=== PATIENT | female | born 1950 | race Caucasian/White ===

== ENCOUNTER → 2017-03-31 | Outpatient (CLI) | payer MEDICARE ==
[~2017-03-31] MED LIST: CALC1TAB97 PO; CARB1TAB19 PO; DXCC100CRX; FNST5T; GABA-486 PO; HCT25T; HYDR-3729 PO; IBUP-1773 PO; MIRAPEX; MU-V1TAB28 PO; NF-ROP5T PO; OSTEO BIFLEX; PRAM1.5T3 PO; REQUIP; VLS80C
--- NOTE | 2017-03-31 12:08 | Diagnostic Imaging Report ---
INDICATION: Leg swelling. EXAMINATION: Venous Doppler of the lower extremities. TECHNIQUE: Duplex ultrasound of the venous systems of the lower extremities was done with grayscale, spectral waveform, and color Doppler flow analysis. FINDINGS: The veins are compressible and have normal spontaneous and augmented flow. IMPRESSION: Negative venous Doppler of the lower extremities. Dictated by: Dictated on workstation # [id number]
== END ==
LOC: RAD 10:52
PROVIDERS: ATTEND Family Medicine
DX: M79.89 Other specified soft tissue disorders (principal)
CPT/HCPCS: 93970

== ENCOUNTER → 2017-04-13 | Outpatient (CLI) | payer MEDICARE | LOC: CARD 12:25 | PROVIDERS: ATTEND Family Medicine | DX: R06.02 Shortness of breath (principal) | CPT/HCPCS: 93306 ==

== ENCOUNTER 2017-04-22 15:12 | Emergency (ER) | payer MEDICARE ==
[~2017-04-22] VITALS: Ht 167.6 cm; Wt 110.7 kg
--- OUTSIDE RECORDS SUMMARY | 2017-04-22 15:17 | XMS REPORT | Clinical Summary ---
Author Author [facility] Organization [facility] Address Unknown Phone Unavailable Care Team Providers Care Service Assistant Name Role Phone Latosha Arroyo MD Unavailable Driss Dominguez MD Unavailable Source Comments Some departments are not documenting in the electronic medical record. If you do not see the information that you expected, contact Release of Information in the Health Information Management department at [phone] for further assistance in locating additional records.[facility] Allergies Active Allergy Reactions Severity Noted Date Comments Sulfa (Sulfonamide RASH 12/01/2011 Antibiotics) Current Medications Prescription Sig. Disp. Refills Start End Date Status Date rOPINIRole (REQUIP) 5 mg Take 5 mg by mouth at Active tablet bedtime daily. CARBIDOPA/LEVODOPA Take 100 mg by mouth. Active (SINEMET PO) pramipexole (MIRAPEX) 1.5 Take by mouth at bedtime Active mg tablet daily. CALCIUM CARBONATE/VITAMIN Take by mouth. Active D3 (CALTRATE 600 + D PO) MV,CA,MIN/FA/HERBAL Take by mouth. Active NO.157 (ESTROVEN MAXIMUM STRENGTH PO) Active Problems Problem Noted Date Renal cyst 01/08/2012 Overview: 0.9x1.4cm low density left renal cyst on CT from 05/07/11. MRI with more suggestive of fat-containing lesion. Lower back pain 01/08/2012 Overview: Low back pain x10 months (L>R) Hematuria 01/08/2012 Overview: Intermittent gross hematuria x10 months. Underwent cystoscopy with bilateral retrograde pyelograms on 06/10/[address] Abdullahi without evidence of abnormalities per report. CT with left renal cyst (non-enhancing) and internal calcification on follow-up ultrasound. Social History Tobacco Use Types Packs/Day Years Used Date Current Every Day Smoker Cigarettes 0.5 30 Smokeless Tobacco: Never Used Alcohol Use Drinks/Week oz/Week Comments No Sex Assigned at Date Recorded Not on file Last Filed Vital Signs Vital Sign Reading Time Taken Blood Pressure 166/87 01/08/2012 1:01 PM CDT Pulse 87 01/08/2012 1:01 PM CDT Temperature - - Respiratory Rate 20 01/08/2012 1:01 PM CDT Oxygen Saturation - - Inhaled Oxygen - - Concentration Weight 91.4 kg (201 lb 9.6 oz) 01/08/2012 1:01 PM CDT Height 167.6 cm (5' 6") 01/08/2012 1:01 PM CDT Body Mass Index 32.54 01/08/2012 1:01 PM CDT Plan of Treatment Health Maintenance Due Date Last Done Comments HEPATITIS C SCREENING 1950 PHYSICAL (COMPREHENSIVE) 1957 EXAM PERTUSSIS VACCINE 1961 TETANUS VACCINE 06/11/1967 BREAST CANCER SCREENING 1990 COLORECTAL CANCER 2000 SCREENING SHINGLES VACCINE 2010 OSTEOPOROSIS SCREENING 06/11/2015 PREVNAR/PNEUMOVAX (#1) 06/11/2015 INFLUENZA VACCINE 10/21/2016 Results Not on filefrom Last 3 Months
--- OUTSIDE RECORDS SUMMARY | 2017-04-22 15:17 | XMS REPORT | Continuity of Care Document ---
Author Author [facility] Organization [facility] Address Unknown Phone Unavailable Allergies Active Description Code Type Severity Reaction Onset Reported/Identified Relationship to Patient Clinical Status Yes Sulfa (Sulfonamide Antibiotics) [id number] Drug Allergy Unknown N/A 2007 Medications There is no data. Problems Date Dx Coded Attending Type Code Diagnosis Diagnosed By 08/01/2015 Ot 592.0 CALCULUS OF KIDNEY 08/01/2015 Ot 599.0 URIN TRACT INFECTION NOS 08/01/2015 Ot 599.0 URIN TRACT INFECTION NOS 08/01/2015 Ot 599.70 HEMATURIA, UNSPECIFIED 08/01/2015 Ot 599.70 HEMATURIA, UNSPECIFIED 08/01/2015 Ot 592.0 CALCULUS OF KIDNEY 08/01/2015 Ot 574.20 CHOLELITHIASIS NOS 08/01/2015 Ot 593.9 RENAL URETERAL DIS NOS 08/01/2015 Ot 599.70 HEMATURIA, UNSPECIFIED 08/01/2015 KENNEDI GORDON DO Ot N39.3 STRESS INCONTINENCE (FEMALE) (MALE) 08/01/2015 HEIDI LOVE KENNEDI C Ot N81.6 RECTOCELE 08/01/2015 GABRIEL GORDON DOA Joelle Ot Z01.812 ENCOUNTER FOR PREPROCEDURAL LABORATORY E 08/01/2015 KENNEDI GORDON DO Ot Z11.2 ENCOUNTER FOR SCREENING FOR OTHER BACTER 08/08/2015 GABRIEL GORDON DOA C Ot L81.4 OTHER MELANIN HYPERPIGMENTATION 08/08/2015 GORDON DO KENNEDI C Ot 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 Results There is no data. Encounters ACCT No. Visit Date/Time Discharge Status Pt. Type Provider Facility Loc./Unit Complaint [id number] 04/13/2017 12:25:00 04/13/2017 23:59:59 CLS Outpatient DOMINIC OCAMPO MD [facility] CARD R06.02 SHORTNESS OF BREATH [id number] 03/31/2017 10:52:00 03/31/2017 23:59:59 CLS Outpatient DOMINIC OCAMPO MD [facility] RAD M79.89 SWELLING OF LOWER EXTREMITY [id number] 12/15/2016 15:23:00 12/15/2016 23:59:59 CLS Preadmit DOMINIC RONDON MD [facility] RAD SCREENING [id number] 08/07/2015 09:45:00 08/08/2015 12:25:00 DIS Outpatient KENNEDI GORDON DO [facility] SDC RECTOCELE [id number] 08/01/2015 11:44:00 08/01/2015 12:28:00 DIS Outpatient KENNEDI GORDON DO [facility] PREOP RECTOCELE [id number] 05/20/2011 10:42:00 Document Registration [id number] 05/07/2011 13:02:00 Document Registration [id number] 05/05/2011 13:50:00 Document Registration [id number] 04/07/2011 06:40:00 Document Registration [id number] 04/03/2011 09:02:00 Document Registration
[2017-04-22] MEDS ORDERED: NITROGLYCERIN 2% OINT 1 GM UNIT DOSE PACKET TOP STA (16:39)
[2017-04-22] MEDS ORDERED: FURO20TA4 (16:50)
[2017-04-22 16:51] VITALS: BP 189/83
[2017-04-22 17:02] LABS: BASOPHILS # (AUTO) 0.1 10^3/uL (0.0-0.1); BASOPHILS % (AUTO) 1 % (0-10); EOSINOPHILS # (AUTO) 0.1 10^3/uL (0.0-0.3); EOSINOPHILS % (AUTO) 1 % (0-10); HEMATOCRIT 42 % (35-52); HEMOGLOBIN 13.8 G/DL (11.5-16.0); LYMPHOCYTES # (AUTO) 2.6 X 10^3 (1.0-4.0); LYMPHOCYTES % (AUTO) 25 % (12-44); MEAN CORPUSCULAR HEMOGLOBIN 30 PG (25-34); MEAN CORPUSCULAR HGB CONC 33 G/DL (32-36); MEAN CORPUSCULAR VOLUME 92 FL (80-99); MEAN PLATELET VOLUME 9.7 FL (7.4-10.4); MONOCYTES # (AUTO) 0.8 X 10^3 (0.0-1.0); MONOCYTES % (AUTO) 8 % (0-12); NEUTROPHILS # (AUTO) 6.8 X 10^3 (1.8-7.8); NEUTROPHILS % (AUTO) 66 % (42-75); PLATELET COUNT 227 10^3/uL (130-400); RED BLOOD COUNT 4.55 10^6/uL (4.35-5.85); RED CELL DISTRIBUTION WIDTH 13.8 % (10.0-14.5); WHITE BLOOD COUNT 10.3 10^3/uL (4.3-11.0)
--- NOTE | 2017-04-22 17:03 | ED Cardiac General ---
History of Present Illness General Chief Complaint: Cardiac/General Problems Stated Complaint: ELEVATED BP Nursing Triage Note: Pt here from [facility] for BP 196/96 at clinic. Pt was seen at clinic today for bilat extremity swelling that continues to get worse. Pt reports she has been having worsening SOA w/ activity over last couple months and increased swelling in legs. Pt had echo approx 1 week ago and reports results from echo were "normal". Source: patient Exam Limitations: no limitations History of Present Illness Date Seen by Provider: Apr 22, 2017 Time Seen by Provider: 16:31 Initial Comments Here with report of increasing shortness of air over the last week but over the last month has been noted. Had an echocardiogram last week that was reportedly normal. Does have dependent edema and states that is worse. Seen by her primary care doctor for this but has worsened since. Denies chest pain but does have dyspnea on exertion. Denies breathing problems at rest. Quit smoking 4 weeks ago. Timing/Duration: 1 week, getting worse, intermittent Severity: moderate Location: central Activities at Onset: none Prior CP/Workup: echocardiography NTG SL DASHBOARD DEVELOPER: No ASA po DASHBOARD DEVELOPER: No Associated Systoms: No Chest Pain, No Diaphoresis, No Fever/Chills, No Nausea/ Vomiting, Shortness of Air, No Weakness Allergies and Home Medications Allergies Coded Allergies: Sulfa (Sulfonamides) (Verified Allergy, Unknown, 04/19/07) Home Medications Calcium Citrate/Vitamin D3 1 Each Tablet, 1 EACH PO DAILY PRN, (Reported) Carbidopa/Levodopa 1 Each Tablet, 1 EACH PO BID, (Reported) Furosemide 20 Mg Tablet, (Reported) Gabapentin 100 Mg Capsule, 200 MG PO TID, (Reported) TAKE 2 (100MG) TABS Hydrocodone/Acetaminophen 1 Each Tablet, 1 EACH PO Q6H, #10 Prescribed by: KENNEDI GORDON on 08/07/151745 Ibuprofen 600 Mg Tablet, 600 MG PO Q6H, #60 Prescribed by: KENNEDI GORDON on 08/07/151745 Multivit-Min/FA/Lycopene/Lut 1 Each Tablet, 1 EACH PO DAILY, (Reported) Pramipexole Di-HCl 1.5 Mg Tablet, 1.5 MG PO HS, (Reported) Ropinirole HCl 5 Mg Tab, 5 MG PO HS, (Reported) Review of Systems Constitutional: see HPI, No chills, No fever EENTM: No Symptoms Reported Respiratory: See HPI, Denies Cough, SOA With Exertion Cardiovascular: Denies Chest Pain, Edema, Irregular Heart Rate, Denies Lightheadedness Gastrointestinal: Denies Abdominal Pain, Denies Diarrhea, Denies Nausea, Denies Vomiting Genitourinary: No Symptoms Reported Musculoskeletal: no symptoms reported All Other Systems Reviewed Negative Unless Noted: Yes Past [id number]-Azxckb-Ipttvw Hx Patient Social History Alcohol Use: Denies Use Recreational Drug Use: No Smoking Status: Former Smoker Recent Foreign Travel: No Contact w/Someone Who Travel: No Recent Infectious Disease Expo: No Recent Hopitalizations: Yes Surgeries History of Surgeries: Yes (cysto, bladder sling) Respiratory History of Respiratory Disorde: No Cardiovascular History of Cardiac Disorders: No Neurological History of Neurological Disord: No Reproductive System Hx Reproductive Disorders: No Genitourinary Genitourinary Disorders: Kidney Stones Gastrointestinal History of Gastrointestinal Di: No Musculoskeletal History of Musculoskeletal Dis: Yes (RESTLESS LEG SYNDROME) Endocrine History of Endocrine Disorders: No Cancer History of Cancer: No Psychosocial History of Psychiatric Problem: No Integumentary History of Skin or Integumenta: No Skin/Integumentary Disorders: Eczema Blood Transfusions History of Blood Disorders: No Reviewed Nursing Assessment Reviewed/Agree w Nursing PMH: Yes Family Medical History Family Medial History: AIDS G8 BROTHER Arthritis G8 BROTHER Cardiovascular disease G8 BROTHER Diabetes mellitus 19 MOTHER FH: non-Hodgkin's lymphoma G8 BROTHER Prostate cancer 19 FATHER Respiratory disorder G8 BROTHER Physical Exam Vital Signs Vital Sign - Last 12Hours 04/22/17 16:24 Temp 97.8 Pulse 77 Resp 18 B/P (MAP) 221/116 (151) Pulse Ox 94 O2 Delivery Room Air Capillary Refill : Less Than 3 Seconds General Appearance: No Apparent Distress, WD/WN HEENT: PERRL/EOMI, Pharynx Normal Neck: Non Tender, Supple Respiratory: Lungs Clear, Normal Breath Sounds Cardiovascular: Regular Rate, Rhythm, No Murmur Gastrointestinal: Non Tender, Soft Extremity: Normal Range of Motion, Non Tender, Pedal Edema (2+ edema to the level of the knees bilaterally) Neurologic/Psychiatric: Alert, Oriented x3 Skin: Normal Color, Warm/Dry Progress/Results/Core Measures Results/Orders Lab Results Laboratory Tests Test 04/22/17 16:47 Range/Units White Blood Count 10.3 4.3-11.0 10^3/uL Red Blood Count 4.55 4.35-5.85 10^6/uL Hemoglobin 13.8 11.5-16.0 G/DL Hematocrit 42 35-52 % Mean Corpuscular Volume 92 80-99 FL Mean Corpuscular Hemoglobin 30 25-34 PG Mean Corpuscular Hemoglobin Concent 33 32-36 G/DL Red Cell Distribution Width 13.8 10.0-14.5 % Platelet Count 227 130-400 10^3/uL Mean Platelet Volume 9.7 7.4-10.4 FL Neutrophils (%) (Auto) 66 42-75 % Lymphocytes (%) (Auto) 25 12-44 % Monocytes (%) (Auto) 8 0-12 % Eosinophils (%) (Auto) 1 0-10 % Basophils (%) (Auto) 1 0-10 % Neutrophils # (Auto) 6.8 1.8-7.8 X 10^3 Lymphocytes # (Auto) 2.6 1.0-4.0 X 10^3 Monocytes # (Auto) 0.8 0.0-1.0 X 10^3 Eosinophils # (Auto) 0.1 0.0-0.3 10^3/uL Basophils # (Auto) 0.1 0.0-0.1 10^3/uL Prothrombin Time 12.5 12.2-14.7 SEC INR Comment 0.9 0.8-1.4 Activated Partial Thromboplast Time 26 24-35 SEC D-Dimer 0.31 0.00-0.49 UG/ML Sodium Level 141 135-145 MMOL/L Potassium Level 3.9 3.6-5.0 MMOL/L Chloride Level 103 98-107 MMOL/L Carbon Dioxide Level 27 21-32 MMOL/L Anion Gap 11 5-14 MMOL/L Blood Urea Nitrogen 20 H 7-18 MG/DL Creatinine 0.87 0.60-1.30 MG/DL Estimat Glomerular Filtration Rate > 60 BUN/Creatinine Ratio 23 Glucose Level 105 70-105 MG/DL Calcium Level 8.9 8.5-10.1 MG/DL Magnesium Level 2.2 1.8-2.4 MG/DL Total Bilirubin 0.3 0.1-1.0 MG/DL Aspartate Amino Transf (AST/SGOT) 17 5-34 U/L Alanine Aminotransferase (ALT/SGPT) 22 0-55 U/L Alkaline Phosphatase 87 40-136 U/L Myoglobin 34.7 10.0-92.0 NG/ML Troponin I < 0.30 <0.30 NG/ML B-Type Natriuretic Peptide 48.4 <100.0 PG/ML Total Protein 7.7 6.4-8.2 GM/DL Albumin 3.9 3.2-4.5 GM/DL My Orders Orders - YOLI PETERSEN MD Cbc With Automated Diff (04/22/17 16:39) Magnesium (04/22/17 16:39) Chest 1 View, Ap/Pa Only (04/22/17 16:39) Ekg Tracing (04/22/17 16:39) Cardiac Profile 1 (04/22/17 16:39) Comprehensive Metabolic Panel (04/22/17 16:39) Myoglobin Serum (04/22/17 16:39) Protime With Inr (04/22/17 16:39) Partial Thromboplastin Time (04/22/17 16:39) O2 (04/22/17 16:39) Monitor-Rhythm Ecg Trace Only (04/22/17 16:39) Lipid Panel (04/23/17 06:00) Saline Lock/Iv-Start (04/22/17 16:39) BNP (04/22/17 16:39) Nitroglycerin Ointment (Nitrobid Ointme (04/22/17 16:39) Albuterol/Ipra Inhalation Soln (Duoneb I (04/22/17 17:30) Svn Sm Volume Nebulizer Rt-Rfs (04/22/17 17:28) Prednisone Tablet (Deltasone Tablet) (04/22/17 17:30) Metoprolol Succinate (Xl) Tab (Toprol Xl (04/22/17 17:45) Fibrin Degradation Products (04/22/17 17:37) Rx-Albuterol Inhaler (Rx-Proair) (04/22/17 19:00) Medications Given in ED Current Medications Medications Dose Ordered Sig/Clifton Route Start Time Stop Time Status Last Admin Dose Admin Albuterol/ Ipratropium 3 ml ONCE ONCE INH 04/22/17 17:30 04/22/17 17:31 DC 04/22/17 17:54 3 ML Prednisone 40 mg ONCE ONCE PO 04/22/17 17:30 04/22/17 17:31 DC 04/22/17 17:43 40 MG Vital Signs/I&O Vital Sign - Last 12Hours 04/22/17 04/22/17 04/22/17 16:24 16:51 17:54 Temp 97.8 Pulse 77 80 Resp 18 18 B/P (MAP) 221/116 (151) 189/83 (118) Pulse Ox 94 98 O2 Delivery Room Air Room Air Room Air Blood Pressure Mean: 118 Progress Note : Progress Note Seen and evaluated. IV, labs, EKG and chest x-ray ordered. Nitroglycerin 1 inch paste to the anterior chest wall ordered. Monitor patient. 1734: Labs, chest x-ray and EKG are all actually and good normal range. I did note the patient had an episode of paroxysmal atrial fibrillation and the rate of 130s to 150s that return to sinus on the monitor. This happened a few times but we are unable to get this on EKG. I did discuss the case with Dr. Woods. We will initiate Toprol-XL 50 mg by mouth now for the blood pressure and for the paroxysmal heart rhythm and tachycardia and we will check d-dimer to evaluate for blood clots. Monitor patient. 1900: Heart rate in the 70s and sustained with blood pressure 166/89. D-dimer is negative. Dr Woods will see the patient in follow-up as outpatient and is requesting patient call the morning for appointment within the next 3 days and the patient is very happy with that. Overall no indications for admission and stable for discharge. Discharged home with return precautions. Patient verbalize understanding instructions and agreement with plan. ECG Initial ECG Impression Date: Apr 22, 2017 Initial ECG Impression Time: 16:58 Initial ECG Rate: 84 Initial ECG Rhythm: Normal Sinus Initial ECG Comparisson: No Previous ECG Available Comment Sinus rhythm with PVC noted. Normal axis. No evidence of ST elevation NE. No previous available for comparison. Interpreted by me. Diagnostic Imaging Diagonstic Imaging: Xray Plain Films/CT/US/NM/MRI: chest Comments NAME: [facility] REC#: [id number] PT STATUS: REG ER : 1950 PHYSICIAN: YOLI PETERSEN MD ADMIT DATE: 04/22/17/ER Signed Date of Exam: 04/22/17 CHEST 1 VIEW, AP/PA ONLY INDICATION: Chest pain. EXAMINATION: Portable chest at 4:54 p.m. FINDINGS: Heart size and pulmonary vascularity are normal. Lungs are clear. There are no effusions or pneumothoraces. IMPRESSION: Negative chest. Dictated by: Dictated on workstation # [id number] Dict: 04/22/17 1700 Trans: 04/22/171710 Interpreted by: YOLI DURHAM MD Electronically signed by: YOLI DURHAM MD 04/22/171710 Reviewed: Reviewed by Me Departure Impression Impression: Primary Impression: Supraventricular tachycardia, paroxysmal Additional Impressions: Pedal edema Dyspnea Qualified Codes: R06.09 - Other forms of dyspnea Disposition: HOME, SELF-CARE Condition: Improved Departure-Patient Inst. Decision time for Depature: 19:09 Referrals: DOMINIC OCAMPO MD (PCP/Family) Primary Care Physician Galdino WOODS MD Patient Instructions: Acute Bronchitis, Adult (DC), Dependent Edema (DC), Paroxysmal Supraventricular Tachycardia (DC) Add. Discharge Instructions: All discharge instructions reviewed with patient and/or family. Voiced understanding. Take medications as directed. Follow-up with your DrAmauri in a few days for recheck. Call Dr. Woods's office in the morning for appointment. Let them know that he is requesting that you're seen in the next 3 days so that they will itching an appointment in that timeframe. Use inhaler 2 puffs every 4 hours as needed for shortness of breath. Return for worse pain, fever, vomiting , weakness, breathing problems or other concerns as needed. Copy Copies To 1: DOMINIC OCAMPO MD Copies To 2: Galdino WOODS MD, TIMOTHY D MD Apr 22, 2017 17:03
[2017-04-22 17:11] LABS: INR 0.9 (0.8-1.4); PROTHROMBIN TIME PATIENT 12.5 SEC (12.2-14.7)
[2017-04-22 17:15] LABS: ALANINE AMINOTRANSFERASE 22 U/L (0-55); ALBUMIN 3.9 GM/DL (3.2-4.5); ALKALINE PHOSPHATASE 87 U/L (40-136); BILIRUBIN,TOTAL 0.3 MG/DL (0.1-1.0); BUN/CREATININE RATIO 23; CALCIUM 8.9 MG/DL (8.5-10.1); CARBON DIOXIDE 27 MMOL/L (21-32); CHLORIDE 103 MMOL/L (98-107); CREATININE SERUM 0.87 MG/DL (0.60-1.30); GFR ESTIMATED > 60; GLUCOSE 105 MG/DL (70-105); MAGNESIUM 2.2 MG/DL (1.8-2.4); POTASSIUM 3.9 MMOL/L (3.6-5.0); SODIUM 141 MMOL/L (135-145); TOTAL PROTEIN 7.7 GM/DL (6.4-8.2)
[2017-04-22 17:21] LABS: MYOGLOBIN SERUM 34.7 NG/ML (10.0-92.0)
[2017-04-22] MEDS ORDERED: predniSONE 20 MG TAB PO ONE (17:30)
[2017-04-22] MEDS ORDERED: RT-ALBUTEROL/IPRATROPIUM 3 ML (DUONEB) VIAL INH ONE (17:30)
[2017-04-22] MEDS: meTOproloL SUCCINATE 50 MG (TOPROL XL) TAB PO SCH ×2 (17:43→19:20)
[2017-04-22] MEDS ORDERED: RX-ALBUTEROL INHALER (PROAIR) 8 GM IH PRN (19:00)
[2017-04-22] MEDS ORDERED: PRD20T PO (19:17)
[2017-04-22] MEDS ORDERED: METO50TA15 PO (19:17)
[2017-04-22 19:26] VITALS: BP 166/89
== END 2017-04-22 19:24 | disposition home or self-care (01) ==
LOC: EDUNIT# 15:12 → ER 15:13
DX: I47.1 Supraventricular tachycardia (principal); R60.0 Localized edema; G25.81 Restless legs syndrome; Z87.442 Personal history of urinary calculi; Z87.891 Personal history of nicotine dependence; Z88.2 Allergy status to sulfonamides
CPT/HCPCS: 36415; 71045; 80053; 83735; 83874; 83880; 84484; 85025; 85379; 85610; 85730; 93005; 93041; 94640

== ENCOUNTER → 2017-05-08 | Outpatient (CLI) | payer MEDICARE ==
[~2017-05-08] MED LIST changes: +FURO20TA4; +METO50TA15 PO; +PRD20T PO; +RT-ALBUTEROL SULF 2.5 MG/3 ML PRE-MIX VIAL INH ONE
== END ==
LOC: RT 09:28
PROVIDERS: ATTEND Internal Medicine Interventional Cardiology
DX: I10 Essential (primary) hypertension (principal); E66.9 Obesity, unspecified; R06.02 Shortness of breath; I51.9 Heart disease, unspecified; Z72.0 Tobacco use
CPT/HCPCS: 94060; 94726; 94729

== ENCOUNTER → 2017-06-25 | Outpatient (CLI) | payer MEDICARE ==
[~2017-06-25] VITALS: Ht 167.6 cm; Wt 110.2 kg
[~2017-06-25] MED LIST changes: +CATHETER FLUSH 10 ML SYR IV PRN; +REGADENOSON 0.4 MG/5 ML SYR (LEXISCAN) IV ONE; -RT-ALBUTEROL SULF 2.5 MG/3 ML PRE-MIX VIAL INH ONE
[2017-06-25 08:59] VITALS: BP 165/73
[2017-06-25 09:21] VITALS: BP 195/102
[2017-06-25 11:22] VITALS: BP 165/73
--- NOTE | 2017-06-25 11:22 | Cardiology Stress Test Report ---
Stress Test Report Type of NM Stress Test: Test Type: LEXISCAN 0.4MG/5ML Date of Procedure/Referring: Date of Procedure: Jun 25, 2017 PCP Galdino Woods MD Admitting Physician Susan Moscoso MD Indications: Shortness of breath Baseline Heart Rate: 67 Baseline Blood Pressure: Blood Pressure Systolic: 165 Blood Pressure Diastolic: 73 Baseline EKG: Baseline EKG: sinus rhythm Summary: The patient was brought to the stress lab of informed consent was taken. Lexiscan stress test was performed according to the protocol. 0.4 mg of IV Lexiscan was given. Low-grade exercise was performed. Baseline EKG showed sinus rhythm at 67 bpm and blood pressure 165/73 mmHg. Maximum heart rate 90 bpm and blood pressure 195/102 mmHg. Patient did not complain of any chest pain , EKG changes or arrhythmias during the stress test. 10.94 mCi of Myoview was given for rest imaging and 30.8 mCi of Myoview were given for stress imaging. Transient ischemic dilatation score 1.1. Ejection fraction 70 percent with no wall motion abnormalities. Normal perfusion during stress and rest. Conclusion: Nuclear stress test was negative for ischemia. Normal LV function with no wall motion abnormalities. Uncontrolled blood pressure. Normal myocardial perfusion imaging during stress and rest. Galdino WOODS MD Jun 25, 2017 11:22 am
== END ==
LOC: CARD 07:52
PROVIDERS: ATTEND Internal Medicine Interventional Cardiology
DX: I11.0 Hypertensive heart disease with heart failure (principal); R06.02 Shortness of breath; E66.9 Obesity, unspecified; I51.9 Heart disease, unspecified; Z72.0 Tobacco use
CPT/HCPCS: 78452; 93017

== ENCOUNTER → 2018-11-09 | Outpatient (CLI) | payer MEDICARE ==
[~2018-11-09] MED LIST changes: -CATHETER FLUSH 10 ML SYR IV PRN; -REGADENOSON 0.4 MG/5 ML SYR (LEXISCAN) IV ONE
--- NOTE | 2018-11-09 19:03 | Diagnostic Imaging Report ---
INDICATION: 53 pack year smoker. Cessation 1-1/2 years ago. This is a low-dose baseline CT screening. TECHNIQUE: Protocol low dose CT screening chest performed noncontrasted with multiplanar reconstructions. FINDINGS: No dominant or suspicious lung mass. No chest effusion or pneumothorax. No acute infiltrate. Some benign calcified jesusita granulomatous residua with no suspicious lymph nodes. The aorta is nonaneurysmal. The upper abdomen, where visualized, is nonacute. IMPRESSION: Lung Rads category 1. No suspicious finding. There is some heterogeneous air trapping most pronounced in the apices, likely mild or subtle CT changes of COPD. Low dose CT screening followup in one years time recommended Dictated by: Dictated on workstation # [id number]
== END ==
LOC: RAD 11:32
PROVIDERS: ATTEND Internal Medicine Critical Care Medicine
DX: J44.9 Chronic obstructive pulmonary disease, unspecified (principal); Z87.891 Personal history of nicotine dependence

== ENCOUNTER 2018-11-24 12:38 | Outpatient (RCR) | payer MEDICARE ==
[2018-12-20] MEDS ORDERED: IPRA3AMP31 NEB (07:36)
[2018-12-20] MEDS ORDERED: ASPI-983 PO (07:36)
[2018-12-20] MEDS ORDERED: IBUP-2055 PO (07:44)
[2018-12-20] MEDS ORDERED: DIPH25CA79 PO (07:44)
[2018-12-20] MEDS ORDERED: BISA-65 PO (07:45)
[2018-12-20] MEDS ORDERED: LOPE-145 PO (07:45)
[2018-12-20] MEDS ORDERED: NYST15PO4 TD (08:22)
[2018-12-20] MEDS ORDERED: FLUC100T6 PO (08:22)
[2018-12-29] MEDS ORDERED: LORA2ORA PO (10:25)
[2018-12-29] MEDS ORDERED: MORP20SO PO (10:25)
== END 2018-12-30 | disposition home or self-care (01) ==
LOC: PULM 12:38
PROVIDERS: ATTEND Internal Medicine Critical Care Medicine
DX: J44.9 Chronic obstructive pulmonary disease, unspecified (principal)
CPT/HCPCS: 99211

== ENCOUNTER 2018-12-17 16:30 | Inpatient (IN) | payer MEDICARE ==
[~2018-12-17] VITALS: Ht 163 cm; Wt 129.0 kg
[2018-12-17] VITALS (8 sets, daily range): BP systolic 82–121; BP diastolic 43–77
[2018-12-17] MEDS ORDERED: DILTIAZEM 25 MG/5 ML INJ (CARDIZEM) VIAL ONE (16:41)
[2018-12-17] MEDS ORDERED: DILTIAZEM 25 MG/5 ML INJ (CARDIZEM) VIAL IVP ONE ×2 (16:45→17:45)
[2018-12-17] MEDS: NS IV 1000 ML 1,000 ML IV SCH ×2 (16:47→22:43)
--- NOTE | 2018-12-17 16:48 | ED Cardiac General ---
History of Present Illness General Stated Complaint: PASSING OUT, TROUBLE WALKING Source: patient, family Exam Limitations: no limitations (MAGAN QUIROZ MD) History of Present Illness Date Seen by Provider: Dec 17, 2018 Time Seen by Provider: 16:44 Initial Comments This 68-year-old white female presents with a history of recurrent falls due to generalized weakness. Patient has a history of COPD and peripheral edema. Patient has been poorly compliant on her medications and medical modalities including CPAP. Patient's family deny a previous myocardial infarction. There is been no associated productive cough or chest pain. Today the patient slid to the floor and was unable to get off the floor for the next 4 hours. There was no significant injury and the patient's event. (MAGAN QUIROZ MD) Allergies and Home Medications Allergies Coded Allergies: Sulfa (Sulfonamide Antibiotics) (Verified Allergy, Unknown, 04/19/07) Home Medications Calcium Citrate/Vitamin D3 1 Each Tablet, 1 EACH PO DAILY PRN, (Reported) Carbidopa/Levodopa 1 Each Tablet, 1 EACH PO BID, (Reported) Gabapentin 100 Mg Capsule, 200 MG PO TID, (Reported) TAKE 2 (100MG) TABS Hydrocodone/Acetaminophen 1 Each Tablet, 1 EACH PO Q6H Prescribed by: KENNEDI GORDON on 08/07/151745 Ibuprofen 600 Mg Tablet, 600 MG PO Q6H Prescribed by: KENNEDI GORDON on 08/07/151745 Metoprolol Tartrate 50 Mg Tablet, 50 MG PO BID Prescribed by: YOLI PETERSEN on 04/22/171916 Multivit-Min/FA/Lycopene/Lut 1 Each Tablet, 1 EACH PO DAILY, (Reported) Pramipexole Di-HCl 1.5 Mg Tablet, 1.5 MG PO HS, (Reported) Prednisone 20 Mg Tab, 40 MG PO DAILY Prescribed by: YOLI PETERSEN on 04/22/171916 Ropinirole HCl 5 Mg Tab, 5 MG PO HS, (Reported) Patient Home Medication List Home Medication List Reviewed: Yes (MAGAN QUIROZ MD) Review of Systems Review of Systems Constitutional: No chills, No fever; weakness EENTM: No Blurred Vision Respiratory: Denies Cough; Shortness of Air Cardiovascular: Denies Chest Pain, Denies Syncope Gastrointestinal: Denies Abdominal Pain, Denies Diarrhea, Denies Nausea, Denies Vomiting Genitourinary: Denies Burning, Denies Frequency Musculoskeletal: No back pain Skin: No rash Psychiatric/Neurological: No Symptoms Reported Endocrine: No Symptoms Reported Hematologic/Lymphatic: No Symptoms Reported (MAGAN QUIROZ MD) Past Andnkzw-Dfuwbt-Iilxrq Hx Past Med/Social Hx: Reviewed Nursing Past Med/Soc Hx (MAGAN QUIROZ MD) Patient Social History Recent Foreign Travel: No Contact w/Someone Who Travel: No Recent Hopitalizations: Yes (MAGAN QUIROZ MD) Past Medical History Surgeries: Yes (cysto, bladder sling) Respiratory: No Cardiac: No Neurological: No Reproductive Disorders: No Kidney Stones Gastrointestinal: No Musculoskeletal: Yes (RESTLESS LEG SYNDROME) Endocrine: No Cancer: No Psychosocial: No Integumentary: No Eczema Blood Disorders: No (MAGAN QUIROZ MD) Family Medical History AIDS G8 BROTHER Arthritis G8 BROTHER Cardiovascular disease G8 BROTHER Diabetes mellitus 19 MOTHER FH: non-Hodgkin's lymphoma G8 BROTHER Prostate cancer 19 FATHER Respiratory disorder G8 BROTHER Physical Exam Vital Signs Vital Signs - First Documented 12/17/18 16:30 Temp 37.8 Pulse 175 Resp 18 B/P (MAP) 101/78 (86) Pulse Ox 88 O2 Delivery Nasal Cannula O2 Flow Rate 2.00 (HUSSEIN CORTEZ APRN) Vital Signs Capillary Refill : (MAGAN QUIROZ MD) Height, Weight, BMI Height: 5'6.00" Weight: 243lbs. 0.0oz. 110.020837nw; 39.2 BMI Method:Stated General Appearance: No Apparent Distress, Obese HEENT: Normal ENT Inspection Neck: Normal Inspection Respiratory: Decreased Breath Sounds Cardiovascular: Tachycardia Gastrointestinal: Normal Bowel Sounds, Non Tender, Soft Extremity: Normal Capillary Refill, Normal Inspection, Normal Range of Motion Neurologic/Psychiatric: Alert, Oriented x3, No Motor/Sensory Deficits Skin: Normal Color, Warm/Dry (MAGAN QUIROZ MD) Focused Exam Lactate Level 12/17/18 16:55: Lactic Acid Level 2.77*H 12/17/18 18:45: Lactic Acid Level 1.75 (HUSSEIN CORTEZ APRN) Lactic Acid Level Laboratory Tests Test 12/17/18 16:55 12/17/18 18:45 Lactic Acid Level 2.77 MMOL/L (0.50-2.00) *H 1.75 MMOL/L (0.50-2.00) (HUSSENI CORTEZ APRN) Procedures/Interventions Lumen: triple Position: internal jugular (R) Anesthesia: Lidocaine Volume Anesthetic (ccs): 5 Complications: none Post Position: sutured, good blood return, position confirmed w/ CXR (HUSSEIN CORTEZ APRN) Progress/Results/Core Measures Results/Orders Lab Results Laboratory Tests Test 12/17/18 16:40 12/17/18 16:55 12/17/18 18:00 12/17/18 18:45 Range/Units White Blood Count 14.1 H 4.3-11.0 10^3/uL Red Blood Count 5.00 4.35-5.85 10^6/uL Hemoglobin 15.0 11.5-16.0 G/DL Hematocrit 47 35-52 % Mean Corpuscular Volume 93 80-99 FL Mean Corpuscular Hemoglobin 30 25-34 PG Mean Corpuscular Hemoglobin Concent 32 32-36 G/DL Red Cell Distribution Width 17.0 H 10.0-14.5 % Platelet Count 335 130-400 10^3/uL Mean Platelet Volume 9.4 7.4-10.4 FL Neutrophils (%) (Auto) 77 H 42-75 % Lymphocytes (%) (Auto) 13 12-44 % Monocytes (%) (Auto) 10 0-12 % Eosinophils (%) (Auto) 0 0-10 % Basophils (%) (Auto) 0 0-10 % Neutrophils # (Auto) 10.8 H 1.8-7.8 X 10^3 Lymphocytes # (Auto) 1.8 1.0-4.0 X 10^3 Monocytes # (Auto) 1.4 H 0.0-1.0 X 10^3 Eosinophils # (Auto) 0.0 0.0-0.3 10^3/uL Basophils # (Auto) 0.0 0.0-0.1 10^3/uL Neutrophils % (Manual) 76 % Lymphocytes % (Manual) 14 % Monocytes % (Manual) 8 % Eosinophils % (Manual) 1 % Band Neutrophils 1 % Clumped Platelets OCCASIONAL Polychromasia SLIGHT Anisocytosis SLIGHT Sodium Level 143 135-145 MMOL/L Potassium Level 3.3 L 3.6-5.0 MMOL/L Chloride Level 103 98-107 MMOL/L Carbon Dioxide Level 26 21-32 MMOL/L Anion Gap 14 5-14 MMOL/L Blood Urea Nitrogen 18 7-18 MG/DL Creatinine 1.03 0.60-1.30 MG/DL Estimat Glomerular Filtration Rate 53 BUN/Creatinine Ratio 17 Glucose Level 192 H 70-105 MG/DL Calcium Level 8.6 8.5-10.1 MG/DL Corrected Calcium 8.9 8.5-10.1 MG/DL Magnesium Level 2.0 1.6-2.4 MG/DL Total Bilirubin 1.2 H 0.1-1.0 MG/DL Aspartate Amino Transf (AST/SGOT) 40 H 5-34 U/L Alanine Aminotransferase (ALT/SGPT) 72 H 0-55 U/L Alkaline Phosphatase 89 40-136 U/L Total Creatine Kinase 220 H 29-168 U/L Myoglobin 295.8 H 10.0-92.0 NG/ML Troponin I < 0.028 <0.028 NG/ML B-Type Natriuretic Peptide 529.3 H <100.0 PG/ML Total Protein 6.4 6.4-8.2 GM/DL Albumin 3.6 3.2-4.5 GM/DL Prothrombin Time 15.0 H 12.2-14.7 SEC INR Comment 1.1 0.8-1.4 Activated Partial Thromboplast Time 26 24-35 SEC D-Dimer 1.52 H 0.00-0.49 UG/ML Lactic Acid Level 2.77 *H 1.75 0.50-2.00 MMOL/L Urine Color YELLOW Urine Clarity CLEAR Urine pH 7 5-9 Urine Specific [place] 1.005 L 1.016-1.022 Urine Protein 1+ H NEGATIVE Urine Glucose (UA) NEGATIVE NEGATIVE Urine Ketones NEGATIVE NEGATIVE Urine Nitrite NEGATIVE NEGATIVE Urine Bilirubin NEGATIVE NEGATIVE Urine Urobilinogen NORMAL NORMAL MG/DL Urine Leukocyte Esterase 3+ H NEGATIVE Urine RBC (Auto) 5+ H NEGATIVE Urine RBC 2-5 H /HPF Urine WBC 25-50 H /HPF Urine Squamous Epithelial Cells 5-10 /HPF Urine Crystals NONE /LPF Urine Bacteria FEW H /HPF Urine Casts NONE /LPF Urine Mucus NEGATIVE /LPF Urine Culture Indicated YES (HUSSEIN CORTEZ APRN) My Orders Orders - HUSSEIN CORTEZ APRN Creatine Kinase (12/17/18 18:49) Chest 1 View, Ap/Pa Only (12/17/18 19:41) (HUSSEIN CORTEZ APRN) Medications Given in ED Current Medications Medications Dose Ordered Sig/[place] Route Start Time Stop Time Status Last Admin Dose Admin Atropine Sulfate 0.4 mg STK-MED ONCE .ROUTE 12/17/18 19:21 12/17/18 19:22 DC 12/17/18 19:23 0.4 MG Ceftriaxone Sodium 2000 mg/ Sterile Water 20 ml @ 240 mls/hr ONCE ONCE IV 12/17/18 17:00 12/17/18 17:04 DC 12/17/18 18:05 240 MLS/HR Diltiazem HCl 10 mg ONCE ONCE IVP 12/17/18 16:45 12/17/18 16:46 DC 12/17/18 16:45 10 MG Diltiazem HCl 10 mg ONCE ONCE IVP 12/17/18 17:45 12/17/18 17:46 DC 12/17/18 17:44 10 MG Metoprolol Tartrate 5 mg ONCE ONCE IV 12/17/18 18:45 12/17/18 18:46 DC 12/17/18 18:43 5 MG (HUSSEIN CORTEZ APRN) Vital Signs/I&O 12/17/18 12/17/18 12/17/18 16:30 16:30 17:00 Temp 37.8 Pulse 175 152 Resp 18 18 B/P (MAP) 101/78 (86) 125/104 Pulse Ox 88 88 O2 Delivery Nasal Cannula Room Air O2 Flow Rate 2.00 2.00 (HUSSEIN CORTEZ APRN) Progress Progress Note : Time: 17:29 Progress Note Patient's initial evaluation demonstrated a leukocytosis but no evidence of a cute infiltrate on chest x-ray. Patient received 2 g Rocephin IV. Patient's d-dimer was elevated. A CT PE study was ordered. Patient's A. fib with RVR was treated with Cardizem bolus and drip. Patient was given a 10 mg bolus and a 10 mg per hour drip. The patient's rate began to moderate while in the emergency department but the patient required an additional 10 mg bolus to significantly improve her rate. Because of the unknown length time patient had A. fib he was given 100 mg of Lovenox subcutaneous. (MAGAN QUIROZ MD) Initial ECG Impression Date: Dec 17, 2018 Initial ECG Impression Time: 16:39 Initial ECG Rate: 162 Initial ECG Rhythm: A Fib/Flutter Initial ECG Intervals: QT (434) Initial ECG Impression: Atrial Fibrillation w/RVR Initial ECG Comparisson: Changed Comment Atrial fibrillation with rapid ventricular response. Apparently normal A. fib. No ST elevation or depression. EKG : EKG Time: 20:42 Rate: 64 Rhythm: Normal Sinus Intervals: QT (446) ECG Comparisson: Changed ECG Impression: Normal, Nonspecific Changes Comment Normal sinus rhythm without ST elevation or depression. (GATO VILLAGOMEZ) Diagnostic Imaging Diagonstic Imaging: CT Plain Films/CT/US/NM/MRI: chest Comments NAME: [facility] REC#: [id number] PT STATUS: REG ER : 1950 PHYSICIAN: MAGAN QUIROZ MD ADMIT DATE: 12/17/18/ER Signed Date of Exam:12/17/18 CT CHEST W PROCEDURE: CT chest w. TECHNIQUE: Multiple contiguous axial images were obtained through the chest with the use of intravenous contrast. All CT scans use one or more of the following dose optimizing techniques: automated exposure control, MA and/or KvP adjustment based on a patient size and exam type, or iterative reconstruction. INDICATION: Atrial fibrillation, altered mental status. COMPARISON: CT chest of 11/09/2018. FINDINGS: Lungs and airway: No endoluminal nodule within the trachea. Severe centrilobular emphysema is unchanged. A small amount of dependent atelectasis is present. No pulmonary fibrosis or features of interstitial pulmonary edema. Stable calcified left upper lobe pulmonary granuloma. Pleura: Trace right pleural effusion. No left pleural effusion. No pneumothorax. Heart and mediastinum: Thyroid is normal. No supravesicular or axillary lymphadenopathy. Unchanged enlarged lower right paratracheal lymph node measuring 1.8 cm. No new or enlarging mediastinal lymph nodes. No hilar lymphadenopathy. Heart is enlarged without pericardial effusion. Normal caliber thoracic aorta without dissection. Upper abdomen: No acute abnormality in the upper abdomen. Musculoskeletal: No concerning focal osseous lesions. IMPRESSION: 1. Trace right pleural effusion. No imaging features of pulmonary edema. 2. Cardiomegaly. 3. Minimal dependent atelectasis. Dictated by: Dictated on workstation # [id number] Dict: 12/17/182026 Trans: 12/17/182051 [facility] [id number] Interpreted by: BILLY PERRY MD Electronically signed by: BILLY PERRY MD 12/17/182051 Reviewed: Reviewed by Me [facility] Imaging: Xray Comments NAME: [facility] REC#: [id number] PT STATUS: REG ER : 1950 PHYSICIAN: MAGAN QUIROZ MD ADMIT DATE: 12/17/18/ER Signed Date of Exam:12/17/18 CT CHEST W PROCEDURE: CT chest w. TECHNIQUE: Multiple contiguous axial images were obtained through the chest with the use of intravenous contrast. All CT scans use one or more of the following dose optimizing techniques: automated exposure control, MA and/or KvP adjustment based on a patient size and exam type, or iterative reconstruction. INDICATION: Atrial fibrillation, altered mental status. COMPARISON: CT chest of 11/09/2018. FINDINGS: Lungs and airway: No endoluminal nodule within the trachea. Severe centrilobular emphysema is unchanged. A small amount of dependent atelectasis is present. No pulmonary fibrosis or features of interstitial pulmonary edema. Stable calcified left upper lobe pulmonary granuloma. Pleura: Trace right pleural effusion. No left pleural effusion. No pneumothorax. Heart and mediastinum: Thyroid is normal. No supravesicular or axillary lymphadenopathy. Unchanged enlarged lower right paratracheal lymph node measuring 1.8 cm. No new or enlarging mediastinal lymph nodes. No hilar lymphadenopathy. Heart is enlarged without pericardial effusion. Normal caliber thoracic aorta without dissection. Upper abdomen: No acute abnormality in the upper abdomen. Musculoskeletal: No concerning focal osseous lesions. IMPRESSION: 1. Trace right pleural effusion. No imaging features of pulmonary edema. 2. Cardiomegaly. 3. Minimal dependent atelectasis. Dictated by: Dictated on workstation # [id number] Dict: 12/17/182026 Trans: 12/17/182051 [facility] [id number] Interpreted by: BILLY PERRY MD Electronically signed by: BILLY PERRY MD 12/17/182051 Reviewed: Reviewed by Me Diagonstic Imaging: Xray Plain Films/CT/US/NM/MRI: chest Comments NAME: [facility] REC#: [id number] PT STATUS: REG ER : 1950 PHYSICIAN: HUSSEIN CORTEZ APRN ADMIT DATE: 12/17/18/ER Signed Date of Exam:12/17/18 CHEST 1 VIEW, AP/PA ONLY EXAMINATION: Chest 1 view, AP/PA only. INDICATION: Central line placement. COMPARISON: 12/17/2018 at 5 p.m. FINDINGS: Right IJ central venous catheter has tip terminating in the mid SVC. No pneumothorax or pleural effusion. Stable borderline cardiomegaly. No airspace consolidations. IMPRESSION: Well-positioned right IJ central venous catheter. No pneumothorax. Dictated by: Dictated on workstation # [id number] Dict: 12/17/181999 Trans: 12/17/182051 [facility] [id number] Interpreted by: BILLY PERRY MD Electronically signed by: BILLY PERRY MD 12/17/182051 Reviewed: Reviewed by Me (GATO VILLAGOMEZ) Critical Care Note Critical Care Start Time: 18:55 Stop Time: 20:15 Total Time (minutes) 80 mins Progress Assumed care of the patient shortly after shift change from Dr. Quiroz. He did recognize she was in atrial fibrillation with rapid ventricular response and given her 20 mg of Cardizem plus had the drip maxed out at 20. We called for metoprolol 5 mg which failed to bring her heart rate down below 140, atrial fib. Her blood pressure was standing right in the 100 to 115 systolic range. Her blood pressure then began to tank down to 90/60 so we ordered 150 g of fentanyl, 5 of Versed and the pacer paddles were already attached to her. Used Ambu bag mask and 100% oxygen to hyper oxygenated her as well as an oropharyngeal airway and delivered a synchronized shock at 120 J which momentarily slowed her heart rate but did not recapture her in sinus rhythm. We then turned up to 200 J delivered a second shock which put her into a sinus rhythm for about 5 or 10 seconds. She received most of her second liter of IV fluids at this point so we had her in Trendelenburg and her oxygen sats got as low as the upper 80s. They were staying at 100% with Ambu bag mask. We delivered a third shock at 200 J and this brought the patient and/or sinus rhythm and the 45-50 range. The patient was already given Lovenox weight-based. We have made phone consultation with Dr. Woods and he agreed with our plan and progression. After the patient was better stabilized central line was placed and then she was allowed to go to the CT scanner with her blood pressure was about 110 systolic and she did well and there. She has a modest elevation of her BMP so we'll hold off giving any more fluids at the moment. We had put her on BiPAP for a short while she was recovering off of fentanyl but now she is back on 2 L by nasal cannula talking and asking questions appropriately. Her family has been updated multiple times throughout this ordeal and they are now at her bedside. (GATO VILLAGOMEZ) Departure Communication (Admissions) Time/Spoke to Admitting Phy: 20:53 Discussed the case with Dr. Hicks she agrees with Lovenox, amiodarone, ICU admission. Time/Spoke to Consulting Phy: 18:[address] Woods, cardiology and he agrees with the plan and if she decompensates cardioversion is indicated. Lovenox. (GATO VILLAGOMEZ) Impression Primary Impression: Atrial fibrillation with rapid ventricular response Additional Impressions: UTI (urinary tract infection) Qualified Codes: N30.00 - Acute cystitis without hematuria Syncope Qualified Codes: R55 - Syncope and collapse Septic shock Cardiogenic shock Atrial fibrillation status post cardioversion Disposition: ADMITTED INPATIENT Condition: Critical Admissions Decision to Admit Reason: Admit from ER (General) Decision to Admit/Date: Dec 17, 2018 Time/Decision to Admit Time: 20:00 (GATO VILLAGOMEZ) Departure-Patient Inst. Referrals: DOMINIC OCAMPO MD (PCP/Family) Primary Care Physician MAGAN QUIROZ MD Dec 17, 2018 16:48 HUSSEIN CORTEZ APRN Dec 17, 2018 19:43 GATO VILLAGOMEZ Dec 17, 2018 20:44
[2018-12-17 16:49] LABS: BASOPHILS % (AUTO) 0 % (0-10); EOSINOPHILS % (AUTO) 0 % (0-10); HEMATOCRIT 47 % (35-52); LYMPHOCYTES # (AUTO) 1.8 X 10^3 (1.0-4.0); LYMPHOCYTES % (AUTO) 13 % (12-44); MEAN CORPUSCULAR HEMOGLOBIN 30 PG (25-34); MEAN CORPUSCULAR HGB CONC 32 G/DL (32-36); MEAN CORPUSCULAR VOLUME 93 FL (80-99); MEAN PLATELET VOLUME 9.4 FL (7.4-10.4); MONOCYTES # (AUTO) 1.4 X 10^3 (0.0-1.0); MONOCYTES % (AUTO) 10 % (0-12); NEUTROPHILS # (AUTO) 10.8 X 10^3 (1.8-7.8); NEUTROPHILS % (AUTO) 77 % (42-75); PLATELET COUNT 335 10^3/uL (130-400); WHITE BLOOD COUNT 14.1 10^3/uL (4.3-11.0)
[2018-12-17] MEDS ORDERED: cefTRIAXone FOR IV USE 2,000 MG in WATER (STERILE) FOR INJECTION 20 ML IV ONE (17:00)
[2018-12-17] MEDS: DILTIAZEM IV FOR DRIP 125 MG in NS (IVPB) 100 ML IV SCH (17:00)
[2018-12-17 17:07] LABS: ALANINE AMINOTRANSFERASE 72 U/L (0-55); ALBUMIN 3.6 GM/DL (3.2-4.5); ALKALINE PHOSPHATASE 89 U/L (40-136); BILIRUBIN,TOTAL 1.2 MG/DL (0.1-1.0); BUN/CREATININE RATIO 17; CALCIUM 8.6 MG/DL (8.5-10.1); CARBON DIOXIDE 26 MMOL/L (21-32); CHLORIDE 103 MMOL/L (98-107); CREATININE SERUM 1.03 MG/DL (0.60-1.30); GFR ESTIMATED 53; GLUCOSE 192 MG/DL (70-105); POTASSIUM 3.3 MMOL/L (3.6-5.0); SODIUM 143 MMOL/L (135-145); TOTAL PROTEIN 6.4 GM/DL (6.4-8.2)
[2018-12-17 17:19] LABS: INR 1.1 (0.8-1.4)
[2018-12-17 17:24] LABS: BAND NEUTROPHILS 1 %; EOSINOPHILS % (MANUAL) 1 %; LYMPHOCYTES % (MANUAL) 14 %; MONOCYTES % (MANUAL) 8 %; NEUTROPHILS % (MANUAL) 76 %; PLATELET CLUMPS OCCASIONAL
[2018-12-17 17:25] LABS: ANISOCYTOSIS SLIGHT; POLYCHROMASIA SLIGHT
--- NOTE | 2018-12-17 17:45 | Diagnostic Imaging Report ---
CHEST 1 VIEW, AP/PA ONLY Indication: Loss of consciousness, dyspnea Comparison: 04/22/2017 Findings: No focal airspace disease in the visualized lungs. Stable calcified pulmonary nodule left midlung zone. Please note that the posterior lower lobes are poorly evaluated by portable radiography. No pleural effusion or pneumothorax. Normal cardiomediastinal silhouette. Impression: 1. No acute cardiopulmonary process by portable radiography. Dictated by: Dictated on workstation # [id number]
[2018-12-17] MEDS ORDERED: ENOXAPARIN 100 MG/1 ML (LOVENOX) SYR SC ONE (18:00)
[2018-12-17] MEDS ORDERED: DILTIAZEM IV FOR DRIP 125 MG in NS (IVPB) 100 ML IV SCH (18:00)
--- NOTE | 2018-12-17 18:00 | NUR ---
PT UP TO BSC TO VOID AND HAVE BM
[2018-12-17 18:04] LABS: BILIRUBIN,URINE NEGATIVE (NEGATIVE); CLARITY,URINE CLEAR; COLOR,URINE YELLOW; GLUCOSE, URINE (UA) NEGATIVE (NEGATIVE); KETONES,URINE NEGATIVE (NEGATIVE); LEUKOCYTE ESTERASE ,URINE 3+ (NEGATIVE); NITRITE,URINE NEGATIVE (NEGATIVE); PH,URINE 7 (5-9); PROTEIN,URINE 1+ (NEGATIVE); UROBILINOGEN,URINE NORMAL (NORMAL)
[2018-12-17 18:20] LABS: BACTERIA,URINE FEW /HPF; WBC,URINE 25-50 /HPF
--- NOTE | 2018-12-17 18:35 | NUR ---
PT HAS VERY REDDEND AREA UNDER PANIS INTO GENTIAL AREA PT CO OF PAIN IN AREA, AREA CLEANSED AND DRIED WELL
[2018-12-17] MEDS ORDERED: meTOprolol 5 MG/5 ML (LOPRESSOR) VIAL ONE (18:39)
[2018-12-17] MEDS ORDERED: meTOprolol 5 MG/5 ML (LOPRESSOR) VIAL IV ONE (18:45)
[2018-12-17] MEDS ORDERED: NS IV 1000 ML 1,000 ML IV SCH (18:45)
[2018-12-17] MEDS ORDERED: MIDAZOLAM 5 MG/5 ML (VERSED) VIAL ONE (18:55)
[2018-12-17] MEDS ORDERED: fentaNYL INJECTION 100 MCG/2 ML AMP ONE (18:55)
--- NOTE | 2018-12-17 18:58 | NUR ---
DR VILLAGOMEZ IN ROOM TO CARDIOVERT PT, 150MCG FENTANYL GIVEN IVP, VERSED 5MG IVP. 1901 RT BAGGING PT, PT SHOCKED AT 120J HR 116 B/P 85/51. NO RESPONSE 1902 PT SHOCKED AT 200J HR 165 B/P 106/88. NO RESPONSE 1904 B/P 94/64 1905 PT SHOCKED AT 200J HR 140. CONVERTED TO SINUS [place] RATE 43. 1915 HAL CARRASCO DC'D. 1915 REPORT TO DOMINIC RN
--- NOTE | 2018-12-17 19:20 | NUR ---
CONSENT FOR CENTAL LINE SIGNED BY
--- NOTE | 2018-12-17 19:20 | NUR ---
BIPAP PLACED PER RT WITH SETTINGS 12/5, R 16, 80% FIO2. 02 SATS 100%.
[2018-12-17] MEDS ORDERED: ATROPINE INJ 0.4 MG/ML SDV ONE (19:21)
--- NOTE | 2018-12-17 20:12 | Diagnostic Imaging Report ---
EXAMINATION: Chest 1 view, AP/PA only. INDICATION: Central line placement. COMPARISON: 12/17/2018 at 5 p.m. FINDINGS: Right IJ central venous catheter has tip terminating in the mid SVC. No pneumothorax or pleural effusion. Stable borderline cardiomegaly. No airspace consolidations. IMPRESSION: Well-positioned right IJ central venous catheter. No pneumothorax. Dictated by: Dictated on workstation # [id number]
--- NOTE | 2018-12-17 20:15 | NUR ---
1922- ATROPINE 0.4MG IV FOR HR 51. BP 78/55, 100% O2 SAT ON BIPAP. FIO2 DECREASED TO 30% BY OPAL RT. 1923- HR 56 BP 93/58. 1928- Kash CORTEZ APRN PLACING CENTRAL LINE-SEE INSERTION INTERVENTIONS. 1942- BIPAP REMOVED AND OXYMASK PLACED TO PT AT 6L. SAT 95-97% ON 6L OXYMASK. 1946- PT GAGGING AND STATING, "I'M GAGGING". OPA REMOVED AT THIS TIME. 1956- OXYGMASK REMOVED AND 2L PLACED VIA NC. 1958- TO CT WITH MONITORS, ACCOMPANIED BY THIS CAN STRIPER/RN. 2010- HR 60, 97% SAT ON 2L VIA NC. 2014- BACK FROM CT. ALL BEDSIDE MONTIORS IN PLACE. PT AWAKE, ANSWERING QUESTIONS APPROPRIATELY. CRITICAL CARE TIME ENDED.
--- NOTE | 2018-12-17 20:17 | NUR ---
DR. VILLAGOMEZ VERIFIED PLACEMENT OF CENTRAL LINE AND OKAY FOR USE.
[2018-12-17] MEDS: CATHETER FLUSH 10 ML SYR IV PRN (20:23)
[2018-12-17] MEDS ORDERED: HOLD METFORMIN - RECEIVED CONTRAST 20 ML VIAL IV SCH (20:30)
[2018-12-17] MEDS ORDERED: IOHEXOL 350 MG/ML 100 ML (OMNIPAQUE 350) VIAL IV ONE (20:30)
[2018-12-17] MEDS ORDERED: NS 100 ML (IVPB) BAG IV ONE (20:30)
--- NOTE | 2018-12-17 20:37 | Diagnostic Imaging Report ---
PROCEDURE: CT chest w. TECHNIQUE: Multiple contiguous axial images were obtained through the chest with the use of intravenous contrast. All CT scans use one or more of the following dose optimizing techniques: automated exposure control, MA and/or KvP adjustment based on a patient size and exam type, or iterative reconstruction. INDICATION: Atrial fibrillation, altered mental status. COMPARISON: CT chest of 11/09/2018. FINDINGS: Lungs and airway: No endoluminal nodule within the trachea. Severe centrilobular emphysema is unchanged. A small amount of dependent atelectasis is present. No pulmonary fibrosis or features of interstitial pulmonary edema. Stable calcified left upper lobe pulmonary granuloma. Pleura: Trace right pleural effusion. No left pleural effusion. No pneumothorax. Heart and mediastinum: Thyroid is normal. No supravesicular or axillary lymphadenopathy. Unchanged enlarged lower right paratracheal lymph node measuring 1.8 cm. No new or enlarging mediastinal lymph nodes. No hilar lymphadenopathy. Heart is enlarged without pericardial effusion. Normal caliber thoracic aorta without dissection. Upper abdomen: No acute abnormality in the upper abdomen. Musculoskeletal: No concerning focal osseous lesions. IMPRESSION: 1. Trace right pleural effusion. No imaging features of pulmonary edema. 2. Cardiomegaly. 3. Minimal dependent atelectasis. Dictated by: Dictated on workstation # [id number]
[2018-12-17] MEDS ORDERED: ACETAMINOPHEN 500 MG TAB (TYLENOL) PO PRN (22:15)
[2018-12-17] MEDS ORDERED: ONDANSETRON 4 MG/2 ML (SDV) Z0FRAN IV PRN (22:15)
[2018-12-17] MEDS ORDERED: AMIODARONE 150 MG/D5W 100 ML BOLUS IV ONE ×2 (22:15)
[2018-12-17] MEDS: AMIODARONE 450 MG/250 ML D5W EXCEL IV SCH ×2 (22:42)
[2018-12-17] MEDS: 1/2 NS W/KCL 20 MEQ/L 1,000 ML IV SCH (22:43)
[2018-12-18] VITALS (25 sets, daily range): BP systolic 62–150; BP diastolic 45–123
[2018-12-18 03:08] LABS: BASOPHILS % (AUTO) 0 % (0-10); EOSINOPHILS # (AUTO) 0.1 10^3/uL (0.0-0.3); EOSINOPHILS % (AUTO) 1 % (0-10); HEMATOCRIT 39 % (35-52); HEMOGLOBIN 12.3 G/DL (11.5-16.0); LYMPHOCYTES # (AUTO) 1.8 X 10^3 (1.0-4.0); LYMPHOCYTES % (AUTO) 16 % (12-44); MEAN CORPUSCULAR HEMOGLOBIN 30 PG (25-34); MEAN CORPUSCULAR HGB CONC 31 G/DL (32-36); MEAN CORPUSCULAR VOLUME 95 FL (80-99); MEAN PLATELET VOLUME 9.2 FL (7.4-10.4); MONOCYTES # (AUTO) 1.2 X 10^3 (0.0-1.0); MONOCYTES % (AUTO) 11 % (0-12); NEUTROPHILS # (AUTO) 7.9 X 10^3 (1.8-7.8); NEUTROPHILS % (AUTO) 72 % (42-75); PLATELET COUNT 260 10^3/uL (130-400); RED CELL DISTRIBUTION WIDTH 16.8 % (10.0-14.5); WHITE BLOOD COUNT 10.9 10^3/uL (4.3-11.0)
[2018-12-18] MEDS: rOPINIRole 5 MG TAB (REQUIP) PO SCH ×2 (03:25→21:07)
[2018-12-18 03:30] LABS: ALANINE AMINOTRANSFERASE 29 U/L (0-55); ALBUMIN 2.8 GM/DL (3.2-4.5); ALKALINE PHOSPHATASE 79 U/L (40-136); BILIRUBIN,TOTAL 0.8 MG/DL (0.1-1.0); BUN/CREATININE RATIO 16; CALCIUM 7.5 MG/DL (8.5-10.1); CARBON DIOXIDE 26 MMOL/L (21-32); CHLORIDE 107 MMOL/L (98-107); CHOLESTEROL 75 MG/DL (< 200); GFR ESTIMATED > 60; GLUCOSE 178 MG/DL (70-105); HDL CHOLESTEROL 21 MG/DL (40-60); PHOSPHORUS 2.8 MG/DL (2.3-4.7); POTASSIUM 2.9 MMOL/L (3.6-5.0); SODIUM 140 MMOL/L (135-145); TOTAL PROTEIN 5.1 GM/DL (6.4-8.2); TRIGLYCERIDES 93 MG/DL (<150); VLDL CHOLESTEROL 19 MG/DL (5-40)
[2018-12-18] MEDS: POTASSIUM CL 10MEQ/50ML IVPB 50 ML IV SCH ×6 (04:27→09:37)
[2018-12-18] MEDS ORDERED: POTASSIUM CL 10MEQ/50ML IVPB 50 ML IV ONE (04:30)
--- NOTE | 2018-12-18 05:50 | Pulmonary Consultation ---
History of Present Illness History of Present Illness Date of Consultation 12/18/18 05:45 Date of Admission Allergies and Home Medications Allergies Coded Allergies: Sulfa (Sulfonamide Antibiotics) (Verified Allergy, Unknown, 04/19/07) Home Medications Calcium Citrate/Vitamin D3 1 Each Tablet, 1 EACH PO DAILY PRN, (Reported) Carbidopa/Levodopa 1 Each Tablet, 1 EACH PO BID, (Reported) Gabapentin 100 Mg Capsule, 200 MG PO TID, (Reported) TAKE 2 (100MG) TABS Hydrocodone/Acetaminophen 1 Each Tablet, 1 EACH PO Q6H Prescribed by: KENNEDI GORDON on 08/07/151745 Ibuprofen 600 Mg Tablet, 600 MG PO Q6H Prescribed by: KENNEDI GORDON on 08/07/151745 Metoprolol Tartrate 50 Mg Tablet, 50 MG PO BID Prescribed by: YOLI PETERSEN on 04/22/171916 Multivit-Min/FA/Lycopene/Lut 1 Each Tablet, 1 EACH PO DAILY, (Reported) Pramipexole Di-HCl 1.5 Mg Tablet, 1.5 MG PO HS, (Reported) Prednisone 20 Mg Tab, 40 MG PO DAILY Prescribed by: YOLI PETERSEN on 04/22/171916 Ropinirole HCl 5 Mg Tab, 5 MG PO HS, (Reported) Past Jdkmwmn-Bbigcw-Zflvpe Hx Past Med/Social Hx: Reviewed Nursing Past Med/Soc Hx Patient Social History Alcohol Use: Denies Use Recreational Drug Use: No Smoking Status: Former Smoker Type Used: Cigarettes Recent Foreign Travel: No Contact w/Someone Who Travel: No Recent Infectious Disease Expo: No Recent Hopitalizations: No Physical Abuse: No Sexual Abuse: No Past Medical History Surgeries: Yes (cysto, bladder sling) Respiratory: Yes Asthma, Emphysema Cardiac: Yes Hypertension Neurological: No Reproductive Disorders: No Kidney Stones Gastrointestinal: No Musculoskeletal: Yes (RESTLESS LEG SYNDROME) Endocrine: No Cancer: No Psychosocial: No Integumentary: No Eczema Blood Disorders: No Family Medical History AIDS G8 BROTHER Arthritis G8 BROTHER Cardiovascular disease G8 BROTHER Diabetes mellitus 19 MOTHER FH: non-Hodgkin's lymphoma G8 BROTHER Prostate cancer 19 FATHER Respiratory disorder G8 BROTHER Sepsis Event Evaluation Height, Weight, BMI Height: 5'6.00" Weight: 243lbs. 0.0oz. 110.274638ub; 99.32 BMI Method:Stated Exam Exam Vital Signs Date Time Temp Pulse Resp B/P (MAP) Pulse Ox O2 Delivery O2 Flow Rate FiO2 12/18/18 05:00 58 17 108/56 (73) 94 Nasal Cannula 2.00 12/18/18 04:00 54 25 97/45 (62) 92 Nasal Cannula 2.00 12/18/18 04:00 36.2 12/18/18 04:00 94 Nasal Cannula 1.50 12/18/18 03:00 64 17 101/58 (72) 96 Nasal Cannula 2.00 12/18/18 02:00 63 21 98/64 (75) 98 Nasal Cannula 2.00 12/18/18 01:00 66 12/18/18 01:00 66 19 115/89 (98) 93 Nasal Cannula 2.00 12/18/18 00:00 36.5 12/18/18 00:00 93 Nasal Cannula 1.50 12/18/18 00:00 60 18 101/45 (63) 93 Nasal Cannula 2.00 12/17/18 23:30 65 15 107/56 (73) 95 Nasal Cannula 2.00 12/17/18 23:00 65 18 117/50 (72) 97 Nasal Cannula 2.00 12/17/18 22:45 66 25 121/50 (73) 94 Nasal Cannula 2.00 12/17/18 22:30 64 25 84/77 (79) 96 Nasal Cannula 2.00 12/17/18 22:15 64 23 106/71 (83) 97 Nasal Cannula 2.00 12/17/18 22:00 64 13 92/70 (77) 98 Nasal Cannula 2.00 12/17/18 21:57 63 12/17/18 21:50 96 Nasal Cannula 1.50 12/17/18 21:45 36.3 64 16 92/70 (77) Nasal Cannula 2.00 12/17/18 21:30 37.8 92 18 96/85 (111) 98 Nasal Cannula 2.00 12/17/18 19:20 48 100 80.00 12/17/18 18:57 43 12/17/18 17:00 152 18 125/104 2.00 12/17/18 16:30 37.8 175 18 101/78 (86) 88 Room Air 12/17/18 16:30 88 Nasal Cannula 2.00 I & O 12/18/18 07:00 Intake Total 2263 ml Output Total 575 ml Balance 1688 ml Height & Weight Height: 5'6.00" Weight: 243lbs. 0.0oz. 110.452940we; 99.32 BMI Method:Stated General Appearance: No Apparent Distress, Obese HEENT: Normal ENT Inspection Neck: Normal Inspection Respiratory: Decreased Breath Sounds Cardiovascular: Tachycardia Capillary Refill: Less Than 3 Seconds Extremity: Normal Capillary Refill, Normal Inspection, Normal Range of Motion Neurologic/Psychiatric: Alert, Oriented x3, No Motor/Sensory Deficits Skin: Normal Color, Warm/Dry Results Lab Laboratory Tests 12/17/18 16:40 12/18/18 02:53 Assessment/Plan Assessment/Plan Atrial fibrillation with RVR status post cardioversion -Currently on Amio -Lovenox therapeutic dosing -Cardiology following Septic shock secondary to UTI -Sheth cultures pending -Rocephin -Sepsis protocol S/P Syncope Hypotension -Monitor -IVF -Will start solucortJENNIFER Mckeon DO Dec 18, 2018 05:50
[2018-12-18] MEDS ORDERED: POTASSIUM CL 10MEQ/50ML IVPB 50 ML IV SCH (06:00)
[2018-12-18] MEDS ORDERED: KCL 20 MEQ TAB (K-DUR) PO SCH (06:00)
[2018-12-18] MEDS ORDERED: MAGNESIUM 1 GM/100 ML IVPB 100 ML IV SCH (06:00)
[2018-12-18] MEDS: 1/2 NS W/KCL 20 MEQ/L 1,000 ML IV SCH ×3 (07:15→18:09)
[2018-12-18] MEDS: HYDROCORTISONE 100 MG/2 ML (Solu-CORTEF) VIAL IV SCH ×3 (07:24→21:07)
--- NOTE | 2018-12-18 07:58 | Diagnostic Imaging Report ---
Clinical indication: Patient with A. fib with rapid ventricular response, UTI, sepsis and cardiogenic shock. Exam: Portable chest x-ray upright view. Comparisons: Portable chest x-ray dated 12/17/2018. Findings: There is interval development of mild airspace opacities in the right perihilar region and mild opacities in left lung base which may represent atelectasis versus infiltrate. There is no pleural effusion or pneumothorax. Chanel vasculature appears mildly congested. Cardiac silhouette is mildly prominent. There is no pleural effusion or pneumothorax. Right IJ central line again seen. The remainder of this exam shows no significant interval change compared to the prior study of comparison. Impression: 1.: Again seen mild cardiomegaly with mild pulmonary vascular congestion. 2: There is mild bibasilar atelectasis versus infiltrate. 3: The remainder of this exam shows no significant interval change compared to the prior study of comparison. Dictated by: Dictated on workstation # [id number]
[2018-12-18] MEDS ORDERED: ENOXAPARIN 100 MG/1 ML (LOVENOX) SYR SC SCH (09:00)
[2018-12-18] MEDS: AMIODARONE 450 MG/250 ML D5W EXCEL IV SCH ×2 (09:37)
[2018-12-18] MEDS: ENOXAPARIN 300 MG/3 ML (LOVENOX) MULTI-DOSE VIAL SQ SCH (10:46)
--- NOTE | 2018-12-18 12:46 | Consultation-Cardiology ---
HPI-Cardiology Cardiology Consultation: Date of Consultation 12/18/18 Date of Admission Attending Physician Shilpa Hicks DO Admitting Physician Susan Moscoso MD Consulting Physician Galdino JENSEN MD HPI: Time Seen by a Provider: 11:00 Chief Complaint: Atrial fibrillation with rapid ventricular rate This is a 68-year-old lady who I have seen previously as an outpatient. She has previous history of severe hypertension, bilateral lower extremity swelling, sh ortness of breath. She has history of active smoking for 50 years. She quit in generally 2018. She does not have diabetes or hyperlipidemia. She is had previous ER visits for severe hypertension. An echocardiogram which was done on 04/13/2017 showed normal LV function with LVH. No significant valvular heart disease. Pharmacological stress test was done on 06/25/2017 which showed normal myocardial perfusion imaging during rest and stress. She currently presents with a history of recurrent falls due to generalized weakness. No clear history of syncope however syncope cannot be ruled out. Poorly compliant with medications and CPAP. According to the patient she is slid to the floor and was unable to get off the floor for 4 hours. She was found to be in atrial fibrillation with rapid ventricular rate. She was started on Cardizem infusion however blood pressure was very low therefore she was cardioverted 3 times and she finally converted to sinus rhythm. She was given Lovenox and amiodarone infusion. Chest CT angiography ruled out PE. When I saw her this morning she is in sinus rhythm and denies any complaints. Review of Systems-Cardiology Review of Systems Constitutional: As described under HPI; No As described under HPI, No no symptoms reported, No chills, No fever, No lightheadedness; malaise Eyes: No As described under HPI, No no symptoms reported, No blindness, No blurred vision, No contact lenses, No drainage, No decreased acuity, No foreign body sensation, No pain, No vision change Ears/Nose/Throat: No As described under HPI, No no symptoms reported, No chronic hearing loss, No ear discharge, No ear pain, No nasal drainage, No ulcerations Respiratory: No no symptoms reported; As described under HPI; No As described under HPI, No cough, No orthopnea, No shortness of breath, No SOB with excertion Cardiovascular: No no symptoms reported; As described under HPI; No chest pain, No edema, No irregular heart rate, No lightheadedness, No palpitations, No syncope, No other Gastrointestinal: No no symptoms reported, No As described under HPI, No abdomen distended, No abdominal pain, No blood streaked bowels, No constipation, No diarrhea, No nausea, No vomiting, No stool coloration changes Genitourinary: No As described under HPI, No burning, No dysuria, No discharge, No frequency, No flank pain, No hematuria, No urgency : Yes : No Skin: No rash, No skin related problems, No ulcerations Psychiatric/Neurological: No anxiety, No depression, No seizure, No focal weakness, No syncope Hematologic: No bleeding abnormalities PZN-Aptzxf-Xaoaex Hx Patient Social History Alcohol Use: Denies Use Recreational Drug Use: No Smoking Status: Former Smoker Type Used: Cigarettes Recent Foreign Travel: No Recent Infectious Disease Expo: No Hospitalization with Isolation: Denies Past Medical History PMH As described under Assessment. Family Medical History Family History: AIDS G8 BROTHER Arthritis G8 BROTHER Cardiovascular disease G8 BROTHER Diabetes mellitus 19 MOTHER FH: non-Hodgkin's lymphoma G8 BROTHER Prostate cancer 19 FATHER Respiratory disorder G8 BROTHER Allergies and Home Medications Allergies Coded Allergies: Sulfa (Sulfonamide Antibiotics) (Verified Allergy, Unknown, 04/19/07) Home Medications Calcium Citrate/Vitamin D3 1 Each Tablet, 1 EACH PO DAILY PRN, (Reported) Carbidopa/Levodopa 1 Each Tablet, 1 EACH PO BID, (Reported) Gabapentin 100 Mg Capsule, 200 MG PO TID, (Reported) TAKE 2 (100MG) TABS Hydrocodone/Acetaminophen 1 Each Tablet, 1 EACH PO Q6H Prescribed by: KENNEDI GORDON on 08/07/151745 Ibuprofen 600 Mg Tablet, 600 MG PO Q6H Prescribed by: KENNEDI GORDON on 08/07/151745 Metoprolol Tartrate 50 Mg Tablet, 50 MG PO BID Prescribed by: YOLI PETERSEN on 04/22/171916 Multivit-Min/FA/Lycopene/Lut 1 Each Tablet, 1 EACH PO DAILY, (Reported) Pramipexole Di-HCl 1.5 Mg Tablet, 1.5 MG PO HS, (Reported) Prednisone 20 Mg Tab, 40 MG PO DAILY Prescribed by: YOLI PETERSEN on 04/22/171916 Ropinirole HCl 5 Mg Tab, 5 MG PO HS, (Reported) Patient Home Medication List Home Medication List Reviewed: Yes Physical Exam-Cardiology Physical Exam Vital Signs/I&O 12/18/18 12/18/18 12/18/18 12/18/18 01:00 01:00 02:00 03:00 Pulse 66 66 63 64 Resp 19 21 17 B/P (MAP) 115/89 (98) 98/64 (75) 101/58 (72) Pulse Ox 93 98 96 O2 Delivery Nasal Cannula Nasal Cannula Nasal Cannula O2 Flow Rate 2.00 2.00 2.00 12/18/18 12/18/18 12/18/18 12/18/18 04:00 04:00 04:00 05:00 Temp 36.2 Pulse 54 58 Resp 25 17 B/P (MAP) 97/45 (62) 108/56 (73) Pulse Ox 94 92 94 O2 Delivery Nasal Cannula Nasal Cannula Nasal Cannula O2 Flow Rate 1.50 2.00 2.00 12/18/18 12/18/18 12/18/18 12/18/18 06:00 07:00 08:00 11:53 Pulse 52 58 Resp 20 B/P (MAP) 106/54 (71) Pulse Ox 96 94 91 O2 Delivery Nasal Cannula Nasal Cannula Room Air O2 Flow Rate 2.00 1.50 12/18/18 12:11 Pulse Ox 94 O2 Delivery Nasal Cannula O2 Flow Rate 1.50 12/18/18 00:00 Intake Total 2163 ml Output Total 75 ml Balance 2088 ml Capillary Refill : Less Than 3 Seconds Constitutional: appears stated age, AAO x 3; No apparent distress; well- developed, well-nourished HEENT: PERRL; No normal ENT inspection, No TMs normal, No pharynx normal, No scleral icterus (R), No scleral icterus (L), No pale conjunctivae (R), No pale conjunctivae (L), No photophobia, No TM abnormal (R), No TM abnormal (L), No pharyngeal erythema, No tonsillar exudate, No other, No discharge, No EOMI; hearing is well preserved; No hard of hearing; oral hygience is good; No ulceration, No xanthelasmas are seen Neck: No non-tender, No full range of motion, No supple, No normal inspection, No carotid bruit, No limited range of motion, No lymphadenopathy (R), No lymphadenopathy (L), No tender lateral, No tender midline, No thyromegaly, No other; carotid pulses are 2 + bilaterally; No with good upstrokes Respiratory: chest is bilaterally symmetric, lungs clear to auscultation Cardiovascular: regular rate-rhythm; No irregularly irregular, No extra beats, No parasternal heave is noted, No JVD, No edema, No bradycardia, No tachycardia, No point of maximal impulse, No cardiac thrills are palpable; S1 and S2; No gallop/S3, No gallop/S4, No diastolic murmur, No systolic murmur, No friction rub, No click, No other Gastrointestinal: soft, round, audible bowel sounds; No spleenomegaly Rectal: deferred Extremities: normal range of motion, non-tender, normal inspection; No c lubbing, No cyanosis; no lower extremity edema bilateral; No significant edema Neurologic/Psychiatric: no motor/sensory deficits, alert, normal mood/affect, oriented x 3, power is 5/5 both on sides Skin: normal color; No rash, No ulcerations Data Review Labs Laboratory Tests 12/17/18 16:40: White Blood Count 14.1H, Red Blood Count 5.00, Hemoglobin 15.0, Hematocrit 47, Mean Corpuscular Volume 93, Mean Corpuscular Hemoglobin 30, Mean Corpuscular Hemoglobin Concent 32, Red Cell Distribution Width 17.0H, Platelet Count 335, Mean Platelet Volume 9.4, Neutrophils (%) (Auto) 77H, Lymphocytes (%) (Auto) 13, Monocytes (%) (Auto) 10, Eosinophils (%) (Auto) 0, Basophils (%) (Auto) 0, Neutrophils # (Auto) 10.8H, Lymphocytes # (Auto) 1.8, Monocytes # (Auto) 1.4H, Eosinophils # (Auto) 0.0, Basophils # (Auto) 0.0, Neutrophils % (Manual) 76, Lymphocytes % (Manual) 14, Monocytes % (Manual) 8, Eosinophils % (Manual) 1, Band Neutrophils 1, Clumped Platelets OCCASIONAL, Polychromasia SLIGHT, Anisocytosis SLIGHT, Sodium Level 143, Potassium Level 3.3L, Chloride Level 103, Carbon Dioxide Level 26, Anion Gap 14, Blood Urea Nitrogen 18, Creatinine 1.03, Estimat Glomerular Filtration Rate 53, BUN/Creatinine Ratio 17, Glucose Level 192H, Calcium Level 8.6, Corrected Calcium 8.9, Magnesium Level 2.0, Total Bilirubin 1.2H, Aspartate Amino Transf (AST/SGOT) 40H, Alanine Aminotransferase (ALT/SGPT) 72H, Alkaline Phosphatase 89, Total Creatine Kinase 220H, Myoglobin 295.8H, Troponin I < 0.028, B-Type Natriuretic Peptide 529.3H, Total Protein 6.4, Albumin 3.6 12/17/18 16:55: Prothrombin Time 15.0H, INR Comment 1.1, Activated Partial Thromboplast Time 26, D-Dimer 1.52H, Lactic Acid Level 2.77*H 12/17/18 18:00: Urine Color YELLOW, Urine Clarity CLEAR, Urine pH 7, Urine Specific [place] 1.005L, Urine Protein 1+H, Urine Glucose (UA) NEGATIVE, Urine Ketones NEGATIVE, Urine Nitrite NEGATIVE, Urine Bilirubin NEGATIVE, Urine Urobilinogen NORMAL, Urine Leukocyte Esterase 3+H, Urine RBC (Auto) 5+H, Urine RBC 2-5H, Urine WBC 25-50H, Urine Squamous Epithelial Cells 5-10, Urine Crystals NONE, Urine Bacteria FEWH, Urine Casts NONE, Urine Mucus NEGATIVE, Urine Culture Indicated YES 12/17/18 18:45: Lactic Acid Level 1.75 12/18/18 00:45: Troponin I < 0.028 12/18/18 02:53: White Blood Count 10.9, Red Blood Count 4.13L, Hemoglobin 12.3, Hematocrit 39, Mean Corpuscular Volume 95, Mean Corpuscular Hemoglobin 30, Mean Corpuscular Hemoglobin Concent 31L, Red Cell Distribution Width 16.8H, Platelet Count 260, Mean Platelet Volume 9.2, Neutrophils (%) (Auto) 72, Lymphocytes (%) (Auto) 16, Monocytes (%) (Auto) 11, Eosinophils (%) (Auto) 1, Basophils (%) (Auto) 0, Neutrophils # (Auto) 7.9H, Lymphocytes # (Auto) 1.8, Monocytes # (Auto) 1.2H, Eosinophils # (Auto) 0.1, Basophils # (Auto) 0.0, Sodium Level 140, Potassium Level 2.9L, Chloride Level 107, Carbon Dioxide Level 26, Anion Gap 7, Blood Urea Nitrogen 13, Creatinine 0.80, Estimat Glomerular Filtration Rate > 60, BUN/Creatinine Ratio 16, Glucose Level 178H, Calcium Level 7.5L, Corrected Calcium 8.5, Phosphorus Level 2.8, Magnesium Level 2.0, Total Bilirubin 0.8, Aspartate Amino Transf (AST/SGOT) 31, Alanine Aminotransferase (ALT/SGPT) 29, Alkaline Phosphatase 79, Total Protein 5.1L, Albumin 2.8L, Triglycerides Level 93, Cholesterol Level 75, LDL Cholesterol Direct 36, VLDL Cholesterol 19, HDL Cholesterol 21L 12/18/18 04:50: Troponin I < 0.028 ECG Impression ECG Initial ECG Rhythm: Normal Sinus A/P-Cardiology Assessment/Admission Diagnosis Mechanical fall,? Syncope, History of COPD, Atrial fibrillation with rapid ventricular rate and hypotension, status post cardioversion. Hypokalemia, Rhabdomyolysis, Elevated LFTs, Elevated BNP Positive D dimer Plan Mechanical fall,? Syncope, unclear etiology. Will likely require an event mo nitor on discharge. Echocardiogram. Driving restriction until we figure out the cause of syncope. Atrial fibrillation with rapid ventricular rate and hypotension, status post cardioversion. On amiodarone infusion. Continue metoprolol. Currently in si nus rhythm. Will require oral anticoagulation therapy. Recommend starting Eliquis 5 mg twice a day. Hypokalemia, defer to the primary team. Rhabdomyolysis, IV fluids. Likely due to fall. Elevated LFTs, unclear at urology. Elevated BNP, will recommend an echocardiogram. Not in florid congestive heart failure on my examination. Positive D dimer, negative CT angiography for PE. Complicated patient. Thank you for your consultation. Please call me if you have any questions. Gli Jensen MD, FACP, FACC, FSCAI, FHRS, CCDS Interventional Cardiology Cardiac Electrophysiology Vascular Medicine and Endovascular Interventions Clinical Quality Measures DVT/VTE Risk/Contraindication: Risk Factor Score Per Nursin RFS Level Per Nursing on Admit: 4+=Very High Galdino JENSEN MD Dec 18, 2018 12:46
--- NOTE | 2018-12-18 13:22 | History & Physical-Hospitalist ---
History of Present Illness HPI/Chief Complaint Chief complaint: New onset atrial fibrillation with rapid ventricular response History of present illness: This is a 68-year-old white female clinic patient of Dr. Moscoos at [facility] who has a past medical history of severe hypertension and COPD with smoking cessation just last year and noncompliance with CPAP who presented to the ER after found down at home when she arrived to the ER found to have a new onset atrial fibrillation with rapid ventricular response but having significant hypotension from Cardizem initiation requiring 3 episodes of electrical cardioversion and placed on amiodarone drip and consulted cardiology. She currently is doing a lot better she is in normal sinus rhythm but she does appear to have some shortness of breath at baseline but she is sitting in a chair. Her lives with her. She stopped smoking after 50 years just last year. Source: patient Exam Limitations: no limitations Date Seen 12/18/18 Time Seen by a Provider: 12:15 Attending Physician Shilpa Hicks Holly R MD Referring Physician Date of Admission Dec 17, 2018 at 20:50 Home Medications & Allergies Home Medications Reviewed patient Home Medication Reconciliation performed by pharmacy medication reconciliations computer system technician and/or nursing. Patients Allergies have been reviewed. Allergies Allergies Coded Allergies Sulfa (Sulfonamide Antibiotics) (Verified Allergy, Unknown, 04/19/07) Past Pfabgvd-Znvhdd-Ramsxi Hx Past Med/Social Hx: Reviewed Nursing Past Med/Soc Hx, Reviewed and Corrections made Patient Social History Marrital Status: Alcohol Use: Denies Use Recreational Drug Use: No Smoking Status: Former Smoker Type Used: Cigarettes Recent Foreign Travel: No Contact w/other who traveled: No Recent Hopitalizations: No Recent Infectious Disease Expo: No Past Medical History Cardiac: Hypertension Reproductive: No Genitourinary: Kidney Stones Skin/Integumentary: Eczema History of Blood Disorders: No Family History AIDS G8 BROTHER Arthritis G8 BROTHER Cardiovascular disease G8 BROTHER Diabetes mellitus 19 MOTHER FH: non-Hodgkin's lymphoma G8 BROTHER Prostate cancer 19 FATHER Respiratory disorder G8 BROTHER Review of Systems Constitutional: see HPI, malaise, weakness Respiratory: dyspnea on exertion Cardiovascular: palpitations Physical Exam Physical Exam Vital Signs Vital Signs - First Documented 12/17/18 12/18/18 16:30 14:07 Temp 37.8 Pulse 175 Resp 18 B/P (MAP) 101/78 (86) Pulse Ox 88 O2 Delivery Nasal Cannula O2 Flow Rate 2.00 FiO2 28 Capillary Refill : Less Than 3 Seconds Height, Weight, BMI Height: 5'6.00" Weight: 243lbs. 0.0oz. 110.722464ai; 99.32 BMI Method:Stated General Appearance: No Apparent Distress, WD/WN, Anxious, Chronically ill, Ob derrick Eyes: Right Eye Normal Inspection, Right Eye PERRL HEENT: PERRL/EOMI, Normal ENT Inspection, Pharynx Normal, Moist Mucous Membranes Neck: Full Range of Motion, Normal Inspection, Non Tender Respiratory: Chest Non Tender, No Respiratory Distress, Accessory Muscle Use, Decreased Breath Sounds Cardiovascular: Regular Rate, Rhythm, No Edema, No Gallop, No JVD, No Murmur, Normal Peripheral Pulses Gastrointestinal: Normal Bowel Sounds, No Organomegaly, No Pulsatile Mass, Non Tender, Soft Back: Normal Inspection, No CVA Tenderness, No Vertebral Tenderness Extremity: Normal Capillary Refill, Normal Inspection, Normal Range of Motion, Non Tender, No Calf Tenderness, No Pedal Edema Neurologic/Psychiatric: Alert, Oriented x3, No Motor/Sensory Deficits, Normal Mood/Affect Skin: Normal Color, Warm/Dry Lymphatic: No Adenopathy Results Results/Procedures Labs Laboratory Tests 12/17/18 16:40 12/18/18 02:53 Patient resulted labs reviewed. Assessment/Plan Admission Diagnosis Assessment: New onset atrial fibrillation with rapid ventricular response Hypertension following Cardizem initiation in the ER requiring electrical cardioversion 3 Severe hypertension history Noncompliance with sleep apnea treatment COPD Long-term smoker just quit last year Plan: Monitor tachypnea Appreciate cardiology and pulmonology Monitor blood pressure Monitor closely Admission Status: Inpatient Order (span 2 midnights) Reason for Inpatient Admission: Respiratory insufficiency with new onset atrial fibrillation with rapid ventricular response requiring electrical cardioversion 3 Diagnosis/Problems Diagnosis/Problems (1) Atrial fibrillation with rapid ventricular response Status: Acute (2) Atrial fibrillation status post cardioversion Status: Acute (3) UTI (urinary tract infection) Status: Acute Qualifiers: Urinary tract infection type: acute cystitis Hematuria presence: without hematuria Qualified Codes: N30.00 - Acute cystitis without hematuria (4) Syncope Status: Acute Qualifiers: Syncope type: unspecified Qualified Codes: R55 - Syncope and collapse (5) Septic shock Status: Acute (6) Cardiogenic shock Status: Acute Clinical Quality Measures DVT/VTE Risk/Contraindication: Risk Factor Score Per Nursin RFS Level Per Nursing on Admit: 4+=Very High SHILPA HICKS DO Dec 18, 2018 13:22
[2018-12-18] MEDS ORDERED: RT-ALBUTEROL SULF 2.5 MG/3 ML PRE-MIX VIAL ONE (13:39)
[2018-12-18] MEDS ORDERED: RT-ALBUTEROL SULF 2.5 MG/3 ML PRE-MIX VIAL INH PRN (13:45)
[2018-12-18] MEDS: DILTIAZEM IV FOR DRIP 125 MG in NS (IVPB) 100 ML IV SCH (16:50)
[2018-12-18] MEDS ORDERED: IBUPROFEN 600 MG (MOTRIN) TAB PO SCH (17:15)
[2018-12-18] MEDS ORDERED: IBUPROFEN 600 MG (MOTRIN) TAB PO ONE (17:32)
[2018-12-18] MEDS ORDERED: SINEMET 25/100 (CARBIDOPA/LEVODOPA) TAB ONE (17:33)
[2018-12-18] MEDS: IBUPROFEN 600 MG (MOTRIN) TAB PO PRN (17:36)
[2018-12-18] MEDS: GABAPENTIN 100 MG (NEURONTIN) CAP PO SCH (17:36)
[2018-12-18] MEDS: cefTRIAXone FOR IV USE 1,000 MG in WATER (STERILE) FOR INJECTION 10 ML IV SCH (18:08)
[2018-12-18] MEDS: RT-ALBUTEROL/IPRATROPIUM 3 ML (DUONEB) VIAL INH SCH ×2 (18:28→21:36)
[2018-12-18] MEDS ORDERED: NON-FORMULARY MEDICATION 1 EA EA (Carbidopa/Levodopa (Carbidopa-Levodopa 25-100 Tab) 1 EAC PO SCH (21:00)
[2018-12-18] MEDS: SINEMET 25/100 (CARBIDOPA/LEVODOPA) TAB PO SCH (21:07)
[2018-12-19] VITALS (13 sets, daily range): BP systolic 105–138; BP diastolic 53–85
[2018-12-19] MEDS: ENOXAPARIN 300 MG/3 ML (LOVENOX) MULTI-DOSE VIAL SQ SCH ×2 (00:56→08:27)
[2018-12-19] MEDS: 1/2 NS W/KCL 20 MEQ/L 1,000 ML IV SCH (00:57)
[2018-12-19] MEDS: RT-ALBUTEROL/IPRATROPIUM 3 ML (DUONEB) VIAL INH SCH ×6 (01:20→21:59)
[2018-12-19 03:14] LABS: BASOPHILS % (AUTO) 0 % (0-10); EOSINOPHILS % (AUTO) 0 % (0-10); HEMATOCRIT 41 % (35-52); HEMOGLOBIN 12.6 G/DL (11.5-16.0); LYMPHOCYTES # (AUTO) 0.5 X 10^3 (1.0-4.0); LYMPHOCYTES % (AUTO) 5 % (12-44); MEAN CORPUSCULAR HEMOGLOBIN 30 PG (25-34); MEAN CORPUSCULAR HGB CONC 31 G/DL (32-36); MEAN CORPUSCULAR VOLUME 97 FL (80-99); MEAN PLATELET VOLUME 9.8 FL (7.4-10.4); MONOCYTES # (AUTO) 0.2 X 10^3 (0.0-1.0); MONOCYTES % (AUTO) 3 % (0-12); NEUTROPHILS # (AUTO) 8.2 X 10^3 (1.8-7.8); NEUTROPHILS % (AUTO) 92 % (42-75); PLATELET COUNT 223 10^3/uL (130-400); RED CELL DISTRIBUTION WIDTH 17.1 % (10.0-14.5); WHITE BLOOD COUNT 8.9 10^3/uL (4.3-11.0)
[2018-12-19 03:30] LABS: BUN/CREATININE RATIO 14; CALCIUM 7.9 MG/DL (8.5-10.1); CARBON DIOXIDE 20 MMOL/L (21-32); CHLORIDE 105 MMOL/L (98-107); CREATININE SERUM 0.88 MG/DL (0.60-1.30); GFR ESTIMATED > 60; GLUCOSE 350 MG/DL (70-105); MAGNESIUM 2.1 MG/DL (1.6-2.4); PHOSPHORUS 2.9 MG/DL (2.3-4.7); POTASSIUM 4.6 MMOL/L (3.6-5.0); SODIUM 136 MMOL/L (135-145)
--- NOTE | 2018-12-19 05:31 | Pulmonary Progress Note ---
Subjective Time Seen by a Provider: 07:50 Subjective/Events-last exam Now off amio gtt. Sepsis Event Evaluation Height, Weight, BMI Height: 5'6.00" Weight: 243lbs. 0.0oz. 110.863712ef; 99.32 BMI Method:Stated Focused Exam Lactate Level 12/17/18 16:55: Lactic Acid Level 2.77*H 12/17/18 18:45: Lactic Acid Level 1.75 Exam Exam Vital Signs Date Time Temp Pulse Resp B/P (MAP) Pulse Ox O2 Delivery O2 Flow Rate FiO2 12/19/18 04:30 93 Nasal Cannula 1.00 12/19/18 04:12 Nasal Cannula 2.00 12/19/18 04:00 58 20 121/66 (84) 90 Nasal Cannula 1.00 12/19/18 03:00 63 19 112/63 (79) 92 Nasal Cannula 1.00 12/19/18 02:00 69 20 120/58 (78) 94 Nasal Cannula 1.00 12/19/18 01:42 60 12/19/18 01:21 93 Nasal Cannula 1.00 12/19/18 01:00 60 20 114/65 (81) 94 Nasal Cannula 1.00 12/19/18 00:45 93 Nasal Cannula 1.00 12/19/18 00:45 36.1 12/19/18 00:00 60 25 105/53 (70) 90 Nasal Cannula 1.00 12/18/18 23:00 64 22 111/53 (72) 90 Nasal Cannula 1.00 12/18/18 22:00 72 20 130/123 (125) 92 Nasal Cannula 1.00 12/18/18 21:36 94 Nasal Cannula 1.00 12/18/18 21:00 67 18 115/71 (86) 92 Nasal Cannula 1.00 12/18/18 20:50 93 Nasal Cannula 1.00 12/18/18 20:10 36.2 12/18/18 20:00 70 19 130/68 (88) 93 Nasal Cannula 1.00 12/18/18 19:00 70 12/18/18 19:00 70 20 122/59 (80) 92 Nasal Cannula 1.00 12/18/18 18:28 96 Nasal Cannula 1.00 12/18/18 18:00 64 28 110/93 (99) 93 Nasal Cannula 2.00 12/18/18 17:00 65 26 106/93 (97) 94 Nasal Cannula 2.00 12/18/18 16:00 62 25 108/58 (75) 93 Nasal Cannula 2.00 12/18/18 16:00 36.4 12/18/18 16:00 94 Nasal Cannula 2.00 12/18/18 15:00 69 28 62/48 (53) 93 Nasal Cannula 2.00 12/18/18 14:07 36.2 63 95 28 12/18/18 14:00 66 18 132/74 (93) 95 Nasal Cannula 2.00 12/18/18 13:40 95 Nasal Cannula 2.00 12/18/18 13:00 64 26 150/78 (102) 88 Nasal Cannula 2.00 12/18/18 13:00 64 12/18/18 12:11 94 Nasal Cannula 1.50 12/18/18 12:00 65 30 124/49 (74) 93 Nasal Cannula 2.00 12/18/18 11:53 91 Room Air 12/18/18 11:00 62 33 128/63 (84) 90 Nasal Cannula 2.00 12/18/18 10:00 64 23 120/53 (75) 92 Nasal Cannula 2.00 12/18/18 09:00 62 23 112/61 (78) 92 Nasal Cannula 2.00 12/18/18 08:00 94 Nasal Cannula 1.50 12/18/18 08:00 60 22 109/61 (77) 92 Nasal Cannula 2.00 12/18/18 07:00 58 12/18/18 07:00 58 35 102/54 (70) 91 Nasal Cannula 2.00 12/18/18 06:00 52 20 106/54 (71) 96 Nasal Cannula 2.00 I & O 12/19/18 07:00 Intake Total 2630 ml Output Total 925 ml Balance 1705 ml Height & Weight Height: 5'6.00" Weight: 243lbs. 0.0oz. 110.344752hz; 99.32 BMI Method:Stated General Appearance: No Apparent Distress, WD/WN, Anxious, Chronically ill, Obese HEENT: PERRL/EOMI, Normal ENT Inspection, Pharynx Normal, Moist Mucous Membranes Neck: Full Range of Motion, Normal Inspection, Non Tender Respiratory: Chest Non Tender, No Respiratory Distress, Accessory Muscle Use, Decreased Breath Sounds Cardiovascular: Regular Rate, Rhythm, No Edema, No Gallop, No JVD, No Murmur, Normal Peripheral Pulses Capillary Refill: Less Than 3 Seconds Extremity: Normal Capillary Refill, Normal Inspection, Normal Range of Motion, Non Tender, No Calf Tenderness, No Pedal Edema Neurologic/Psychiatric: Alert, Oriented x3, No Motor/Sensory Deficits, Normal Mood/Affect Skin: Normal Color, Warm/Dry Lymphatic: No Adenopathy Results Lab Laboratory Tests 12/17/18 16:40 12/18/18 02:53 12/19/18 02:58 Assessment/Plan Assessment/Plan Atrial fibrillation with RVR status post cardioversion -Amio gtt is now off -Lovenox therapeutic dosing -Cardiology following Septic shock secondary to UTI -Sheth cultures pending -Rocephin -Sepsis protocol S/P Syncope Hypotension - resolved -Monitor -IVF -solucortef - D/C Hx ROJELIO -Noncompliant with CPAP -Refuses CPAP/BiPAP JENNIFER VAZQUEZ DO Dec 19, 2018 05:31
--- NOTE | 2018-12-19 05:36 | Diagnostic Imaging Report ---
CLINICAL INDICATION: ICU care management. Patient sepsis versus cardiogenic shock. EXAM: Portable chest x-ray upright view. COMPARISONS: Chest x-ray dated 12/18/2018. FINDINGS: There is stable mild cardiomegaly with interval decreased pulmonary vascular congestion which is now minimally prominent. There is improved aeration of both lung bases with residual minimal bibasilar atelectasis versus infiltrate. There is no pleural effusion pneumothorax. The remainder of this exam shows no significant interval change compared to the prior study of comparison. IMPRESSION: 1: There is interval improvement in chest findings with mild cardiomegaly and decreased pulmonary vascular congestion with minimal congestion remaining. 2: There is improved aeration of both lung bases with residual minimal bibasilar atelectasis versus infiltrate. Dictated by: Dictated on workstation # [id number]
[2018-12-19] MEDS ORDERED: NS IV 1000 ML 1,000 ML ONE (06:33)
[2018-12-19] MEDS: NS IV 1000 ML 1,000 ML IV SCH ×2 (06:37→18:00)
[2018-12-19] MEDS: GABAPENTIN 100 MG (NEURONTIN) CAP PO SCH ×3 (08:05→21:14)
[2018-12-19] MEDS: SINEMET 25/100 (CARBIDOPA/LEVODOPA) TAB PO SCH ×2 (08:05→21:14)
--- NOTE | 2018-12-19 09:22 | NUR ---
PATIENT TRANSFERRED TO ROOM 403 AT THIS TIME BY THIS RN. REPORT GIVEN TO CHRISTINA MENCHACA. PERSONAL BELONGINGS SENT WITH PATIENT. CHRISTINA MENCHACA TO ASSUME CARE OF PATIENT
--- NOTE | 2018-12-19 09:43 | Progress Note - Hospitalist ---
Subjective HPI/CC On Admission Date Seen by Provider: Dec 19, 2018 Time Seen by Provider: 08:30 Chief complaint: New onset atrial fibrillation with rapid ventricular response History of present illness: This is a 68-year-old white female clinic patient of Dr. Moscoso at [facility] who has a past medical history of severe hypertension and COPD with smoking cessation just last year and noncompliance with CPAP who presented to the ER after found down at home when she arrived to the ER found to have a new onset atrial fibrillation with rapid ventricular response but having significant hypotension from Cardizem initiation requiring 3 episodes of electrical cardioversion and placed on amiodarone drip and consulted cardiology. She currently is doing a lot better she is in normal sinus rhythm but she does appear to have some shortness of breath at baseline but she is sitting in a chair. Her lives with her. She stopped smoking after 50 years just last year. Subjective/Events-last exam Patient doing much better today Overall feels very weak so we will initiate PT and OT and inpatient rehab referral Shortness of breath much improved Maintained on oxygen here in the hospital 13/10 Could not maintain oxygen supplementation at home due to the cost she reported Eating and drinking well Reviewed labs Appreciate Dr. Boyle Monitor closely Conferred with RN Reviewed meds and labs Review of Systems General: Fatigue Pulmonary: Dyspnea Focused Exam Lactate Level 12/17/18 16:55: Lactic Acid Level 2.77*H 12/17/18 18:45: Lactic Acid Level 1.75 Objective Exam Vital Signs Vital Signs Date Time Temp Pulse Resp B/P (MAP) Pulse Ox O2 Delivery O2 Flow Rate FiO2 12/19/18 13:00 78 12/19/18 11:40 36.2 21 123/66 (85) 94 Room Air 12/19/18 09:25 2.00 12/19/18 07:12 96 Capillary Refill : Less Than 3 Seconds General Appearance: No Apparent Distress, WD/WN, Chronically ill Respiratory: Chest Non Tender, Lungs Clear, Normal Breath Sounds, No Accessory Muscle Use, No Respiratory Distress, Wheezing Cardiovascular: Regular Rate, Rhythm, No Edema, No Gallop, No JVD, No Murmur, Normal Peripheral Pulses Neurologic/Psychiatric: Alert, Oriented x3, No Motor/Sensory Deficits, Normal Mood/Affect Results/Procedures Lab Laboratory Tests 12/19/18 02:58 Patient resulted labs reviewed. Assessment/Plan Assessment and Plan Assess & Plan/Chief Complaint Assessment: Cariogenic shock New onset atrial fibrillation with rapid ventricular response Hypertension following Cardizem initiation in the ER requiring electrical cardioversion 3 Severe hypertension history Noncompliance with sleep apnea treatment COPD Long-term smoker just quit last year Plan: Monitor tachypnea Appreciate cardiology and pulmonology Monitor blood pressure Monitor closely Transfer to 4th floor Diagnosis/Problems Diagnosis/Problems (1) Atrial fibrillation with rapid ventricular response Status: Acute (2) Atrial fibrillation status post cardioversion Status: Acute (3) UTI (urinary tract infection) Status: Acute Qualifiers: Urinary tract infection type: acute cystitis Hematuria presence: without hematuria Qualified Codes: N30.00 - Acute cystitis without hematuria (4) Syncope Status: Acute Qualifiers: Syncope type: unspecified Qualified Codes: R55 - Syncope and collapse (5) Septic shock Status: Acute (6) Cardiogenic shock Status: Acute Clinical Quality Measures DVT/VTE Risk/Contraindication: Risk Factor Score Per Nursin RFS Level Per Nursing on Admit: 4+=Very High KAITLIN JOSHI DO Dec 19, 2018 09:43
--- NOTE | 2018-12-19 10:00 | NUR ---
PT ARRIVED TO ROOM. THIS RN TO RESUME CARE. THIS RN AGREES WITH PREVIOUS NURSES ASSESSMENT.
--- NOTE | 2018-12-19 15:25 | Cardiology Progress Note ---
Cardiology SOAP Progress Note Subjective: Continues to be in sinus rhythm. Objective: I&O/Vital Signs 12/19/18 12/19/18 12/19/18 12/19/18 04:00 04:12 04:30 05:00 Pulse 58 58 Resp 20 21 B/P (MAP) 121/66 (84) 135/66 (89) Pulse Ox 90 93 94 O2 Delivery Nasal Cannula Nasal Cannula Nasal Cannula Nasal Cannula O2 Flow Rate 1.00 2.00 1.00 2.00 12/19/18 12/19/18 12/19/18 12/19/18 06:00 07:00 07:00 07:12 Pulse 56 56 56 Resp 20 21 B/P (MAP) 136/68 (90) 126/67 (86) Pulse Ox 92 92 93 O2 Delivery Nasal Cannula Nasal Cannula Nasal Cannula O2 Flow Rate 2.00 2.00 2.00 FiO2 96 12/19/18 12/19/18 12/19/18 12/19/18 07:42 07:42 08:00 08:00 Temp 36.2 36.2 Pulse 66 69 Resp 25 22 B/P (MAP) 126/67 (86) 138/71 (93) Pulse Ox 93 96 96 O2 Delivery Nasal Cannula Nasal Cannula Nasal Cannula O2 Flow Rate 1.00 2.00 2.00 12/19/18 12/19/18 12/19/18 12/19/18 09:25 11:40 11:40 13:00 Temp 36.4 36.2 Pulse 73 69 78 Resp 20 21 B/P (MAP) 123/66 (85) 123/66 (85) Pulse Ox 94 94 94 O2 Delivery Nasal Cannula Room Air Room Air O2 Flow Rate 2.00 12/19/18 00:00 Intake Total 1060 ml Output Total 450 ml Balance 610 ml Weight (Pounds): 243 Weight (Ounces): 0.0 Weight (Calculated Kilograms): 110.552726 Constitutional: appears stated age, AAO x 3; No apparent distress; well- developed, well-nourished Respiratory: chest is bilaterally symmetric, lungs clear to auscultation Cardiovascular: regular rate-rhythm; No irregularly irregular, No extra beats, No parasternal heave is noted, No JVD, No edema, No bradycardia, No tachycardia, No point of maximal impulse, No cardiac thrills are palpable; S1 and S2; No gallop/S3, No gallop/S4, No diastolic murmur, No systolic murmur, No friction rub, No click, No other Gastrointestional: soft, round, audible bowel sounds; No spleenomegaly Extremities: normal range of motion, non-tender, normal inspection; No clubbing, No cyanosis; no lower extremity edema bilateral; No significant edema Neurologic/Psychiatric: no motor/sensory deficits, alert, normal mood/affect, oriented x 3, power is 5/5 both on sides Skin: normal color; No rash, No ulcerations Results/Procedures: Labs Laboratory Tests 12/19/18 02:58: White Blood Count 8.9, Red Blood Count 4.22L, Hemoglobin 12.6, Hematocrit 41, Mean Corpuscular Volume 97, Mean Corpuscular Hemoglobin 30, Mean Corpuscular Hemoglobin Concent 31L, Red Cell Distribution Width 17.1H, Platelet Count 223, Mean Platelet Volume 9.8, Neutrophils (%) (Auto) 92H, Lymphocytes (%) (Auto) 5L, Monocytes (%) (Auto) 3, Eosinophils (%) (Auto) 0, Basophils (%) (Auto) 0, Neutrophils # (Auto) 8.2H, Lymphocytes # (Auto) 0.5L, Monocytes # (Auto) 0.2, Eosinophils # (Auto) 0.0, Basophils # (Auto) 0.0, Sodium Level 136, Potassium Level 4.6, Chloride Level 105, Carbon Dioxide Level 20L, Anion Gap 11, Blood Urea Nitrogen 12, Creatinine 0.88, Estimat Glomerular Filtration Rate > 60, BUN/Creatinine Ratio 14, Glucose Level 350H, Calcium Level 7.9L, Phosphorus Level 2.9, Magnesium Level 2.1 Microbiology 12/17/18 Blood Culture - Preliminary, Resulted No growth 12/17/18 MRSA Screen - Final, Complete MRSA not isolated A/P: Assessment/Dx: Mechanical fall,? Syncope, History of COPD, Atrial fibrillation with rapid ventricular rate and hypotension, status post cardioversion. Hypokalemia, Rhabdomyolysis, Elevated LFTs, Elevated BNP Positive D dimer Plan: Mechanical fall,? Syncope, unclear etiology. Will likely require an event monitor on discharge. Echocardiogram. Driving restriction until we figure out the cause of syncope. Atrial fibrillation with rapid ventricular rate and hypotension, status post cardioversion. On amiodarone infusion. Continue metoprolol. Currently in sinus rhythm. Will require oral anticoagulation therapy. Start Eliquis 5 mg twice a day. Hypokalemia, defer to the primary team. Rhabdomyolysis, IV fluids. Likely due to fall. Elevated LFTs, unclear at urology. Elevated BNP, will recommend an echocardiogram. Not in florid congestive heart failure on my examination. Positive D dimer, negative CT angiography for PE. Complicated patient. Thank you for your consultation. Please call me if you have any questions. Gil Woods MD, FACP, FACC, FSCAI, FHRS, CCDS Interventional Cardiology Cardiac Electrophysiology Vascular Medicine and Endovascular Interventions Focused Exam Lactate Level 12/17/18 16:55: Lactic Acid Level 2.77*H 12/17/18 18:45: Lactic Acid Level 1.75 Galdino WOODS MD Dec 19, 2018 15:25
[2018-12-19] MEDS ORDERED: cefTRIAXone 1,000 MG IV (ROCEPHIN) VIAL ONE (18:30)
[2018-12-19] MEDS ORDERED: WATER (STERILE) FOR INJECTION 10 ML ONE (18:31)
[2018-12-19] MEDS: cefTRIAXone FOR IV USE 1,000 MG in WATER (STERILE) FOR INJECTION 10 ML IV SCH (18:41)
[2018-12-19] MEDS: rOPINIRole 5 MG TAB (REQUIP) PO SCH (21:14)
[2018-12-19] MEDS: APIXABAN 5 MG (ELIQUIS) TABLET PO SCH (21:14)
[2018-12-20] VITALS (16 sets, daily range): BP systolic 91–161; BP diastolic 63–114
[2018-12-20] MEDS: RT-ALBUTEROL/IPRATROPIUM 3 ML (DUONEB) VIAL INH SCH ×4 (02:14→20:08)
[2018-12-20] MEDS: NS IV 1000 ML 1,000 ML IV SCH (04:24)
[2018-12-20 06:27] LABS: BASOPHILS % (AUTO) 0 % (0-10); EOSINOPHILS # (AUTO) 0.1 10^3/uL (0.0-0.3); EOSINOPHILS % (AUTO) 1 % (0-10); HEMATOCRIT 41 % (35-52); HEMOGLOBIN 12.4 G/DL (11.5-16.0); LYMPHOCYTES # (AUTO) 1.3 X 10^3 (1.0-4.0); LYMPHOCYTES % (AUTO) 13 % (12-44); MEAN CORPUSCULAR HEMOGLOBIN 30 PG (25-34); MEAN CORPUSCULAR HGB CONC 30 G/DL (32-36); MEAN CORPUSCULAR VOLUME 100 FL (80-99); MEAN PLATELET VOLUME 9.9 FL (7.4-10.4); MONOCYTES # (AUTO) 0.8 X 10^3 (0.0-1.0); MONOCYTES % (AUTO) 8 % (0-12); NEUTROPHILS # (AUTO) 7.4 X 10^3 (1.8-7.8); NEUTROPHILS % (AUTO) 77 % (42-75); PLATELET COUNT 206 10^3/uL (130-400); RED CELL DISTRIBUTION WIDTH 17.5 % (10.0-14.5); WHITE BLOOD COUNT 9.6 10^3/uL (4.3-11.0)
[2018-12-20 06:46] LABS: BUN/CREATININE RATIO 13; CALCIUM 7.9 MG/DL (8.5-10.1); CARBON DIOXIDE 19 MMOL/L (21-32); CHLORIDE 109 MMOL/L (98-107); CREATININE SERUM 0.78 MG/DL (0.60-1.30); GFR ESTIMATED > 60; GLUCOSE 160 MG/DL (70-105); MAGNESIUM 2.1 MG/DL (1.6-2.4); PHOSPHORUS 2.5 MG/DL (2.3-4.7); POTASSIUM 4.7 MMOL/L (3.6-5.0); SODIUM 140 MMOL/L (135-145)
--- NOTE | 2018-12-20 07:08 | Pulmonary Progress Note ---
Subjective Time Seen by a Provider: 07:08 Subjective/Events-last exam Pt is feeling better. Sepsis Event Evaluation Height, Weight, BMI Height: 5'6.00" Weight: 243lbs. 0.0oz. 110.844801ic; 99.32 BMI Method:Stated Focused Exam Lactate Level 12/17/18 16:55: Lactic Acid Level 2.77*H 12/17/18 18:45: Lactic Acid Level 1.75 Exam Exam Vital Signs Date Time Temp Pulse Resp B/P (MAP) Pulse Ox O2 Delivery O2 Flow Rate FiO2 12/20/18 03:56 37.0 77 20 161/99 (119) 95 Nasal Cannula 1.00 12/20/18 02:14 88 Nasal Cannula 1.00 12/20/18 01:00 73 12/20/18 00:00 36.4 80 20 149/71 (97) 93 Nasal Cannula 1.00 12/19/18 21:59 89 Room Air 12/19/18 20:56 36.5 82 20 138/85 (102) 92 Room Air 12/19/18 20:00 Room Air 12/19/18 19:00 96 12/19/18 18:00 91 Room Air 12/19/18 15:55 93 Room Air 12/19/18 15:25 36.5 73 20 120/71 (87) 95 Room Air 12/19/18 13:00 78 12/19/18 11:40 36.2 69 21 123/66 (85) 94 Room Air 12/19/18 11:40 94 Room Air 12/19/18 09:25 36.4 73 20 123/66 (85) 94 Nasal Cannula 2.00 12/19/18 08:00 69 22 138/71 (93) 96 Nasal Cannula 2.00 12/19/18 08:00 36.2 66 25 126/67 (86) 96 Nasal Cannula 2.00 12/19/18 07:42 93 Nasal Cannula 1.00 12/19/18 07:42 36.2 12/19/18 07:12 93 Nasal Cannula 2.00 96 I & O 12/20/18 07:00 Intake Total 950 ml Output Total 1300 ml Balance -350 ml Height & Weight Height: 5'6.00" Weight: 243lbs. 0.0oz. 110.285109bd; 99.32 BMI Method:Stated General Appearance: No Apparent Distress, WD/WN, Chronically ill HEENT: PERRL/EOMI, Normal ENT Inspection, Pharynx Normal, Moist Mucous Membranes Neck: Full Range of Motion, Normal Inspection, Non Tender Respiratory: Chest Non Tender, No Accessory Muscle Use, No Respiratory Distress, Decreased Breath Sounds, Wheezing Cardiovascular: Regular Rate, Rhythm, No Edema, No Gallop, No JVD, No Murmur, Normal Peripheral Pulses Capillary Refill: Less Than 3 Seconds Extremity: Normal Capillary Refill, Normal Inspection, Normal Range of Motion, Non Tender, No Calf Tenderness, No Pedal Edema Neurologic/Psychiatric: Alert, Oriented x3, No Motor/Sensory Deficits, Normal Mood/Affect Skin: Normal Color, Warm/Dry Lymphatic: No Adenopathy Results Lab Laboratory Tests 12/19/18 02:58 12/20/18 05:14 Assessment/Plan Assessment/Plan Atrial fibrillation with RVR status post cardioversion -Lovenox therapeutic dosing -Cardiology following -Give lasix 40mg IV X 1 Septic shock secondary to UTI -Sheth cultures pending -Rocephin -Sepsis protocol S/P Syncope Hx ROJELIO -Noncompliant with CPAP -Refuses CPAP/BiPAP JENNIFER VAZQUEZ DO Dec 20, 2018 07:08
[2018-12-20] MEDS ORDERED: FUROSEMIDE 40 MG/4 ML INJ (LASIX) IVP NR (07:15)
[2018-12-20] MEDS ORDERED: ASPI-983 PO (07:36)
[2018-12-20] MEDS ORDERED: IPRA3AMP31 NEB (07:36)
[2018-12-20] MEDS ORDERED: IBUP-2055 PO (07:44)
[2018-12-20] MEDS ORDERED: DIPH25CA79 PO (07:44)
[2018-12-20] MEDS ORDERED: LOPE-145 PO (07:45)
[2018-12-20] MEDS ORDERED: RT-ALBUTEROL/IPRATROPIUM 3 ML (DUONEB) VIAL INH PRN (07:45)
[2018-12-20] MEDS ORDERED: BISA-65 PO (07:45)
[2018-12-20] MEDS ORDERED: FLUC100T6 PO (08:22)
[2018-12-20] MEDS ORDERED: NYST15PO4 TD (08:22)
--- NOTE | 2018-12-20 08:24 | NUR ---
SPOKE WITH PT WELL GOING THRU THE EXTERNAL MED HISTORY TO COMPLETE THE MED REC. ROPINIROLE: THE SCRIPT SAYS TO TAKE 1&1/2 TS DAILY, BUT PT SAYS SHE ONLY TAKES 1 TAB HS. OTC MEDS: DIPHENDYDRAMINE 25M DAILY PRN IBUPROFEN 200M TS Q 6 H PRN BISACODYL 5M Q 8 H PRN IMODIUM AD: UD
--- NOTE | 2018-12-20 08:36 | Diagnostic Imaging Report ---
INDICATION: Atrial fibrillation, urinary tract infection, sepsis. FINDINGS: The heart size is stable. There is blunting of the left angle, likely a tiny amount of left pleural fluid. There is some borderline perihilar vascular congestion. IMPRESSION: Borderline venous congestion. Stable heart size. Probable tiny left pleural effusion. Dictated by: Dictated on workstation # [id number]
--- NOTE | 2018-12-20 09:41 | Physical Therapy Evaluation ---
PT Evaluation-General Medical Diagnosis Admission Date Dec 17, 2018 at 20:50 Medical Diagnosis: A-fib with RVR Onset Date: Dec 17, 2018 Therapy Diagnosis Therapy Diagnosis: debility/weakness Height/Weight Height (Feet): 5 Height (Inches): 6.00 Weight (Pounds): 243 Weight (Ounces): 0.0 Precautions Precautions/Isolations: Fall Prevention, Standard Precautions Weight Bear Status Right Lower Extremity: Right Weight Bearing/Tolerated Left Lower Extremity: Left Weight Bearing/Tolerated Referral Physician: Kurt Reason for Referral: Evaluation/Treatment Medical History Pertinent Medical History: Atrial Fib, COPD, HTN Current History ER secondary to fall/weakness (per patient she didn't fall, she couldn't get self off of toilet) Reviewed History: Yes Social History Home: Single Level Current Living Status: Spouse Entry Into Home: Stairs With Railing PT Steps Into Home: 2 Prior/Core FIM Prior Level of Function Therapy Code Descriptions/Definitions Functional [place] Measure: 0=Not Assessed/NA 4=Minimal Assistance 1=Total Assistance 5=Supervision or Setup 2=Maximal Assistance 6=Modified [place] 3=Moderate Assistance 7=Complete [place] Therapy Quality Codes: 6 Independent with activity with or without an assistive device 5 Patient requires set up or clean up by helper. Patient completes activity by themselves 4 Supervision or touching assist (CGA). [place] provide cues , steadying assist 3 The helper provides less than half the effort to complete the activity 2 The helper provides more than half the effort to complete the activity 1 Dependent. The helper does all the effort to complete an activity 7 Patient refused to complete or attempt activity 9 The patient did not perform the activity before the current illness or injury 88 Not attempted due to Medical conditions or safety concerns Functional Abilities and Goals: Independent: Patient completed the activities by him/herself, with or without an assistive device, with no assistance from a helper. Needed Some Help: Patient needed partial assistance from another person to complete activities. Dependent: A helper completed the activities for the patient. Unknown: Not Applicable: Bed Mobility: 6 Transfers (B,C,W/C) (FIM): 6 Gait: 6 Stairs: 2 Indoor Mobility (Ambulation): Independent Stairs: Needed Some Help Prior Devices Use: Walker PT Evaluation-Current Subjective Patient agrees to PT. No c/o. Pain Numeric Pain Scale: 0-No Pain Location: No Pain Reported Objective Patient Orientation: Normal For Age Problem Solving: Fair Attachments: Oxygen, IV ROM/Strength ROM Lower Extremities bilateral LE WFL Strength Lower Extremities 3+/5 grossly bilateral LE Integumentary/Posture Integumentary refer to nursing notes Bladder Incontinence: Yes Posture WFL Neuromuscular (Tone, Coordination, Reflexes) grossly intact Sensory Vision: Wears Glasses Hearing: Functional Sensation Right Lower Extremit: Intact Sensation Left Lower Extremity: Intact Transfers Therapy Code Descriptions/Definitions Functional [place] Measure: 0=Not Assessed/NA 4=Minimal Assistance 1=Total Assistance 5=Supervision or Setup 2=Maximal Assistance 6=Modified [place] 3=Moderate Assistance 7=Complete [place] Transfers (B, C, W/C) (FIM): 5 Scootin Rollin Supine to/from Sit: 5 Sit to/from Stand: 5 Gait Mode of Locomotion: Walk Anticipated Mode of Locomotion: Walk Gait (FIM): 5 Distance (FIM): 3=150 ft Distance: 225' Gait Level of Assist: 5 Gait Assistive Device: FWW Comments/Gait Description steady functional gait sequence with FWW. Noted increase SOA with O2 2L NC in place with SAO2 >90%. Balance Sitting Static: Normal Sitting Dynamic: Normal Standing Static: Normal Standing Dynamic: Normal Assessment/Needs 68 y.o. female, will benefit from short term skilled PT to address pulmonary function with functional mobility and strengthening to ensure safe return to home with spouse at maximum LOF. Spouse is very attentive and assists patient with ADL's and gross motor skills PLOF. Rehab Potential: Fair PT Coroner Goals Coroner Goals PT Coroner Goals Time Frame: Jan 01, 2019 Transfers (B,C,W/C) (FIM): 6 Gait (FIM): 6 Gait distance (FIM): 3=150 ft Distance: 250' Gait Level of Assist: 6 Gait Assistive Device: FWW Stairs (FIM): 2 # of Steps: 2 Stairs Level Of Assist: 5 PT Plan Problem List Problem List: Activity Tolerance Treatment/Plan Treatment Plan: Continue Plan of Care Treatment Plan: Bed Mobility, Education, Functional Activity Rahel, Functional Strength, Gait, Safety, Therapeutic Exercise, Transfers Treatment Duration: Jan 01, 2019 Frequency: 6 times per week Estimated Hrs Per Day: .25 hour per day Patient and/or Family Agrees t: Yes Discharge Recommendations Therapy Discharge Recommendati: Other, See Comments (home with home health therapy) Time/GCodes Time In: 820 Time Out: 842 Total Billed Treatment Time: 22 Total Billed Treatment 1 visit EVModC 22 min YASMANY MELENDEZ PT Dec 20, 2018 09:41
[2018-12-20] MEDS: APIXABAN 5 MG (ELIQUIS) TABLET PO SCH ×2 (09:45→20:36)
[2018-12-20] MEDS: GABAPENTIN 100 MG (NEURONTIN) CAP PO SCH ×3 (09:45→20:36)
[2018-12-20] MEDS: SINEMET 25/100 (CARBIDOPA/LEVODOPA) TAB PO SCH ×2 (09:46→20:36)
--- NOTE | 2018-12-20 11:05 | NUR ---
IRF Evaluation Order received to evaluate patient for the ARU. Chart review complete and findings discussed with Dr. Hicks - patient denied. According to PT Evaluation, patient is ambulating (225ft, FWW) and transferring with supervision. Patient's PLOF is modified independent with RW; therefore, patient does not require intensive therapies, at this time. Thank you for this referral.
--- NOTE | 2018-12-20 13:23 | Occupational Therapy Eval ---
OT Evaluation-General/PLF Medical Diagnosis Admission Date Dec 17, 2018 at 20:50 Medical Diagnosis: A-fib with RVR Onset Date: Dec 17, 2018 Therapy Diagnosis Therapy Diagnosis: impaired ADLs and mobility Height/Weight Height (Feet): 5 Height (Inches): 6.00 Weight (Pounds): 243 Weight (Ounces): 0.0 Precautions Precautions/Isolations: Fall Prevention, Standard Precautions Safety Interventions: None Referral Physician: Kurt Referral Reason: Activity Tolerance, Self Care, Evaluation/Treatment, Strengthening/ROM Medical History Pertinent Medical History: Atrial Fib, COPD, HTN Current History Pt admitted 12/17/18. Per H&P: "his is a 68-year-old white female clinic patient of Dr. Moscoso at [facility] who has a past medical history of severe hypertension and COPD with smoking cessation just last year and noncompliance with CPAP who presented to the ER after found down at home when she arrived to the ER found to have a new onset atrial fibrillation with rapid ventricular response but having significant hypotension from Cardizem initiation requiring 3 episodes of electrical cardioversion and placed on amiodarone drip and consulted cardiology. She currently is doing a lot better she is in normal sinus rhythm but she does appear to have some shortness of breath at baseline but she is sitting in a chair. Her lives with her. She stopped smoking after 50 years just last year." Reviewed History: Yes Social History Home: Single Level Current Living Status: Spouse Entry Into Home: Stairs Without Railing Steps Into Home: 3 ADL-Prior Level of Function Therapy Code Descriptions/Definitions Functional Alger Measure: 0=Not Assessed/NA 4=Minimal Assistance 1=Total Assistance 5=Supervision or Setup 2=Maximal Assistance 6=Modified [place] 3=Moderate Assistance 7=Complete [place] Therapy Quality Codes: 6 Independent with activity with or without an assistive device 5 Patient requires set up or clean up by helper. Patient completes activity by themselves 4 Supervision or touching assist (CGA). [place] provide cues , steadying assist 3 The helper provides less than half the effort to complete the activity 2 The helper provides more than half the effort to complete the activity 1 Dependent. The helper does all the effort to complete an activity 7 Patient refused to complete or attempt activity 9 The patient did not perform the activity before the current illness or injury 88 Not attempted due to Medical conditions or safety concerns Functional Abilities and Goals: Independent: Patient completed the activities by him/herself, with or without an assistive device, with no assistance from a helper. Needed Some Help: Patient needed partial assistance from another person to complete activities. Dependent: A helper completed the activities for the patient. Unknown: Not Applicable: ADL PLOF Comments Pt reported she was able to complete bathing/dressing/grooming/feeding prior to hospitalization by herself. Stated she needed someone with her as she stepped into/out of the tub/shower, she leaned against the wall for support when needed during her shower. Pt required increased time for most ADLs at prior level, and pt used a sock aid to don socks. Self Care: Needed Some Help Functional Cognition: Independent DME/Equipment: Tub/Shower DME/Equipment Comments none Drive Self: Yes (pt has been driving up to about a week ago) OT Current Status Subjective Pt upright in recliner at start of session, finishing lunch. Pt agreed to OT evaluation, present at start of session but stepped out during tx. Mental Status/Objective Patient Orientation: Person, Place, Time, Situation Attachments: Hurtado Catheter, IV, Oxygen, Telemetry Current Glasses/Contacts: Yes Hearing Aids: No Dentures/Partials: No Upper Extremity ROM LUE WFL pt able to touch back of head. RUE shoulder flexion to approximately 10 degrees, elbow/wrist/hand WFL. Upper Extremity Coordination WFL thumb opposition to each finger Upper Extremity Sensation intact light touch BUE. Pt reports the tips of her fingers BUE sometimes tingle and feel numb, reports they do not feel this way now. Upper Extremity Strength RUE shoulder 2/5 MMT, 3+/5 elbow/shoulder/hand LUE 3+/5 MMT ADL-Treatment Therapy Code Descriptions/Definitions Functional Alger Measure: 0=Not Assessed/NA 4=Minimal Assistance 1=Total Assistance 5=Supervision or Setup 2=Maximal Assistance 6=Modified Alger 3=Moderate Assistance 7=Complete [place] Therapy Quality Codes: 6 Independent with activity with or without an assistive device 5 Patient requires set up or clean up by helper. Patient completes activity by themselves 4 Supervision or touching assist (CGA). [place] provide cues , steadying assist 3 The helper provides less than half the effort to complete the activity 2 The helper provides more than half the effort to complete the activity 1 Dependent. The helper does all the effort to complete an activity 7 Patient refused to complete or attempt activity 9 The patient did not perform the activity before the current illness or injury 88 Not attempted due to Medical conditions or safety concerns Eating (FIM): 7 Lower Body Dressing (FIM): 1 (pt required assitance to shae/doff bilateral socks.) Other Treatments Pt upright in recliner during session. Pt provided information for OT evaluation as she finished lunch. Pt attempted to take socks off/on but required assistance. Pt denied needing to go to the bathroom. Post OT session, pt seated in recliner, call light in reach and all needs met. Education OT Patient Education: Correct positioning, Modified ADL techniques, Progress toward Goal/Update tx plan, Purpose of tx/functional activities Teaching Recipient: Patient Teaching Methods: Demonstration Response to Teaching: Verbalize Understanding OT Short Term Goals Short Term Goals Time Frame: Dec 29, 2018 Grooming(FIM): 4 Bathing(FIM): 4 Lower Body Dressing(FIM): 3 Toileting(FIM): 4 Transfers (B,C,W/C) (FIM): 5 Toilet/Commode Transfer(FIM): 5 1=Demonstrate adherence to instructed precautions during ADL tasks. 2=Patient will verbalize/demonstrate understanding of assistive devices/modifications for ADL. 3=Patient will improve strength/tolerance for activity to enable patient to perform ADL's. OT Steaming Cabinet Tender Goals Steaming Cabinet Tender Goals Time Frame: Jan 07, 2019 Grooming(FIM): 6 Bathing(FIM): 6 Upper Body Dressing(FIM): 6 Lower Body Dressing(FIM): 6 Toileting(FIM): 6 Transfers (B,C,W/C) (FIM): 6 Toilet/Commode Transfer(FIM): 6 Shower Transfer(FIM): 6 Additional Goals: 1-Demonstrate ADL Tasks, 2-Verbalize Understanding, 3- ImproveStrength/[place] 1=Demonstrate adherence to instructed precautions during ADL tasks. 2=Patient will verbalize/demonstrate understanding of assistive devices/modifi cations for ADL. 3=Patient will improve strength/tolerance for activity to enable patient to perform ADL's. OT Education/Plan Problem List/Assessment Assessment: Decreased Activ Tolerance, Decreased UE Strength, Impaired Funct Balance, Impaired I ADL's, Impaired Self-Care Skills, Restricted Funct UE ROM Discharge Recommendations Plan/Recommendations: Continue POC Therapy Discharge Recommendati: Post Acute OT Treatment Plan/Plan of Care Treatment,Training & Education: Yes Patient would benefit from OT for education, treatment and training to promote independence in ADL's, mobility, safety and/or upper extremity function for A DL's. Plan of Care: ADL Retraining, Caregiver Training, Functional Mobility, UE Funct Exercise/Act Treatment Duration: Jan 07, 2019 Frequency: 5 times per week Estimated Hrs Per Day: .25 hour per day Rehab Potential: Fair Time/GCodes Start Time: 12:45 Stop Time: 13:15 Total Time Billed (hr/min): 30 Billed Treatment Time 1, EVM x20min, ADL x10min JOSE MARTIN HUYNH OT Dec 20, 2018 13:23
--- NOTE | 2018-12-20 14:00 | NUR ---
DR. JENSEN NOTIFIED BY THIS RN OF PULSE RATE OF 150'S-170'S. CHANGE IN TELEMETRY FROM SR TO AFIB. NEW ORDERS RECEIVED TO TRANSFER TO ICU. PATIENT ASYMPTOMATIC WITH NO C/O. PT. TRANSFER TO ICU-6, REPORT GIVEN TO CORRINE BARNEY RN.
[2018-12-20] MEDS ORDERED: NS IV 1000 ML 1,000 ML ONE (14:09)
[2018-12-20] MEDS ORDERED: DILTIAZEM 25 MG/5 ML INJ (CARDIZEM) VIAL IVP NR (14:45)
[2018-12-20] MEDS: DILTIAZEM IV FOR DRIP 125 MG in NS (IVPB) 100 ML IV SCH ×2 (14:51→22:13)
--- NOTE | 2018-12-20 15:02 | NUR ---
1430 PT TO ROOM ICU 6 VIA W/C ACCOMPANIED BY 4TH FLOOR RN Ju PRITCHETT. ALL PERSONAL BELONGINGS WITH PT. PT SITTING UP IN CHAIR WITH HEART RATE NOTED AT [address] JENSEN AND NEW ORDERS RECEIVED TO GIVE CARDIZEM BOLUS AND START CARDIZEM DRIP. ASSESSMENT COMPLETE SEE FLOW SHEET.
--- NOTE | 2018-12-20 15:09 | Cardiology Progress Note ---
Cardiology SOAP Progress Note Subjective: Gradually improving. Objective: I&O/Vital Signs 12/20/18 12/20/18 12/20/18 12/20/18 03:56 06:59 07:00 07:05 Temp 37.0 37.0 Pulse 77 77 77 Resp 20 B/P (MAP) 161/99 (119) Pulse Ox 95 93 93 O2 Delivery Nasal Cannula Nasal Cannula O2 Flow Rate 1.00 1.00 12/20/18 12/20/18 12/20/18 12/20/18 08:00 08:56 12:00 12:24 Temp 36.5 36.2 Pulse 93 94 74 Resp 20 18 B/P (MAP) 134/63 (86) 161/77 (105) Pulse Ox 96 95 O2 Delivery Nasal Cannula Nasal Cannula Nasal Cannula O2 Flow Rate 1.00 1.00 1.00 12/20/18 14:51 Temp 36.96307 Pulse 178 Resp 18 B/P (MAP) 161/77 Pulse Ox 95 O2 Delivery Nasal Cannula O2 Flow Rate 1.00 12/20/18 00:00 Intake Total 750 ml Output Total 800 ml Balance -50 ml Weight (Pounds): 243 Weight (Ounces): 0.0 Weight (Calculated Kilograms): 110.188368 Constitutional: appears stated age, AAO x 3; No apparent distress; well- developed, well-nourished Respiratory: chest is bilaterally symmetric, lungs clear to auscultation Cardiovascular: regular rate-rhythm; No irregularly irregular, No extra beats, No parasternal heave is noted, No JVD, No edema, No bradycardia, No tachycardia, No point of maximal impulse, No cardiac thrills are palpable; S1 and S2; No gallop/S3, No gallop/S4, No diastolic murmur, No systolic murmur, No friction rub, No click, No other Gastrointestional: soft, round, audible bowel sounds; No spleenomegaly Extremities: normal range of motion, non-tender, normal inspection; No clubbing, No cyanosis; no lower extremity edema bilateral; No significant edema Neurologic/Psychiatric: no motor/sensory deficits, alert, normal mood/affect, oriented x 3, power is 5/5 both on sides Skin: normal color; No rash, No ulcerations Results/Procedures: Labs Laboratory Tests 12/20/18 05:14: White Blood Count 9.6, Red Blood Count 4.14L, Hemoglobin 12.4, Hematocrit 41, Mean Corpuscular Volume 100H, Mean Corpuscular Hemoglobin 30, Mean Corpuscular Hemoglobin Concent 30L, Red Cell Distribution Width 17.5H, Platelet Count 206, Mean Platelet Volume 9.9, Neutrophils (%) (Auto) 77H, Lymphocytes (%) (Auto) 13, Monocytes (%) (Auto) 8, Eosinophils (%) (Auto) 1, Basophils (%) (Auto) 0, Neutrophils # (Auto) 7.4, Lymphocytes # (Auto) 1.3, Monocytes # (Auto) 0.8, Eosinophils # (Auto) 0.1, Basophils # (Auto) 0.0, Sodium Level 140, Potassium Level 4.7, Chloride Level 109H, Carbon Dioxide Level 19L, Anion Gap 12, Blood Urea Nitrogen 10, Creatinine 0.78, Estimat Glomerular Filtration Rate > 60, BUN/Creatinine Ratio 13, Glucose Level 160H, Calcium Level 7.9L, Phosphorus Level 2.5, Magnesium Level 2.1, B-Type Natriuretic Peptide 219.2H Microbiology 12/17/18 Blood Culture - Preliminary, Resulted No growth 12/17/18 MRSA Screen - Final, Complete MRSA not isolated 12/17/18 Urine Culture - Final, Complete 3 or more isolates A/P: Assessment/Dx: Mechanical fall,? Syncope, History of COPD, Atrial fibrillation with rapid ventricular rate and hypotension, status post cardioversion. Hypokalemia, Rhabdomyolysis, Elevated LFTs, Elevated BNP Positive D dimer Plan: Mechanical fall,? Syncope, unclear etiology. Will likely require an event monitor on discharge. Echocardiogram. Driving restriction until we figure out the cause of syncope. Atrial fibrillation with rapid ventricular rate and hypotension, status post cardioversion. On amiodarone infusion. Continue metoprolol. Currently in sinus rhythm. Will require oral anticoagulation therapy. Start Eliquis 5 mg twice a day. Hypokalemia, defer to the primary team. Rhabdomyolysis, IV fluids. Likely due to fall. Elevated LFTs, unclear at urology. Elevated BNP, will recommend an echocardiogram. Not in florid congestive heart failure on my examination. Positive D dimer, negative CT angiography for PE. Complicated patient. Thank you for your consultation. Please call me if you have any questions. Gil Woods MD, FACP, FACC, FSCAI, FHRS, CCDS Interventional Cardiology Cardiac Electrophysiology Vascular Medicine and Endovascular Interventions Focused Exam Lactate Level 12/17/18 16:55: Lactic Acid Level 2.77*H 12/17/18 18:45: Lactic Acid Level 1.75 Galdino WOODS MD Dec 20, 2018 15:09
--- NOTE | 2018-12-20 15:45 | Progress Note ---
Subjective Subjective/Events-last exam Pt seen at 1010 am. Afebrile, no acute events. She is feeling fairly well, has been out of bed walking but does get short of breath with that. Focused Exam Lactate Level 12/17/18 16:55: Lactic Acid Level 2.77*H 12/17/18 18:45: Lactic Acid Level 1.75 Objective Exam Last Set of Vital Signs Vital Signs Date Time Temp Pulse Resp B/P (MAP) Pulse Ox O2 Delivery O2 Flow Rate FiO2 12/20/18 14:51 36.38258 178 18 161/77 95 Nasal Cannula 1.00 12/19/18 07:12 96 Capillary Refill : Less Than 3 Seconds I&O Intake and Output 12/20/18 00:00 Intake Total 930 ml Output Total 1120 ml Balance -190 ml Intake Oral 930 ml Output Urine Total 1120 ml General: Alert, No Acute Distress Lungs: Other (rales) Heart: Regular Rate, No Murmurs Abdomen: Normal Bowel Sounds, Soft Extremities: Other (2+ pitting edema to knees) Psych/Mental Status: Mood NL Results/Procedures Lab Laboratory Tests 12/20/18 05:14: White Blood Count 9.6, Red Blood Count 4.14L, Hemoglobin 12.4, Hematocrit 41, Mean Corpuscular Volume 100H, Mean Corpuscular Hemoglobin 30, Mean Corpuscular Hemoglobin Concent 30L, Red Cell Distribution Width 17.5H, Platelet Count 206, Mean Platelet Volume 9.9, Neutrophils (%) (Auto) 77H, Lymphocytes (%) (Auto) 13, Monocytes (%) (Auto) 8, Eosinophils (%) (Auto) 1, Basophils (%) (Auto) 0, Neutrophils # (Auto) 7.4, Lymphocytes # (Auto) 1.3, Monocytes # (Auto) 0.8, Eosinophils # (Auto) 0.1, Basophils # (Auto) 0.0, Sodium Level 140, Potassium Level 4.7, Chloride Level 109H, Carbon Dioxide Level 19L, Anion Gap 12, Blood Urea Nitrogen 10, Creatinine 0.78, Estimat Glomerular Filtration Rate > 60, BUN/Creatinine Ratio 13, Glucose Level 160H, Calcium Level 7.9L, Phosphorus Level 2.5, Magnesium Level 2.1, B-Type Natriuretic Peptide 219.2H Microbiology 12/17/18 Blood Culture - Preliminary, Resulted No growth 12/17/18 MRSA Screen - Final, Complete MRSA not isolated 12/17/18 Urine Culture - Final, Complete 3 or more isolates Assessment/Plan Assessment/Plan (1) Atrial fibrillation status post cardioversion Status: Acute Assessment & Plan: Initially on admit with hypotension requiring cardioversion x 3. Currently stable. Echo on 12/15 with EF 55-65%. Appreciate Cardiology recommendations. (2) Syncope Status: Acute Assessment & Plan: Possibly prior to fall, unclear. Further work-up per Cardiology. Qualifiers: Qualified Codes: R55 - Syncope and collapse (3) COPD (chronic obstructive pulmonary disease) Status: Chronic Assessment & Plan: Duonebs. (4) Hypertension Status: Chronic Qualifiers: Qualified Codes: I10 - Essential (primary) hypertension (5) Debility Status: Acute Assessment & Plan: Rehab consult. (6) UTI (urinary tract infection) Status: Acute Assessment & Plan: Suspected based on initial UA and leukocytosis, however culture without clear pathogen. Completing course of ceftriaxone. Qualifiers: Qualified Codes: N30.00 - Acute cystitis without hematuria (7) DVT prophylaxis Status: Acute Assessment & Plan: On apixaban. Clinical Quality Measures DVT/VTE Risk/Contraindication: Risk Factor Score Per Nursin RFS Level Per Nursing on Admit: 4+=Very High RAF KNAPP MD Dec 20, 2018 15:45
--- NOTE | 2018-12-20 16:49 | NUR ---
1630 DR JENSEN NOTIFIED OF PT'S ELEVATED BLOOD PRESSURE, NEW ORDERS RECEIVED TO RESTART PT'S HOME DOSE OF METOPROLOL. ORDERS ENTERED.
[2018-12-20] MEDS ORDERED: WATER (STERILE) FOR INJECTION 10 ML ONE (18:23)
[2018-12-20] MEDS ORDERED: cefTRIAXone 1,000 MG IV (ROCEPHIN) VIAL ONE (18:23)
[2018-12-20] MEDS: cefTRIAXone FOR IV USE 1,000 MG in WATER (STERILE) FOR INJECTION 10 ML IV SCH ×2 (18:25→18:46)
[2018-12-20] MEDS: meTOprolol TARTRATE 50 MG (LOPRESSOR) TAB PO SCH (20:36)
[2018-12-20] MEDS: rOPINIRole 5 MG TAB (REQUIP) PO SCH (20:36)
[2018-12-20] MEDS: MICONAZOLE 2% POWDER (DESENEX AF) 90 GM TOP SCH (20:37)
[2018-12-21] VITALS (25 sets, daily range): BP systolic 94–149; BP diastolic 52–104
[2018-12-21] MEDS: RT-ALBUTEROL/IPRATROPIUM 3 ML (DUONEB) VIAL INH SCH ×3 (03:20→22:20)
[2018-12-21 03:23] LABS: BASOPHILS % (AUTO) 0 % (0-10); EOSINOPHILS # (AUTO) 0.1 10^3/uL (0.0-0.3); EOSINOPHILS % (AUTO) 1 % (0-10); HEMATOCRIT 43 % (35-52); HEMOGLOBIN 13.2 G/DL (11.5-16.0); LYMPHOCYTES # (AUTO) 0.9 X 10^3 (1.0-4.0); LYMPHOCYTES % (AUTO) 11 % (12-44); MEAN CORPUSCULAR HEMOGLOBIN 30 PG (25-34); MEAN CORPUSCULAR HGB CONC 30 G/DL (32-36); MEAN CORPUSCULAR VOLUME 99 FL (80-99); MEAN PLATELET VOLUME 9.3 FL (7.4-10.4); MONOCYTES # (AUTO) 0.9 X 10^3 (0.0-1.0); MONOCYTES % (AUTO) 10 % (0-12); NEUTROPHILS # (AUTO) 6.9 X 10^3 (1.8-7.8); NEUTROPHILS % (AUTO) 78 % (42-75); PLATELET COUNT 242 10^3/uL (130-400); RED CELL DISTRIBUTION WIDTH 17.3 % (10.0-14.5); WHITE BLOOD COUNT 8.9 10^3/uL (4.3-11.0)
[2018-12-21 03:49] LABS: BUN/CREATININE RATIO 9; CARBON DIOXIDE 27 MMOL/L (21-32); CHLORIDE 107 MMOL/L (98-107); CREATININE SERUM 0.77 MG/DL (0.60-1.30); GFR ESTIMATED > 60; GLUCOSE 152 MG/DL (70-105); MAGNESIUM 2.1 MG/DL (1.6-2.4); PHOSPHORUS 3.2 MG/DL (2.3-4.7); POTASSIUM 4.5 MMOL/L (3.6-5.0); SODIUM 144 MMOL/L (135-145)
[2018-12-21] MEDS ORDERED: FUROSEMIDE 40 MG/4 ML INJ (LASIX) ONE (06:00)
--- NOTE | 2018-12-21 06:00 | NUR ---
IN PTS ROOM WITH DR VAZQUEZ HE EXPLAINED THE PTS DISEASE PROCESS AND SPOKE WITH HER ABOUT THE USAGE OF A CPAP FOR HER COPD AND ROJELIO. PT STATED SHE WOULD NOT WEAR A CPAP BECAUSE IT MADE HER FEEL LIKE SHE WAS BEING "SUFFOCATED". DR VAZQUEZ EXPLAINED DISEASE PROCESS WITH NONCOMPLIANCE OF CPAP. PT EXPRESSED "IF I I WOULD NOT WANT TO BE BROUGHT BACK" AND THAT SHE DID NOT WANT TO BE INTUBATED OR HAVE A TRACHEOSTOMY. DR VAZQUEZ CONFIRMED PTS UNDERSTANDING OF DNR IN MY PRESENCE.
--- NOTE | 2018-12-21 06:01 | Pulmonary Progress Note ---
Subjective Time Seen by a Provider: 05:59 Subjective/Events-last exam Pt transferred back to ICU last night secondary to Afib RVR. Sepsis Event Evaluation Height, Weight, BMI Height: 5'6.00" Weight: 243lbs. 0.0oz. 110.948057mx; 99.32 BMI Method:Stated Exam Exam Vital Signs Date Time Temp Pulse Resp B/P (MAP) Pulse Ox O2 Delivery O2 Flow Rate FiO2 12/21/18 04:00 101 24 149/84 (105) 92 Nasal Cannula 3.00 12/21/18 03:20 94 Nasal Cannula 3.00 12/21/18 03:00 80 17 123/90 (101) 93 Nasal Cannula 3.00 12/21/18 02:00 97 103/78 (86) 89 Nasal Cannula 3.00 12/21/18 01:00 87 12/21/18 01:00 87 26 104/68 (80) 95 Nasal Cannula 3.00 12/21/18 00:00 85 21 105/70 (82) 93 Nasal Cannula 3.00 12/20/18 23:00 83 22 115/76 (89) 93 Nasal Cannula 3.00 12/20/18 22:52 89 23 90 Nasal Cannula 3.00 12/20/18 22:45 108 17 98/65 (76) 88 Nasal Cannula 2.00 12/20/18 22:13 124 90 Nasal Cannula 2.00 12/20/18 22:00 141 25 91/77 (82) 92 Nasal Cannula 2.00 12/20/18 21:00 176 28 103/69 (80) 89 Nasal Cannula 2.00 12/20/18 20:08 94 Nasal Cannula 2.00 12/20/18 20:00 36.6 12/20/18 20:00 Nasal Cannula 3.00 12/20/18 20:00 156 27 134/90 (105) 96 Nasal Cannula 1.00 12/20/18 19:00 140 12/20/18 19:00 174 25 120/81 (94) 96 Nasal Cannula 1.00 12/20/18 18:00 161 27 135/81 (99) 93 Nasal Cannula 1.00 12/20/18 17:00 163 30 98/78 (85) 91 Nasal Cannula 1.00 12/20/18 16:00 154 23 137/114 (122) 95 Nasal Cannula 1.00 12/20/18 15:37 97 Nasal Cannula 2.00 12/20/18 15:00 134 17 158/106 (123) 97 Nasal Cannula 1.00 12/20/18 14:51 36.59002 178 18 161/77 95 Nasal Cannula 1.00 12/20/18 14:00 176 18 154/78 (103) 94 Nasal Cannula 1.00 12/20/18 12:24 74 12/20/18 12:00 36.2 94 18 161/77 (105) 95 Nasal Cannula 1.00 12/20/18 08:56 Nasal Cannula 1.00 12/20/18 08:00 36.5 93 20 134/63 (86) 96 Nasal Cannula 1.00 12/20/18 07:05 37.0 77 93 12/20/18 07:00 77 12/20/18 06:59 93 Nasal Cannula 1.00 I & O 12/21/18 07:00 Intake Total 1800 ml Output Total 4000 ml Balance -2200 ml Height & Weight Height: 5'6.00" Weight: 243lbs. 0.0oz. 110.042710jo; 99.32 BMI Method:Stated General Appearance: No Apparent Distress, WD/WN, Anxious, Chronically ill, Obese HEENT: PERRL/EOMI, Normal ENT Inspection, Pharynx Normal, Moist Mucous Membranes Neck: Full Range of Motion, Normal Inspection, Non Tender Respiratory: Chest Non Tender, No Accessory Muscle Use, No Respiratory Distress, Decreased Breath Sounds, Wheezing Cardiovascular: Regular Rate, Rhythm, No Edema, No Gallop, No JVD, No Murmur, Normal Peripheral Pulses Capillary Refill: Less Than 3 Seconds Extremity: Normal Capillary Refill, Normal Inspection, Normal Range of Motion, Non Tender, No Calf Tenderness, No Pedal Edema Neurologic/Psychiatric: Alert, Oriented x3, No Motor/Sensory Deficits, Normal Mood/Affect Skin: Normal Color, Warm/Dry Lymphatic: No Adenopathy Results Lab Laboratory Tests 12/20/18 05:14 12/21/18 03:11 Assessment/Plan Assessment/Plan Atrial fibrillation with RVR status post cardioversion in ED -Pt transferred to 4th floor yesterday then went back into Afib RVR -She is currently on cardizem gtt -Eliquis -Cardiology following Pulmonary edema probably secondary to diastolic dysfunction vs IVF -Lasix 40mg daily -BNP is 219 COPDAE -SVNS -will start prednisone 40mg daily x 5 days then D/C Septic shock secondary to UTI -Sheth cultures pending -Rocephin -Sepsis protocol S/P Syncope Hx ROJELIO -Noncompliant with CPAP -Refuses CPAP/BiPAP I reviewed code status with patient while RN at bedside. Pt states she would not want to be on life support. "If I I do not want to be brought back to life". "I do not want to be on life support." . I am going to make pt full DNR/DNI. JENNIFER VAZQUEZ DO Dec 21, 2018 06:00
[2018-12-21] MEDS: KCL 20 MEQ TAB (K-DUR) PO SCH (06:55)
[2018-12-21] MEDS: FUROSEMIDE 40 MG/4 ML INJ (LASIX) IVP SCH (06:55)
[2018-12-21] MEDS: predniSONE 20 MG TAB PO SCH (06:55)
[2018-12-21] MEDS: DILTIAZEM IV FOR DRIP 125 MG in NS (IVPB) 100 ML IV SCH ×2 (08:03→22:52)
[2018-12-21] MEDS: GABAPENTIN 100 MG (NEURONTIN) CAP PO SCH ×3 (08:08→20:12)
[2018-12-21] MEDS: APIXABAN 5 MG (ELIQUIS) TABLET PO SCH ×2 (08:08→20:12)
[2018-12-21] MEDS: SINEMET 25/100 (CARBIDOPA/LEVODOPA) TAB PO SCH ×2 (08:08→20:12)
[2018-12-21] MEDS: meTOprolol TARTRATE 50 MG (LOPRESSOR) TAB PO SCH ×2 (08:08→20:12)
[2018-12-21] MEDS: MICONAZOLE 2% POWDER (DESENEX AF) 90 GM TOP SCH ×2 (08:08→20:13)
--- NOTE | 2018-12-21 08:10 | Physical Therapy Progress Note ---
Therapy Progress Note Patient transferred to ICU secondary to elevated HR. PT will require new orders to continue with therapy. YASMANY MELENDEZ PT Dec 21, 2018 08:09
--- NOTE | 2018-12-21 09:18 | Progress Note ---
Subjective Subjective/Events-last exam Had recurrent a fib with RVR, transferred to ICU on cardizem drip. Is relatively asymptomatic, complaining only of cough and dry skin. Objective Exam Last Set of Vital Signs Vital Signs Date Time Temp Pulse Resp B/P (MAP) Pulse Ox O2 Delivery O2 Flow Rate FiO2 12/21/18 09:00 124 32 131/87 (102) Nasal Cannula 3.00 12/21/18 08:03 36.00128 93 12/19/18 07:12 96 Capillary Refill : Less Than 3 Seconds I&O Intake and Output 12/20/18 23:59 Intake Total 2000 ml Output Total 4500 ml Balance -2500 ml Intake Oral 1000 ml IV Total 1000 ml Output Urine Total 4500 ml General: Alert, No Acute Distress Lungs: Clear to Auscultation, Normal Air Movement Heart: Other (irregularly irregular, tachycardic) Extremities: Other (1+ pitting edema) Psych/Mental Status: Mental Status NL Results/Procedures Lab Laboratory Tests 12/21/18 03:11: White Blood Count 8.9, Red Blood Count 4.37, Hemoglobin 13.2, Hematocrit 43, Mean Corpuscular Volume 99, Mean Corpuscular Hemoglobin 30, Mean Corpuscular Hemoglobin Concent 30L, Red Cell Distribution Width 17.3H, Platelet Count 242, Mean Platelet Volume 9.3, Neutrophils (%) (Auto) 78H, Lymphocytes (%) (Auto) 11L , Monocytes (%) (Auto) 10, Eosinophils (%) (Auto) 1, Basophils (%) (Auto) 0, Neutrophils # (Auto) 6.9, Lymphocytes # (Auto) 0.9L, Monocytes # (Auto) 0.9, Eosinophils # (Auto) 0.1, Basophils # (Auto) 0.0, Sodium Level 144, Potassium Level 4.5, Chloride Level 107, Carbon Dioxide Level 27, Anion Gap 10, Blood Urea Nitrogen 7, Creatinine 0.77, Estimat Glomerular Filtration Rate > 60, BUN/Creatinine Ratio 9, Glucose Level 152H, Calcium Level 8.0L, Phosphorus Level 3.2, Magnesium Level 2.1 Microbiology 12/17/18 Blood Culture - Preliminary, Resulted No growth 12/17/18 MRSA Screen - Final, Complete MRSA not isolated 12/17/18 Urine Culture - Final, Complete 3 or more isolates Assessment/Plan Assessment/Plan (1) Atrial fibrillation status post cardioversion Status: Acute Assessment & Plan: Initially on admit with hypotension requiring cardioversion x 3. Currently stable. Echo on 12/15 with EF 55-65%. Appreciate Cardiology recommendations. 12/21 recurrence last night requiring cardizem drip, appreciate Cardiology recommendations. (2) Syncope Status: Acute Assessment & Plan: Possibly prior to fall, unclear. Further work-up per Cardiology. Qualifiers: Qualified Codes: R55 - Syncope and collapse (3) COPD (chronic obstructive pulmonary disease) Status: Chronic Assessment & Plan: Duonebs. 12/21 started prednisone PO daily per Dr. Boyle. (4) Hypertension Status: Chronic Qualifiers: Qualified Codes: I10 - Essential (primary) hypertension (5) Debility Status: Acute Assessment & Plan: Rehab consult. (6) UTI (urinary tract infection) Status: Acute Assessment & Plan: Suspected based on initial UA and leukocytosis, however culture without clear pathogen. Completing course of ceftriaxone. Qualifiers: Qualified Codes: N30.00 - Acute cystitis without hematuria (7) DVT prophylaxis Status: Acute Assessment & Plan: On apixaban. Clinical Quality Measures DVT/VTE Risk/Contraindication: Risk Factor Score Per Nursin RFS Level Per Nursing on Admit: 4+=Very High RAF KNAPP MD Dec 21, 2018 09:18
--- NOTE | 2018-12-21 09:22 | Diagnostic Imaging Report ---
INDICATION: Atrial fibrillation with rapid ventricular response. TECHNIQUE: Single view chest 3:13 AM. CORRELATION STUDY: 12/20/2018 FINDINGS: Heart size stable. Vasculature is prominent. Likely mild perihilar edema. Slightly more pronounced along the right hilum. Elevated right diaphragm with some right lung volume loss. Mildly prominent interstitial markings. No focal infiltrate. There may be trace effusions. IMPRESSION: 1. There does appear to be slight increasing vascularity uptake in the right perihilar region suggesting some degree of edema and/or fluid overload. Dictated by: Dictated on workstation # [id number]
--- NOTE | 2018-12-21 09:27 | NUR ---
DR JENSEN ON FLOOR NEW VERBAL ORDERS RECEIVED TO START AMIODARONE DRIP AND GIVE BOLUS.
[2018-12-21] MEDS ORDERED: AMIODARONE FOR BOLUS 150 MG in D5W 100 ML IVPB 100 ML IV NR (09:30)
[2018-12-21] MEDS ORDERED: [UNRECOGNIZED DRUG - OTHER] TP PRN (09:30)
--- NOTE | 2018-12-21 10:10 | Physical Therapy Evaluation ---
PT Evaluation-General Medical Diagnosis Admission Date Dec 17, 2018 at 20:50 Medical Diagnosis: A-fib with RVR Onset Date: Dec 17, 2018 Therapy Diagnosis Therapy Diagnosis: debility/weakness Height/Weight Height (Feet): 5 Height (Inches): 6.00 Weight (Pounds): 243 Weight (Ounces): 0.0 Precautions Precautions/Isolations: Fall Prevention, Standard Precautions Weight Bear Status Right Lower Extremity: Right Weight Bearing/Tolerated Left Lower Extremity: Left Weight Bearing/Tolerated Referral Physician: Heath Reason for Referral: Evaluation/Treatment Medical History Pertinent Medical History: Atrial Fib, COPD, HTN Current History Transfer to ICU secondary to elevated HR Reviewed History: Yes Social History Home: Single Level Current Living Status: Spouse Entry Into Home: Stairs Without Railing PT Steps Into Home: 3 Prior/Core FIM Prior Level of Function Therapy Code Descriptions/Definitions Functional [place] Measure: 0=Not Assessed/NA 4=Minimal Assistance 1=Total Assistance 5=Supervision or Setup 2=Maximal Assistance 6=Modified [place] 3=Moderate Assistance 7=Complete [place] Therapy Quality Codes: 6 Independent with activity with or without an assistive device 5 Patient requires set up or clean up by helper. Patient completes activity by themselves 4 Supervision or touching assist (CGA). [place] provide cues , steadying assist 3 The helper provides less than half the effort to complete the activity 2 The helper provides more than half the effort to complete the activity 1 Dependent. The helper does all the effort to complete an activity 7 Patient refused to complete or attempt activity 9 The patient did not perform the activity before the current illness or injury 88 Not attempted due to Medical conditions or safety concerns Functional Abilities and Goals: Independent: Patient completed the activities by him/herself, with or without an assistive device, with no assistance from a helper. Needed Some Help: Patient needed partial assistance from another person to complete activities. Dependent: A helper completed the activities for the patient. Unknown: Not Applicable: Bed Mobility: 6 Transfers (B,C,W/C) (FIM): 6 Gait: 6 Indoor Mobility (Ambulation): Independent Stairs: Needed Some Help Prior Devices Use: Walker PT Evaluation-Current Subjective Patient agrees to PT. She appears in very good spirits. Pain Numeric Pain Scale: 0-No Pain Location: No Pain Reported Objective Patient Orientation: Normal For Age Problem Solving: Fair Attachments: Oxygen (3L HF NC), Hurtado Catheter, IV ROM/Strength ROM Lower Extremities bilateral LE WFL Strength Lower Extremities bilateral LE WFL Integumentary/Posture Integumentary refer to nursing notes Bladder Incontinence: Yes Posture WFL Neuromuscular (Tone, Coordination, Reflexes) grossly intact Sensory Vision: Wears Glasses Hearing: Functional Sensation Right Lower Extremit: Intact Sensation Left Lower Extremity: Intact Transfers Therapy Code Descriptions/Definitions Functional [place] Measure: 0=Not Assessed/NA 4=Minimal Assistance 1=Total Assistance 5=Supervision or Setup 2=Maximal Assistance 6=Modified [place] 3=Moderate Assistance 7=Complete [place] Transfers (B, C, W/C) (FIM): 5 Scootin Rollin Supine to/from Sit: 6 Sit to/from Stand: 5 Gait Mode of Locomotion: Walk Anticipated Mode of Locomotion: Walk Gait (FIM): 1 Distance (FIM): 1=up to 49 ft Distance: 10' Gait Level of Assist: 5 Gait Assistive Device: FWW Comments/Gait Description HR >130 with minimal activity/PT limited activity due to this Balance Sitting Static: Normal Sitting Dynamic: Normal Standing Static: Normal Standing Dynamic: Normal Assessment/Needs 68 y.o. female, will continue to benefit from skilled PT to address functional mobility and pulmonary function to safely return to home with spouse. Rehab Potential: Fair PT Short Term Goals Short Term Goals Transfers (B,C,W/C) (FIM): 5 PT Data Consultant Goals Snf Goals PT Snf Goals Time Frame: Jan 01, 2019 Transfers (B,C,W/C) (FIM): 6 Gait (FIM): 6 Gait distance (FIM): 3=150 ft Distance: 250' Gait Level of Assist: 6 Gait Assistive Device: FWW Stairs (FIM): 2 # of Steps: 2 Stairs Level Of Assist: 5 PT Plan Treatment/Plan Treatment Plan: Continue Plan of Care Treatment Plan: Bed Mobility, Education, Functional Activity Rahel, Functional Strength, Gait, Safety, Therapeutic Exercise, Transfers Treatment Duration: Jan 01, 2019 Frequency: 6 times per week Estimated Hrs Per Day: .25 hour per day Patient and/or Family Agrees t: Yes Time/GCodes Time In: 930 Time Out: 947 Total Billed Treatment Time: 17 Total Billed Treatment 1 visit EVModC 17 min YASMANY MELENDEZ PT Dec 21, 2018 10:10
[2018-12-21] MEDS: BENZONATATE 100 MG (TESSALON) CAPSULE PO SCH ×3 (10:27→20:12)
--- NOTE | 2018-12-21 11:10 | NUR ---
Pastoral care visit.
[2018-12-21] MEDS: inSUlin ASPART (NovoLOG) 1 UNIT/0.01 ML (CHARGE PER UNIT) SC SCH ×3 (11:15→20:13)
--- NOTE | 2018-12-21 12:05 | Occupational Ther Daily Note ---
OT Current Status-Daily Note Subjective Pt sitting in chair, agrees to therapy. RN reports pt would like to complete sponge bath. Mental Status/Objective Therapy Code Descriptions/Definitions Functional [place] Measure: 0=Not Assessed/NA 4=Minimal Assistance 1=Total Assistance 5=Supervision or Setup 2=Maximal Assistance 6=Modified [place] 3=Moderate Assistance 7=Complete [place] Attachments: Hurtado Catheter, IV, Oxygen ADL-Treatment Pt was transferred from medical floor to ICU secondary to increased HR. New order for OT was received. Spoke with RN, who states pt is okay to participate in therapy. Will continue with previously established goals and plan of care. Sponge bath completed seated in chair. Pt was able to wash bilateral UE, chest, upper abdomen, and bilateral upper legs. Pt required assist to wash under pannus and to wash bilateral lower legs/feet. Sit to stand with supervision and cues for hand placement. Assist to thoroughly wash buttocks. Don hospital gown with assist secondary to multiple lines. Assist to doff/don socks. Pt states she used a sock aid at home previously secondary to difficulty reaching feet. Increased time for bathing and dressing tasks. Pt brushed hair with set up. Pt's meal tr ay arrived and pt eating lunch with other needs met after session. OT Short Term Goals Short Term Goals Time Frame: Dec 29, 2018 Grooming(FIM): 4 Bathing(FIM): 4 Lower Body Dressing(FIM): 3 Toileting(FIM): 4 Transfers (B,C,W/C) (FIM): 5 Toilet/Commode Transfer(FIM): 5 1=Demonstrate adherence to instructed precautions during ADL tasks. 2=Patient will verbalize/demonstrate understanding of assistive devices/modifications for ADL. 3=Patient will improve strength/tolerance for activity to enable patient to perform ADL's. OT Email Deployment Specialist Goals Intermediate Goals Time Frame: Jan 07, 2019 Grooming(FIM): 6 Bathing(FIM): 6 Upper Body Dressing(FIM): 6 Lower Body Dressing(FIM): 6 Toileting(FIM): 6 Transfers (B,C,W/C) (FIM): 6 Toilet/Commode Transfer(FIM): 6 Shower Transfer(FIM): 6 Additional Goals: 1-Demonstrate ADL Tasks, 2-Verbalize Understanding, 3-ImproveStrength/Rahel 1=Demonstrate adherence to instructed precautions during ADL tasks. 2=Patient will verbalize/demonstrate understanding of assistive devices/modifications for ADL. 3=Patient will improve strength/tolerance for activity to enable patient to perform ADL's. OT Education/Plan Discharge Recommendations Plan/Recommendations: Continue POC Treatment Plan/Plan of Care Patient would benefit from OT for education, treatment and training to promote independence in ADL's, mobility, safety and/or upper extremity function for ADL's. Plan of Care: ADL Retraining, Caregiver Training, Functional Mobility, UE Funct Exercise/Act Treatment Duration: Jan 07, 2019 Frequency: 5 times per week Estimated Hrs Per Day: .25 hour per day Rehab Potential: Fair Time/GCodes Start Time: 11:20 Stop Time: 11:50 Total Time Billed (hr/min): 30 Billed Treatment Time 1 visit, ADLx2(30minutes) ELIDA ABURTO OT Dec 21, 2018 12:05
--- NOTE | 2018-12-21 14:10 | Cardiology Progress Note ---
Cardiology SOAP Progress Note Subjective: Palpitations overnight, atrial fibrillation with rapid ventricular rate, transferred to the ICU. Objective: I&O/Vital Signs 12/21/18 12/21/18 12/21/18 12/21/18 03:00 03:20 04:00 05:00 Pulse 80 101 131 Resp 17 24 29 B/P (MAP) 123/90 (101) 149/84 (105) 109/77 (88) Pulse Ox 93 94 92 93 O2 Delivery Nasal Cannula Nasal Cannula Nasal Cannula Nasal Cannula O2 Flow Rate 3.00 3.00 3.00 3.00 12/21/18 12/21/18 12/21/18 12/21/18 06:00 06:57 07:00 07:00 Pulse 117 121 97 Resp 18 21 B/P (MAP) 104/77 (86) 131/82 (98) Pulse Ox 95 92 93 O2 Delivery Nasal Cannula Nasal Cannula Nasal Cannula O2 Flow Rate 3.00 3.00 3.00 12/21/18 12/21/18 12/21/18 12/21/18 08:00 08:03 08:15 09:00 Temp 36.71655 Pulse 160 97 124 Resp 21 21 32 B/P (MAP) 108/88 (95) 131/82 131/87 (102) Pulse Ox 93 93 O2 Delivery Nasal Cannula Nasal Cannula Nasal Cannula Nasal Cannula O2 Flow Rate 3.00 3.00 3.00 3.00 12/21/18 12/21/18 12/21/18 12/21/18 10:00 11:00 12:00 12:07 Temp 36.0 Pulse 85 72 72 88 Resp 20 17 19 B/P (MAP) 97/52 (67) 111/73 (86) Pulse Ox 98 98 O2 Delivery Nasal Cannula Nasal Cannula Nasal Cannula O2 Flow Rate 3.00 3.00 3.00 12/21/18 12/21/18 12:27 13:00 Pulse 76 87 Resp 21 B/P (MAP) 115/99 (104) O2 Delivery Nasal Cannula O2 Flow Rate 3.00 12/21/18 00:00 Intake Total 1800 ml Output Total 4000 ml Balance -2200 ml Weight (Pounds): 243 Weight (Ounces): 0.0 Weight (Calculated Kilograms): 110.078683 Constitutional: appears stated age, AAO x 3; No apparent distress; well-deve loped, well-nourished Respiratory: chest is bilaterally symmetric, lungs clear to auscultation Cardiovascular: irregularly irregular; No extra beats, No parasternal heave is noted, No JVD, No edema, No bradycardia; tachycardia; No point of maximal impulse, No cardiac thrills are palpable; S1 and S2; No gallop/S3, No gallop/S4, No diastolic murmur, No systolic murmur, No friction rub, No click, No other Gastrointestional: soft, round, audible bowel sounds; No spleenomegaly Extremities: normal range of motion, non-tender, normal inspection; No club claudia, No cyanosis; no lower extremity edema bilateral; No significant edema Neurologic/Psychiatric: no motor/sensory deficits, alert, normal mood/affect, oriented x 3, power is 5/5 both on sides Skin: normal color; No rash, No ulcerations Results/Procedures: Labs Laboratory Tests 12/21/18 03:11: White Blood Count 8.9, Red Blood Count 4.37, Hemoglobin 13.2, Hematocrit 43, Mean Corpuscular Volume 99, Mean Corpuscular Hemoglobin 30, Mean Corpuscular Hemoglobin Concent 30L, Red Cell Distribution Width 17.3H, Platelet Count 242, Mean Platelet Volume 9.3, Neutrophils (%) (Auto) 78H, Lymphocytes (%) (Auto) 11L , Monocytes (%) (Auto) 10, Eosinophils (%) (Auto) 1, Basophils (%) (Auto) 0, Neutrophils # (Auto) 6.9, Lymphocytes # (Auto) 0.9L, Monocytes # (Auto) 0.9, Eosinophils # (Auto) 0.1, Basophils # (Auto) 0.0, Sodium Level 144, Potassium Level 4.5, Chloride Level 107, Carbon Dioxide Level 27, Anion Gap 10, Blood Urea Nitrogen 7, Creatinine 0.77, Estimat Glomerular Filtration Rate > 60, BUN/Creatinine Ratio 9, Glucose Level 152H, Calcium Level 8.0L, Phosphorus Level 3.2, Magnesium Level 2.1 12/21/18 11:09: Glucometer 245H Microbiology 12/17/18 Blood Culture - Preliminary, Resulted No growth 12/17/18 MRSA Screen - Final, Complete MRSA not isolated 12/17/18 Urine Culture - Final, Complete 3 or more isolates A/P: Assessment/Dx: Mechanical fall,? Syncope, History of COPD, Atrial fibrillation with rapid ventricular rate Hypokalemia, Rhabdomyolysis, Elevated LFTs, Elevated BNP Positive D dimer Plan: Mechanical fall,? Syncope, unclear etiology. Will likely require an event monitor on discharge. Echocardiogram. Driving restriction until we figure out the cause of syncope. Atrial fibrillation with rapid ventricular rate and hypotension, status post cardioversion on admission. Patient went into atrial fibrillation with rapid ventricular rate overnight requiring transfer to the ICU. Cardizem infusion was started. IV amiodarone as well. Continue Eliquis 5 mg twice a day. If her atrial fibrillation is refractory to amiodarone infusion, she may be a candidate for transesophageal echocardiogram assisted cardioversion. Hypokalemia, defer to the primary team. Rhabdomyolysis, IV fluids. Likely due to fall. Resolved. Elevated LFTs, unclear at urology. Resolved. Elevated BNP. Not in florid congestive heart failure on my examination. Echocardiogram showed normal LV and RV size and function. Positive D dimer, negative CT angiography for PE. . Thank you for your consultation. Please call me if you have any questions. Gil Woods MD, FACP, FACC, FSCAI, FHRS, CCDS Interventional Cardiology Cardiac Electrophysiology Vascular Medicine and Endovascular Interventions Galdino WOODS MD Dec 21, 2018 14:10
[2018-12-21] MEDS: AMIODARONE INJECTION 450 MG in D5W IV SOLUTION (EXCEL) 250 ML IV SCH (16:43)
[2018-12-21] MEDS: cefTRIAXone FOR IV USE 1,000 MG in WATER (STERILE) FOR INJECTION 10 ML IV SCH (18:13)
[2018-12-21] MEDS: rOPINIRole 5 MG TAB (REQUIP) PO SCH (20:12)
[2018-12-22] VITALS (20 sets, daily range): BP systolic 90–144; BP diastolic 53–106
[2018-12-22] MEDS: RT-ALBUTEROL/IPRATROPIUM 3 ML (DUONEB) VIAL INH SCH ×4 (03:25→21:59)
[2018-12-22 03:37] LABS: BASOPHILS % (AUTO) 0 % (0-10); EOSINOPHILS % (AUTO) 0 % (0-10); HEMATOCRIT 45 % (35-52); HEMOGLOBIN 13.5 G/DL (11.5-16.0); LYMPHOCYTES # (AUTO) 1.1 X 10^3 (1.0-4.0); LYMPHOCYTES % (AUTO) 9 % (12-44); MEAN CORPUSCULAR HEMOGLOBIN 29 PG (25-34); MEAN CORPUSCULAR HGB CONC 30 G/DL (32-36); MEAN CORPUSCULAR VOLUME 99 FL (80-99); MEAN PLATELET VOLUME 9.1 FL (7.4-10.4); MONOCYTES # (AUTO) 1.2 X 10^3 (0.0-1.0); MONOCYTES % (AUTO) 9 % (0-12); NEUTROPHILS # (AUTO) 10.6 X 10^3 (1.8-7.8); NEUTROPHILS % (AUTO) 82 % (42-75); PLATELET COUNT 252 10^3/uL (130-400)
[2018-12-22 03:56] LABS: BUN/CREATININE RATIO 15; CALCIUM 8.6 MG/DL (8.5-10.1); CARBON DIOXIDE 29 MMOL/L (21-32); CHLORIDE 102 MMOL/L (98-107); GFR ESTIMATED > 60; GLUCOSE 129 MG/DL (70-105); MAGNESIUM 2.1 MG/DL (1.6-2.4); PHOSPHORUS 3.2 MG/DL (2.3-4.7); POTASSIUM 4.5 MMOL/L (3.6-5.0); SODIUM 142 MMOL/L (135-145)
[2018-12-22] MEDS: POTASSIUM CL 10MEQ/50ML IVPB 50 ML IV SCH (04:53)
[2018-12-22] MEDS: MAGNESIUM 1 GM/100 ML IVPB 100 ML IV SCH (04:53)
[2018-12-22] MEDS: KCL 20 MEQ TAB (K-DUR) PO SCH ×2 (04:53→06:24)
[2018-12-22] MEDS: inSUlin ASPART (NovoLOG) 1 UNIT/0.01 ML (CHARGE PER UNIT) SC SCH ×5 (04:54→19:56)
--- NOTE | 2018-12-22 05:29 | Pulmonary Progress Note ---
Subjective Time Seen by a Provider: 07:18 Subjective/Events-last exam Pt states she wants to try BiPAP again. She has been noncompliant with use in the past. Sepsis Event Evaluation Height, Weight, BMI Height: 5'6.00" Weight: 243lbs. 0.0oz. 110.586085kh; 99.32 BMI Method:Stated Exam Exam Vital Signs Date Time Temp Pulse Resp B/P (MAP) Pulse Ox O2 Delivery O2 Flow Rate FiO2 12/22/18 04:14 106 22 134/95 (108) 83 Nasal Cannula 3.00 12/22/18 03:25 95 Nasal Cannula 3.00 12/22/18 03:00 97 25 108/87 (94) 95 Nasal Cannula 3.00 12/22/18 02:00 101 31 105/90 (95) Nasal Cannula 3.00 12/22/18 01:00 90 12/22/18 01:00 86 24 103/68 (80) 91 Nasal Cannula 3.00 12/22/18 00:00 99 28 112/84 (93) Nasal Cannula 3.00 12/21/18 23:00 94 20 117/67 (84) 93 Nasal Cannula 3.00 12/21/18 22:52 108 113/103 12/21/18 22:20 92 Nasal Cannula 3.00 12/21/18 22:15 96 22 133/86 (102) 93 Nasal Cannula 3.00 12/21/18 22:00 77 19 123/104 (110) 92 Nasal Cannula 3.00 12/21/18 21:00 110 128/103 (111) 96 Nasal Cannula 3.00 12/21/18 20:00 Nasal Cannula 3.00 12/21/18 20:00 105 22 129/76 (93) 94 Nasal Cannula 3.00 12/21/18 19:36 36.2 112 26 137/95 (109) 94 12/21/18 19:00 118 12/21/18 19:00 118 17 126/102 (110) Nasal Cannula 3.00 12/21/18 18:00 110 24 131/92 (105) Nasal Cannula 3.00 12/21/18 17:00 112 22 136/83 (100) Nasal Cannula 3.00 12/21/18 15:59 36.7 122 23 94/58 (70) 92 12/21/18 15:00 89 12 122/66 (84) Nasal Cannula 3.00 12/21/18 14:37 92 Nasal Cannula 3.00 12/21/18 14:00 80 22 110/83 (92) Nasal Cannula 3.00 12/21/18 13:00 87 21 115/99 (104) Nasal Cannula 3.00 12/21/18 12:27 76 12/21/18 12:07 36.0 88 19 111/73 (86) 98 12/21/18 12:00 72 17 Nasal Cannula 3.00 12/21/18 11:00 72 20 97/52 (67) 98 Nasal Cannula 3.00 12/21/18 10:00 85 20 Nasal Cannula 3.00 12/21/18 09:00 124 32 131/87 (102) Nasal Cannula 3.00 12/21/18 08:15 Nasal Cannula 3.00 12/21/18 08:03 36.35547 97 21 131/82 93 Nasal Cannula 3.00 12/21/18 08:00 160 21 108/88 (95) 93 Nasal Cannula 3.00 12/21/18 07:00 97 21 131/82 (98) 93 Nasal Cannula 3.00 12/21/18 07:00 121 12/21/18 06:57 92 Nasal Cannula 3.00 12/21/18 06:00 117 18 104/77 (86) 95 Nasal Cannula 3.00 I & O 12/22/18 07:00 Intake Total 1215 ml Output Total 2600 ml Balance -1385 ml Height & Weight Height: 5'6.00" Weight: 243lbs. 0.0oz. 110.374000gq; 99.32 BMI Method:Stated General Appearance: No Apparent Distress, WD/WN, Chronically ill HEENT: PERRL/EOMI, Normal ENT Inspection, Pharynx Normal, Moist Mucous Membranes Neck: Full Range of Motion, Normal Inspection, Non Tender Respiratory: Chest Non Tender, No Accessory Muscle Use, No Respiratory Distress, Decreased Breath Sounds Cardiovascular: Regular Rate, Rhythm, No Edema, No Gallop, No JVD, No Murmur, Normal Peripheral Pulses Capillary Refill: Less Than 3 Seconds Extremity: Normal Capillary Refill, Normal Inspection, Normal Range of Motion, Non Tender, No Calf Tenderness, No Pedal Edema Neurologic/Psychiatric: Alert, Oriented x3, No Motor/Sensory Deficits, Normal Mood/Affect Skin: Normal Color, Warm/Dry Lymphatic: No Adenopathy Results Lab Laboratory Tests 12/21/18 03:11 12/22/18 03:10 Assessment/Plan Assessment/Plan Atrial fibrillation with RVR status post cardioversion in ED -Pt transferred to 4th floor yesterday then went back into Afib RVR -She is currently on cardizem gtt -Eliquis -Cardiology following Pulmonary edema probably secondary to diastolic dysfunction vs IVF -Lasix 40mg daily -BNP is 219 COPDAE -SVNS -will start prednisone 40mg daily x 5 days then D/C Septic shock secondary to UTI -Sheth cultures pending -Rocephin -Sepsis protocol S/P Syncope Hx ROJELIO -Noncompliant with CPAP -Pt states she was to reattempt use. JENNIFER VAZQUEZ DO Dec 22, 2018 05:29
[2018-12-22] MEDS: predniSONE 20 MG TAB PO SCH (06:23)
--- NOTE | 2018-12-22 08:20 | Progress Note ---
Subjective Subjective/Events-last exam Afebrile. Heart rate controlled, but still in atrial fibrillation. She discussed with Dr. Woods and she is going to proceed with electrical cardioversion this pm. Objective Exam Last Set of Vital Signs Vital Signs Date Time Temp Pulse Resp B/P (MAP) Pulse Ox O2 Delivery O2 Flow Rate FiO2 12/22/18 06:00 96 27 140/103 (115) Nasal Cannula 3.00 12/22/18 05:00 91 12/21/18 19:36 36.2 12/19/18 07:12 96 Capillary Refill : Less Than 3 Seconds I&O Intake and Output 12/22/18 00:00 Intake Total 1415 ml Output Total 3050 ml Balance -1635 ml Intake Oral 1190 ml IV Total 225 ml Output Urine Total 3050 ml General: Alert, No Acute Distress Lungs: Clear to Auscultation, Normal Air Movement Heart: Regular Rate, No Murmurs, Other (irregular rhythm) Neuro: Normal Speech Psych/Mental Status: Mental Status NL Results/Procedures Lab Laboratory Tests 12/21/18 11:09: Glucometer 245H 12/21/18 16:20: Glucometer 317H 12/21/18 19:33: Glucometer 334H 12/22/18 03:10: White Blood Count 13.0H, Red Blood Count 4.59, Hemoglobin 13.5, Hematocrit 45, Mean Corpuscular Volume 99, Mean Corpuscular Hemoglobin 29, Mean Corpuscular Hemoglobin Concent 30L, Red Cell Distribution Width 17.0H, Platelet Count 252, Mean Platelet Volume 9.1, Neutrophils (%) (Auto) 82H, Lymphocytes (%) (Auto) 9L, Monocytes (%) (Auto) 9, Eosinophils (%) (Auto) 0, Basophils (%) (Auto) 0, Neutrophils # (Auto) 10.6H, Lymphocytes # (Auto) 1.1, Monocytes # (Auto) 1.2H, Eosinophils # (Auto) 0.0, Basophils # (Auto) 0.0, Sodium Level 142, Potassium Level 4.5, Chloride Level 102, Carbon Dioxide Level 29, Anion Gap 11, Blood Urea Nitrogen 12, Creatinine 0.80, Estimat Glomerular Filtration Rate > 60, BUN/Creatinine Ratio 15, Glucose Level 129H, Calcium Level 8.6, Phosphorus Level 3.2, Magnesium Level 2.1 Microbiology 12/17/18 Blood Culture - Preliminary, Resulted No growth 12/17/18 MRSA Screen - Final, Complete MRSA not isolated 12/17/18 Urine Culture - Final, Complete 3 or more isolates Assessment/Plan Assessment/Plan (1) Atrial fibrillation status post cardioversion Status: Acute Assessment & Plan: Initially on admit with hypotension requiring cardioversion x 3. Currently stable. Echo on 12/15 with EF 55-65%. Appreciate Cardiology recommendations. 12/21 recurrence last night requiring cardizem drip, appreciate Cardiology recommendations. 12/22 now on amiodarone and cardizem drip, if refractory may need electrical cardioversion 12/23 plan for cardioversion this pm (2) Syncope Status: Acute Assessment & Plan: Possibly prior to fall, unclear. Further work-up per Cardiology. Qualifiers: Qualified Codes: R55 - Syncope and collapse (3) COPD (chronic obstructive pulmonary disease) Status: Chronic Assessment & Plan: Duonebs. 12/21 started prednisone PO daily per Dr. Boyle. (4) Hypertension Status: Chronic Qualifiers: Qualified Codes: I10 - Essential (primary) hypertension (5) Debility Status: Acute Assessment & Plan: Rehab consult. (6) UTI (urinary tract infection) Status: Acute Assessment & Plan: Suspected based on initial UA and leukocytosis, however culture without clear pathogen. Completed course of ceftriaxone. Qualifiers: Qualified Codes: N30.00 - Acute cystitis without hematuria (7) DVT prophylaxis Status: Acute Assessment & Plan: On apixaban. Clinical Quality Measures DVT/VTE Risk/Contraindication: Risk Factor Score Per Nursin RFS Level Per Nursing on Admit: 4+=Very High RAF KNAPP MD Dec 22, 2018 08:20
[2018-12-22] MEDS: GABAPENTIN 100 MG (NEURONTIN) CAP PO SCH ×3 (08:27→19:56)
[2018-12-22] MEDS: SINEMET 25/100 (CARBIDOPA/LEVODOPA) TAB PO SCH ×2 (08:27→19:55)
[2018-12-22] MEDS: APIXABAN 5 MG (ELIQUIS) TABLET PO SCH ×2 (08:27→19:55)
[2018-12-22] MEDS: BENZONATATE 100 MG (TESSALON) CAPSULE PO SCH ×3 (08:27→19:55)
[2018-12-22] MEDS: meTOprolol TARTRATE 50 MG (LOPRESSOR) TAB PO SCH ×2 (08:27→19:55)
[2018-12-22] MEDS: FUROSEMIDE 40 MG/4 ML INJ (LASIX) IVP SCH (08:27)
--- NOTE | 2018-12-22 08:42 | Diagnostic Imaging Report ---
EXAMINATION: Chest 1 view HISTORY: Sepsis FINDINGS: Comparison is 12/21/2018. There is mild right mid zone and left base atelectasis. Otherwise, the lungs are clear without edema or pneumonia. No pleural effusion or pneumothorax. Heart size is normal. IMPRESSION: 1. Mild atelectasis, otherwise clear lungs. Dictated by: Dictated on workstation # [id number]
[2018-12-22] MEDS ORDERED: FLUCONAZOLE 100 MG PO SCH (09:00)
[2018-12-22] MEDS: fluCOnazole (DIFLUCAN) 100 MG TAB PO SCH (09:03)
[2018-12-22] MEDS: MICONAZOLE 2% POWDER (DESENEX AF) 90 GM TOP SCH ×2 (09:03→20:11)
--- NOTE | 2018-12-22 09:56 | Physical Therapy Daily Note ---
PT Daily Note-Current Subjective Patient in bed pre tx, agrees to PT, no complaints of pain. Appearance Patient in recliner post tx with nurse call, phone, tray, all needs met. Mental Status Patient Orientation: Normal For Age Attachments: Oxygen, Hurtado Catheter, IV Transfers Therapy Quality Codes: 6 Independent with activity with or without an assistive device 5 Patient requires set up or clean up by helper. Patient completes activity by themselves 4 Supervision or touching assist (CGA). [place] provide cues , steadying assist 3 The helper provides less than half the effort to complete the activity 2 The helper provides more than half the effort to complete the activity 1 Dependent. The helper does all the effort to complete an activity 7 Patient refused to complete or attempt activity 9 The patient did not perform the activity before the current illness or injury 88 Not attempted due to Medical conditions or safety concerns Roll Left to Right (QC): 6 Sit to Lying (QC): 6 Sit to Stand (QC): 5 Chair/Jlk-bo-[id number] Xfer(QC): 5 Weight Bearing Right Lower Extremity: Right Weight Bearing/Tolerated Left Lower Extremity: Left Weight Bearing/Tolerated Gait Training Gait: 1 Distance: 10' Walk 10 feet (QC): 4 Gait Persons Needed: 1 Gait Assistive Device: FWW Patient gets dizzy ambulating if she looks down. Exercises Seated Therapy Exercises: Ankle pumps, Long arc quads Seated Reps: 15 Treatments LE exercise, bed mobility and transfers, ambulation Assessment Current Status: Fair Progress improving general mobility, her attachments limit her amount of ambulation PT Retirement Goals Retirement Goals PT Retirement Goals Time Frame: Jan 01, 2019 Distance: 250' Gait Level of Assist: 6 Gait Assistive Device: FWW # of Steps: 2 Stairs Level Of Assist: 5 PT Plan Problem List Problem List: Activity Tolerance, Functional Strength, Safety, Balance, Gait, Transfer, Bed Mobility Treatment/Plan Treatment Plan: Continue Plan of Care Treatment Plan: Bed Mobility, Education, Functional Activity Rahel, Functional Strength, Gait, Safety, Therapeutic Exercise, Transfers Treatment Duration: Jan 01, 2019 Frequency: 6 times per week Estimated Hrs Per Day: .25 hour per day Patient and/or Family Agrees t: Yes Safety Risks/Education Patient Education: Gait Training, Transfer Techniques, Correct Positioning, Safety Issues Teaching Recipient: Patient Teaching Methods: Demonstration, Discussion Response to Teaching: Reinforcement Needed Time/GCodes Time In: 924 Time Out: 0967 Total Billed Treatment Time: 19 Total Billed Treatment 1 visit FA Yessica' BRIELLE WILCOX PT Dec 22, 2018 09:56
[2018-12-22] MEDS: AMIODARONE INJECTION 450 MG in D5W IV SOLUTION (EXCEL) 250 ML IV SCH (10:52)
--- NOTE | 2018-12-22 10:53 | Occupational Ther Daily Note ---
OT Current Status-Daily Note Subjective Pt sitting in chair, states she is trying to decide if she should have a procedure done. Agrees to treatment. Mental Status/Objective Therapy Code Descriptions/Definitions Functional [place] Measure: 0=Not Assessed/NA 4=Minimal Assistance 1=Total Assistance 5=Supervision or Setup 2=Maximal Assistance 6=Modified [place] 3=Moderate Assistance 7=Complete [place] Attachments: Hurtado Catheter, IV, Oxygen ADL-Treatment Pt completed grooming while seated in chair. Pt able to complete oral care, wash face and comb hair with set up. Pt sitting in chair with needs met and spouse present after session. Will continue per plan of care as pt able to tolerate. Grooming (FIM): 5 OT Short Term Goals Short Term Goals Time Frame: Dec 29, 2018 Grooming(FIM): 4 Bathing(FIM): 4 Lower Body Dressing(FIM): 3 Toileting(FIM): 4 Transfers (B,C,W/C) (FIM): 5 Toilet/Commode Transfer(FIM): 5 1=Demonstrate adherence to instructed precautions during ADL tasks. 2=Patient will verbalize/demonstrate understanding of assistive devices/modifications for ADL. 3=Patient will improve strength/tolerance for activity to enable patient to pe rform ADL's. OT Resource Manager Goals Shelter Goals Time Frame: Jan 07, 2019 Grooming(FIM): 6 Bathing(FIM): 6 Upper Body Dressing(FIM): 6 Lower Body Dressing(FIM): 6 Toileting(FIM): 6 Transfers (B,C,W/C) (FIM): 6 Toilet/Commode Transfer(FIM): 6 Shower Transfer(FIM): 6 Additional Goals: 1-Demonstrate ADL Tasks, 2-Verbalize Understanding, 3- ImproveStrength/[place] 1=Demonstrate adherence to instructed precautions during ADL tasks. 2=Patient will verbalize/demonstrate understanding of assistive devices/modifications for ADL. 3=Patient will improve strength/tolerance for activity to enable patient to perform ADL's. OT Education/Plan Discharge Recommendations Plan/Recommendations: Continue POC Treatment Plan/Plan of Care Patient would benefit from OT for education, treatment and training to promote independence in ADL's, mobility, safety and/or upper extremity function for ADL's. Plan of Care: ADL Retraining, Caregiver Training, Functional Mobility, UE Funct Exercise/Act Treatment Duration: Jan 07, 2019 Frequency: 5 times per week Estimated Hrs Per Day: .25 hour per day Rehab Potential: Fair Time/GCodes Start Time: 10:09 Stop Time: 10:24 Total Time Billed (hr/min): 15 Billed Treatment Time 1 visit, ADL(15minutes) ELIDA ABURTO OT Dec 22, 2018 10:53
--- NOTE | 2018-12-22 12:57 | Cardiology Progress Note ---
Cardiology SOAP Progress Note Subjective: Continues to be in atrial fibrillation with rapid ventricular rate. Objective: I&O/Vital Signs 12/22/18 12/22/18 12/22/18 12/22/18 01:00 01:00 02:00 03:00 Pulse 86 90 101 97 Resp 24 31 25 B/P (MAP) 103/68 (80) 105/90 (95) 108/87 (94) Pulse Ox 91 95 O2 Delivery Nasal Cannula Nasal Cannula Nasal Cannula O2 Flow Rate 3.00 3.00 3.00 12/22/18 12/22/18 12/22/18 12/22/18 03:25 04:14 05:00 06:00 Pulse 106 96 96 Resp 22 24 27 B/P (MAP) 134/95 (108) 135/95 (108) 140/103 (115) Pulse Ox 95 91 O2 Delivery Nasal Cannula Nasal Cannula Nasal Cannula Nasal Cannula O2 Flow Rate 3.00 3.00 3.00 3.00 12/22/18 12/22/18 12/22/18 12/22/18 07:00 07:00 08:00 09:00 Pulse 93 120 110 120 Resp 39 20 20 B/P (MAP) 118/98 (105) 142/101 (115) 110/83 (92) Pulse Ox 91 97 91 O2 Delivery Nasal Cannula Nasal Cannula Nasal Cannula O2 Flow Rate 3.00 3.00 3.00 12/22/18 12/22/18 12/22/18 09:19 10:00 11:00 Pulse 120 86 Resp 17 12 B/P (MAP) 91/69 (76) 131/102 (112) Pulse Ox 94 92 91 O2 Delivery Nasal Cannula Nasal Cannula Nasal Cannula O2 Flow Rate 3.00 3.00 3.00 12/22/18 00:00 Intake Total 975 ml Output Total 800 ml Balance 175 ml Weight (Pounds): 243 Weight (Ounces): 0.0 Weight (Calculated Kilograms): 110.707763 Constitutional: appears stated age, AAO x 3; No apparent distress; well- developed, well-nourished Respiratory: chest is bilaterally symmetric, lungs clear to auscultation Cardiovascular: irregularly irregular; No extra beats, No parasternal heave is noted, No JVD, No edema, No bradycardia; tachycardia; No point of maximal impulse, No cardiac thrills are palpable; S1 and S2; No gallop/S3, No gallop/S4, No diastolic murmur, No systolic murmur, No friction rub, No click, No other Gastrointestional: soft, round, audible bowel sounds; No spleenomegaly Extremities: normal range of motion, non-tender, normal inspection; No clubbing, No cyanosis; no lower extremity edema bilateral; No significant edema Neurologic/Psychiatric: no motor/sensory deficits, alert, normal mood/affect, oriented x 3, power is 5/5 both on sides Skin: normal color; No rash, No ulcerations Results/Procedures: Labs Laboratory Tests 12/21/18 16:20: Glucometer 317H 12/21/18 19:33: Glucometer 334H 12/22/18 03:10: White Blood Count 13.0H, Red Blood Count 4.59, Hemoglobin 13.5, Hematocrit 45, Mean Corpuscular Volume 99, Mean Corpuscular Hemoglobin 29, Mean Corpuscular Hemoglobin Concent 30L, Red Cell Distribution Width 17.0H, Platelet Count 252, Mean Platelet Volume 9.1, Neutrophils (%) (Auto) 82H, Lymphocytes (%) (Auto) 9L, Monocytes (%) (Auto) 9, Eosinophils (%) (Auto) 0, Basophils (%) (Auto) 0, Neutrophils # (Auto) 10.6H, Lymphocytes # (Auto) 1.1, Monocytes # (Auto) 1.2H, Eosinophils # (Auto) 0.0, Basophils # (Auto) 0.0, Sodium Level 142, Potassium Level 4.5, Chloride Level 102, Carbon Dioxide Level 29, Anion Gap 11, Blood Urea Nitrogen 12, Creatinine 0.80, Estimat Glomerular Filtration Rate > 60, BU N/Creatinine Ratio 15, Glucose Level 129H, Calcium Level 8.6, Phosphorus Level 3.2, Magnesium Level 2.1 12/22/18 11:14: Glucometer 313H Microbiology 12/17/18 Blood Culture - Preliminary, Resulted No growth 12/17/18 MRSA Screen - Final, Complete MRSA not isolated 12/17/18 Urine Culture - Final, Complete 3 or more isolates A/P: Assessment/Dx: Mechanical fall,? Syncope, History of COPD, Atrial fibrillation with rapid ventricular rate Hypokalemia, Rhabdomyolysis, Elevated LFTs, Elevated BNP Positive D dimer Plan: Mechanical fall,? Syncope, unclear etiology. Will likely require an event monitor on discharge. Echocardiogram. Driving restriction until we figure out the cause of syncope. Atrial fibrillation with rapid ventricular rate and hypotension, status post cardioversion on admission. Patient went into atrial fibrillation with rapid ventricular rate requiring transfer to the ICU. On Cardizem and amiodarone infusion. Continue Eliquis 5 mg twice a day. If her atrial fibrillation is refractory to amiodarone infusion, she may be a candidate for transesophageal echocardiogram assisted cardioversion. We will schedule that tomorrow. Hypokalemia, defer to the primary team. Rhabdomyolysis, IV fluids. Likely due to fall. Resolved. Elevated LFTs, unclear at urology. Resolved. Elevated BNP. Not in florid congestive heart failure on my examination. Echocardiogram showed normal LV and RV size and function. Positive D dimer, negative CT angiography for PE. . Thank you for your consultation. Please call me if you have any questions. Gil Woods MD, FACP, FACC, FSCAI, FHRS, CCDS Interventional Cardiology Cardiac Electrophysiology Vascular Medicine and Endovascular Interventions Galdino WOODS MD Dec 22, 2018 12:57
[2018-12-22] MEDS: DILTIAZEM IV FOR DRIP 125 MG in NS (IVPB) 100 ML IV SCH (13:23)
--- NOTE | 2018-12-22 16:58 | NUR ---
PT ATTEMPTING TO USE BIPAP PER RT ORDERS. PT VERY ANXIOUS, DR KNAPP NOTIFIED AND NEW ORDERS RECEIVED. SEE ORDER HX
[2018-12-22] MEDS ORDERED: hydrOXYzine (ATARAX) 10 MG TAB PO PRN (17:00)
[2018-12-22] MEDS: rOPINIRole 5 MG TAB (REQUIP) PO SCH (19:55)
[2018-12-22] MEDS: hydrOXYzine (VISTARIL/ATARAX) 25 MG capsule/tablet PO PRN (19:55)
--- NOTE | 2018-12-22 23:00 | NUR ---
EDUCATED PT MULTIPLE TIMES ON IMPORTANCE OF COMPLIANCE WITH CPAP D/T DIAGNOSIS AND HX OF COPD AND ROJELIO. PT REFUSED TO WEAR CPAP - STATES IT GIVES HER ANXIETY AND SHE "JUST CANT DO IT". PT CURRENTLY RECEIVING 3L OF OXYGEN PER NASAL CANULA. PT OCCASIONALLY RIPS CANULA OUT OF NOSE DURING SLEEP.
[2018-12-23] VITALS (20 sets, daily range): BP systolic 91–191; BP diastolic 67–160
[2018-12-23] MEDS: RT-ALBUTEROL/IPRATROPIUM 3 ML (DUONEB) VIAL INH SCH ×4 (02:57→21:19)
[2018-12-23 03:08] LABS: BASOPHILS % (AUTO) 0 % (0-10); EOSINOPHILS % (AUTO) 0 % (0-10); HEMATOCRIT 42 % (35-52); HEMOGLOBIN 12.9 G/DL (11.5-16.0); LYMPHOCYTES # (AUTO) 1.2 X 10^3 (1.0-4.0); LYMPHOCYTES % (AUTO) 9 % (12-44); MEAN CORPUSCULAR HEMOGLOBIN 30 PG (25-34); MEAN CORPUSCULAR HGB CONC 31 G/DL (32-36); MEAN CORPUSCULAR VOLUME 99 FL (80-99); MEAN PLATELET VOLUME 9.3 FL (7.4-10.4); MONOCYTES # (AUTO) 0.8 X 10^3 (0.0-1.0); MONOCYTES % (AUTO) 6 % (0-12); NEUTROPHILS # (AUTO) 11.2 X 10^3 (1.8-7.8); NEUTROPHILS % (AUTO) 85 % (42-75); PLATELET COUNT 223 10^3/uL (130-400); RED CELL DISTRIBUTION WIDTH 16.5 % (10.0-14.5); WHITE BLOOD COUNT 13.2 10^3/uL (4.3-11.0)
[2018-12-23 03:28] LABS: CARBON DIOXIDE 33 MMOL/L (21-32); CHLORIDE 100 MMOL/L (98-107); POTASSIUM 4.6 MMOL/L (3.6-5.0); SODIUM 141 MMOL/L (135-145)
[2018-12-23 03:29] LABS: BUN/CREATININE RATIO 19; CALCIUM 8.3 MG/DL (8.5-10.1); GFR ESTIMATED > 60; GLUCOSE 163 MG/DL (70-105); MAGNESIUM 2.2 MG/DL (1.6-2.4); PHOSPHORUS 3.5 MG/DL (2.3-4.7)
[2018-12-23] MEDS: DILTIAZEM IV FOR DRIP 125 MG in NS (IVPB) 100 ML IV SCH (03:30)
[2018-12-23] MEDS: POTASSIUM CL 10MEQ/50ML IVPB 50 ML IV SCH (04:53)
[2018-12-23] MEDS: inSUlin ASPART (NovoLOG) 1 UNIT/0.01 ML (CHARGE PER UNIT) SC SCH ×4 (04:53→21:17)
[2018-12-23] MEDS: KCL 20 MEQ TAB (K-DUR) PO SCH ×2 (04:53→11:27)
[2018-12-23] MEDS: MAGNESIUM 1 GM/100 ML IVPB 100 ML IV SCH (04:53)
--- NOTE | 2018-12-23 05:59 | Pulmonary Progress Note ---
Subjective Time Seen by a Provider: 05:59 Subjective/Events-last exam Pt did not tolerate BiPAP last night. Sepsis Event Evaluation Height, Weight, BMI Height: 5'6.00" Weight: 243lbs. 0.0oz. [id number]; 99.32 BMI Method:Stated Exam Exam Vital Signs Date Time Temp Pulse Resp B/P (MAP) Pulse Ox O2 Delivery O2 Flow Rate FiO2 12/23/18 05:28 82 23 130/80 (97) 90 Nasal Cannula 3.00 12/23/18 04:00 86 23 147/78 (101) 92 Nasal Cannula 3.00 12/23/18 03:30 99 21 129/101 90 Nasal Cannula 3.00 12/23/18 03:19 80 16 132/82 (99) 93 Nasal Cannula 3.00 12/23/18 02:57 92 Nasal Cannula 3.00 12/23/18 02:00 80 19 140/101 (114) 89 Nasal Cannula 3.00 12/23/18 01:52 71 12/23/18 01:00 71 19 124/90 (101) 91 Nasal Cannula 3.00 12/23/18 00:00 78 21 143/86 (105) 94 Nasal Cannula 3.00 12/22/18 22:16 68 25 96 35.00 12/22/18 21:59 93 Nasal Cannula 3.00 12/22/18 20:30 79 21 125/96 (106) 92 Nasal Cannula 3.00 12/22/18 20:00 Nasal Cannula 3.00 12/22/18 19:00 104 12/22/18 18:00 84 25 108/74 (85) 93 Nasal Cannula 3.00 12/22/18 17:00 93 18 124/106 (112) 86 Nasal Cannula 3.00 12/22/18 16:34 35.8 12/22/18 16:00 69 31 144/95 (111) 92 Nasal Cannula 3.00 12/22/18 15:00 84 19 116/78 (91) 86 Nasal Cannula 3.00 12/22/18 14:00 91 24 112/53 (72) 97 Nasal Cannula 3.00 12/22/18 13:23 93/70 12/22/18 13:00 87 12/22/18 13:00 71 33 118/83 (95) 92 Nasal Cannula 3.00 12/22/18 12:00 79 15 90/65 (73) 90 Nasal Cannula 3.00 12/22/18 11:00 86 12 131/102 (112) 91 Nasal Cannula 3.00 12/22/18 10:00 120 17 91/69 (76) 92 Nasal Cannula 3.00 12/22/18 09:19 94 Nasal Cannula 3.00 12/22/18 09:00 120 20 110/83 (92) 91 Nasal Cannula 3.00 12/22/18 08:35 Nasal Cannula 2.00 12/22/18 08:00 110 20 142/101 (115) 97 Nasal Cannula 3.00 12/22/18 07:00 120 12/22/18 07:00 93 39 118/98 (105) 91 Nasal Cannula 3.00 12/22/18 06:00 96 27 140/103 (115) Nasal Cannula 3.00 I & O 12/23/18 07:00 Intake Total 1105 ml Output Total 2500 ml Balance -1395 ml Height & Weight Height: 5'6.00" Weight: 243lbs. 0.0oz. 110.761788tq; 99.32 BMI Method:Stated General Appearance: WD/WN, Anxious, Chronically ill, Mild Distress HEENT: PERRL/EOMI, Normal ENT Inspection, Pharynx Normal, Moist Mucous Membranes Neck: Full Range of Motion, Normal Inspection, Non Tender Respiratory: Chest Non Tender, No Accessory Muscle Use, No Respiratory Distress, Decreased Breath Sounds Cardiovascular: Regular Rate, Rhythm, No Edema, No Gallop, No JVD, No Murmur, Normal Peripheral Pulses Capillary Refill: Less Than 3 Seconds Extremity: Normal Capillary Refill, Normal Inspection, Normal Range of Motion, Non Tender, No Calf Tenderness, No Pedal Edema Neurologic/Psychiatric: Alert, Oriented x3, No Motor/Sensory Deficits, Normal Mood/Affect Skin: Normal Color, Warm/Dry Lymphatic: No Adenopathy Results Lab Laboratory Tests 12/22/18 03:10 12/23/18 02:54 Assessment/Plan Assessment/Plan Atrial fibrillation with RVR status post cardioversion in ED -She is currently on cardizem gtt -Plan is for cardioversion -Eliquis -Cardiology following Pulmonary edema probably secondary to diastolic dysfunction vs IVF -Lasix 40mg daily COPDAE -SVNS -will start prednisone 40mg daily x 5 days then D/C Septic shock secondary to UTI -Sheth cultures pending -Rocephin -Sepsis protocol S/P Syncope Hx ROJELIO -Noncompliant with CPAP -Pt states she was to reattempt use. JENNIFER VAZQUEZ DO Dec 23, 2018 05:59
--- NOTE | 2018-12-23 07:37 | Diagnostic Imaging Report ---
CHEST 1 VIEW, AP/PA ONLY INDICATION: Atrial fibrillation. COMPARISON: 12/22/2018 FINDINGS: Stable cardiomegaly. Mild central vascular indistinctness is unchanged. Possible trace left pleural effusion is stable. No pneumothorax. IMPRESSION: 1. Potential mild pulmonary edema is unchanged. Dictated by: Dictated on workstation # [id number]
[2018-12-23] MEDS ORDERED: LIDOCAINE 2% VISCOUS 15 ML UDC PO ONE (09:00)
[2018-12-23] MEDS ORDERED: NS IV 500 ML 500 ML ONE (09:01)
[2018-12-23] MEDS ORDERED: LIDOCAINE 2% VISCOUS 15 ML UDC ONE (09:15)
[2018-12-23] MEDS ORDERED: MIDAZOLAM 2 MG/2 ML (VERSED) VIAL ONE (09:15)
[2018-12-23] MEDS ORDERED: proPOfol 200 MG/20 ML (DIPRIVAN) VIAL IV ONE (09:15)
[2018-12-23] MEDS ORDERED: NS IV 500 ML 500 ML IV ONE (09:15)
--- NOTE | 2018-12-23 09:19 | Cardiology Progress Note ---
Cardiology SOAP Progress Note Subjective: still in AF Objective: I&O/Vital Signs 12/22/18 12/22/18 12/23/18 12/23/18 21:59 22:16 00:00 01:00 Pulse 68 78 71 Resp 25 21 19 B/P (MAP) 143/86 (105) 124/90 (101) Pulse Ox 93 96 94 91 O2 Delivery Nasal Cannula Nasal Cannula Nasal Cannula O2 Flow Rate 3.00 35.00 3.00 3.00 12/23/18 12/23/18 12/23/18 12/23/18 01:52 02:00 02:57 03:19 Pulse 71 80 80 Resp 19 16 B/P (MAP) 140/101 (114) 132/82 (99) Pulse Ox 89 92 93 O2 Delivery Nasal Cannula Nasal Cannula Nasal Cannula O2 Flow Rate 3.00 3.00 3.00 12/23/18 12/23/18 12/23/18 12/23/18 03:30 04:00 05:28 06:50 Pulse 99 86 82 Resp 21 23 23 B/P (MAP) 129/101 147/78 (101) 130/80 (97) Pulse Ox 90 92 90 90 O2 Delivery Nasal Cannula Nasal Cannula Nasal Cannula Nasal Cannula O2 Flow Rate 3.00 3.00 3.00 4.00 12/23/18 12/23/18 06:54 07:00 Pulse 72 89 Resp 18 B/P (MAP) 131/88 (102) Pulse Ox 90 O2 Delivery Nasal Cannula O2 Flow Rate 3.00 12/23/18 00:00 Intake Total 980 ml Output Total 2350 ml Balance -1370 ml Weight (Pounds): 243 Weight (Ounces): 0.0 Weight (Calculated Kilograms): 110.268141 Constitutional: appears stated age, AAO x 3; No apparent distress; well-de veloped, well-nourished Respiratory: chest is bilaterally symmetric, lungs clear to auscultation Cardiovascular: irregularly irregular; No extra beats, No parasternal heave is noted, No JVD, No edema, No bradycardia; tachycardia; No point of maximal impulse, No cardiac thrills are palpable; S1 and S2; No gallop/S3, No gallop/S4, No diastolic murmur, No systolic murmur, No friction rub, No click, No other Gastrointestional: soft, round, audible bowel sounds; No spleenomegaly Extremities: normal range of motion, non-tender, normal inspection; No cl ubbing, No cyanosis; no lower extremity edema bilateral; No significant edema Neurologic/Psychiatric: no motor/sensory deficits, alert, normal mood/affect, oriented x 3, power is 5/5 both on sides Skin: normal color; No rash, No ulcerations Results/Procedures: Labs Laboratory Tests 12/22/18 11:14: Glucometer 313H 12/22/18 16:08: Glucometer 243H 12/22/18 19:22: Glucometer 181H 12/23/18 02:54: White Blood Count 13.2H, Red Blood Count 4.25L, Hemoglobin 12.9, Hematocrit 42, Mean Corpuscular Volume 99, Mean Corpuscular Hemoglobin 30, Mean Corpuscular Hemoglobin Concent 31L, Red Cell Distribution Width 16.5H, Platelet Count 223, Mean Platelet Volume 9.3, Neutrophils (%) (Auto) 85H, Lymphocytes (%) (Auto) 9L, Monocytes (%) (Auto) 6, Eosinophils (%) (Auto) 0, Basophils (%) (Auto) 0, Neutrophils # (Auto) 11.2H, Lymphocytes # (Auto) 1.2, Monocytes # (Auto) 0.8, Eosinophils # (Auto) 0.0, Basophils # (Auto) 0.0, Sodium Level 141, Potassium Level 4.6, Chloride Level 100, Carbon Dioxide Level 33H, Anion Gap 8, Blood Urea Nitrogen 15, Creatinine 0.80, Estimat Glomerular Filtration Rate > 60, BUN/Creatinine Ratio 19, Glucose Level 163H, Calcium Level 8.3L, Phosphorus Level 3.5, Magnesium Level 2.2 Microbiology 12/17/18 Blood Culture - Preliminary, Resulted No growth 12/17/18 MRSA Screen - Final, Complete MRSA not isolated 12/17/18 Urine Culture - Final, Complete 3 or more isolates A/P: Assessment/Dx: Mechanical fall,? Syncope, History of COPD, Atrial fibrillation with rapid ventricular rate Hypokalemia, Rhabdomyolysis, Elevated LFTs, Elevated BNP Positive D dimer Plan: Mechanical fall,? Syncope, unclear etiology. Will likely require an event monitor on discharge. Echocardiogram. Driving restriction until we figure out the cause of syncope. Atrial fibrillation with rapid ventricular rate and hypotension, status post cardioversion on admission. Patient went into atrial fibrillation with rapid ventricular rate requiring transfer to the ICU. On Cardizem and amiodarone infusion. Continue Eliquis 5 mg twice a day. If her atrial fibrillation is refractory to amiodarone infusion, she may be a candidate for transesophageal echocardiogram assisted cardioversion. We will schedule today 12/23/2018. Hypokalemia, defer to the primary team. Rhabdomyolysis, IV fluids. Likely due to fall. Resolved. Elevated LFTs, unclear at urology. Resolved. Elevated BNP. Not in florid congestive heart failure on my examination. Echoca rdiogram showed normal LV and RV size and function. Positive D dimer, negative CT angiography for PE. . Thank you for your consultation. Please call me if you have any questions. Gil Woods MD, FACP, FACC, FSCAI, FHRS, CCDS Interventional Cardiology Cardiac Electrophysiology Vascular Medicine and Endovascular Interventions Galdino WOODS MD Dec 23, 2018 9:19 am
--- NOTE | 2018-12-23 09:37 | Cardioversion ---
Cardioversion PROCEDURE PHYSICIAN: Gil Woods MD DATE OF PROCEDURE: 12/23/18 DIRECT EXTERNAL ELECTRICAL CARDIOVERSION: Indications: Atrial Fibrillation with rapid ventricular rate Preoperative diagnoses: Atrial Fibrillation with rapid ventricular rate Postoperative diagnosis: Sinus rhythm, Successful Electrical Cardioversion History: AF with RVR Anesthesia: By Anesthesia services Complications: None Specimen: None Contrast: 0 Flouroscopy: none Procedure Details: The patient was brought the nursery laborer after informed consent was taken, all the risks and complications were explained including the risk of stroke. REG did not demonstrate any LA or PANCHITO thrombus. Electrical cardioversion was carried out with anesthesia support with propofol. 200 joules of synchronized shock was delivered through external patches which promptly restored sinus rhythm. The patient tolerated the procedure well. Conclusions: 1.Successful Cardioversion. 2.Continue oral anticoagulation and rate controlling agent. Gil Woods MD, RS, CCDS Cardiac Electrophysiology Galdino WOODS MD Dec 23, 2018 9:37 am
[2018-12-23] MEDS ORDERED: NS 100 ML (IVPB) BAG IV ONE (10:00)
--- NOTE | 2018-12-23 10:01 | Occ Therapy Progress Note ---
Therapy Progress Note Pt just out of procedure and lethargic. Will check on pt later in am. FAMILIA NUNEZ Dec 23, 2018 10:01
--- NOTE | 2018-12-23 11:19 | Anesthesia-Procedure Note ---
Procedures/Interventions Procedure Start/Stop/Diagnosis Date of Procedure: Dec 23, 2018 Start Time: 09:20 Referring Physician: Peggy Preprocedural Diagnosis: a fib Brief History Called to ICU 6 for REG Cardioversion. History obtained. Consent obtained. Patient given 2mg Versed and 60mg Propofol total for the procedure. O2/ simple mask at 15L. SaO2 88-92%. Reported off to RN. Stop Time: 09:40 REG/Cardioversion Anesthesia Type: MAC ASA Class: 3 KIANA FLORES CRNA Dec 23, 2018 11:19
[2018-12-23] MEDS: FUROSEMIDE 40 MG/4 ML INJ (LASIX) IVP SCH (11:26)
[2018-12-23] MEDS: predniSONE 20 MG TAB PO SCH (11:26)
--- NOTE | 2018-12-23 11:26 | Occupational Ther Daily Note ---
OT Current Status-Daily Note Subjective Pt alert sitting in bed. Nrsg and family in room. No c/o pain. Pt agrees to therapy. Mental Status/Objective Patient Orientation: Person, Place, Time, Situation Therapy Code Descriptions/Definitions Functional Real Measure: 0=Not Assessed/NA 4=Minimal Assistance 1=Total Assistance 5=Supervision or Setup 2=Maximal Assistance 6=Modified [place] 3=Moderate Assistance 7=Complete [place] ADL-Treatment Therapy Code Descriptions/Definitions Functional Real Measure: 0=Not Assessed/NA 4=Minimal Assistance 1=Total Assistance 5=Supervision or Setup 2=Maximal Assistance 6=Modified Real 3=Moderate Assistance 7=Complete Real Therapy Quality Codes: 6 Independent with activity with or without an assistive device 5 Patient requires set up or clean up by helper. Patient completes activity by themselves 4 Supervision or touching assist (CGA). [place] provide cues , steadying assist 3 The helper provides less than half the effort to complete the activity 2 The helper provides more than half the effort to complete the activity 1 Dependent. The helper does all the effort to complete an activity 7 Patient refused to complete or attempt activity 9 The patient did not perform the activity before the current illness or injury 88 Not attempted due to Medical conditions or safety concerns Other Treatment Pt was able to grasp onto objects and bring UE to mouth against gravity with good coordination. Pt assisted R UE with L UE to raise arm above head then was able to hold in position. Pt stated pt needed to do this due to jamming R shldr when she fell. Pt used raised UE to touch top of head against gravity 10x each. Pt sitting in bed, call light and phone in reach, all needs met in room. PT took over care. All needs met in room. OT Short Term Goals Short Term Goals Time Frame: Dec 29, 2018 Grooming(FIM): 4 Bathing(FIM): 4 Lower Body Dressing(FIM): 3 Toileting(FIM): 4 Transfers (B,C,W/C) (FIM): 5 Toilet/Commode Transfer(FIM): 5 1=Demonstrate adherence to instructed precautions during ADL tasks. 2=Patient will verbalize/demonstrate understanding of assistive devices/modifications for ADL. 3=Patient will improve strength/tolerance for activity to enable patient to perform ADL's. OT Nursing Home Goals Nursing Home Goals Time Frame: Jan 07, 2019 Additional Goals: 1-Demonstrate ADL Tasks, 2-Verbalize Understanding, 3- ImproveStrength/[place] 1=Demonstrate adherence to instructed precautions during ADL tasks. 2=Patient will verbalize/demonstrate understanding of assistive devices/modifications for ADL. 3=Patient will improve strength/tolerance for activity to enable patient to perform ADL's. OT Education/Plan Problem List/Assessment Assessment: Decreased UE Strength Discharge Recommendations Plan/Recommendations: Continue POC Treatment Plan/Plan of Care Patient would benefit from OT for education, treatment and training to promote independence in ADL's, mobility, safety and/or upper extremity function for ADL's. Plan of Care: ADL Retraining, Caregiver Training, Functional Mobility, UE Funct Exercise/Act Treatment Duration: Jan 07, 2019 Frequency: 5 times per week Estimated Hrs Per Day: .25 hour per day Rehab Potential: Fair Time/GCodes Start Time: 11:00 Stop Time: 11:15 Total Time Billed (hr/min): 15 Billed Treatment Time 1 visit- EX 1 (15 min) FAMILIA NUNEZ Dec 23, 2018 11:26
[2018-12-23] MEDS: BENZONATATE 100 MG (TESSALON) CAPSULE PO SCH ×3 (11:27→21:18)
[2018-12-23] MEDS: SINEMET 25/100 (CARBIDOPA/LEVODOPA) TAB PO SCH ×2 (11:27→21:28)
[2018-12-23] MEDS: GABAPENTIN 100 MG (NEURONTIN) CAP PO SCH ×3 (11:27→21:18)
[2018-12-23] MEDS: meTOprolol TARTRATE 50 MG (LOPRESSOR) TAB PO SCH ×2 (11:27→21:17)
[2018-12-23] MEDS: fluCOnazole (DIFLUCAN) 100 MG TAB PO SCH (11:27)
[2018-12-23] MEDS: APIXABAN 5 MG (ELIQUIS) TABLET PO SCH ×2 (11:27→21:17)
[2018-12-23] MEDS: MICONAZOLE 2% POWDER (DESENEX AF) 90 GM TOP SCH ×2 (11:28→21:19)
--- NOTE | 2018-12-23 11:42 | Physical Therapy Daily Note ---
PT Daily Note-Current Subjective Patient agrees to PT. Pain Numeric Pain Scale: 0-No Pain Location: No Pain Reported Mental Status Patient Orientation: Person, Time, Situation Attachments: Oxygen (4L HF), Hurtado Catheter Transfers Therapy Quality Codes: 6 Independent with activity with or without an assistive device 5 Patient requires set up or clean up by helper. Patient completes activity by themselves 4 Supervision or touching assist (CGA). [place] provide cues , steadying assist 3 The helper provides less than half the effort to complete the activity 2 The helper provides more than half the effort to complete the activity 1 Dependent. The helper does all the effort to complete an activity 7 Patient refused to complete or attempt activity 9 The patient did not perform the activity before the current illness or injury 88 Not attempted due to Medical conditions or safety concerns Transfers (B, C, W/C): 4 Roll Left to Right (QC): 5 Sit to Lying (QC): 5 Sit to Stand (QC): 4 Chair/Pep-hb-Drzol Xfer(QC): 5 Bed to/from Chair: 5 Weight Bearing Right Lower Extremity: Right Weight Bearing/Tolerated Left Lower Extremity: Left Weight Bearing/Tolerated Gait Training Does the Patient Walk?: Yes Gait: 4 Distance: 150' Walk 10 feet (QC): 4 Walk 50 ft with 2 Turns(QC): 4 Walk 150 ft (QC): 4 Gait Assistive Device: FWW slow, steady, functional gait sequence Exercises Seated Therapy Exercises: Ankle pumps, Long arc quads Seated Reps: 15 Assessment Patient tolerated treatment well and is up in recliner with needs met. SAO2 91% on 4L after ambulation. PT to increase activity as tolerated by patient. PT Mcfp Goals Harvest Worker Field Crop Goals PT Harvest Worker Field Crop Goals Time Frame: Jan 01, 2019 Distance: 250' Gait Level of Assist: 6 Gait Assistive Device: FWW # of Steps: 2 Stairs Level Of Assist: 5 PT Plan Treatment/Plan Treatment Plan: Continue Plan of Care Treatment Plan: Bed Mobility, Education, Functional Activity Rahel, Functional Strength, Gait, Safety, Therapeutic Exercise, Transfers Treatment Duration: Jan 01, 2019 Frequency: 6 times per week Estimated Hrs Per Day: .25 hour per day Patient and/or Family Agrees t: Yes Time/GCodes Time In: 1115 Time Out: 1131 Total Billed Treatment Time: 16 Total Billed Treatment 1 visit FA 16 min YASMANY MELENDEZ PT Dec 23, 2018 11:41
--- NOTE | 2018-12-23 12:45 | NUR ---
RD ASSESSMENT PMHx: HTN, COPD PT INTERACTION: Pt was awake and pleasant during nutrition assessment. Pt states current appetite is "pretty good," and had been for the past several weeks. Pt states no issues with chewing/swallowing. Pt states no current issues with n/v at this time. Pt states some constipation, and last BM was 12/20. Pt states no major recent wt changes and that her weight fluctuates generally between 279-283#. Note unable to determine recent wt hx, per chart review. Upon visual exam, pt appears to be well-nourished with BMI of 46.7. ABNORMAL NUTRITION-RELATED LAB VALUES: glu 163 (H); Ca 8.3 (L) Est. kcal needs: 6740-9568 kcal (15-18 kcal/kg) Est. Pro needs: 99-124 (0.8-1.0 g Pro/kg) PES STATEMENT: Altered GI Function related to changes in gastric motility as evidenced by lack of recent BM | Pt interview INTERVENTION: Advance diet to Heart Healthy diet, when medically able. Will provide dietary education and handout on Heart Healthy diet prior to discharge. Pt may require bowel regimen if constipation persists. MONITOR/EVALUATE: Diet Advancement; PO Intake; Weight Status; Hydration Status; Lab Values; Stool Output Althea Briseno, MS, RD, LD [phone]
--- NOTE | 2018-12-23 13:05 | Progress Note ---
Subjective Subjective/Events-last exam Afebrile, had cardioversion this am. Denies concerns. Objective Exam Last Set of Vital Signs Vital Signs Date Time Temp Pulse Resp B/P (MAP) Pulse Ox O2 Delivery O2 Flow Rate FiO2 12/23/18 12:00 65 134/124 (127) 98 OxyMask 7.00 12/22/18 16:34 35.8 12/19/18 07:12 96 Capillary Refill : Less Than 3 Seconds I&O Intake and Output 12/23/18 00:00 Intake Total 980 ml Output Total 2650 ml Balance -1670 ml Intake Oral 980 ml Output Urine Total 2650 ml General: Alert, No Acute Distress Lungs: Clear to Auscultation, Normal Air Movement Heart: Regular Rate, No Murmurs Abdomen: Normal Bowel Sounds, Soft Neuro: Other (mildly confused and slurred- just waking up from anesthesia) Results/Procedures Lab Laboratory Tests 12/22/18 16:08: Glucometer 243H 12/22/18 19:22: Glucometer 181H 12/23/18 02:54: White Blood Count 13.2H, Red Blood Count 4.25L, Hemoglobin 12.9, Hematocrit 42, Mean Corpuscular Volume 99, Mean Corpuscular Hemoglobin 30, Mean Corpuscular Hemoglobin Concent 31L, Red Cell Distribution Width 16.5H, Platelet Count 223, Mean Platelet Volume 9.3, Neutrophils (%) (Auto) 85H, Lymphocytes (%) (Auto) 9L, Monocytes (%) (Auto) 6, Eosinophils (%) (Auto) 0, Basophils (%) (Auto) 0, Neutrophils # (Auto) 11.2H, Lymphocytes # (Auto) 1.2, Monocytes # (Auto) 0.8, Eosinophils # (Auto) 0.0, Basophils # (Auto) 0.0, Sodium Level 141, Potassium Level 4.6, Chloride Level 100, Carbon Dioxide Level 33H, Anion Gap 8, Blood Urea Nitrogen 15, Creatinine 0.80, Estimat Glomerular Filtration Rate > 60, BUN/Creatinine Ratio 19, Glucose Level 163H, Calcium Level 8.3L, Phosphorus Level 3.5, Magnesium Level 2.2 12/23/18 11:53: Glucometer 115H Microbiology 12/17/18 Blood Culture - Preliminary, Resulted No growth 12/17/18 MRSA Screen - Final, Complete MRSA not isolated 12/17/18 Urine Culture - Final, Complete 3 or more isolates Assessment/Plan Assessment/Plan (1) Atrial fibrillation status post cardioversion Status: Acute Assessment & Plan: Initially on admit with hypotension requiring cardioversion x 3. Currently stable. Echo on 12/15 with EF 55-65%. Appreciate Cardiology recommendations. 12/21 recurrence last night requiring cardizem drip, appreciate Cardiology recommendations. 12/22 now on amiodarone and cardizem drip, if refractory may need electrical cardioversion 12/23 s/p cardioversion (2) Syncope Status: Acute Assessment & Plan: Possibly prior to fall, unclear. Further work-up per Cardiology. Qualifiers: Qualified Codes: R55 - Syncope and collapse (3) COPD (chronic obstructive pulmonary disease) Status: Chronic Assessment & Plan: Duonebs. 12/21 started prednisone PO daily per Dr. Boyel. (4) Hypertension Status: Chronic Qualifiers: Qualified Codes: I10 - Essential (primary) hypertension (5) Debility Status: Acute Assessment & Plan: Rehab consult. (6) UTI (urinary tract infection) Status: Acute Assessment & Plan: Suspected based on initial UA and leukocytosis, however culture without clear pathogen. Completed course of ceftriaxone. Qualifiers: Qualified Codes: N30.00 - Acute cystitis without hematuria (7) DVT prophylaxis Status: Acute Assessment & Plan: On apixaban. Clinical Quality Measures DVT/VTE Risk/Contraindication: Risk Factor Score Per Nursin RFS Level Per Nursing on Admit: 4+=Very High RAF KNAPP MD Dec 23, 2018 13:05
--- NOTE | 2018-12-23 20:26 | Anesthesia-General Post-Op ---
MAC Patient Condition Mental Status/LOC: Same as Preop Cardiovascular: Satisfactory Nausea/Vomiting: Absent Respiratory: Satisfactory Pain: Controlled Complications: Absent Post Op Complications Complications None Follow Up Care/Instructions Patient Instructions None needed. Anesthesiology Discharge Order Discharge Order Patient is doing well, no complaints, stable vital signs, no apparent adverse anesthesia problems. No complications reported per nursing. IVORY MCKEE CRNA Dec 23, 2018 20:26
[2018-12-23] MEDS: rOPINIRole 5 MG TAB (REQUIP) PO SCH (21:17)
[2018-12-24] VITALS (7 sets, daily range): BP systolic 114–192; BP diastolic 56–79
--- NOTE | 2018-12-24 00:20 | NUR ---
RUI MONROE transferred to room 426 on 12/24/18 from room 512-1, accompanied by BERNARDA GALVEZ and BERNARDA MARRERO. RUI MONROE introduced to surroundings, call light, bed controls, phone, TV, temperature control, lights, meal times, smoking policy, visitor policy, side rail policy, bathrooms and showers. Patient Rights given to patient in the handbook. RUI MONROE verbalizes understanding that [facility] is not responsible for the loss or damage to any personal effects or valuables that are kept in the patients possession during their hospitalization. BEDSIDE REPORT GIVEN TO THIS RN BY BERNARDA MARRERO.
[2018-12-24] MEDS: RT-ALBUTEROL/IPRATROPIUM 3 ML (DUONEB) VIAL INH SCH ×4 (03:07→21:58)
[2018-12-24] MEDS: inSUlin ASPART (NovoLOG) 1 UNIT/0.01 ML (CHARGE PER UNIT) SC SCH ×4 (05:52→21:11)
[2018-12-24] MEDS: predniSONE 20 MG TAB PO SCH (06:01)
[2018-12-24] MEDS: KCL 20 MEQ TAB (K-DUR) PO SCH (06:01)
[2018-12-24 06:03] LABS: BASOPHILS % (AUTO) 0 % (0-10); EOSINOPHILS # (AUTO) 0.1 10^3/uL (0.0-0.3); EOSINOPHILS % (AUTO) 1 % (0-10); HEMATOCRIT 44 % (35-52); HEMOGLOBIN 13.6 G/DL (11.5-16.0); LYMPHOCYTES # (AUTO) 1.2 X 10^3 (1.0-4.0); LYMPHOCYTES % (AUTO) 12 % (12-44); MEAN CORPUSCULAR HEMOGLOBIN 30 PG (25-34); MEAN CORPUSCULAR HGB CONC 31 G/DL (32-36); MEAN CORPUSCULAR VOLUME 97 FL (80-99); MONOCYTES # (AUTO) 0.8 X 10^3 (0.0-1.0); MONOCYTES % (AUTO) 8 % (0-12); NEUTROPHILS % (AUTO) 80 % (42-75); PLATELET COUNT 220 10^3/uL (130-400); RED CELL DISTRIBUTION WIDTH 16.2 % (10.0-14.5); WHITE BLOOD COUNT 10.1 10^3/uL (4.3-11.0)
[2018-12-24 06:27] LABS: BUN/CREATININE RATIO 28; CALCIUM 8.4 MG/DL (8.5-10.1); CARBON DIOXIDE 30 MMOL/L (21-32); CHLORIDE 97 MMOL/L (98-107); CREATININE SERUM 0.71 MG/DL (0.60-1.30); GFR ESTIMATED > 60; GLUCOSE 129 MG/DL (70-105); MAGNESIUM 2.2 MG/DL (1.6-2.4); PHOSPHORUS 3.8 MG/DL (2.3-4.7); POTASSIUM 4.2 MMOL/L (3.6-5.0); SODIUM 138 MMOL/L (135-145)
--- NOTE | 2018-12-24 08:28 | Pulmonary Progress Note ---
Subjective Time Seen by a Provider: 10:30 Sepsis Event Evaluation Height, Weight, BMI Height: 5'6.00" Weight: 243lbs. 0.0oz. 110.145983pg; 99.32 BMI Method:Stated Exam Exam Vital Signs Date Time Temp Pulse Resp B/P (MAP) Pulse Ox O2 Delivery O2 Flow Rate FiO2 12/24/18 07:00 63 12/24/18 06:36 83 Nasal Cannula 12/24/18 04:36 36.0 58 16 149/65 (93) 96 Nasal Cannula 4.00 12/24/18 03:08 93 Nasal Cannula 4.00 12/24/18 01:00 53 12/23/18 23:59 36.1 59 18 150/88 (108) 91 Nasal Cannula 4.00 12/23/18 21:22 93 Nasal Cannula 4.00 12/23/18 21:12 37.0 68 94 12/23/18 20:00 Nasal Cannula 3.00 12/23/18 19:42 37.0 68 18 133/76 (95) 94 Nasal Cannula 4.00 12/23/18 19:01 70 12/23/18 16:00 63 191/160 (170) 91 OxyMask 7.00 12/23/18 15:10 95 Nasal Cannula 4.00 12/23/18 15:00 63 117/74 (88) 94 OxyMask 7.00 12/23/18 14:00 53 125/69 (87) 95 OxyMask 7.00 12/23/18 13:00 54 91/67 (75) 93 OxyMask 7.00 12/23/18 13:00 55 12/23/18 12:00 65 134/124 (127) 98 OxyMask 7.00 12/23/18 11:00 58 22 162/124 (137) 94 OxyMask 7.00 12/23/18 10:45 OxyMask 7.00 12/23/18 10:00 55 22 151/79 (103) 100 OxyMask 10.00 12/23/18 09:30 OxyMask 10.00 12/23/18 09:00 85 30 142/116 (125) 92 Nasal Cannula 4.00 I & O 12/24/18 07:00 Intake Total 2200 ml Output Total 3575 ml Balance -1375 ml Height & Weight Height: 5'6.00" Weight: 243lbs. 0.0oz. 110.159627pz; 99.32 BMI Method:Stated General Appearance: WD/WN, Anxious, Chronically ill, Mild Distress HEENT: PERRL/EOMI, Normal ENT Inspection, Pharynx Normal, Moist Mucous Membranes Neck: Full Range of Motion, Normal Inspection, Non Tender Respiratory: Chest Non Tender, No Accessory Muscle Use, No Respiratory Distress, Decreased Breath Sounds Cardiovascular: Regular Rate, Rhythm, No Edema, No Gallop, No JVD, No Murmur, Normal Peripheral Pulses Capillary Refill: Less Than 3 Seconds Extremity: Normal Capillary Refill, Normal Inspection, Normal Range of Motion, Non Tender, No Calf Tenderness, No Pedal Edema Neurologic/Psychiatric: Alert, Oriented x3, No Motor/Sensory Deficits, Normal Mood/Affect Skin: Normal Color, Warm/Dry Lymphatic: No Adenopathy Results Lab Laboratory Tests 12/23/18 02:54 12/24/18 05:55 Assessment/Plan Assessment/Plan Atrial fibrillation -Eliquis -Cardiology following Pulmonary edema probably secondary to diastolic dysfunction vs IVF -Lasix 40mg daily COPDAE -SVNS -will start prednisone 40mg daily x 5 days then D/C Hx ROJELIO -Noncompliant with CPAP -Pt states she was to reattempt use. JENNIFER VAZQUEZ DO Dec 24, 2018 08:28
[2018-12-24] MEDS: FUROSEMIDE 40 MG/4 ML INJ (LASIX) IVP SCH (09:06)
[2018-12-24] MEDS: MICONAZOLE 2% POWDER (DESENEX AF) 90 GM TOP SCH ×2 (09:07→21:30)
[2018-12-24] MEDS: meTOprolol TARTRATE 50 MG (LOPRESSOR) TAB PO SCH ×2 (09:07→21:07)
[2018-12-24] MEDS: BENZONATATE 100 MG (TESSALON) CAPSULE PO SCH ×3 (09:07→21:08)
[2018-12-24] MEDS: APIXABAN 5 MG (ELIQUIS) TABLET PO SCH ×2 (09:07→21:07)
[2018-12-24] MEDS: SINEMET 25/100 (CARBIDOPA/LEVODOPA) TAB PO SCH ×2 (09:07→21:05)
[2018-12-24] MEDS: GABAPENTIN 100 MG (NEURONTIN) CAP PO SCH ×3 (09:07→21:06)
--- NOTE | 2018-12-24 10:04 | Physical Therapy Daily Note ---
PT Daily Note-Current Subjective Patient agrees to PT. No c/o. Pain Numeric Pain Scale: 0-No Pain Location: No Pain Reported Mental Status Patient Orientation: Normal For Age Attachments: Oxygen (4L HF), Hurtado Catheter Transfers Therapy Quality Codes: 6 Independent with activity with or without an assistive device 5 Patient requires set up or clean up by helper. Patient completes activity by themselves 4 Supervision or touching assist (CGA). Crump provide cues , steadying assist 3 The helper provides less than half the effort to complete the activity 2 The helper provides more than half the effort to complete the activity 1 Dependent. The helper does all the effort to complete an activity 7 Patient refused to complete or attempt activity 9 The patient did not perform the activity before the current illness or injury 88 Not attempted due to Medical conditions or safety concerns Roll Left to Right (QC): 6 Sit to Lying (QC): 6 Sit to Stand (QC): 6 Chair/Oin-vn-Hwqvq Xfer(QC): 6 Weight Bearing Right Lower Extremity: Right Weight Bearing/Tolerated Left Lower Extremity: Left Weight Bearing/Tolerated Gait Training Does the Patient Walk?: Yes Distance: 225' Walk 10 feet (QC): 5 Walk 50 ft with 2 Turns(QC): 5 Walk 150 ft (QC): 5 Gait Assistive Device: FWW slow, steady, functional gait sequence Exercises Supine Ex: Ankle pumps, Quad Set, Heel Slides, Straight leg raise Supine Reps: 12 Seated Therapy Exercises: Ankle pumps, Long arc quads, Hip flexion Seated Reps: 15 Assessment Patient improving with treatment plan. She continues to c/o dizziness with exertion. PT Custodial Goals Promotions Specialist Goals PT Promotions Specialist Goals Time Frame: Jan 01, 2019 Distance: 250' Gait Level of Assist: 6 Gait Assistive Device: FWW # of Steps: 2 Stairs Level Of Assist: 5 PT Plan Treatment/Plan Treatment Plan: Continue Plan of Care Treatment Plan: Bed Mobility, Education, Functional Activity Rahel, Functional Strength, Gait, Safety, Therapeutic Exercise, Transfers Treatment Duration: Jan 01, 2019 Frequency: 6 times per week Estimated Hrs Per Day: .25 hour per day Patient and/or Family Agrees t: Yes Time/GCodes Time In: 836 Time Out: 859 Total Billed Treatment Time: 23 Total Billed Treatment 1 visit EX 12 min GT 11 min YASMANY MELENDEZ PT Dec 24, 2018 10:03
--- NOTE | 2018-12-24 10:50 | Cardiology Progress Note ---
Cardiology SOAP Progress Note Subjective: In sinus rhythm. Objective: I&O/Vital Signs 12/23/18 12/24/18 12/24/18 12/24/18 23:59 01:00 03:08 04:36 Temp 36.1 36.0 Pulse 59 53 58 Resp 18 16 B/P (MAP) 150/88 (108) 149/65 (93) Pulse Ox 91 93 96 O2 Delivery Nasal Cannula Nasal Cannula Nasal Cannula O2 Flow Rate 4.00 4.00 4.00 12/24/18 12/24/18 06:36 07:00 Pulse 63 Pulse Ox 83 O2 Delivery Nasal Cannula 12/23/18 23:59 Intake Total 1700 ml Output Total 3125 ml Balance -1425 ml Weight (Pounds): 243 Weight (Ounces): 0.0 Weight (Calculated Kilograms): 110.029093 Constitutional: appears stated age, AAO x 3; No apparent distress; well- developed, well-nourished Respiratory: chest is bilaterally symmetric, lungs clear to auscultation Cardiovascular: regular rate-rhythm; No extra beats, No parasternal heave is noted, No JVD, No edema, No bradycardia, No point of maximal impulse, No cardiac thrills are palpable; S1 and S2; No gallop/S3, No gallop/S4, No diastolic murmur, No systolic murmur, No friction rub, No click, No other Gastrointestional: soft, round, audible bowel sounds; No spleenomegaly Extremities: normal range of motion, non-tender, normal inspection; No clubbing, No cyanosis; no lower extremity edema bilateral; No significant edema Neurologic/Psychiatric: no motor/sensory deficits, alert, normal mood/affect, oriented x 3, power is 5/5 both on sides Skin: normal color; No rash, No ulcerations Results/Procedures: Labs Laboratory Tests 12/23/18 11:53: Glucometer 115H 12/23/18 16:29: Glucometer 248H 12/23/18 20:27: Glucometer 232H 12/24/18 05:24: Glucometer 135H 12/24/18 05:55: White Blood Count 10.1, Red Blood Count 4.57, Hemoglobin 13.6, Hematocrit 44, Mean Corpuscular Volume 97, Mean Corpuscular Hemoglobin 30, Mean Corpuscular Hemoglobin Concent 31L, Red Cell Distribution Width 16.2H, Platelet Count 220, Mean Platelet Volume 9.0, Neutrophils (%) (Auto) 80H, Lymphocytes (%) (Auto) 12, Monocytes (%) (Auto) 8, Eosinophils (%) (Auto) 1, Basophils (%) (Auto) 0, Neutrophils # (Auto) 8.0H, Lymphocytes # (Auto) 1.2, Monocytes # (Auto) 0.8, Eosinophils # (Auto) 0.1, Basophils # (Auto) 0.0, Sodium Level 138, Potassium Level 4.2, Chloride Level 97L, Carbon Dioxide Level 30, Anion Gap 11, Blood Urea Nitrogen 20H, Creatinine 0.71, Estimat Glomerular Filtration Rate > 60, BUN/Creatinine Ratio 28, Glucose Level 129H, Calcium Level 8.4L, Phosphorus Level 3.8, Magnesium Level 2.2 Microbiology 12/17/18 Blood Culture - Final, Complete No growth 12/17/18 MRSA Screen - Final, Complete MRSA not isolated 12/17/18 Urine Culture - Final, Complete 3 or more isolates A/P: Assessment/Dx: Mechanical fall,? Syncope, History of COPD, Atrial fibrillation with rapid ventricular rate Hypokalemia, Rhabdomyolysis, Elevated LFTs, Elevated BNP Positive D dimer Plan: Mechanical fall,? Syncope, unclear etiology. Will likely require an event monitor on discharge. Driving restriction until we figure out the cause of syn cope. Atrial fibrillation with rapid ventricular rate and hypotension, status post cardioversion on admission. Patient went into atrial fibrillation with rapid ventricular rate requiring transfer to the ICU. On Cardizem and amiodarone infusion. Continue Eliquis 5 mg twice a day. If her atrial fibrillation is refractory to amiodarone infusion, she may be a candidate for transesophageal echocardiogram assisted cardioversion which was done successfully on 12/23/2018. Currently in sinus rhythm. Continue by mouth amiodarone and Cardizem. Hypokalemia, defer to the primary team. Rhabdomyolysis, IV fluids. Likely due to fall. Resolved. Elevated LFTs, unclear at urology. Resolved. Elevated BNP. Not in florid congestive heart failure on my examination. Echocardiogram showed normal LV and RV size and function. Positive D dimer, negative CT angiography for PE. . Thank you for your consultation. Please call me if you have any questions. Gil Woods MD, FACP, FACC, FSCAI, FHRS, CCDS Interventional Cardiology Cardiac Electrophysiology Vascular Medicine and Endovascular Interventions Galdino WOODS MD Dec 24, 2018 10:50
--- NOTE | 2018-12-24 11:18 | Diagnostic Imaging Report ---
EXAMINATION: Portable semierect AP chest at 415. INDICATION: Respiratory distress The mild cardiomegaly and pulmonary congestion seen on the prior exam of 12/23/18 are again evident and essentially no different. In the interval since the previous study however a vague area of slight increased density has developed in the periphery of the right midlung. I suspect that this is secondary to a new area of pneumonia/atelectasis. The left lung is generally clear. The mediastinum is not widened. The osseous structures are intact. IMPRESSION: The appearance of the chest has worsened somewhat since the prior study as a new small focus of pneumonia/atelectasis has developed in the periphery of the right mid lung. A follow up study would be recommended for continued evaluation. Dictated by: Dictated on workstation # [id number]
[2018-12-24] MEDS: fluCOnazole (DIFLUCAN) 100 MG TAB PO SCH (12:00)
[2018-12-24] MEDS: IBUPROFEN 600 MG (MOTRIN) TAB PO PRN ×2 (15:54→23:30)
--- NOTE | 2018-12-24 16:28 | Progress Note ---
Subjective Subjective/Events-last exam Afebrile, had cardioversion yesterday and is doing well since. Was not able to tolerate cpap. Objective Exam Last Set of Vital Signs Vital Signs Date Time Temp Pulse Resp B/P (MAP) Pulse Ox O2 Delivery O2 Flow Rate FiO2 12/24/18 15:54 36.6 12/24/18 13:00 59 12/24/18 12:00 20 146/76 (99) 92 High Flow N/C 4.00 12/19/18 07:12 96 Capillary Refill : Less Than 3 Seconds I&O Intake and Output 12/24/18 00:00 Intake Total 2325 ml Output Total 3450 ml Balance -1125 ml Intake Oral 1700 ml IV Total 625 ml Output Urine Total 3450 ml General: Alert, No Acute Distress Lungs: Clear to Auscultation, Normal Air Movement Heart: Regular Rate, No Murmurs Neuro: Normal Speech Psych/Mental Status: Mental Status NL Results/Procedures Lab Laboratory Tests 12/23/18 16:29: Glucometer 248H 12/23/18 20:27: Glucometer 232H 12/24/18 05:24: Glucometer 135H 12/24/18 05:55: White Blood Count 10.1, Red Blood Count 4.57, Hemoglobin 13.6, Hematocrit 44, Mean Corpuscular Volume 97, Mean Corpuscular Hemoglobin 30, Mean Corpuscular Hemoglobin Concent 31L, Red Cell Distribution Width 16.2H, Platelet Count 220, Mean Platelet Volume 9.0, Neutrophils (%) (Auto) 80H, Lymphocytes (%) (Auto) 12, Monocytes (%) (Auto) 8, Eosinophils (%) (Auto) 1, Basophils (%) (Auto) 0, Neutrophils # (Auto) 8.0H, Lymphocytes # (Auto) 1.2, Monocytes # (Auto) 0.8, Eosinophils # (Auto) 0.1, Basophils # (Auto) 0.0, Sodium Level 138, Potassium Level 4.2, Chloride Level 97L, Carbon Dioxide Level 30, Anion Gap 11, Blood Urea Nitrogen 20H, Creatinine 0.71, Estimat Glomerular Filtration Rate > 60, BUN/Creatinine Ratio 28, Glucose Level 129H, Calcium Level 8.4L, Phosphorus Level 3.8, Magnesium Level 2.2 12/24/18 11:18: Glucometer 222H 12/24/18 15:51: Glucometer 269H Microbiology 12/17/18 Blood Culture - Final, Complete No growth 12/17/18 MRSA Screen - Final, Complete MRSA not isolated 12/17/18 Urine Culture - Final, Complete 3 or more isolates Assessment/Plan Assessment/Plan (1) Atrial fibrillation status post cardioversion Status: Acute Assessment & Plan: Initially on admit with hypotension requiring cardioversion x 3. Currently stable. Echo on 12/15 with EF 55-65%. Appreciate Cardiology recommendations. 12/21 recurrence last night requiring cardizem drip, appreciate Cardiology recommendations. 12/22 now on amiodarone and cardizem drip, if refractory may need electrical cardioversion 12/24 s/p cardioversion (2) Syncope Status: Acute Assessment & Plan: Possibly prior to fall, unclear. Further work-up per Cardiology. Qualifiers: Qualified Codes: R55 - Syncope and collapse (3) COPD (chronic obstructive pulmonary disease) Status: Chronic Assessment & Plan: Duonebs. 12/21 started prednisone PO daily per Dr. Boyle. (4) Hypertension Status: Chronic Qualifiers: Qualified Codes: I10 - Essential (primary) hypertension (5) Debility Status: Acute Assessment & Plan: Rehab consult. (6) UTI (urinary tract infection) Status: Acute Assessment & Plan: Suspected based on initial UA and leukocytosis, however culture without clear pathogen. Completed course of ceftriaxone. Qualifiers: Qualified Codes: N30.00 - Acute cystitis without hematuria (7) DVT prophylaxis Status: Acute Assessment & Plan: On apixaban. Clinical Quality Measures DVT/VTE Risk/Contraindication: Risk Factor Score Per Nursin RFS Level Per Nursing on Admit: 4+=Very High RAF KNAPP MD Dec 24, 2018 16:28
[2018-12-24] MEDS ORDERED: ONDANSETRON 4 MG (ZOFRAN) ORAL DISSOLVE TAB PO PRN (17:15)
[2018-12-24] MEDS ORDERED: MELATONIN 3 MG TABLET PO PRN (17:15)
[2018-12-24] MEDS ORDERED: CALCIUM CARBONATE 500 MG (TUMS) TAB.CHEW PO PRN (17:15)
[2018-12-24] MEDS: HYDROcodone/APAP 5 MG/325 MG (LORTAB) TAB PO PRN ×2 (17:17→21:07)
--- NOTE | 2018-12-24 17:56 | NUR ---
DR MC WAS CONSULTED PER DR JOSHI'S ORDER AND HE WAS CALLED AND WILL BE IN TI SEE HER TONIGHT
--- NOTE | 2018-12-24 19:33 | Consultation - Surgery ---
IVORY AKINS [facility] 12/24/18 1933: History of Present Illness History of Present Illness Patient Consulted On(santiago/time) 12/24/18 19:22 Date Seen by Provider: Dec 24, 2018 Time Seen by Provider: 19:00 History of Present Illness RUQ, epigastric abdominal pain, ventral hernia Patient is complaining of pain in the abdomen located at the RUQ and the epigastric area. Nothing makes it better. Increase in abdominal pressure makes it worse. Describes the pain as a stabbing sensation. Pain has gradually increased since this morning and at times rates her pain 20 out of 10. There is pain also located around the ventral hernia. No radiation of pain. Patients states that she has been coughing the last few days and was given an antitussive which helped with her coughing spells, but hasn't increased or decrease her pain. WBC is 10.1. Patient denies nausea, vomiting, fevers, chills, or chest pain. Allergies and Home Medications Allergies Coded Allergies: Sulfa (Sulfonamide Antibiotics) (Verified Allergy, Unknown, 04/19/07) Home Medications Aspirin 81 Mg Tablet.dr, 81 MG PO DAILY, (Reported) Bisacodyl 5 Mg Tablet.dr, 5 MG PO Q8H PRN for CONSTIPATION-1ST LINE, (Reported) Carbidopa/Levodopa 1 Each Tablet, 1 EACH PO TID, (Reported) Diphenhydramine HCl 25 Mg Capsule, 25 MG PO DAILY PRN for ALLERGIES, (Reported) Fluconazole 100 Mg Tablet, 100 MG PO DAILY, (Reported) PICKED UP A 10 DAY SUPPLY ON 12-16-2018 Ibuprofen 200 Mg Tablet, 600 MG PO Q6H PRN for PAIN-MILD, (Reported) Ipratropium/Albuterol Sulfate 3 Ml Ampul.neb, 1 VIAL NEB TID, (Reported) Loperamide HCl 2 Mg Capsule, 2 MG PO PRN PRN for LOOSE STOOLS, (Reported) Metoprolol Tartrate 50 Mg Tablet, 50 MG PO BID Prescribed by: YOLI PETERSEN on 04/22/171916 Nystatin 15 Gm Powder, 1 APPLIC TD BID, (Reported) USE FOR RASH Pramipexole Di-HCl 1.5 Mg Tablet, 1.5 MG PO HS, (Reported) Ropinirole HCl 5 Mg Tab, 5 MG PO HS, (Reported) Past Hhoobkd-Qlwfpv-Muqddj Hx Patient Social History Alcohol Use: Denies Use Recreational Drug Use: No Smoking Status: Former Smoker Type Used: Cigarettes Recent Foreign Travel: No Contact w/Someone Who Travel: No Recent Infectious Disease Expo: No Recent Hopitalizations: No Surgeries History of Surgeries: Yes (cysto, bladder sling) Respiratory History of Respiratory Disorde: Yes Respiratory Disorders: Asthma, Emphysema Cardiovascular History of Cardiac Disorders: Yes Cardiac Disorders: Hypertension Neurological History of Neurological Disord: No Reproductive System : No Hx Reproductive Disorders: No Genitourinary Genitourinary Disorders: Kidney Stones Gastrointestinal History of Gastrointestinal Di: No Musculoskeletal History of Musculoskeletal Dis: Yes (RESTLESS LEG SYNDROME) Endocrine History of Endocrine Disorders: No Cancer History of Cancer: No Psychosocial History of Psychiatric Problem: No Integumentary History of Skin or Integumenta: No Skin/Integumentary Disorders: Eczema Blood Transfusions History of Blood Disorders: No Family Medical History Family Medial History: AIDS G8 BROTHER Arthritis G8 BROTHER Cardiovascular disease G8 BROTHER Diabetes mellitus 19 MOTHER FH: non-Hodgkin's lymphoma G8 BROTHER Prostate cancer 19 FATHER Respiratory disorder G8 BROTHER Review of Systems-General Constitutional: No chills, No fever Cardiovascular: No chest pain Gastrointestinal: RUQ, abdominal pain (Epigastric); No jaundice, No nausea, No vomiting Physical Exam-General Problems Physical Exam Vital Signs Vital Signs - First Documented 12/18/18 12/18/18 00:00 14:07 Temp 36.5 FiO2 28 Capillary Refill : Less Than 3 Seconds General Appearance: no apparent distress (when engaged in conversation) Gastrointestinal: tenderness (RUQ, Epigastric, Periumbilical area), hernia (Ventral), other Data Review Labs Laboratory Tests 12/23/18 20:27: Glucometer 232H 12/24/18 05:24: Glucometer 135H 12/24/18 05:55: White Blood Count 10.1, Red Blood Count 4.57, Hemoglobin 13.6, Hematocrit 44, Mean Corpuscular Volume 97, Mean Corpuscular Hemoglobin 30, Mean Corpuscular Hemoglobin Concent 31L, Red Cell Distribution Width 16.2H, Platelet Count 220, Mean Platelet Volume 9.0, Neutrophils (%) (Auto) 80H, Lymphocytes (%) (Auto) 12, Monocytes (%) (Auto) 8, Eosinophils (%) (Auto) 1, Basophils (%) (Auto) 0, Neutrophils # (Auto) 8.0H, Lymphocytes # (Auto) 1.2, Monocytes # (Auto) 0.8, Eosinophils # (Auto) 0.1, Basophils # (Auto) 0.0, Sodium Level 138, Potassium Level 4.2, Chloride Level 97L, Carbon Dioxide Level 30, Anion Gap 11, Blood Urea Nitrogen 20H, Creatinine 0.71, Estimat Glomerular Filtration Rate > 60, BUN/Creatinine Ratio 28, Glucose Level 129H, Calcium Level 8.4L, Phosphorus Level 3.8, Magnesium Level 2.2 12/24/18 11:18: Glucometer 222H 12/24/18 15:51: Glucometer 269H Microbiology 12/17/18 Blood Culture - Final, Complete No growth 12/17/18 MRSA Screen - Final, Complete MRSA not isolated 12/17/18 Urine Culture - Final, Complete 3 or more isolates Assessment/Plan Assessment/Plan Assessment/Plan RUQ, Epigastric abdominal pain ventral hernia cough Atrial fibrillation with rapid ventricular response status post cardio version. CT scan of abdomen and pelvis to evaluate for source of pain. Feel pain could be related to her cough and MSK change but looking to rule out other sources Clinical Quality Measures DVT/VTE Risk/Contraindication: Risk Factor Score Per Nursin RFS Level Per Nursing on Admit: 4+=Very High CHRIS MC DO 12/24/182035: History of Present Illness History of Present Illness History of Present Illness Consult requested by Dr. Hicks for abdominal pain and abdominal hernia. Patient 68 year old female admitted on 12/17/18. Patient with afib rvr. Has had cardioversion. Patient states last few days having significant coughing spells. Began having abdominal pain in the ruq/epigastric region which worsened today around 3pm. Patient feels like knife twisting. Coughing and moving worsens, and nothing really makes better. Patient also with ventral hernia that she's had since 2007. Has increased in size. Never reduces. Having mild discomfort that she attributes to coughing. Patient overall rating pain at a 20/10 at its worse. Has been on cough medicine which has helped cough, but not pain. She is on anticoagulation. Allergies and Home Medications Allergies Coded Allergies: Sulfa (Sulfonamide Antibiotics) (Verified Allergy, Unknown, 04/19/07) Home Medications Aspirin 81 Mg Tablet.dr, 81 MG PO DAILY, (Reported) Bisacodyl 5 Mg Tablet.dr, 5 MG PO Q8H PRN for CONSTIPATION-1ST LINE, (Reported) Carbidopa/Levodopa 1 Each Tablet, 1 EACH PO TID, (Reported) Diphenhydramine HCl 25 Mg Capsule, 25 MG PO DAILY PRN for ALLERGIES, (Reported) Fluconazole 100 Mg Tablet, 100 MG PO DAILY, (Reported) PICKED UP A 10 DAY SUPPLY ON 12-16-2018 Ibuprofen 200 Mg Tablet, 600 MG PO Q6H PRN for PAIN-MILD, (Reported) Ipratropium/Albuterol Sulfate 3 Ml Ampul.neb, 1 VIAL NEB TID, (Reported) Loperamide HCl 2 Mg Capsule, 2 MG PO PRN PRN for LOOSE STOOLS, (Reported) Metoprolol Tartrate 50 Mg Tablet, 50 MG PO BID Prescribed by: YOLI PETERSEN on 04/22/171916 Nystatin 15 Gm Powder, 1 APPLIC TD BID, (Reported) USE FOR RASH Pramipexole Di-HCl 1.5 Mg Tablet, 1.5 MG PO HS, (Reported) Ropinirole HCl 5 Mg Tab, 5 MG PO HS, (Reported) Patient Home Medication List Home Medication List Reviewed: Yes Past Cxjoeid-Sssiya-Lrklbh Hx Patient Social History Alcohol Use: Denies Use Smoking Status: Former Smoker Surgeries Surgeries: Bladder Surgery, Hysterectomy Respiratory Respiratory Disorders: Asthma, Emphysema Cardiovascular Cardiac Disorders: Hypertension Genitourinary Genitourinary Disorders: Kidney Stones Family Medical History Significant Family History: No Pertinent Family Hx Family Medial History: AIDS G8 BROTHER Arthritis G8 BROTHER Cardiovascular disease G8 BROTHER Diabetes mellitus 19 MOTHER FH: non-Hodgkin's lymphoma G8 BROTHER Prostate cancer 19 FATHER Respiratory disorder G8 BROTHER Review of Systems-General Constitutional: no symptoms reported EENTM: no symptoms reported Respiratory: see HPI Cardiovascular: see HPI Gastrointestinal: RUQ, abdominal pain (RUQ) Genitourinary: no symptoms reported Musculoskeletal: no symptoms reported Skin: no symptoms reported Psychiatric/Neurological: No Symptoms Reported Physical Exam-General Problems Physical Exam General Appearance: no apparent distress (when engaged in conversation) HEENT: PERRL/EOMI Neck: non-tender, supple Respiratory: chest non-tender, no respiratory distress, no accessory muscle use Cardiovascular: regular rate, rhythm Gastrointestinal: soft, tenderness (RUQ, Epigastric, Periumbilical area), hernia (Ventral nonreducible) Rectal: deferred Back: no CVA tenderness Extremities: non-tender, normal inspection 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 With the significant pain she is having will get CT abd/pelvis w/ contrast to further evaluate. Pain control NPO until CT findings to make sure nothing emergent Will follow. Supervisory-Addendum Brief Verification & Attestation Participated in pt care: history, MDM, physical Personally performed: exam, history, MDM, supervision of care Care discussed with: Medical Student Procedures: n/a Results interpretation: Verified all documentation Verification and Attestation of Medical Student E/M Service A medical student performed and documented this service in my presence. I reviewed and verified all information documented by the medical student and made modifications to such information, when appropriate. I personally performed the physical exam and medical decision making. Chris Mc, Dec 24, 2018,20:40 IVORY AKINS [facility] Dec 24, 2018 19:33 CHRIS MC DO Dec 24, 2018 20:36
[2018-12-24] MEDS ORDERED: NS 100 ML (IVPB) BAG IV ONE (19:45)
[2018-12-24] MEDS ORDERED: HOLD METFORMIN - RECEIVED CONTRAST 20 ML VIAL IV SCH (19:45)
[2018-12-24] MEDS ORDERED: IOHEXOL 350 MG/ML 100 ML (OMNIPAQUE 350) VIAL IV ONE (19:45)
--- NOTE | 2018-12-24 20:30 | Diagnostic Imaging Report ---
INDICATION: Epigastric pain. CT abdomen and pelvis obtained with IV contrast bolus. Comparison is made to 05/07/11. Visualized portions of the lung bases demonstrated a small right pleural effusion. There is dependent atelectatic change in the lung bases on both sides. There is a minimal left pleural effusion. Perhaps, there is a large density in the anterior abdominal wall musculature in the right upper quadrant entering the liver, this appears more typical for hematoma than mass. This measured about 12.6 x 7.6 cm. I do not see definitive contrast extravasation within this structure. The liver appears unremarkable. The gallbladder shows a small stone posteriorly. The spleen, adrenals, and pancreas appear normal. The kidneys bilaterally are unremarkable. There is no retroperitoneal mass or adenopathy. There is no ascites. There is no bowel obstruction. There is a Hurtado catheter in the bladder. There is a prominent ventral hernia in the epigastric region containing portions of colon which are nonobstructed. There is prominent amount of stool throughout the colon. IMPRESSION: There is a large probable hematoma in the anterior abdominal wall musculature in the right upper quadrant, anterior to the liver. This measured about 12.6 x 7.6 cm. There is no definitive active contrast extravasation. There is a prominent ventral hernia containing portions of the colon which do not appear obstructed. There is an incidental gallstone. There are bilateral pleural effusions, right greater than left, with bibasilar atelectasis. Dictated by: Dictated on workstation # [id number]
[2018-12-24] MEDS: SENNA W/DOCUSATE (SENOKOT S) TABLET PO SCH (21:06)
[2018-12-24] MEDS: rOPINIRole 5 MG TAB (REQUIP) PO SCH (21:06)
[2018-12-24] MEDS: hydrOXYzine (VISTARIL/ATARAX) 25 MG capsule/tablet PO PRN (21:07)
[2018-12-24] MEDS: ALPRAZolam 0.25 MG (XANAX) TAB PO PRN (21:07)
[2018-12-25] VITALS (7 sets, daily range): BP systolic 83–148; BP diastolic 40–79
[2018-12-25] MEDS: RT-ALBUTEROL/IPRATROPIUM 3 ML (DUONEB) VIAL INH SCH ×2 (02:19→19:16)
[2018-12-25 05:05] LABS: BASOPHILS % (AUTO) 0 % (0-10); EOSINOPHILS % (AUTO) 0 % (0-10); HEMATOCRIT 35 % (35-52); HEMOGLOBIN 10.7 G/DL (11.5-16.0); LYMPHOCYTES # (AUTO) 1.7 X 10^3 (1.0-4.0); LYMPHOCYTES % (AUTO) 11 % (12-44); MEAN CORPUSCULAR HEMOGLOBIN 30 PG (25-34); MEAN CORPUSCULAR HGB CONC 30 G/DL (32-36); MEAN CORPUSCULAR VOLUME 98 FL (80-99); MEAN PLATELET VOLUME 9.3 FL (7.4-10.4); MONOCYTES # (AUTO) 1.2 X 10^3 (0.0-1.0); MONOCYTES % (AUTO) 8 % (0-12); NEUTROPHILS # (AUTO) 12.2 X 10^3 (1.8-7.8); NEUTROPHILS % (AUTO) 80 % (42-75); PLATELET COUNT 235 10^3/uL (130-400); RED CELL DISTRIBUTION WIDTH 15.5 % (10.0-14.5); WHITE BLOOD COUNT 15.2 10^3/uL (4.3-11.0)
[2018-12-25 05:18] LABS: BUN/CREATININE RATIO 28; CALCIUM 8.1 MG/DL (8.5-10.1); CARBON DIOXIDE 33 MMOL/L (21-32); CHLORIDE 98 MMOL/L (98-107); CREATININE SERUM 0.81 MG/DL (0.60-1.30); GFR ESTIMATED > 60; GLUCOSE 140 MG/DL (70-105); MAGNESIUM 2.4 MG/DL (1.6-2.4); POTASSIUM 4.5 MMOL/L (3.6-5.0); SODIUM 139 MMOL/L (135-145)
[2018-12-25] MEDS: inSUlin ASPART (NovoLOG) 1 UNIT/0.01 ML (CHARGE PER UNIT) SC SCH ×4 (05:22→22:31)
[2018-12-25] MEDS: diphenhydrAMINE 25 MG TAB (BENADRYL) PO PRN (05:30)
[2018-12-25] MEDS: HYDROcodone/APAP 5 MG/325 MG (LORTAB) TAB PO PRN ×2 (05:30→11:37)
[2018-12-25] MEDS: predniSONE 20 MG TAB PO SCH (05:31)
[2018-12-25] MEDS: KCL 20 MEQ TAB (K-DUR) PO SCH (05:31)
--- NOTE | 2018-12-25 07:21 | Diagnostic Imaging Report ---
Indication: Dyspnea, sepsis. Comparison: 12/24/2018. Discussion: Single portable upright view of the chest was obtained. Mild interstitial infiltrates are noted within the lung bases, slightly increased on the left and slightly decreased on the right. Findings could be seen with atelectasis or pneumonia. No pleural fluid or pneumothorax. Mild cardiomegaly stable. No osseous abnormality. Impression: 1. Waxing and waning bibasilar infiltrates. Dictated by: Dictated on workstation # [id number]
--- NOTE | 2018-12-25 07:51 | Pulmonary Progress Note ---
Sepsis Event Evaluation Height, Weight, BMI Height: 5'6.00" Weight: 243lbs. 0.0oz. 110.442662rg; 99.32 BMI Method:Stated Exam Exam Vital Signs Date Time Temp Pulse Resp B/P (MAP) Pulse Ox O2 Delivery O2 Flow Rate FiO2 12/25/18 07:37 93 Nasal Cannula 3.00 12/25/18 04:15 35.9 50 14 83/47 (59) 94 High Flow N/C 4.00 12/25/18 02:19 97 Nasal Cannula 3.00 12/25/18 01:00 52 12/24/18 23:59 36.4 52 16 114/56 (75) 96 High Flow N/C 4.00 12/24/18 21:58 97 Nasal Cannula 4.00 12/24/18 20:20 36.2 66 20 192/74 (113) 96 High Flow N/C 4.00 12/24/18 20:00 97 Nasal Cannula 4.00 12/24/18 19:00 64 12/24/18 18:00 36.6 12/24/18 17:48 36.6 12/24/18 17:17 36.6 12/24/18 16:55 36.6 12/24/18 16:25 36.6 12/24/18 15:54 36.6 12/24/18 15:51 36.4 61 20 181/79 (113) 95 High Flow N/C 4.00 12/24/18 13:00 59 12/24/18 12:00 36.6 66 20 146/76 (99) 92 High Flow N/C 4.00 12/24/18 08:00 Nasal Cannula 3.00 12/24/18 08:00 36.1 69 20 166/68 (100) 94 High Flow N/C 4.00 I & O 12/25/18 07:00 Intake Total 1720 ml Output Total 2875 ml Balance -1155 ml Height & Weight Height: 5'6.00" Weight: 243lbs. 0.0oz. 110.498881vq; 99.32 BMI Method:Stated General Appearance: WD/WN, Anxious, Chronically ill, Mild Distress HEENT: PERRL/EOMI, Normal ENT Inspection, Pharynx Normal, Moist Mucous Membranes Neck: Full Range of Motion, Normal Inspection, Non Tender Respiratory: Chest Non Tender, No Accessory Muscle Use, No Respiratory Distress, Decreased Breath Sounds Cardiovascular: Regular Rate, Rhythm, No Edema, No Gallop, No JVD, No Murmur, Normal Peripheral Pulses Capillary Refill: Less Than 3 Seconds Gastrointestinal: soft, tenderness (RUQ, Epigastric, Periumbilical area), hernia (Ventral nonreducible) Extremity: Normal Capillary Refill, Normal Inspection, Normal Range of Motion, Non Tender, No Calf Tenderness, No Pedal Edema Neurologic/Psychiatric: Alert, Oriented x3, No Motor/Sensory Deficits, Normal Mood/Affect Skin: Normal Color, Warm/Dry Lymphatic: No Adenopathy Results Lab Laboratory Tests 12/24/18 05:55 12/25/18 04:40 Assessment/Plan Assessment/Plan Atrial fibrillation -Eliquis -Cardiology following Pulmonary edema probably secondary to diastolic dysfunction vs IVF -Lasix COPDAE -SVNS -will start prednisone 40mg daily x 5 days then D/C Hx ROJELIO -Noncompliant with CPAP -Pt states she was to reattempt use. JENNIFER VAZQUEZ DO Dec 25, 2018 07:51
[2018-12-25] MEDS: BENZONATATE 100 MG (TESSALON) CAPSULE PO SCH ×3 (08:36→20:38)
[2018-12-25] MEDS: FUROSEMIDE 40 MG/4 ML INJ (LASIX) IVP SCH (08:36)
[2018-12-25] MEDS: GABAPENTIN 100 MG (NEURONTIN) CAP PO SCH ×3 (08:37→20:38)
[2018-12-25] MEDS: APIXABAN 5 MG (ELIQUIS) TABLET PO SCH ×2 (08:37→20:38)
[2018-12-25] MEDS: SENNA W/DOCUSATE (SENOKOT S) TABLET PO SCH ×2 (08:37→20:38)
[2018-12-25] MEDS: meTOprolol TARTRATE 50 MG (LOPRESSOR) TAB PO SCH (08:37)
[2018-12-25] MEDS: fluCOnazole (DIFLUCAN) 100 MG TAB PO SCH (08:37)
[2018-12-25] MEDS: MICONAZOLE 2% POWDER (DESENEX AF) 90 GM TOP SCH ×2 (08:45→22:31)
[2018-12-25] MEDS: SINEMET 25/100 (CARBIDOPA/LEVODOPA) TAB PO SCH ×2 (08:45→20:38)
[2018-12-25] MEDS: IBUPROFEN 600 MG (MOTRIN) TAB PO PRN (08:46)
--- NOTE | 2018-12-25 09:17 | Cardiology Progress Note ---
Subjective Date Seen by Provider: Dec 25, 2018 Time Seen by Provider: 09:11 Subjective/Events-last exam Patient is laying down in bed, denied any chest pain, having abdominal pain. Review of Systems General: No Chills, No Night Sweats, No Fatigue, No Malaise, No Appetite, No Other HEENT: No Head Aches, No Visual Changes, No Eye Pain, No Ear Pain, No Dysphasia, No Sinus Congestion, No Post Nasal Drip, No Sore Throat, No Other Pulmonary: No Dyspnea, No Cough, No Pleuritic Chest Pain, No Other Cardiovascular: No: Chest Pain, Palpitations, Orthopnea, Paroxysmal Noc. Dyspnea, Edema, Lt Headedness, Other Gastrointestinal: Abdominal Pain Objective-Cardiology Exam Last Set of Vital Signs Vital Signs 12/19/18 12/25/18 07:12 08:06 Temp 35.9 Pulse 53 Resp 14 B/P (MAP) 96/58 (71) Pulse Ox 98 O2 Delivery High Flow N/C O2 Flow Rate 4.00 FiO2 96 Capillary Refill : Less Than 3 SecondsLess Than 3 Seconds I&O Intake and Output 12/25/18 00:00 Intake Total 1420 ml Output Total 3075 ml Balance -1655 ml Intake Oral 1420 ml Output Urine Total 3075 ml General: Alert, Oriented X3, Cooperative, No Acute Distress HEENT: Atraumatic, PERRLA Neck: Supple, No JVD Lungs: Clear to Auscultation, Normal Air Movement Heart: Regular Rate, Normal S1, Normal S2, No Murmurs Abdomen: Normal Bowel Sounds, Soft, Other (Possible abdominal pain) Extremities: Other (1+ pitting edema) Neuro: Normal Speech Psych/Mental Status: Mental Status NL Results Lab Laboratory Tests 12/25/18 04:40 A/P-Cardiology Admission Diagnosis Paroxysmal atrial fibrillation Tachycardia Abdominal pain Anemia Assessment/Plan Abdominal pain, intramuscular abdominal hematoma, it could be secondary to the fall on the Lovenox injection. Continue to monitor H&H. Paroxysmal atrial fibrillation with rapid ventricular response, currently in sinus rhythm, had a cardioversion on December 23, 2018. Maintained on amiodarone and Cardizem. Continue to monitor Status post fall with questionable syncope, etiology is not clear. Managed by primary care team Rhabdomyolysis, IV fluids. Likely due to fall. Resolved. Elevated LFTs, unclear at urology. Resolved. Elevated BNP. Not in florid congestive heart failure on my examination. Echocardiogram showed normal LV and RV size and function. Positive D dimer, negative CT angiography for PE. Clinical Quality Measures DVT/VTE Risk/Contraindication: Risk Factor Score Per Nursin RFS Level Per Nursing on Admit: 4+=Very High SUNSHINE WELLS MD Dec 25, 2018 09:17
--- NOTE | 2018-12-25 09:54 | Physical Therapy Daily Note ---
PT Daily Note-Current Subjective Patient in bed pre tx, agrees to PT, has significant pain in right side but is reluctant to rate it. Appearance Patient in recliner post tx with nurse call, phone, tray, all needs met. Family in the room. Mental Status Patient Orientation: Person, Place, Situation Attachments: Oxygen Transfers Therapy Quality Codes: 6 Independent with activity with or without an assistive device 5 Patient requires set up or clean up by helper. Patient completes activity by themselves 4 Supervision or touching assist (CGA). [place] provide cues , steadying assist 3 The helper provides less than half the effort to complete the activity 2 The helper provides more than half the effort to complete the activity 1 Dependent. The helper does all the effort to complete an activity 7 Patient refused to complete or attempt activity 9 The patient did not perform the activity before the current illness or injury 88 Not attempted due to Medical conditions or safety concerns Roll Left to Right (QC): 3 Sit to Stand (QC): 4 Chair/Gxm-na-Yezeq Xfer(QC): 4 Min assist for supine to sit, cues for positioning and safety Weight Bearing Right Lower Extremity: Right Weight Bearing/Tolerated Left Lower Extremity: Left Weight Bearing/Tolerated Gait Training Distance: 200' Walk 10 feet (QC): 4 Walk 50 ft with 2 Turns(QC): 4 Walk 150 ft (QC): 4 Gait Assistive Device: FWW SBA, slow but steady ambulation, no rest breaks, no SOB Exercises Seated Therapy Exercises: Ankle pumps, Long arc quads Seated Reps: 15 Treatments bed mobility and transfers, ambulation, LE exercise Assessment Current Status: Fair Progress no SOB, steady ambulation PT Nursing Home Goals Pharmacy Assistant Goals PT Nursing Home Goals Time Frame: Jan 01, 2019 Distance: 250' Gait Level of Assist: 6 Gait Assistive Device: FWW # of Steps: 2 Stairs Level Of Assist: 5 PT Plan Problem List Problem List: Activity Tolerance, Functional Strength, Safety, Balance, Gait, T valerie Bed Mobility Treatment/Plan Treatment Plan: Continue Plan of Care Treatment Plan: Bed Mobility, Education, Functional Activity Rahel, Functional Strength, Gait, Safety, Therapeutic Exercise, Transfers Treatment Duration: Jan 01, 2019 Frequency: 6 times per week Estimated Hrs Per Day: .25 hour per day Patient and/or Family Agrees t: Yes Safety Risks/Education Patient Education: Gait Training, Transfer Techniques, Correct Positioning, Safety Issues Teaching Recipient: Patient Teaching Methods: Demonstration, Discussion Response to Teaching: Reinforcement Needed Time/GCodes Time In: 925 Time Out: 945 Total Billed Treatment Time: 20 Total Billed Treatment 1 visit GT 20' BRIELLE WILCOX PT Dec 25, 2018 09:54
--- NOTE | 2018-12-25 10:49 | Progress Note - Surgery ---
[facility] 12/25/18 1049: Subjective Date Seen by a Provider: Dec 25, 2018 Time Seen by a Provider: 08:00 Subjective/Events-last exam Patient is still having pain today, now rates it as an 8 out of 10. RUQ pain has now moved to the right midaxillary line and complains of a "stinging sensation". She complains of a cough but has not had any cough medication. Her ventral hernia pain is now a 4 out of 10. States pain medication was very helpful. Denies n/v, fevers, chills, chest pain, or shortness of breath. Bradycardic (50) and hypotensive (83/47) with a temp of 35.9. WBC 15.2 Review of Systems General: No Chills, No Other (Fever) Pulmonary: Cough Cardiovascular: No: Chest Pain Gastrointestinal: Abdominal Pain; No: Nausea, Vomiting Musculoskeletal: other (Midaxillary flank pain); No: shoulder pain Focused Exam Respiratory: No Chest Non Tender, No No Accessory Muscle Use, No No Respiratory Distress; Crackles Cardiovascular: No JVD, No Murmur, Bradycardia (With regular rhythm) Skin: normal color, warm/dry Objective Exam Vital Signs Date Time Temp Pulse Resp B/P (MAP) Pulse Ox O2 Delivery O2 Flow Rate FiO2 12/25/18 08:06 35.9 53 14 96/58 (71) 98 High Flow N/C 4.00 12/25/18 08:00 Nasal Cannula 3.00 12/25/18 07:37 93 Nasal Cannula 3.00 12/25/18 07:00 49 12/25/18 04:15 35.9 50 14 83/47 (59) 94 High Flow N/C 4.00 12/25/18 02:19 97 Nasal Cannula 3.00 12/25/18 01:00 52 12/24/18 23:59 36.4 52 16 114/56 (75) 96 High Flow N/C 4.00 12/24/18 21:58 97 Nasal Cannula 4.00 12/24/18 20:20 36.2 66 20 192/74 (113) 96 High Flow N/C 4.00 12/24/18 20:00 97 Nasal Cannula 4.00 12/24/18 19:00 64 12/24/18 18:00 36.6 12/24/18 17:48 36.6 12/24/18 17:17 36.6 12/24/18 16:55 36.6 12/24/18 16:25 36.6 12/24/18 15:54 36.6 12/24/18 15:51 36.4 61 20 181/79 (113) 95 High Flow N/C 4.00 12/24/18 13:00 59 12/24/18 12:00 36.6 66 20 146/76 (99) 92 High Flow N/C 4.00 I & O 12/25/18 07:00 Intake Total 1720 ml Output Total 2875 ml Balance -1155 ml Capillary Refill : Less Than 3 SecondsLess Than 3 Seconds General Appearance: WD/WN, Anxious, Chronically ill, Mild Distress HEENT: PERRL/EOMI, Normal ENT Inspection, Pharynx Normal, Moist Mucous Membranes Neck: Full Range of Motion, Normal Inspection, Non Tender Respiratory: Chest Non Tender, No Accessory Muscle Use, No Respiratory Distress, Decreased Breath Sounds Cardiovascular: Regular Rate, Rhythm, No Edema, No Gallop, No JVD, No Murmur, Normal Peripheral Pulses Gastrointestinal: soft, tenderness (RUQ, Epigastric, Ventral area), hernia (Ventral nonreducible), other Extremity: Normal Capillary Refill, Normal Inspection, Normal Range of Motion, Non Tender, No Calf Tenderness, No Pedal Edema Neurologic/Psychiatric: Alert, Oriented x3, No Motor/Sensory Deficits, Normal Mood/Affect Skin: Normal Color, Warm/Dry Lymphatic: No Adenopathy Other comments Decreased pain in the right upper quadrant but increased pain at the right midaxillary line Ecchymosis noted in the right lower quadrant Results Lab Laboratory Tests 12/24/18 11:18: Glucometer 222H 12/24/18 15:51: Glucometer 269H 12/24/18 20:44: Glucometer 200H 12/25/18 04:40: White Blood Count 15.2H, Red Blood Count 3.59L, Hemoglobin 10.7#L, Hematocrit 35, Mean Corpuscular Volume 98, Mean Corpuscular Hemoglobin 30, Mean Corpuscular Hemoglobin Concent 30L, Red Cell Distribution Width 15.5H, Platelet Count 235, Mean Platelet Volume 9.3, Neutrophils (%) (Auto) 80H, Lymphocytes (%) (Auto) 11L , Monocytes (%) (Auto) 8, Eosinophils (%) (Auto) 0, Basophils (%) (Auto) 0, Neutrophils # (Auto) 12.2H, Lymphocytes # (Auto) 1.7, Monocytes # (Auto) 1.2H, Eosinophils # (Auto) 0.0, Basophils # (Auto) 0.0, Sodium Level 139, Potassium Level 4.5, Chloride Level 98, Carbon Dioxide Level 33H, Anion Gap 8, Blood Urea Nitrogen 23H, Creatinine 0.81, Estimat Glomerular Filtration Rate > 60, BUN/Creatinine Ratio 28, Glucose Level 140H, Calcium Level 8.1L, Phosphorus Level 5.0H, Magnesium Level 2.4 Microbiology 12/17/18 Blood Culture - Final, Complete No growth 12/17/18 MRSA Screen - Final, Complete MRSA not isolated 12/17/18 Urine Culture - Final, Complete 3 or more isolates Assessment/Plan Assessment/Plan Assessment/Plan Hematoma formation in the right anterior chest wall. Allow hematoma to degrade on its own. RUQ, Epigastric abdominal pain ventral hernia incarcerated cough Atrial fibrillation with rapid ventricular response status post cardio version anticoagulated on Eliquis Patient most of pain is in ruq, hernia has some slight discomfort but do not feel this is really a problem Patient with cough which I feel could cause musculoskeletal pain. With the significant pain she is having will get CT abd/pelvis w/ contrast to further evaluate. Pain control NPO until CT findings to make sure nothing emergent Will follow. Final Diagnosis Right anterior chest wall hematoma. Clinical Quality Measures DVT/VTE Risk/Contraindication: Risk Factor Score Per Nursin RFS Level Per Nursing on Admit: 4+=Very High HILARIO LOVE DO 12/25/181937: Subjective Subjective/Events-last exam Patient still with pain. Mostly in the right upper quadrant. Still stabbing knife pain. Cough better. On anticoagulation. Ct scan demonstrating ventral hernia and large hematoma abdominal wall right upper quadrant.. Denies n/v fever sweats chills shortness of breath or chest pain at this time. Objective Exam General Appearance: No Apparent Distress; No Mild Distress HEENT: PERRL/EOMI Neck: Non Tender, Supple Respiratory: Chest Non Tender, No Accessory Muscle Use, No Respiratory Distress Cardiovascular: Regular Rate, Rhythm Gastrointestinal: soft, tenderness (RUQ, Epigastric, Ventral hernia incarcerated) Extremity: Non Tender Neurologic/Psychiatric: Alert, Oriented x3 Skin: Normal Color, Warm/Dry Lymphatic: No Adenopathy Assessment/Plan Assessment/Plan Assessment/Plan RUQ, Epigastric abdominal pain secondary to right upper quadrant hematoma ventral hernia incarcerated cough Atrial fibrillation with rapid ventricular response status post cardio version anticoagulated on Eliquis would recommend pain control no surgical intervention, should stop due to confined space and technically difficult to achieve hemostasis with situation like this, if need would consider holding anticoagulation hernia is not an issue at this time do not feel this is an acute problem will follow Supervisory-Addendum Brief Verification & Attestation Participated in pt care: history, MDM, physical Personally performed: exam, history, MDM, supervision of care Care discussed with: Medical Student Procedures: n/a Results interpretation: Verified all documentation Verification and Attestation of Medical Student E/M Service A medical student performed and documented this service in my presence. I reviewed and verified all information documented by the medical student and made modifications to such information, when appropriate. I personally performed the physical exam and medical decision making. Hilario Love, Dec 25, 2018,19:39 [facility] Dec 25, 2018 10:49 HILARIO LOVE DO Dec 25, 2018 19:38
--- NOTE | 2018-12-25 12:17 | Progress Note - Hospitalist ---
Subjective HPI/CC On Admission Date Seen by Provider: Dec 25, 2018 Time Seen by Provider: 11:30 Chief complaint: New onset atrial fibrillation with rapid ventricular response History of present illness: This is a 68-year-old white female clinic patient of Dr. Moscoso at [facility] who has a past medical history of severe hypertension and COPD with smoking cessation just last year and noncompliance with CPAP who presented to the ER after found down at home when she arrived to the ER found to have a new onset atrial fibrillation with rapid ventricular response but having significant hypotension from Cardizem initiation requiring 3 episodes of electrical cardioversion and placed on amiodarone drip and consulted cardiology. She currently is doing a lot better she is in normal sinus rhythm but she does appear to have some shortness of breath at baseline but she is sitting in a chair. Her lives with her. She stopped smoking after 50 years just last year. Subjective/Events-last exam Patient doing much better Had a lot of abdominal pain CT scan was done and Dr. Love evaluated it to be a hematoma and a fluid sac in her abdominal wall [place] like it was worse than labor pains MiraLAX will be ordered for bowels We will discontinue Hurtado catheter Feels pretty weak but he she is able to stand Review of Systems General: Fatigue Pulmonary: Dyspnea Gastrointestinal: Abdominal Pain Objective Exam Vital Signs Vital Signs Date Time Temp Pulse Resp B/P (MAP) Pulse Ox O2 Delivery O2 Flow Rate FiO2 12/25/18 19:35 36.4 67 16 100/57 (71) 97 High Flow N/C 3.00 12/19/18 07:12 96 Capillary Refill : Less Than 3 SecondsLess Than 3 Seconds General Appearance: No Apparent Distress, WD/WN, Chronically ill Respiratory: Chest Non Tender, Lungs Clear, Normal Breath Sounds, No Accessory Muscle Use, No Respiratory Distress Cardiovascular: Regular Rate, Rhythm, No Edema, No Gallop, No JVD, No Murmur, Normal Peripheral Pulses Neurologic/Psychiatric: Alert, Oriented x3, No Motor/Sensory Deficits, Normal Mood/Affect Results/Procedures Lab Laboratory Tests 12/25/18 04:40 Patient resulted labs reviewed. Assessment/Plan Assessment and Plan Assess & Plan/Chief Complaint Assessment: s/p Cariogenic shock New onset atrial fibrillation with rapid ventricular response x 2 requiring 2 ICU stays in past 1 week Hypertension following Cardizem initiation in the ER requiring electrical cardioversion 3 Severe hypertension history Noncompliance with sleep apnea treatment COPD Long-term smoker just quit last year Plan: Monitor tachypnea Appreciate cardiology and pulmonology Monitor blood pressure Monitor closely IRF? Diagnosis/Problems Diagnosis/Problems (1) Atrial fibrillation with rapid ventricular response Status: Acute (2) Atrial fibrillation status post cardioversion Status: Acute (3) UTI (urinary tract infection) Status: Acute Qualifiers: Urinary tract infection type: acute cystitis Hematuria presence: without hematuria Qualified Codes: N30.00 - Acute cystitis without hematuria (4) Syncope Status: Acute Qualifiers: Syncope type: unspecified Qualified Codes: R55 - Syncope and collapse (5) Septic shock Status: Acute (6) Cardiogenic shock Status: Acute Clinical Quality Measures DVT/VTE Risk/Contraindication: Risk Factor Score Per Nursin RFS Level Per Nursing on Admit: 4+=Very High KAITLIN JOSHI DO Dec 25, 2018 12:17
--- NOTE | 2018-12-25 16:36 | NUR ---
DR JOSHI UPDATED ON PT BP AT 0837 OF 104/62 AND 1600 84/40. PT IS NON SYMPTOMATIC. DR JOSHI ASKED THIS RN TO UPDATE CARDIOLOGY. DR WELLS NOTIFIED. ORDER TO HOLD EVENING METOPROLOL PER DR WELLS.
[2018-12-25] MEDS: ALPRAZolam 0.25 MG (XANAX) TAB PO PRN (20:38)
[2018-12-25] MEDS: hydrOXYzine (VISTARIL/ATARAX) 25 MG capsule/tablet PO PRN (20:38)
[2018-12-25] MEDS: rOPINIRole 5 MG TAB (REQUIP) PO SCH (20:38)
[2018-12-25] MEDS: CATHETER FLUSH 10 ML SYR IV PRN (20:39)
--- NOTE | 2018-12-25 23:17 | NUR ---
this nurse notified by icu telephone information supervisor of bradycardia. upon assessment pt noted to be sound asleep. upon waking pt pt denies c/o pain or discomfort.
[2018-12-26 00:15] VITALS: BP 118/68
[2018-12-26] MEDS: RT-ALBUTEROL/IPRATROPIUM 3 ML (DUONEB) VIAL INH SCH ×4 (01:45→22:27)
[2018-12-26 04:00] VITALS: BP 97/65
[2018-12-26 04:55] LABS: HEMOGLOBIN 8.4 G/DL (11.5-16.0); MEAN PLATELET VOLUME 9.1 FL (7.4-10.4); RED CELL DISTRIBUTION WIDTH 15.5 % (10.0-14.5); WHITE BLOOD COUNT 15.9 10^3/uL (4.3-11.0)
[2018-12-26 05:21] LABS: ALBUMIN 2.8 GM/DL (3.2-4.5); BILIRUBIN,TOTAL 0.4 MG/DL (0.1-1.0); CALCIUM 8.1 MG/DL (8.5-10.1); CREATININE SERUM 1.01 MG/DL (0.60-1.30); POTASSIUM 4.3 MMOL/L (3.6-5.0); TOTAL PROTEIN 5.1 GM/DL (6.4-8.2)
[2018-12-26] MEDS: KCL 20 MEQ TAB (K-DUR) PO SCH (05:51)
[2018-12-26] MEDS: inSUlin ASPART (NovoLOG) 1 UNIT/0.01 ML (CHARGE PER UNIT) SC SCH ×4 (05:51→21:32)
--- NOTE | 2018-12-26 06:57 | Pulmonary Progress Note ---
Sepsis Event Evaluation Height, Weight, BMI Height: 5'6.00" Weight: 243lbs. 0.0oz. 110.029345vd; 99.32 BMI Method:Stated Exam Exam Vital Signs Date Time Temp Pulse Resp B/P (MAP) Pulse Ox O2 Delivery O2 Flow Rate FiO2 12/26/18 04:00 36.4 71 20 97/65 (76) 99 Nasal Cannula 3.00 12/26/18 01:45 91 Nasal Cannula 3.00 12/26/18 01:00 73 12/26/18 00:15 36.0 71 18 118/68 (85) 91 Nasal Cannula 3.00 12/25/18 20:00 97 High Flow N/C 3.00 12/25/18 19:35 36.4 67 16 100/57 (71) 97 High Flow N/C 3.00 12/25/18 19:17 94 Nasal Cannula 3.00 12/25/18 19:00 69 12/25/18 16:10 84/40 (55) 12/25/18 15:55 36.4 60 16 83/41 (55) 93 High Flow N/C 3.00 12/25/18 15:32 96 Nasal Cannula 3.00 12/25/18 12:25 63 12/25/18 08:37 104/62 (76) 84 12/25/18 08:06 35.9 53 14 96/58 (71) 98 High Flow N/C 4.00 12/25/18 08:00 Nasal Cannula 3.00 12/25/18 07:37 93 Nasal Cannula 3.00 12/25/18 07:00 49 I & O 12/26/18 07:00 Intake Total 1340 ml Output Total 1250 ml Balance 90 ml Height & Weight Height: 5'6.00" Weight: 243lbs. 0.0oz. 110.247776cc; 99.32 BMI Method:Stated General Appearance: No Apparent Distress, WD/WN, Chronically ill HEENT: PERRL/EOMI Neck: Non Tender, Supple Respiratory: Chest Non Tender, Lungs Clear, Normal Breath Sounds, No Accessory Muscle Use, No Respiratory Distress Cardiovascular: Regular Rate, Rhythm, No Edema, No Gallop, No JVD, No Murmur, Normal Peripheral Pulses Capillary Refill: Less Than 3 Seconds Gastrointestinal: soft, tenderness (RUQ, Epigastric, Ventral hernia incarcerated) Extremity: Non Tender Neurologic/Psychiatric: Alert, Oriented x3, No Motor/Sensory Deficits, Normal Mood/Affect Skin: Normal Color, Warm/Dry Lymphatic: No Adenopathy Results Lab Laboratory Tests 12/25/18 04:40 12/26/18 04:40 Assessment/Plan Assessment/Plan Atrial fibrillation -Eliquis -Cardiology following Pulmonary edema probably secondary to diastolic dysfunction vs IVF -Lasix -Wean 02 Leukocytosis secondary to prednisone COPDAE -SVNS -will start prednisone 40mg daily x 5 days then D/C Hx ROJELIO -Noncompliant with CPAP -Pt refuses CPAP JENNIFER VAZQUEZ DO Dec 26, 2018 06:57
[2018-12-26 08:00] VITALS: BP 114/67
[2018-12-26] MEDS: FUROSEMIDE 40 MG/4 ML INJ (LASIX) IVP SCH (08:42)
[2018-12-26] MEDS: SINEMET 25/100 (CARBIDOPA/LEVODOPA) TAB PO SCH ×2 (08:42→21:31)
[2018-12-26] MEDS: GABAPENTIN 100 MG (NEURONTIN) CAP PO SCH ×3 (08:42→21:31)
[2018-12-26] MEDS: BENZONATATE 100 MG (TESSALON) CAPSULE PO SCH ×3 (08:43→21:31)
[2018-12-26] MEDS: HYDROcodone/APAP 5 MG/325 MG (LORTAB) TAB PO PRN ×2 (08:43→13:58)
[2018-12-26] MEDS: APIXABAN 5 MG (ELIQUIS) TABLET PO SCH ×2 (08:43→21:31)
[2018-12-26] MEDS: fluCOnazole (DIFLUCAN) 100 MG TAB PO SCH (08:43)
[2018-12-26] MEDS: SENNA W/DOCUSATE (SENOKOT S) TABLET PO SCH ×2 (08:43→21:31)
[2018-12-26] MEDS: MICONAZOLE 2% POWDER (DESENEX AF) 90 GM TOP SCH ×2 (08:43→21:32)
[2018-12-26] MEDS: IBUPROFEN 600 MG (MOTRIN) TAB PO PRN (08:56)
[2018-12-26] MEDS: ALPRAZolam 0.25 MG (XANAX) TAB PO PRN (11:03)
--- NOTE | 2018-12-26 11:06 | Progress Note - Surgery ---
Subjective Date Seen by a Provider: Dec 26, 2018 Time Seen by a Provider: 11:01 Subjective/Events-last exam still with ruq abd pain about the same hgb drop. wbc increased on steroids No new complaints denies n/v fever sweats chills shortness of breath or chest pain Objective Exam Vital Signs Date Time Temp Pulse Resp B/P (MAP) Pulse Ox O2 Delivery O2 Flow Rate FiO2 12/26/18 09:47 36.2 77 99 32 12/26/18 09:41 99 High Flow N/C 3.00 12/26/18 08:00 36.2 75 20 114/67 (83) 92 High Flow N/C 3.00 12/26/18 07:00 64 12/26/18 04:00 36.4 71 20 97/65 (76) 99 Nasal Cannula 3.00 12/26/18 01:45 91 Nasal Cannula 3.00 12/26/18 01:00 73 12/26/18 00:15 36.0 71 18 118/68 (85) 91 Nasal Cannula 3.00 12/25/18 20:00 97 High Flow N/C 3.00 12/25/18 19:35 36.4 67 16 100/57 (71) 97 High Flow N/C 3.00 12/25/18 19:17 94 Nasal Cannula 3.00 12/25/18 19:00 69 12/25/18 16:10 84/40 (55) 12/25/18 15:55 36.4 60 16 83/41 (55) 93 High Flow N/C 3.00 12/25/18 15:32 96 Nasal Cannula 3.00 12/25/18 12:25 63 I & O 12/26/18 07:00 Intake Total 1340 ml Output Total 1250 ml Balance 90 ml Capillary Refill : Less Than 3 SecondsLess Than 3 Seconds General Appearance: No Apparent Distress, WD/WN, Chronically ill HEENT: PERRL/EOMI Neck: Non Tender, Supple Respiratory: Chest Non Tender, No Accessory Muscle Use, No Respiratory Distress Cardiovascular: Regular Rate, Rhythm, Normal Peripheral Pulses Gastrointestinal: soft, tenderness (RUQ, Epigastric, entral hernia incarcerated) Extremity: Non Tender Neurologic/Psychiatric: Alert, Oriented x3, No Motor/Sensory Deficits, Normal Mood/Affect Skin: Normal Color, Warm/Dry Lymphatic: No Adenopathy Results Lab Laboratory Tests 12/25/18 11:05: Glucometer 203H 12/25/18 15:55: Glucometer 254H 12/25/18 19:34: Glucometer 172H 12/26/18 04:40: White Blood Count 15.9H, Red Blood Count 2.88L, Hemoglobin 8.4#L, Hematocrit 28L , Mean Corpuscular Volume 99, Mean Corpuscular Hemoglobin 29, Mean Corpuscular Hemoglobin Concent 30L, Red Cell Distribution Width 15.5H, Platelet Count 243, Mean Platelet Volume 9.1, Sodium Level 142, Potassium Level 4.3, Chloride Level 98, Carbon Dioxide Level 34H, Anion Gap 10, Blood Urea Nitrogen 34H, Creatinine 1.01, Estimat Glomerular Filtration Rate 55, BUN/Creatinine Ratio 34, Glucose Level 190H, Calcium Level 8.1L, Corrected Calcium 9.1, Total Bilirubin 0.4, Aspartate Amino Transf (AST/SGOT) 14, Alanine Aminotransferase (ALT/SGPT) 9, Alkaline Phosphatase 58, Total Protein 5.1L, Albumin 2.8L Microbiology 12/17/18 Blood Culture - Final, Complete No growth 12/17/18 MRSA Screen - Final, Complete MRSA not isolated 12/17/18 Urine Culture - Final, Complete 3 or more isolates Assessment/Plan Assessment/Plan Assessment/Plan RUQ, Epigastric abdominal pain secondary to right upper quadrant hematoma ventral hernia incarcerated cough Atrial fibrillation with rapid ventricular response status post cardio version anticoagulated on Eliquis anemia secondary to hematoma would recommend pain control no surgical intervention, should tamponade due to confined space and technically difficult to achieve hemostasis surgically, would consider holding anticoagulation hernia is not an issue at this time do not feel this is an acute problem will follow Clinical Quality Measures DVT/VTE Risk/Contraindication: Risk Factor Score Per Nursin RFS Level Per Nursing on Admit: 4+=Very High CHRIS MC DO Dec 26, 2018 11:06
[2018-12-26] MEDS: meTOprolol TARTRATE 50 MG (LOPRESSOR) TAB PO SCH ×2 (11:18→21:33)
--- NOTE | 2018-12-26 11:42 | Cardiology Progress Note ---
Subjective Date Seen by Provider: Dec 26, 2018 Time Seen by Provider: 11:40 Subjective/Events-last exam patient is laying down in bed, complaining of abdominal pain which is worse today. Review of Systems General: No Chills, No Night Sweats, No Fatigue, No Malaise, No Appetite, No Other HEENT: No Head Aches, No Visual Changes, No Eye Pain, No Ear Pain, No Dysphasia, No Sinus Congestion, No Post Nasal Drip, No Sore Throat, No Other Pulmonary: No Dyspnea; Cough; No Pleuritic Chest Pain, No Other Cardiovascular: No: Chest Pain, Palpitations, Orthopnea, Paroxysmal Noc. Dyspnea, Edema, Lt Headedness, Other Gastrointestinal: Abdominal Pain Objective-Cardiology Exam Last Set of Vital Signs Vital Signs 12/26/18 12/26/18 12/26/18 08:00 09:41 09:47 Temp 36.2 Pulse 77 Resp 20 B/P (MAP) 114/67 (83) Pulse Ox 99 O2 Delivery High Flow N/C O2 Flow Rate 3.00 FiO2 32 Capillary Refill : Less Than 3 SecondsLess Than 3 Seconds I&O Intake and Output 12/26/18 00:00 Intake Total 1280 ml Output Total 1500 ml Balance -220 ml Intake Oral 1280 ml Output Urine Total 1500 ml General: Alert, Oriented X3, Cooperative, No Acute Distress HEENT: Atraumatic, PERRLA Neck: Supple, No JVD Lungs: Clear to Auscultation, Normal Air Movement Heart: Regular Rate, Normal S1, Normal S2, No Murmurs Abdomen: Normal Bowel Sounds, Soft, Other (abdominal pain) Extremities: Other (1+ pitting edema) Neuro: Normal Speech Psych/Mental Status: Mental Status NL Results Lab Laboratory Tests 12/26/18 04:40 A/P-Cardiology Admission Diagnosis Paroxysmal atrial fibrillation Tachycardia Abdominal pain Anemia Assessment/Plan Abdominal pain, intramuscular abdominal hematoma, it could be secondary to the fall or the Lovenox injection, further drop in H&H, Eliquis is on hold, continue to monitor Paroxysmal atrial fibrillation with rapid ventricular response, currently in sinus rhythm, had a cardioversion on December 23, 2018. Maintained on amiodarone and Cardizem. Continue to monitor Status post fall with questionable syncope, etiology is not clear. Managed by primary care team Rhabdomyolysis, IV fluids. Likely due to fall. Resolved. Elevated LFTs, unclear at urology. Resolved. Elevated BNP. Not in florid congestive heart failure on my examination. Echocardiogram showed normal LV and RV size and function. Positive D dimer, negative CT angiography for PE. Clinical Quality Measures DVT/VTE Risk/Contraindication: Risk Factor Score Per Nursin RFS Level Per Nursing on Admit: 4+=Very High SUNSHINE WELLS MD Dec 26, 2018 11:42
--- NOTE | 2018-12-26 11:50 | Progress Note - Surgery ---
Subjective Date Seen by a Provider: Dec 26, 2018 Time Seen by a Provider: 11:01 Subjective/Events-last exam Patient is pale compared to previous encounters. States that her abdomen is still "sore". Has no new complaints Hgb is 8.4. WBC is 15.4 but is currently taking prednisone Review of Systems General: No Chills, No Other (Fever) Cardiovascular: No: Chest Pain Objective Exam Vital Signs Date Time Temp Pulse Resp B/P (MAP) Pulse Ox O2 Delivery O2 Flow Rate FiO2 12/26/18 09:47 36.2 77 99 32 12/26/18 09:41 99 High Flow N/C 3.00 12/26/18 08:00 36.2 75 20 114/67 (83) 92 High Flow N/C 3.00 12/26/18 07:00 64 12/26/18 04:00 36.4 71 20 97/65 (76) 99 Nasal Cannula 3.00 12/26/18 01:45 91 Nasal Cannula 3.00 12/26/18 01:00 73 12/26/18 00:15 36.0 71 18 118/68 (85) 91 Nasal Cannula 3.00 12/25/18 20:00 97 High Flow N/C 3.00 12/25/18 19:35 36.4 67 16 100/57 (71) 97 High Flow N/C 3.00 12/25/18 19:17 94 Nasal Cannula 3.00 12/25/18 19:00 69 12/25/18 16:10 84/40 (55) 12/25/18 15:55 36.4 60 16 83/41 (55) 93 High Flow N/C 3.00 12/25/18 15:32 96 Nasal Cannula 3.00 12/25/18 12:25 63 I & O 12/26/18 07:00 Intake Total 1340 ml Output Total 1250 ml Balance 90 ml Capillary Refill : Less Than 3 SecondsLess Than 3 Seconds General Appearance: No Apparent Distress, WD/WN, Chronically ill HEENT: PERRL/EOMI Neck: Non Tender, Supple Respiratory: Chest Non Tender, No Accessory Muscle Use, No Respiratory Distress Cardiovascular: Regular Rate, Rhythm, Normal Peripheral Pulses Gastrointestinal: soft, tenderness (RUQ, Epigastric, entral hernia incarcerated) Extremity: Non Tender Neurologic/Psychiatric: Alert, Oriented x3, No Motor/Sensory Deficits, Normal Mood/Affect Skin: Normal Color, Warm/Dry Lymphatic: No Adenopathy Results Lab Laboratory Tests 12/25/18 15:55: Glucometer 254H 12/25/18 19:34: Glucometer 172H 12/26/18 04:40: White Blood Count 15.9H, Red Blood Count 2.88L, Hemoglobin 8.4#L, Hematocrit 28L , Mean Corpuscular Volume 99, Mean Corpuscular Hemoglobin 29, Mean Corpuscular Hemoglobin Concent 30L, Red Cell Distribution Width 15.5H, Platelet Count 243, Mean Platelet Volume 9.1, Sodium Level 142, Potassium Level 4.3, Chloride Level 98, Carbon Dioxide Level 34H, Anion Gap 10, Blood Urea Nitrogen 34H, Creatinine 1.01, Estimat Glomerular Filtration Rate 55, BUN/Creatinine Ratio 34, Glucose Level 190H, Calcium Level 8.1L, Corrected Calcium 9.1, Total Bilirubin 0.4, Aspartate Amino Transf (AST/SGOT) 14, Alanine Aminotransferase (ALT/SGPT) 9, Alkaline Phosphatase 58, Total Protein 5.1L, Albumin 2.8L Microbiology 12/17/18 Blood Culture - Final, Complete No growth 12/17/18 MRSA Screen - Final, Complete MRSA not isolated 12/17/18 Urine Culture - Final, Complete 3 or more isolates Assessment/Plan Assessment/Plan Assessment/Plan RUQ, Epigastric abdominal pain secondary to right upper quadrant hematoma ventral hernia incarcerated cough Atrial fibrillation with rapid ventricular response status post cardio version anticoagulated on Eliquis anemia secondary to hematoma would recommend pain control no surgical intervention, should tamponade due to confined space and technically difficult to achieve hemostasis surgically, would consider holding anticoagulation hernia is not an issue at this time do not feel this is an acute problem will follow Clinical Quality Measures DVT/VTE Risk/Contraindication: Risk Factor Score Per Nursin RFS Level Per Nursing on Admit: 4+=Very High IVORY AKINS MED STUDEN Dec 26, 2018 11:49
[2018-12-26 12:00] VITALS: BP 93/58
--- NOTE | 2018-12-26 12:30 | Progress Note - Hospitalist ---
Subjective HPI/CC On Admission Date Seen by Provider: Dec 26, 2018 Time Seen by Provider: 12:00 Chief complaint: New onset atrial fibrillation with rapid ventricular response History of present illness: This is a 68-year-old white female clinic patient of Dr. Moscoso at [facility] who has a past medical history of severe hypertension and COPD with smoking cessation just last year and noncompliance with CPAP who presented to the ER after found down at home when she arrived to the ER found to have a new onset atrial fibrillation with rapid ventricular response but having significant hypotension from Cardizem initiation requiring 3 episodes of electrical cardioversion and placed on amiodarone drip and consulted cardiology. She currently is doing a lot better she is in normal sinus rhythm but she does appear to have some shortness of breath at baseline but she is sitting in a chair. Her lives with her. She stopped smoking after 50 years just last year. Subjective/Events-last exam Still having a lot of pain issues from abdominal wall hematoma Not having a bowel movement yet and multiple meds given so will order Dulcolax suppository Breathing much better maintain on oxygen No chest pain or shortness of breath Feels pretty fatigued today compared to yesterday We will have a long recovery considering 2 ICU stays in the past 1 week Check meds and labs Appreciate all consultants Review of Systems General: Fatigue Gastrointestinal: Abdominal Pain Objective Exam Vital Signs Vital Signs Date Time Temp Pulse Resp B/P (MAP) Pulse Ox O2 Delivery O2 Flow Rate FiO2 12/26/18 14:24 92 Room Air 12/26/18 12:21 85 12/26/18 12:00 36.0 18 93/58 (70) 12/26/18 09:47 32 12/26/18 09:41 3.00 Capillary Refill : Less Than 3 SecondsLess Than 3 Seconds General Appearance: No Apparent Distress, WD/WN Respiratory: Chest Non Tender, Lungs Clear, Normal Breath Sounds, No Accessory Muscle Use, No Respiratory Distress Cardiovascular: Regular Rate, Rhythm, No Edema, No Gallop, No JVD, No Murmur, Normal Peripheral Pulses Neurologic/Psychiatric: Alert, Oriented x3, No Motor/Sensory Deficits, Normal Mood/Affect Results/Procedures Lab Laboratory Tests 12/26/18 04:40 Patient resulted labs reviewed. Assessment/Plan Assessment and Plan Assess & Plan/Chief Complaint Assessment: s/p Cariogenic shock New onset atrial fibrillation with rapid ventricular response x 2 requiring 2 ICU stays in past 1 week Hypertension following Cardizem initiation in the ER requiring electrical cardioversion 3 Severe hypertension history Noncompliance with sleep apnea treatment COPD Long-term smoker just quit last year Plan: Monitor tachypnea Appreciate cardiology and pulmonology Monitor blood pressure Monitor closely IRF? Diagnosis/Problems Diagnosis/Problems (1) Atrial fibrillation with rapid ventricular response Status: Acute (2) Atrial fibrillation status post cardioversion Status: Acute (3) UTI (urinary tract infection) Status: Acute Qualifiers: Urinary tract infection type: acute cystitis Hematuria presence: without hematuria Qualified Codes: N30.00 - Acute cystitis without hematuria (4) Syncope Status: Acute Qualifiers: Syncope type: unspecified Qualified Codes: R55 - Syncope and collapse (5) Septic shock Status: Acute (6) Cardiogenic shock Status: Acute Clinical Quality Measures DVT/VTE Risk/Contraindication: Risk Factor Score Per Nursin RFS Level Per Nursing on Admit: 4+=Very High KAITLIN JOSHI DO Dec 26, 2018 12:30
[2018-12-26 16:00] VITALS: BP 71/40
[2018-12-26] MEDS ORDERED: BISACODYL 10 MG SUPP (DULCOLAX) PR PRN (16:45)
[2018-12-26] MEDS ORDERED: BISACODYL 10 MG SUPP (DULCOLAX) PR NR (16:53)
[2018-12-26 19:35] VITALS: BP 128/71
[2018-12-26] MEDS: rOPINIRole 5 MG TAB (REQUIP) PO SCH (21:31)
[2018-12-26] MEDS: DOCUSATE SODIUM 100 MG (COLACE) CAP PO PRN (21:31)
[2018-12-26] MEDS: diphenhydrAMINE 25 MG TAB (BENADRYL) PO PRN (21:35)
[2018-12-27] VITALS (13 sets, daily range): BP systolic 90–131; BP diastolic 40–116
[2018-12-27] MEDS: RT-ALBUTEROL/IPRATROPIUM 3 ML (DUONEB) VIAL INH SCH ×4 (03:05→21:02)
[2018-12-27] MEDS: inSUlin ASPART (NovoLOG) 1 UNIT/0.01 ML (CHARGE PER UNIT) SC SCH ×4 (06:27→21:00)
[2018-12-27] MEDS: KCL 20 MEQ TAB (K-DUR) PO SCH (06:28)
[2018-12-27 08:04] LABS: BASOPHILS % (AUTO) 0 % (0-10); EOSINOPHILS # (AUTO) 0.1 10^3/uL (0.0-0.3); EOSINOPHILS % (AUTO) 0 % (0-10); HEMATOCRIT 27 % (35-52); HEMOGLOBIN 8.2 G/DL (11.5-16.0); LYMPHOCYTES # (AUTO) 1.9 X 10^3 (1.0-4.0); LYMPHOCYTES % (AUTO) 8 % (12-44); MEAN CORPUSCULAR HEMOGLOBIN 30 PG (25-34); MEAN CORPUSCULAR HGB CONC 30 G/DL (32-36); MEAN CORPUSCULAR VOLUME 99 FL (80-99); MEAN PLATELET VOLUME 9.8 FL (7.4-10.4); MONOCYTES # (AUTO) 1.8 X 10^3 (0.0-1.0); MONOCYTES % (AUTO) 7 % (0-12); NEUTROPHILS # (AUTO) 20.8 X 10^3 (1.8-7.8); NEUTROPHILS % (AUTO) 85 % (42-75); PLATELET COUNT 283 10^3/uL (130-400); RED CELL DISTRIBUTION WIDTH 15.7 % (10.0-14.5); WHITE BLOOD COUNT 24.5 10^3/uL (4.3-11.0)
--- NOTE | 2018-12-27 08:06 | Progress Note ---
YRIS VARGAS MED STUDENT 12/27/18 0805: Subjective Date Seen by a Provider: Dec 27, 2018 Time Seen by a Provider: 08:07 Subjective/Events-last exam When I saw Ms. Quinn today I woke her up from sleep, she seemed drowsy while speaking with her. She reports feeling worse today than she has recently, complaining of constipation due to her medications, as well as R sided abdominal pain due to her hematoma. Nurse reports Ms. Quinn told her she fell, which may be cause of hematoma. Denies having any CP, SOB, edema, or palpitations. Her labs show anemia, due to hematoma, and high WBC, due to prednisone. CXR 12/25 showed waxing and waning bibasilar infiltrates, CXR from today showed similar findings, described as mild blunting of the bilateral costophrenic angles which may relate to small effusions, atelectasis, and/or infiltrate. When seen again today at 16:00 she had been moved to ICU 5 due to altered mental status with high WBC, high potassium, and high lactic acid. EKG, troponins, ABG, and blood cultures ordered by Dr. Malik. Lasix started by Dr. Malik for hyperkalemia, Kayexalate 60 mg administered for hyperkalemia by Dr. Boyle. Piperacillin/Tazobactam and Vancomycin ordered by Dr. Boyle, central line currently being placed by Dr. Love. Her family reported that she has seemed worse today overall, confirming that altered mental status, notably lethargy. Ms. Quinn mostly has her eyes closed in bed, but will answer questions and occasionally comment on conversation. She speaks slowly then closes her eyes and lays back again. Review of Systems General: No Chills Pulmonary: No Dyspnea, No Cough Cardiovascular: No: Chest Pain, Palpitations, Edema Gastrointestinal: Abdominal Pain, Constipation; No: Nausea, Vomiting Neurological: No: Numbness Objective Exam Last Set of Vital Signs Vital Signs Date Time Temp Pulse Resp B/P (MAP) Pulse Ox O2 Delivery O2 Flow Rate FiO2 12/27/18 07:00 94 12/27/18 04:33 36.3 18 120/62 (81) 95 High Flow N/C 3.00 12/26/18 09:47 32 Capillary Refill : Less Than 3 SecondsLess Than 3 Seconds I&O Intake and Output 12/27/18 00:00 Intake Total 1380 ml Output Total 1300 ml Balance 80 ml Intake Oral 1380 ml Output Urine Total 1300 ml # Voids 4 # Bowel Movements 1 General: Alert, Oriented X3 Lungs: Clear to Auscultation Heart: Regular Rate, Normal S1, Normal S2, No Murmurs Other physical findings large hematoma on R side, starting in RUQ and extending over much of the right side of her abdomen/flank Results Lab Laboratory Tests 12/26/18 11:14: Glucometer 172H 12/26/18 11:25: Glucometer 189H 12/26/18 16:14: Glucometer 203H 12/26/18 20:55: Glucometer 205H 12/27/18 05:58: Glucometer 185H 12/27/18 07:43: Microbiology 12/17/18 Blood Culture - Final, Complete No growth 12/17/18 MRSA Screen - Final, Complete MRSA not isolated 12/17/18 Urine Culture - Final, Complete 3 or more isolates Assessment/Plan Assessment/Plan Assess & Plan/Chief Complaint Assessment: sepsis risk s/p Cariogenic shock New onset atrial fibrillation with rapid ventricular response x 2 Hypertension following Cardizem initiation in the ER requiring electrical cardioversion 3 RUQ hematoma Anemia secondary to hematoma Ventral hernia Severe hypertension history ROJELIO COPD Long-term smoker just quit last year Plan: Monitor hematoma, anemia Monitor tachypnea Monitor blood pressure Monitor heart rate, rhythm Clinical Quality Measures DVT/VTE Risk/Contraindication: Risk Factor Score Per Nursin RFS Level Per Nursing on Admit: 4+=Very High SHILPA JOSHI DO 12/27/182045: Subjective Subjective/Events-last exam Ventral hernia with hematoma maintain on anticoagulation continues to cause her a lot of problems and disability She is moving her bowels a little more today No SOB Appears to be very pale and a little lethargic today White count is 15 No SOB Contacted at 1500 for worsened status and rapid response called and noted patient with evidence of sepsis of unknown source so moved once again to ICU the 3rd time in the past 9 days Review of Systems General: Fatigue Objective Exam General: Alert, Oriented X3, Cooperative, No Acute Distress Lungs: Clear to Auscultation Heart: Regular Rate Abdomen: Normal Bowel Sounds Assessment/Plan Assessment/Plan Assess & Plan/Chief Complaint Sepsis moving to ICU Prognosis overall poor given fact of ICU third time in the past 9 days Diagnosis/Problems Diagnosis/Problems (1) Cardiogenic shock Status: Acute (2) Septic shock Status: Acute (3) Syncope Status: Acute Qualifiers: Qualified Codes: R55 - Syncope and collapse (4) UTI (urinary tract infection) Status: Acute Qualifiers: Qualified Codes: N30.00 - Acute cystitis without hematuria (5) Atrial fibrillation with rapid ventricular response Status: Acute (6) Atrial fibrillation status post cardioversion Status: Acute (7) COPD (chronic obstructive pulmonary disease) Status: Chronic (8) Debility Status: Acute (9) Hypertension Status: Chronic Qualifiers: Qualified Codes: I10 - Essential (primary) hypertension (10) DVT prophylaxis Status: Acute Supervisory-Addendum Brief Verification & Attestation Participated in pt care: history, MDM, physical Personally performed: exam, history, MDM, supervision of care Care discussed with: Medical Student Procedures: n/a Results interpretation: Verified all documentation Verification and Attestation of Medical Student E/M Service A medical student performed and documented this service in my presence. I reviewed and verified all information documented by the medical student and made modifications to such information, when appropriate. I personally performed the physical exam and medical decision making. Shilpa Joshi, Dec 27, 2018,20:45 YRIS VARGAS MED STUDENT Dec 27, 2018 08:05 SHILPA JOSHI DO Dec 27, 2018 20:46
[2018-12-27 08:19] LABS: BUN/CREATININE RATIO 35; CALCIUM 8.3 MG/DL (8.5-10.1); CARBON DIOXIDE 35 MMOL/L (21-32); CHLORIDE 97 MMOL/L (98-107); CREATININE SERUM 0.88 MG/DL (0.60-1.30); GFR ESTIMATED > 60; GLUCOSE 176 MG/DL (70-105); MAGNESIUM 2.6 MG/DL (1.6-2.4); POTASSIUM 5.3 MMOL/L (3.6-5.0); SODIUM 140 MMOL/L (135-145)
[2018-12-27 08:36] LABS: ANISOCYTOSIS SLIGHT; BAND NEUTROPHILS 1 %; BASOPHILS % (MANUAL) 0 %; EOSINOPHILS % (MANUAL) 0 %; LYMPHOCYTES % (MANUAL) 5 %; MONOCYTES % (MANUAL) 5 %; NEUTROPHILS % (MANUAL) 89 %
[2018-12-27] MEDS: SENNA W/DOCUSATE (SENOKOT S) TABLET PO SCH ×2 (09:11→21:38)
[2018-12-27] MEDS: APIXABAN 5 MG (ELIQUIS) TABLET PO SCH ×2 (09:11→21:38)
[2018-12-27] MEDS: GABAPENTIN 100 MG (NEURONTIN) CAP PO SCH ×3 (09:11→21:38)
[2018-12-27] MEDS: SINEMET 25/100 (CARBIDOPA/LEVODOPA) TAB PO SCH ×2 (09:11→21:38)
[2018-12-27] MEDS: BENZONATATE 100 MG (TESSALON) CAPSULE PO SCH ×3 (09:11→21:38)
[2018-12-27] MEDS: meTOprolol TARTRATE 50 MG (LOPRESSOR) TAB PO SCH ×2 (09:11→21:00)
[2018-12-27] MEDS: FUROSEMIDE 40 MG/4 ML INJ (LASIX) IVP SCH (09:12)
--- NOTE | 2018-12-27 09:59 | Occupational Ther Daily Note ---
OT Current Status-Daily Note Subjective Pt alert though verbalizing fatigue, sitting in recliner. Family present in room. Pt agrees to therapy. Mental Status/Objective Patient Orientation: Person, Place, Time, Situation Therapy Code Descriptions/Definitions Functional [place] Measure: 0=Not Assessed/NA 4=Minimal Assistance 1=Total Assistance 5=Supervision or Setup 2=Maximal Assistance 6=Modified [place] 3=Moderate Assistance 7=Complete [place] Attachments: IV, Oxygen, Telemetry ADL-Treatment Pt requests to use toilet. Initially going to ambulate to bathroom then pt stated that she would not be able to make it, had to urinate and have BM. Min A sit to stand then CGA using FWW to transfer from recliner to [facility]. Assist needed to manipulate hospital gown and tubing. Nrsg in room after pt transferred to [facility]. Nrsg assist pt with toileting and transferring back to recliner. All needs met in room. Therapy Code Descriptions/Definitions Functional [place] Measure: 0=Not Assessed/NA 4=Minimal Assistance 1=Total Assistance 5=Supervision or Setup 2=Maximal Assistance 6=Modified [place] 3=Moderate Assistance 7=Complete [place] Therapy Quality Codes: 6 Independent with activity with or without an assistive device 5 Patient requires set up or clean up by helper. Patient completes activity by themselves 4 Supervision or touching assist (CGA). [place] provide cues , steadying assist 3 The helper provides less than half the effort to complete the activity 2 The helper provides more than half the effort to complete the activity 1 Dependent. The helper does all the effort to complete an activity 7 Patient refused to complete or attempt activity 9 The patient did not perform the activity before the current illness or injury 88 Not attempted due to Medical conditions or safety concerns Toileting (FIM): 2 Toileting Hygiene (QC): 2 Toilet Transfer (QC): 4 OT Short Term Goals Short Term Goals Time Frame: Dec 29, 2018 Grooming(FIM): 4 Bathing(FIM): 4 Lower Body Dressing(FIM): 3 Toileting(FIM): 4 Transfers (B,C,W/C) (FIM): 5 Toilet/Commode Transfer(FIM): 5 1=Demonstrate adherence to instructed precautions during ADL tasks. 2=Patient will verbalize/demonstrate understanding of assistive devices/modifications for ADL. 3=Patient will improve strength/tolerance for activity to enable patient to perform ADL's. OT Role Player Goals Assisted Goals Time Frame: Jan 07, 2019 Additional Goals: 1-Demonstrate ADL Tasks, 2-Verbalize Understanding, 3- ImproveStrength/Rahel 1=Demonstrate adherence to instructed precautions during ADL tasks. 2=Patient will verbalize/demonstrate understanding of assistive devices/modifications for ADL. 3=Patient will improve strength/tolerance for activity to enable patient to perform ADL's. OT Education/Plan Problem List/Assessment Assessment: Decreased Activ Tolerance, Impaired Coordination, Impaired Funct Balance, Impaired Self-Care Skills Discharge Recommendations Plan/Recommendations: Continue POC Treatment Plan/Plan of Care Patient would benefit from OT for education, treatment and training to promote independence in ADL's, mobility, safety and/or upper extremity function for ADL's. Plan of Care: ADL Retraining, Caregiver Training, Functional Mobility, UE Funct Exercise/Act Treatment Duration: Jan 07, 2019 Frequency: 5 times per week Estimated Hrs Per Day: .25 hour per day Rehab Potential: Fair Time/GCodes Start Time: 09:50 Stop Time: 10:00 Total Time Billed (hr/min): 10 Billed Treatment Time 1 visit-ADL 1 (10 min) FAMILIA NUNEZ Dec 27, 2018 09:59
[2018-12-27] MEDS: MICONAZOLE 2% POWDER (DESENEX AF) 90 GM TOP SCH ×2 (10:07→23:31)
--- NOTE | 2018-12-27 10:09 | Pulmonary Progress Note ---
Subjective Time Seen by a Provider: 06:41 Subjective/Events-last exam Pt has generalized aches and fatigue. SHe has no specific complaints. No SOB. Sepsis Event Evaluation Height, Weight, BMI Height: 5'6.00" Weight: 243lbs. 0.0oz. 110.390558qs; 99.32 BMI Method:Stated Exam Exam Vital Signs Date Time Temp Pulse Resp B/P (MAP) Pulse Ox O2 Delivery O2 Flow Rate FiO2 12/27/18 08:00 36.3 100 20 123/69 (87) 95 High Flow N/C 3.00 12/27/18 07:00 94 12/27/18 04:33 36.3 91 18 120/62 (81) 95 High Flow N/C 3.00 12/27/18 00:57 87 12/27/18 00:24 35.9 90 20 112/66 (81) 96 High Flow N/C 3.00 12/26/18 20:00 High Flow N/C 2.50 12/26/18 19:35 36.3 65 16 128/71 (90) 99 High Flow N/C 3.00 12/26/18 19:00 89 12/26/18 16:00 36.2 92 16 71/40 (50) 92 High Flow N/C 3.00 12/26/18 14:24 92 Room Air 12/26/18 12:21 85 12/26/18 12:00 36.0 81 18 93/58 (70) 91 Room Air I & O 12/27/18 07:00 Intake Total 1120 ml Output Total 1600 ml Balance -480 ml Height & Weight Height: 5'6.00" Weight: 243lbs. 0.0oz. 110.125902yl; 99.32 BMI Method:Stated General Appearance: No Apparent Distress, WD/WN HEENT: PERRL/EOMI Neck: Non Tender, Supple Respiratory: Chest Non Tender, Lungs Clear, Normal Breath Sounds, No Accessory Muscle Use, No Respiratory Distress Cardiovascular: Regular Rate, Rhythm, No Edema, No Gallop, No JVD, No Murmur, Normal Peripheral Pulses Capillary Refill: Less Than 3 Seconds Gastrointestinal: soft, tenderness (RUQ, Epigastric, entral hernia incarcerated) Extremity: Non Tender Neurologic/Psychiatric: Alert, Oriented x3, No Motor/Sensory Deficits, Normal Mood/Affect Skin: Normal Color, Warm/Dry Lymphatic: No Adenopathy Results Lab Laboratory Tests 12/26/18 04:40 12/27/18 07:43 Assessment/Plan Assessment/Plan Atrial fibrillation -Eliquis -Cardiology following Pulmonary edema probably secondary to diastolic dysfunction vs IVF -Lasix -Wean 02 Hyperkalemia, hyperphos, hypermag -I question lab error -Will repeat labs at 1300 Leukocytosis secondary to prednisone COPDAE -SVNS -will start prednisone 40mg daily x 5 days then D/C Hx ROJELIO -Noncompliant with CPAP -Pt refuses CPAP JENNIFER VAZQUEZ DO Dec 27, 2018 10:09
--- NOTE | 2018-12-27 11:19 | Diagnostic Imaging Report ---
EXAMINATION: Chest radiograph, portable AP view. DATE: 12/27/2018 10:27 AM hours. INDICATION: 68-year-old female, shortness of breath. COMPARISON: December 25, 2018. FINDINGS: Stable overall appearance of the cardiomediastinal silhouette. There is no identified pneumothorax. There is mild blunting of the right lateral costophrenic angle and minimal blunting the left lateral costophrenic angle. There is a left midlung calcified granuloma. IMPRESSION: 1. Mild blunting of the bilateral costophrenic angles which may relate to small effusions, atelectasis, and/or infiltrate. Findings are similar to December 25, 2018. Dictated by: Dictated on workstation # [id number]
[2018-12-27 13:36] LABS: BASOPHILS % (AUTO) 0 % (0-10); EOSINOPHILS # (AUTO) 0.1 10^3/uL (0.0-0.3); EOSINOPHILS % (AUTO) 0 % (0-10); HEMATOCRIT 27 % (35-52); HEMOGLOBIN 8.1 G/DL (11.5-16.0); LYMPHOCYTES # (AUTO) 1.8 X 10^3 (1.0-4.0); LYMPHOCYTES % (AUTO) 6 % (12-44); MEAN CORPUSCULAR HEMOGLOBIN 30 PG (25-34); MEAN CORPUSCULAR HGB CONC 31 G/DL (32-36); MEAN CORPUSCULAR VOLUME 99 FL (80-99); MEAN PLATELET VOLUME 10.2 FL (7.4-10.4); MONOCYTES % (AUTO) 7 % (0-12); NEUTROPHILS # (AUTO) 26.1 X 10^3 (1.8-7.8); NEUTROPHILS % (AUTO) 87 % (42-75); PLATELET COUNT 250 10^3/uL (130-400); RED CELL DISTRIBUTION WIDTH 15.5 % (10.0-14.5); WHITE BLOOD COUNT 29.9 10^3/uL (4.3-11.0)
[2018-12-27 13:52] LABS: ALANINE AMINOTRANSFERASE < 6 U/L (0-55); ALBUMIN 2.9 GM/DL (3.2-4.5); ALKALINE PHOSPHATASE 88 U/L (40-136); BILIRUBIN,TOTAL 0.8 MG/DL (0.1-1.0); BUN/CREATININE RATIO 33; CARBON DIOXIDE 35 MMOL/L (21-32); CHLORIDE 97 MMOL/L (98-107); CREATININE SERUM 0.98 MG/DL (0.60-1.30); GFR ESTIMATED 56; GLUCOSE 191 MG/DL (70-105); MAGNESIUM 2.8 MG/DL (1.6-2.4); PHOSPHORUS 5.3 MG/DL (2.3-4.7); POTASSIUM 6.3 MMOL/L (3.6-5.0); SODIUM 141 MMOL/L (135-145); TOTAL PROTEIN 5.6 GM/DL (6.4-8.2)
--- NOTE | 2018-12-27 13:59 | Physical Therapy Daily Note ---
PT Daily Note-Current Subjective Patient is up in recliner and declined standing activity. She is very listless/lethargic at this time. RN aware. Mental Status Patient Orientation: [place], Listless Transfers SCALE: Activities may be completed with or without assistive devices. 4-[id number]-[id number] completes the activity by him/herself with no assistance from a helper. 5-Set-up or Clean-up Assistance-helper sets up or cleans up; patient completes activity. [place] assists only prior to or following the activity. 4-Supervision or Touching Assistance-helper provides verbal cues and/or touching/steadying and/or contact guard assistance as patient completes activity. Assistance may be provided throughout the activity or intermittently. 3-Partial/Moderate Assistance-helper does LESS THAN HALF the effort. [place] lifts, holds or supports trunk or limbs, but provides less than half the effort. 2-Substantial/Maximal Assistance-helper does MORE THAN HALF the effort. [place] lifts or holds trunk or limbs and provides more than half the effort. 9-[id number]-[id number] does ALL the effort. Patient does none of the effort to complete the activity. Or, the assistance of 2 or more helpers is required for the patient to complete the activity. If activity was not attempted, code reason: 7-Patient Refused. 9-Not Applicable-not attempted and the patient did not perform the activity before the current illness, exacerbation or injury. 10-Not Attempted due to Environmental Limitations-(lack of equipment, weather restraints, etc.). 88-Not Attempted due to Medical Conditions or Safety Concerns. Weight Bearing Right Lower Extremity: Right Weight Bearing/Tolerated Left Lower Extremity: Left Weight Bearing/Tolerated Exercises Seated Therapy Exercises: Ankle pumps, Long arc quads, Hip flexion Seated Reps: 15 (AAROM bilateral LE) Assessment Patient requires VC's to remain awake and on task. Patient remained in recliner per her request. PT Broaching Machine Set Up Operator Goals Broaching Machine Set Up Operator Goals PT Broaching Machine Set Up Operator Goals Time Frame: Jan 01, 2019 Distance: 250' Gait Level of Assist: 6 Gait Assistive Device: FWW # of Steps: 2 Stairs Level Of Assist: 5 PT Plan Treatment/Plan Treatment Plan: Continue Plan of Care Treatment Plan: Bed Mobility, Education, Functional Activity Rahel, Functional Strength, Gait, Safety, Therapeutic Exercise, Transfers Treatment Duration: Jan 01, 2019 Frequency: 6 times per week Estimated Hrs Per Day: .25 hour per day Patient and/or Family Agrees t: Yes Time/GCodes Time In: 1325 Time Out: 1336 Total Billed Treatment Time: 11 Total Billed Treatment 1 visit EX 11 min YASMANY MELENDEZ PT Dec 27, 2018 13:59
--- NOTE | 2018-12-27 15:19 | NUR ---
this RN notified Dr Hicks of change in mental status, as well as high WBC count, and 6.4 potassium. instructed this RN to order a stat lactic acid
--- NOTE | 2018-12-27 15:21 | NUR ---
Pastoral Care Visit.
--- NOTE | 2018-12-27 15:35 | NUR ---
rapid response team initiated Dr lucio, kevin RT, Mitzy [employer] SAL[employer]OCIATE, Kelsy RN, Miriam RN, Kathy survey field technician vital signs 119/59 P- 86 resp 16 temp 36.5 bedside fingerstick blood glucose 193 chest X-ray 1 view Stat EKG troponin ordered 1545- ABG and UA ordered 20 mg lasix given IVP ordered by khadijah 1600 transferred to ICU 5
--- NOTE | 2018-12-27 15:41 | Cardiology Progress Note ---
Cardiology SOAP Progress Note Subjective: Very sleepy and fatigue. Objective: I&O/Vital Signs 12/27/18 12/27/18 12/27/18 12/27/18 04:33 07:00 08:00 08:00 Temp 36.3 36.3 Pulse 91 94 100 Resp 18 20 B/P (MAP) 120/62 (81) 123/69 (87) Pulse Ox 95 95 O2 Delivery High Flow N/C High Flow N/C High Flow N/C O2 Flow Rate 3.00 3.00 2.50 12/27/18 12/27/18 12/27/18 12:00 13:00 14:06 Temp 36.3 Pulse 89 84 Resp 20 B/P (MAP) 127/68 (87) Pulse Ox 94 O2 Delivery High Flow N/C High Flow N/C O2 Flow Rate 3.00 2.00 12/27/18 00:00 Intake Total 1020 ml Output Total 1300 ml Balance -280 ml Weight (Pounds): 243 Weight (Ounces): 0.0 Weight (Calculated Kilograms): 110.866875 Constitutional: appears stated age, AAO x 3; No apparent distress; well- developed, well-nourished Respiratory: chest is bilaterally symmetric, lungs clear to auscultation Cardiovascular: regular rate-rhythm; No extra beats, No parasternal heave is noted, No JVD, No edema, No bradycardia, No point of maximal impulse, No cardiac thrills are palpable; S1 and S2; No gallop/S3, No gallop/S4, No diastolic murmur, No systolic murmur, No friction rub, No click, No other Gastrointestional: soft, round, audible bowel sounds; No spleenomegaly Extremities: normal range of motion, non-tender, normal inspection; No clubbing, No cyanosis; no lower extremity edema bilateral; No significant edema Neurologic/Psychiatric: no motor/sensory deficits, alert, normal mood/affect, oriented x 3, power is 5/5 both on sides Skin: normal color, warm/dry Results/Procedures: Labs Laboratory Tests 12/26/18 16:14: Glucometer 203H 12/26/18 20:55: Glucometer 205H 12/27/18 05:58: Glucometer 185H 12/27/18 07:43: White Blood Count 24.5H, Red Blood Count 2.77L, Hemoglobin 8.2L, Hematocrit 27L, Mean Corpuscular Volume 99, Mean Corpuscular Hemoglobin 30, Mean Corpuscular Hemoglobin Concent 30L, Red Cell Distribution Width 15.7H, Platelet Count 283, Mean Platelet Volume 9.8, Neutrophils (%) (Auto) 85H, Lymphocytes (%) (Auto) 8L, Monocytes (%) (Auto) 7, Eosinophils (%) (Auto) 0, Basophils (%) (Auto) 0, Neutrophils # (Auto) 20.8H, Lymphocytes # (Auto) 1.9, Monocytes # (Auto) 1.8H, Eosinophils # (Auto) 0.1, Basophils # (Auto) 0.0, Neutrophils % (Manual) 89, Lymphocytes % (Manual) 5, Monocytes % (Manual) 5, Eosinophils % (Manual) 0, Basophils % (Manual) 0, Band Neutrophils 1, Anisocytosis SLIGHT, Sodium Level 140, Potassium Level 5.3H, Chloride Level 97L, Carbon Dioxide Level 35H, Anion Gap 8, Blood Urea Nitrogen 31H, Creatinine 0.88, Estimat Glomerular Filtration Rate > 60, BUN/Creatinine Ratio 35, Glucose Level 176H, Calcium Level 8.3L, Phosphorus Level 5.0H, Magnesium Level 2.6H 12/27/18 10:47: Glucometer 220H 12/27/18 13:25: White Blood Count 29.9H, Red Blood Count 2.70L, Hemoglobin 8.1L, Hematocrit 27L, Mean Corpuscular Volume 99, Mean Corpuscular Hemoglobin 30, Mean Corpuscular Hemoglobin Concent 31L, Red Cell Distribution Width 15.5H, Platelet Count 250, Mean Platelet Volume 10.2, Neutrophils (%) (Auto) 87H, Lymphocytes (%) (Auto) 6L , Monocytes (%) (Auto) 7, Eosinophils (%) (Auto) 0, Basophils (%) (Auto) 0, Neutrophils # (Auto) 26.1H, Lymphocytes # (Auto) 1.8, Monocytes # (Auto) 2.0H, Eosinophils # (Auto) 0.1, Basophils # (Auto) 0.0, Sodium Level 141, Potassium Level 6.3H, Chloride Level 97L, Carbon Dioxide Level 35H, Anion Gap 9, Blood Urea Nitrogen 32H, Creatinine 0.98, Estimat Glomerular Filtration Rate 56, BUN/Creatinine Ratio 33, Glucose Level 191H, Calcium Level 8.0L, Corrected Calcium 8.9, Phosphorus Level 5.3H, Magnesium Level 2.8H, Total Bilirubin 0.8, Aspartate Amino Transf (AST/SGOT) 14, Alanine Aminotransferase (ALT/SGPT) < 6, Alkaline Phosphatase 88, B-Type Natriuretic Peptide 41.3, Total Protein 5.6L, Albumin 2.9L 12/27/18 15:25: Glucometer 193H 12/27/18 15:32: Microbiology 12/17/18 Blood Culture - Final, Complete No growth 12/17/18 MRSA Screen - Final, Complete MRSA not isolated 12/17/18 Urine Culture - Final, Complete 3 or more isolates A/P: Assessment/Dx: Mechanical fall,? Syncope, History of COPD, Atrial fibrillation with rapid ventricular rate Hypokalemia, Rhabdomyolysis, Elevated LFTs, Elevated BNP Positive D dimer Plan: Mechanical fall,? Syncope, unclear etiology. Will likely require an event monitor on discharge. Driving restriction until we figure out the cause of syncope. Atrial fibrillation with rapid ventricular rate and hypotension, status post cardioversion on admission. Patient went into atrial fibrillation with rapid ventricular rate requiring transfer to the ICU. On Cardizem and amiodarone infusion. Continue Eliquis 5 mg twice a day. If her atrial fibrillation is refractory to amiodarone infusion, she may be a candidate for transesophageal echocardiogram assisted cardioversion which was done successfully on 12/23/2018. Currently in sinus rhythm. Continue by mouth amiodarone and Cardizem. Fatigue: Deferred to the primary team. Worsening leukocytosis and hyperkalemia needs to be addressed. Hyperkalemia: Potassium 6.3. Defer to the primary team. Worsening leukocytosis: I have requested the RN to speak to the primary team for both worsening leukocytosis, hyperkalemia and fatigue. Hypokalemia, defer to the primary team. Rhabdomyolysis, IV fluids. Likely due to fall. Resolved. Elevated LFTs, unclear at urology. Resolved. Elevated BNP. Not in florid congestive heart failure on my examination. Echocardiogram showed normal LV and RV size and function. Positive D dimer, negative CT angiography for PE. . Thank you for your consultation. Please call me if you have any questions. Gil Woods MD, FACP, FACC, FSCAI, FHRS, CCDS Interventional Cardiology Cardiac Electrophysiology Vascular Medicine and Endovascular Interventions Focused Exam Lactate Level 12/27/18 15:32: Lactic Acid Level Laboratory Tests Test 12/27/18 15:32 Galdino WOODS MD Dec 27, 2018 3:41 pm
[2018-12-27] MEDS ORDERED: FUROSEMIDE 40 MG/4 ML INJ (LASIX) IVP NR (15:45)
[2018-12-27 15:51] LABS: ABG BASE EXCESS 9.4 MMOL/L (-2.5-2.5); ABG OXYGEN SATURATION 97 % (94-100); ABG PCO2 57 MMHG (35-45); ABG PO2 77 MMHG (79-93); ABG TCO2 36.4 MMOL/L (21.0-31.0)
[2018-12-27 15:55] LABS: ALLENS TEST YES-POS; INSPIRED O2 2L; PATIENT TEMP 36.5; VENTILATOR NO
--- NOTE | 2018-12-27 15:59 | Progress Note - Hospitalist ---
Progress Note Progress Notes/Assess & Plan Date Seen 12/27/18 Time Seen by Provider: 15:50 Assessment & Plan Called to bedside by RN and Nurse Police Chief Deputy regarding concern for patient. Patient sluggish and complains of being "foggy." RN concerned that she is not acting like she previously has. No focal deficits and oriented x3 but slow to respond and very weak. VSS obtained while I was at bedside and were WNL. Patient appears pale and lethargic. Speech is not slurred but is slow. I assisted with transfer to bed from chair and she was a 4 person assist. Reviewed labs from this AM and this afternoon. Will get EKG and give Lasix for hyperkalemia. Add troponin on to labs that were drawn this afternoon. ABG ordered. Bedside finger stick reported as 193. Will also start infectious work up for possible sepsis (no SIRS criteria met but is alerted and ill appearing) given rising WBC. I confirmed with patient about her code status and she reaffirms that she is a DNR. I called and updated her attending Dr Hicks to this who requests transfer to the ICU. RN Police Chief Deputy noted of need for unit bed. Critical Care Critically Ill Patient Critical Care Start Date: Dec 27, 2018 Critical Care Start Time: 15:34 Stop Time: 16:07 Focused Exam Lactate Level 12/27/18 15:32: Time of Focused Exam: 16:02 Respiratory: Lungs Clear, No Accessory Muscle Use, No Respiratory Distress Cardiovascular: Regular Rate, Rhythm, No Murmur Capillary Refill: Less Than 3 Seconds Skin: mottled (to legs), pallor Lactic Acid Level Laboratory Tests Test 12/27/18 15:32 KARSON ALBARRAN MD Dec 27, 2018 15:59
[2018-12-27] MEDS ORDERED: SOD POLYSTERENE 15 GM/60 ML (KAYEXALATE) UNIT DOSE ONE (16:02)
[2018-12-27] MEDS ORDERED: SOD POLYSTERENE 15 GM/60 ML (KAYEXALATE) UNIT DOSE PO ONE (16:15)
[2018-12-27] MEDS ORDERED: SOD POLYSTYRENE 30 GM/120 ML (KAYEXALATE) BULK BOTTLE PR ONE (16:15)
--- NOTE | 2018-12-27 16:21 | Diagnostic Imaging Report ---
INDICATION: Rapid response. FINDINGS: The small bilateral pleural effusions are unchanged. The heart size is stable. There is no pneumothorax. The calcified granuloma on the left is stable. No lucy edema. No change. IMPRESSION: No real change in the small basilar pleural effusions. Dictated by: Dictated on workstation # [id number]
[2018-12-27] MEDS ORDERED: SOD POLYSTERENE 15 GM/60 ML (KAYEXALATE) UNIT DOSE PR NR (16:30)
[2018-12-27] MEDS ORDERED: VANCOMYCIN INJECTION 0.1 MG in NS (IVPB) 250 ML IV SCH (17:00)
[2018-12-27] MEDS ORDERED: PIPERACILLIN/TAZO 4.5 GM/NS 100 ML IV NR ×2 (17:00)
[2018-12-27] MEDS ORDERED: LACTATED RINGERS 1,000 ML IV SCH (17:00)
--- NOTE | 2018-12-27 17:15 | NUR ---
CR 0.98; WT 119.5 KG; CR CL (PER ADJ WT 80.8 KG) ~70; VANCO 1750 MG IV BOLUS THEN 1500 MG IV Q12H; TROUGH AFTER 2ND DOSE
[2018-12-27] MEDS ORDERED: VANCOMYCIN 1,750 MG/NS 500 ML IVPB IV NR ×2 (17:30)
[2018-12-27] MEDS: LACTATED RINGERS 1,000 ML IV SCH (18:52)
--- NOTE | 2018-12-27 19:06 | NUR ---
THIS NURSE PLACED CALL TO DR. VAZQUEZ APPROX 1615 REGARDING PATIENT NOT HAVING IV ACCESS ATTEMPTED TO START X5, DR VAZQUEZ ASKED ABOUT PICC, PICC NURSE NO LONGER AVAILABLE, DR STATED TO CONSULT ONCALL SURGERY FOR CENTRAL LINE PLACEMENT FOR PATIENT. CALL PLACED TO DR. CLAUDIO, DR. CLAUDIO QUESTIONED WHY CENTRAL LINE WAS NEEDED. EXPLAINED PATIENT WAS SEPTIC, SLIGHTLY HYPOTENSIVE ET TRENDING DOWN, NO IV ACCESS AND MULTIPLE FAILED ATTEMPTS. DR. CLAUDIO STATED TO FIGURE IT OUT HE HAS SURGERY AND IS NOT COMING UP TO DO IT. THIS NURSE THEN CALLED DR. MC, ET HE STATED TO GET THE ROOM READY AND HE WOULD COME BACK TO HOSPITAL FROM HOME IN 10 MINUTES. CENTRAL LINE STARTED BY DR MC TO PATIENT L GROIN.
[2018-12-27 20:16] LABS: BILIRUBIN,URINE NEGATIVE (NEGATIVE); CLARITY,URINE CLEAR; COLOR,URINE YELLOW; GLUCOSE, URINE (UA) NEGATIVE (NEGATIVE); KETONES,URINE NEGATIVE (NEGATIVE); LEUKOCYTE ESTERASE ,URINE NEGATIVE (NEGATIVE); NITRITE,URINE NEGATIVE (NEGATIVE); PH,URINE 6 (5-9); PROTEIN,URINE NEGATIVE (NEGATIVE); UROBILINOGEN,URINE NORMAL (NORMAL)
[2018-12-27 20:22] LABS: BACTERIA,URINE NEGATIVE /HPF; HYALINE CASTS, URINE RARE /LPF; SQUAMOUS EPITHELIAL CELL,UR RARE /HPF
--- NOTE | 2018-12-27 20:35 | Progress Note - Surgery ---
IVORY AKINS [facility] 12/27/182034: Subjective Date Seen by a Provider: Dec 27, 2018 Time Seen by a Provider: 08:40 Subjective/Events-last exam Patient sitting in chair and looks pale. Patient reports being fatigued and not feeling well. Flank Pain has improved to a 5/10. No increase or decrease in Hernia pain.. Patient denies n/v, fevers, chills, or chest pain, but does have lightheadedness, dizziness. Hgb at 8.1. WBC at 29.9 Review of Systems General: No Chills; Fatigue; No Other (fever) Cardiovascular: No: Chest Pain Gastrointestinal: Abdominal Pain; No: Nausea, Vomiting Musculoskeletal: other (Right flank pain) Focused Exam Lactate Level 12/27/18 15:32: Lactic Acid Level 2.92*H 12/27/18 17:39: Lactic Acid Level 2.24*H Time of Focused Exam: 16:02 Lactic Acid Level Laboratory Tests Test 12/27/18 17:39 Lactic Acid Level 2.24 MMOL/L (0.50-2.00) *H Objective Exam Vital Signs Date Time Temp Pulse Resp B/P (MAP) Pulse Ox O2 Delivery O2 Flow Rate FiO2 12/27/18 19:48 38.2 12/27/18 18:51 36.5 86 16 94 12/27/18 17:00 77 99/54 (69) 96 Nasal Cannula 2.00 12/27/18 16:00 82 118/43 (68) 99 Nasal Cannula 2.00 12/27/18 15:55 36.4 80 22 131/80 (97) 100 High Flow N/C 3.00 12/27/18 14:06 High Flow N/C 2.00 12/27/18 13:00 84 12/27/18 12:00 36.3 89 20 127/68 (87) 94 High Flow N/C 3.00 12/27/18 08:00 High Flow N/C 2.50 12/27/18 08:00 36.3 100 20 123/69 (87) 95 High Flow N/C 3.00 12/27/18 07:00 94 12/27/18 04:33 36.3 91 18 120/62 (81) 95 High Flow N/C 3.00 12/27/18 00:57 87 12/27/18 00:24 35.9 90 20 112/66 (81) 96 High Flow N/C 3.00 I & O 12/27/18 07:00 Intake Total 1120 ml Output Total 1600 ml Balance -480 ml Capillary Refill : Less Than 3 SecondsLess Than 3 Seconds General Appearance: Mild Distress HEENT: PERRL/EOMI Neck: Non Tender, Supple Respiratory: Chest Non Tender Cardiovascular: Regular Rate, Rhythm, No Murmur Gastrointestinal: soft, tenderness (RUQ, Epigastric, entral hernia incarcerated), other (Ventral hernia) Extremity: Non Tender Neurologic/Psychiatric: Alert, Oriented x3, No Motor/Sensory Deficits, Depressed Affect (Was less active in conversation. ) Skin: Warm/Dry, Pallor Lymphatic: No Adenopathy Other comments Bruising due to hematoma located over post axillary line to preaxillary line. Results Lab Laboratory Tests 12/26/18 20:55: Glucometer 205H 12/27/18 05:58: Glucometer 185H 12/27/18 07:43: White Blood Count 24.5H, Red Blood Count 2.77L, Hemoglobin 8.2L, Hematocrit 27L, Mean Corpuscular Volume 99, Mean Corpuscular Hemoglobin 30, Mean Corpuscular Hemoglobin Concent 30L, Red Cell Distribution Width 15.7H, Platelet Count 283, Mean Platelet Volume 9.8, Neutrophils (%) (Auto) 85H, Lymphocytes (%) (Auto) 8L, Monocytes (%) (Auto) 7, Eosinophils (%) (Auto) 0, Basophils (%) (Auto) 0, Neutrophils # (Auto) 20.8H, Lymphocytes # (Auto) 1.9, Monocytes # (Auto) 1.8H, Eosinophils # (Auto) 0.1, Basophils # (Auto) 0.0, Neutrophils % (Manual) 89, Lymphocytes % (Manual) 5, Monocytes % (Manual) 5, Eosinophils % (Manual) 0, Basophils % (Manual) 0, Band Neutrophils 1, Anisocytosis SLIGHT, Sodium Level 140, Potassium Level 5.3H, Chloride Level 97L, Carbon Dioxide Level 35H, Anion Gap 8, Blood Urea Nitrogen 31H, Creatinine 0.88, Estimat Glomerular Filtration Rate > 60, BUN/Creatinine Ratio 35, Glucose Level 176H, Calcium Level 8.3L, Phosphorus Level 5.0H, Magnesium Level 2.6H 12/27/18 10:47: Glucometer 220H 12/27/18 13:25: White Blood Count 29.9H, Red Blood Count 2.70L, Hemoglobin 8.1L, Hematocrit 27L, Mean Corpuscular Volume 99, Mean Corpuscular Hemoglobin 30, Mean Corpuscular Hemoglobin Concent 31L, Red Cell Distribution Width 15.5H, Platelet Count 250, Mean Platelet Volume 10.2, Neutrophils (%) (Auto) 87H, Lymphocytes (%) (Auto) 6L , Monocytes (%) (Auto) 7, Eosinophils (%) (Auto) 0, Basophils (%) (Auto) 0, Neutrophils # (Auto) 26.1H, Lymphocytes # (Auto) 1.8, Monocytes # (Auto) 2.0H, Eosinophils # (Auto) 0.1, Basophils # (Auto) 0.0, Sodium Level 141, Potassium Level 6.3H, Chloride Level 97L, Carbon Dioxide Level 35H, Anion Gap 9, Blood Urea Nitrogen 32H, Creatinine 0.98, Estimat Glomerular Filtration Rate 56, BUN/Creatinine Ratio 33, Glucose Level 191H, Calcium Level 8.0L, Corrected Calcium 8.9, Phosphorus Level 5.3H, Magnesium Level 2.8H, Total Bilirubin 0.8, Aspartate Amino Transf (AST/SGOT) 14, Alanine Aminotransferase (ALT/SGPT) < 6, Alkaline Phosphatase 88, Troponin I < 0.028, B-Type Natriuretic Peptide 41.3, Total Protein 5.6L, Albumin 2.9L 12/27/18 15:25: Glucometer 193H 12/27/18 15:32: Lactic Acid Level 2.92*H 12/27/18 15:44: Blood Gas Puncture Site R BRACH, Blood Gas Patient Temperature 36.5, Arterial Blood pH 7.40, Arterial Blood Partial Pressure CO2 57H, Arterial Blood Partial Pressure O2 77L, Arterial Blood HCO3 35H, Arterial Blood Total CO2 36.4H, Arterial Blood Oxygen Saturation 97, Arterial Blood Base Excess 9.4H, Daniel Test YES-POS, Blood Gas Ventilator Setting NO, Blood Gas Inspired Oxygen 2L 12/27/18 17:39: Lactic Acid Level 2.24*H 12/27/18 20:00: Urine Color YELLOW, Urine Clarity CLEAR, Urine pH 6, Urine Specific [place] 1.010L, Urine Protein NEGATIVE, Urine Glucose (UA) NEGATIVE, Urine Ketones NEGATIVE, Urine Nitrite NEGATIVE, Urine Bilirubin NEGATIVE, Urine Urobilinogen NORMAL, Urine Leukocyte Esterase NEGATIVE, Urine RBC (Auto) NEGATIVE, Urine RBC NONE, Urine WBC NONE, Urine Squamous Epithelial Cells RARE, Urine Crystals NONE, Urine Bacteria NEGATIVE, Urine Casts PRESENT, Urine Hyaline Casts RARE, Urine Mucus NEGATIVE, Urine Culture Indicated NO Microbiology 12/17/18 Blood Culture - Final, Complete No growth 12/17/18 MRSA Screen - Final, Complete MRSA not isolated 12/17/18 Urine Culture - Final, Complete 3 or more isolates Assessment/Plan Assessment/Plan Assessment/Plan Assessment: sepsis risk s/p Cariogenic shock New onset atrial fibrillation with rapid ventricular response x 2 Hypertension following Cardizem initiation in the ER requiring electrical cardioversion 3 RUQ hematoma Anemia secondary to hematoma Ventral hernia Severe hypertension history ROJELIO COPD Long-term smoker just quit last year Plan: Monitor hematoma, anemia Monitor tachypnea Monitor blood pressure Monitor heart rate, rhythm Clinical Quality Measures DVT/VTE Risk/Contraindication: Risk Factor Score Per Nursin RFS Level Per Nursing on Admit: 4+=Very High CHRIS LOVE DO 12/27/182103: Subjective Subjective/Events-last exam still with pain in ruq area maybe little bit better. Sitting in chair. More fatigued today. Hernia no more discomfort than usual with it. WBC up hgb no significant drop from last lab. Just not feeling well. Objective Exam General Appearance: No Apparent Distress (sitting in chair, pale) HEENT: PERRL/EOMI Neck: Non Tender, Supple Respiratory: Chest Non Tender, No Accessory Muscle Use, No Respiratory Distress Cardiovascular: Regular Rate, Rhythm Gastrointestinal: soft, tenderness (RUQ, Epigastric, ventral hernia incarcerated), other (large echymosis ruq around area of tenderness) Extremity: Non Tender Neurologic/Psychiatric: Alert, Oriented x3, No Motor/Sensory Deficits, Depressed Affect Skin: Pallor (echymosis right upper quadrant flank larg area) Lymphatic: No Adenopathy Assessment/Plan Assessment/Plan Assessment/Plan large abdominal wall hematoma anemia secondary to above anticoagulated ventral hernia incarcerated COPD ruq abdominal pain pain i believe is related to the large abdominal wall hematoma hernia has been like this for years and don't feel this is a problem for her at this time hgb no significant drop from yesterday no surgical intervention, hematoma bleeding should tamponade off will follow Supervisory-Addendum Brief Verification & Attestation Participated in pt care: history, MDM, physical Personally performed: exam, history, MDM, supervision of care Care discussed with: Medical Student Procedures: n/a Results interpretation: Verified all documentation Verification and Attestation of Medical Student E/M Service A medical student performed and documented this service in my presence. I re viewed and verified all information documented by the medical student and made modifications to such information, when appropriate. I personally performed the physical exam and medical decision making. Chris Love, Dec 27, 2018,21:04 IVORY AKINS Dec 27, 2018 20:35 CHRIS LOVE DO Dec 27, 2018 21:04
[2018-12-27] MEDS: rOPINIRole 5 MG TAB (REQUIP) PO SCH (21:38)
[2018-12-27] MEDS: DOCUSATE SODIUM 100 MG (COLACE) CAP PO PRN (21:38)
[2018-12-27] MEDS: ACETAMINOPHEN 500 MG TAB (TYLENOL) PO PRN (21:39)
[2018-12-27] MEDS: diphenhydrAMINE 25 MG TAB (BENADRYL) PO PRN (22:32)
[2018-12-27] MEDS: PIPERACILLIN/TAZOBACTAM (BULK) 4.5 GM in NS (IVPB) 100 ML IV SCH (23:30)
[2018-12-28] VITALS (32 sets, daily range): BP systolic 69–144; BP diastolic 37–80
--- NOTE | 2018-12-28 00:55 | OPERATIVE REPORT ---
DATE OF SERVICE: 12/27/2018 PREOPERATIVE DIAGNOSIS: Poor venous access. POSTOPERATIVE DIAGNOSIS: Poor venous access. PROCEDURE: Left femoral ultrasound-guided central line placement. SURGEON: Chris Love DO ANESTHESIA: A 1% lidocaine 4 mL. ESTIMATED BLOOD LOSS: Minimal. COMPLICATIONS: None. INDICATIONS: The patient is a 68-year-old female who was just transferred to the intensive care unit. The patient was unable to get any IV access. She and family were discussed risks and benefits of procedure and wished to proceed with the procedure. DESCRIPTION OF PROCEDURE: The left femoral area was prepped and draped in sterile fashion. Ultrasound was used to isolate the left vascular anatomy, very difficult to visualize due to the depth. Local anesthetic was infiltrated around the area. The artery was first accessed with pulsatile blood. The needle was withdrawn and pressure was held. A second attempt was performed again hitting the artery, pulsatile blood was withdrawn. The needle was removed and pressure was held again. The left femoral vein was then accessed, dark nonpulsatile blood was withdrawn. The guidewire was inserted through the needle and the needle was removed. A #11 blade scalpel was used to make a skin incision. Dilator was advanced over the wire and removed. The triple lumen catheter was then inserted over the wire and the needle was removed. All ports were accessed and flushed without difficulty. The central line was then sutured in the usual fashion. The area was then washed and dried and sterile bandage was applied. The patient tolerated procedure well without any complications. Job ID: [id number] DocumentID: [id number] Dictated Date: 12/27/2018 17:43:46 Child Nutrition Assistant Date: 12/28/2018 00:54:02 Dictated By: CHRIS LOVE DO
[2018-12-28] MEDS: LACTATED RINGERS 1,000 ML IV SCH (01:40)
[2018-12-28] MEDS: RT-ALBUTEROL/IPRATROPIUM 3 ML (DUONEB) VIAL INH SCH ×4 (03:11→20:53)
--- NOTE | 2018-12-28 03:19 | NUR ---
patient was on 6 L Oxymask with o2 sat of 100% so RT decreased O2 from 4 L to 2 L
[2018-12-28 03:23] LABS: BASOPHILS % (AUTO) 0 % (0-10); EOSINOPHILS % (AUTO) 0 % (0-10); LYMPHOCYTES # (AUTO) 1.7 X 10^3 (1.0-4.0); LYMPHOCYTES % (AUTO) 6 % (12-44); MEAN CORPUSCULAR HEMOGLOBIN 31 PG (25-34); MEAN CORPUSCULAR HGB CONC 31 G/DL (32-36); MEAN CORPUSCULAR VOLUME 100 FL (80-99); MEAN PLATELET VOLUME 9.6 FL (7.4-10.4); MONOCYTES # (AUTO) 1.9 X 10^3 (0.0-1.0); MONOCYTES % (AUTO) 7 % (0-12); NEUTROPHILS # (AUTO) 25.8 X 10^3 (1.8-7.8); NEUTROPHILS % (AUTO) 88 % (42-75); PLATELET COUNT 278 10^3/uL (130-400); RED CELL DISTRIBUTION WIDTH 15.8 % (10.0-14.5); WHITE BLOOD COUNT 29.4 10^3/uL (4.3-11.0)
[2018-12-28 03:37] LABS: HEMATOCRIT 20 % (35-52); HEMOGLOBIN 6.1 G/DL (11.5-16.0)
[2018-12-28 03:48] LABS: CALCIUM 7.5 MG/DL (8.5-10.1); CREATININE SERUM 1.03 MG/DL (0.60-1.30); MAGNESIUM 2.4 MG/DL (1.6-2.4); PHOSPHORUS 4.9 MG/DL (2.3-4.7); POTASSIUM 5.9 MMOL/L (3.6-5.0)
[2018-12-28] MEDS: MAGNESIUM 1 GM/100 ML IVPB 100 ML IV SCH (04:28)
[2018-12-28] MEDS ORDERED: NS IV 500 ML 0 ML ONE (04:31)
[2018-12-28] MEDS: NS IV 1000 ML 1,000 ML IV SCH ×4 (05:22→23:32)
[2018-12-28] MEDS: inSUlin ASPART (NovoLOG) 1 UNIT/0.01 ML (CHARGE PER UNIT) SC SCH ×4 (05:57→20:48)
[2018-12-28] MEDS: VANCOMYCIN 1500 MG/NS 500 ML IVPB IV SCH ×4 (05:57→18:50)
[2018-12-28] MEDS ORDERED: POTASSIUM CL 10MEQ/50ML IVPB 50 ML IV SCH (06:00)
[2018-12-28] MEDS ORDERED: KCL 20 MEQ TAB (K-DUR) PO SCH (06:00)
[2018-12-28] MEDS: PIPERACILLIN/TAZOBACTAM (BULK) 4.5 GM in NS (IVPB) 100 ML IV SCH ×3 (06:11→23:33)
--- NOTE | 2018-12-28 06:47 | Pulmonary Progress Note ---
Subjective Time Seen by a Provider: 06:48 Subjective/Events-last exam Transferred to ICU last night secondary to MS change, and hyperkalemia. Sepsis Event Evaluation Height, Weight, BMI Height: 5'6.00" Weight: 243lbs. 0.0oz. 110.931225kz; 99.32 BMI Method:Stated Focused Exam Lactate Level 12/27/18 15:32: Lactic Acid Level 2.92*H 12/27/18 17:39: Lactic Acid Level 2.24*H 12/28/18 05:28: Lactic Acid Level 2.17*H Time of Focused Exam: 16:02 Lactic Acid Level Laboratory Tests Test 12/28/18 05:28 Lactic Acid Level 2.17 MMOL/L (0.50-2.00) *H Exam Exam Vital Signs Date Time Temp Pulse Resp B/P (MAP) Pulse Ox O2 Delivery O2 Flow Rate FiO2 12/28/18 06:02 37.0 85 23 121/40 100 Nasal Cannula 2.00 12/28/18 06:00 87 24 121/40 (67) 99 Nasal Cannula 2.00 12/28/18 05:47 36.8 86 23 119/42 100 Nasal Cannula 2.00 12/28/18 05:00 85 24 118/42 (67) 99 Nasal Cannula 2.00 12/28/18 04:00 82 24 () 98 Nasal Cannula 2.00 12/28/18 03:22 Nasal Cannula 2.00 12/28/18 03:12 100 OxyMask 4.00 12/28/18 03:00 80 28 117/48 (71) 100 Nasal Cannula 2.00 12/28/18 02:00 78 29 114/49 (70) 100 Nasal Cannula 2.00 12/28/18 01:02 77 12/28/18 01:00 77 25 123/52 (75) Nasal Cannula 5.00 12/28/18 00:09 37.1 12/28/18 00:00 77 15 111/47 (68) Nasal Cannula 5.00 12/27/18 23:00 77 26 115/52 (73) 100 Nasal Cannula 5.00 12/27/18 22:00 80 39 112/51 (71) 100 Nasal Cannula 5.00 12/27/18 21:02 100 OxyMask 6.00 12/27/18 21:00 78 27 98/49 (65) 100 Nasal Cannula 5.00 12/27/18 20:00 80 20 90/40 (57) 100 Nasal Cannula 5.00 12/27/18 20:00 100 OxyMask 6.00 12/27/18 19:48 38.2 12/27/18 19:29 83 12/27/18 19:00 126/116 (119) 100 Nasal Cannula 5.00 12/27/18 18:51 36.5 86 16 94 12/27/18 17:00 77 99/54 (69) 96 Nasal Cannula 2.00 12/27/18 16:00 82 118/43 (68) 99 Nasal Cannula 2.00 12/27/18 15:55 36.4 80 22 131/80 (97) 100 High Flow N/C 3.00 12/27/18 14:06 High Flow N/C 2.00 12/27/18 13:00 84 12/27/18 12:00 36.3 89 20 127/68 (87) 94 High Flow N/C 3.00 12/27/18 08:00 High Flow N/C 2.50 12/27/18 08:00 36.3 100 20 123/69 (87) 95 High Flow N/C 3.00 12/27/18 07:00 94 I & O 12/28/18 07:00 Intake Total 1600 ml Output Total 1375 ml Balance 225 ml Height & Weight Height: 5'6.00" Weight: 243lbs. 0.0oz. 110.129387qy; 99.32 BMI Method:Stated General Appearance: No Apparent Distress, WD/WN HEENT: PERRL/EOMI Neck: Non Tender, Supple Respiratory: Chest Non Tender, Lungs Clear, Normal Breath Sounds, No Accessory Muscle Use, No Respiratory Distress Cardiovascular: Regular Rate, Rhythm, No Edema, No Gallop, No JVD, No Murmur, Normal Peripheral Pulses Capillary Refill: Less Than 3 Seconds Gastrointestinal: soft, tenderness (RUQ, Epigastric, entral hernia incarcerated) Extremity: Non Tender Neurologic/Psychiatric: Alert, Oriented x3, No Motor/Sensory Deficits, Normal Mood/Affect Skin: Normal Color, Warm/Dry Lymphatic: No Adenopathy Results Lab Laboratory Tests 12/27/18 07:43 12/27/18 13:25 12/28/18 03:10 Assessment/Plan Assessment/Plan Acute blood loss GI vs retroperitoneal bleed -repeat CT of abdomen/pelvis with IV/PO contrast -Hold Eliquis -Start protonix 40mg IV BID -Check occult stool -repeat labs at 1300 Leukocyotosis with Metabolic lactic acidosis -IVF NS going at 150 Atrial fibrillation -Eliquis - HOLD secondary to acute blood loss. -Cardiology following Pulmonary edema probably secondary to diastolic dysfunction vs IVF -Lasix - hold -Wean 02 Hyperkalemia, hyperphos, hypermag - Repeat labs at 1300 COPDAE -SVNS -will start prednisone 40mg daily x 5 days then D/C Hx ROJELIO -Noncompliant with CPAP -Pt refuses CPAP JENNIFER VAZQUEZ DO Dec 28, 2018 06:47
--- NOTE | 2018-12-28 08:10 | Physical Therapy Progress Note ---
Therapy Progress Note Patient transferred to ICU secondary to rapid response called due to decline in status. PT will require new orders due to transfer. YASMANY MELENDEZ PT Dec 28, 2018 08:09
[2018-12-28 08:31] LABS: ABG BASE EXCESS 8.6 MMOL/L (-2.5-2.5); ABG OXYGEN SATURATION 94 % (94-100); ABG PCO2 62 MMHG (35-45); ABG PH 7.36 (7.37-7.43); ABG PO2 67 MMHG (79-93); ABG TCO2 36.3 MMOL/L (21.0-31.0)
[2018-12-28 08:32] LABS: ALLENS TEST YES-POS; INSPIRED O2 35.00%; PATIENT TEMP 36; VENTILATOR NO
[2018-12-28] MEDS: meTOprolol TARTRATE 50 MG (LOPRESSOR) TAB PO SCH ×2 (09:09→21:48)
[2018-12-28] MEDS: BENZONATATE 100 MG (TESSALON) CAPSULE PO SCH ×3 (09:09→20:25)
[2018-12-28] MEDS: SENNA W/DOCUSATE (SENOKOT S) TABLET PO SCH ×2 (09:09→20:25)
[2018-12-28] MEDS: GABAPENTIN 100 MG (NEURONTIN) CAP PO SCH ×3 (09:09→20:25)
[2018-12-28] MEDS: SINEMET 25/100 (CARBIDOPA/LEVODOPA) TAB PO SCH ×2 (09:09→20:25)
[2018-12-28] MEDS: PANTOPRAZOLE 40 MG (PROTONIX) VIAL IV SCH ×2 (09:16→20:43)
[2018-12-28] MEDS: MICONAZOLE 2% POWDER (DESENEX AF) 90 GM TOP SCH ×2 (09:40→21:02)
--- NOTE | 2018-12-28 10:35 | Physical Therapy Progress Note ---
Therapy Progress Note PT to dismiss patient from services per Dr. Hicks secondary to decline in medical status. YASMANY MELENDEZ PT Dec 28, 2018 10:35
[2018-12-28] MEDS ORDERED: NS 100 ML (IVPB) BAG IV ONE (10:45)
[2018-12-28] MEDS ORDERED: IOHEXOL 350 MG/ML 100 ML (OMNIPAQUE 350) VIAL IV ONE (10:45)
[2018-12-28] MEDS ORDERED: HOLD METFORMIN - RECEIVED CONTRAST 20 ML VIAL IV SCH (10:45)
--- NOTE | 2018-12-28 11:27 | Diagnostic Imaging Report ---
PROCEDURE: CT abdomen and pelvis with contrast. TECHNIQUE: Multiple contiguous axial images were obtained through the abdomen and pelvis after administration of intravenous contrast. Auto Exposure Controls were utilized during the CT exam to meet ALARA standards for radiation dose reduction. INDICATION: Abdominal pain. FINDINGS: The recent CT abdomen/pelvis exam of 12/24/2018 suggested a large 7.6 x 12.6 cm hematoma involving the anterior abdominal musculature on the right. On this exam, that suspected hematoma has increased in size and now measures 7.4 x 15.5 cm. There is also perhaps somewhat greater distortion of the subcutaneous fat in this region indicating greater edema/inflammation. There is no mass or abscess identified, however. There is no significant enhancement on the delayed series to indicate active bleeding, however. The overall appearance of the abdomen and pelvis has not changed significantly otherwise. There is again evidence of a defect in the anterior abdominal wall with a portion of the fecal-laden transverse colon extending through the defect. This portion of the bowel is probably incarcerated, but there is no obstruction of the bowel. There is no pelvic mass or free fluid collection noted. As seen on the prior exam, there is a Hurtado catheter within the bladder. There is again evidence of cholelithiasis without evidence for acute cholecystitis. The liver, spleen, pancreas, adrenals, kidneys, aorta, and inferior vena cava are unremarkable for an acute abnormality. The stomach is partially filled with oral contrast and difficult to assess. There is persistent involvement of the lung bases by atelectasis/infiltrate and fluid. This is essentially no different than on the prior exam. The bone windows show no sign of a fracture or of a destructive lesion. IMPRESSION: 1. The suspected hematoma involving the anterior abdominal wall musculature on the right seen on the prior exam has increased in size somewhat. There is also greater distortion of the subcutaneous fat in this area consistent with increasing edema/inflammation. There is no evidence for an abscess, and there is no sign of active bleeding. 2. The overall appearance of the abdomen and pelvis has not changed significantly otherwise. No new abnormality has developed. Dictated by: Dictated on workstation # [id number]
--- NOTE | 2018-12-28 11:46 | Progress Note - Hospitalist ---
YRIS VARGAS MED STUDENT 12/28/18 1146: Subjective HPI/CC On Admission Date Seen by Provider: Dec 28, 2018 Time Seen by Provider: 07:50 Chief complaint: New onset atrial fibrillation with rapid ventricular response History of present illness: This is a 68-year-old white female clinic patient of Dr. Moscoso at [facility] who has a past medical history of severe hypertension and COPD with smoking cessation just last year and noncompliance with CPAP who presented to the ER after found down at home when she arrived to the ER found to have a new onset atrial fibrillation with rapid ventricular response but having significant hypotension from Cardizem initiation requiring 3 episodes of electrical cardioversion and placed on amiodarone drip and consulted cardiology. She currently is doing a lot better she is in normal sinus rhythm but she does appear to have some shortness of breath at baseline but she is s itting in a chair. Her lives with her. She stopped smoking after 50 years just last year. Subjective/Events-last exam Since I last spoke to Ms. Quinn her condition has continued to decline. Most recent CT shows the hematoma has grown somewhat, but no active bleeding, no significant change from prior CT. Her anemia has worsened, Hgb 6.2 and Hct 20, ABG pH 7.36. Her most recent lactic acid is down in normal range at 1.87 at 9:20 am, down from 2.17 at 5:28 this morning. Stool occult blood immunoassay was positive. She is currently receiving a blood transfusion. When I visited her today, she was not responding to any questions, although she did open her eyes briefly in response to a nurse asking her questions. She did not show any response when I spoke to her about doing her physical exam. Review of Systems General: Other (not alert) Focused Exam Lactate Level 12/27/18 17:39: Lactic Acid Level 2.24*H 12/28/18 05:28: Lactic Acid Level 2.17*H 12/28/18 09:20: Lactic Acid Level 1.87 Time of Focused Exam: 16:02 Lactic Acid Level Laboratory Tests Test 12/28/18 09:20 Lactic Acid Level 1.87 MMOL/L (0.50-2.00) Objective Exam Vital Signs Vital Signs Date Time Temp Pulse Resp B/P (MAP) Pulse Ox O2 Delivery O2 Flow Rate FiO2 12/28/18 11:00 86 19 101/64 (76) 98 Nasal Cannula 2.00 12/28/18 06:02 37.0 12/26/18 09:47 32 Capillary Refill : Less Than 3 SecondsLess Than 3 Seconds General Appearance: No No Apparent Distress; Obese Respiratory: Lungs Clear, Normal Breath Sounds Cardiovascular: Regular Rate, Rhythm, No Edema, No Murmur, Normal Peripheral Pulses Neurologic/Psychiatric: No Alert, No Oriented x3 Skin: Cool (hand was cool when checking radial pulse) Results/Procedures Lab Laboratory Tests 12/27/18 13:25 12/28/18 03:10 Patient resulted labs reviewed. Assessment/Plan Assessment and Plan Assess & Plan/Chief Complaint Assessment: sepsis risk RUQ hematoma Anemia secondary to hematoma s/p Cariogenic shock New onset atrial fibrillation with rapid ventricular response x 2 Hypertension following Cardizem initiation in the ER requiring electrical cardioversion 3 Ventral hernia Severe hypertension history ROJELIO COPD Long-term smoker just quit last year Plan: Continue current medications Monitor hyperkalemia, continue treatment if high Monitor hematoma, anemia - monitor response to transfusion Monitor tachypnea Monitor blood pressure Monitor heart rate, rhythm Clinical Quality Measures DVT/VTE Risk/Contraindication: Risk Factor Score Per Nursin RFS Level Per Nursing on Admit: 4+=Very High SHILPA JOSHI DO 12/28/182034: Subjective Subjective/Events-last exam Pt declining further. Hgb 6.1. Internal bleeding updated by Dr. Boyle, will obtain a CT scan. Family aware of the critical nature of her issues. Remains DNR. Pt does not appear to be doing well, she is lethargic and is not participating in the conversation. Checked meds and labs. Review of Systems General: Fatigue Pulmonary: Dyspnea Objective Exam General Appearance: Chronically ill, Other (lethargic, pale) Respiratory: Decreased Breath Sounds Cardiovascular: Regular Rate, Rhythm Assessment/Plan Assessment and Plan Assess & Plan/Chief Complaint Poor prognosis DNR Transfuse Diagnosis/Problems Diagnosis/Problems (1) Cardiogenic shock Status: Acute (2) Septic shock Status: Acute (3) Syncope Status: Acute Qualifiers: Qualified Codes: R55 - Syncope and collapse (4) UTI (urinary tract infection) Status: Acute Qualifiers: Qualified Codes: N30.00 - Acute cystitis without hematuria (5) Atrial fibrillation with rapid ventricular response Status: Acute (6) Atrial fibrillation status post cardioversion Status: Acute (7) COPD (chronic obstructive pulmonary disease) Status: Chronic (8) Debility Status: Acute (9) Hypertension Status: Chronic Qualifiers: Qualified Codes: I10 - Essential (primary) hypertension (10) DVT prophylaxis Status: Acute Supervisory-Addendum Brief Verification & Attestation Participated in pt care: history, MDM, physical Personally performed: exam, history, MDM, supervision of care Care discussed with: Medical Student Procedures: n/a Results interpretation: Verified all documentation Verification and Attestation of Medical Student E/M Service A medical student performed and documented this service in my presence. I revie wed and verified all information documented by the medical student and made modifications to such information, when appropriate. I personally performed the physical exam and medical decision making. Shilpa Joshi, Dec 28, 2018,20:35 YRIS VARGAS MED STUDENT Dec 28, 2018 11:46 SHILPA JOSHI DO Dec 28, 2018 20:35
--- NOTE | 2018-12-28 13:21 | Cardiology Progress Note ---
Cardiology SOAP Progress Note Subjective: Drowsy. Objective: I&O/Vital Signs 12/28/18 12/28/18 12/28/18 12/28/18 02:00 03:00 03:12 03:22 Pulse 78 80 Resp 29 28 B/P (MAP) 114/49 (70) 117/48 (71) Pulse Ox 100 100 100 O2 Delivery Nasal Cannula Nasal Cannula OxyMask Nasal Cannula O2 Flow Rate 2.00 2.00 4.00 2.00 12/28/18 12/28/18 12/28/18 12/28/18 04:00 05:00 05:47 06:00 Temp 36.8 Pulse 82 85 86 87 Resp 24 24 23 24 B/P (MAP) () 118/42 (67) 119/42 121/40 (67) Pulse Ox 98 99 100 99 O2 Delivery Nasal Cannula Nasal Cannula Nasal Cannula Nasal Cannula O2 Flow Rate 2.00 2.00 2.00 2.00 12/28/18 12/28/18 12/28/18 12/28/18 06:02 07:00 07:00 07:46 Temp 37.0 Pulse 85 88 90 Resp 23 19 B/P (MAP) 121/40 115/47 (69) Pulse Ox 100 89 O2 Delivery Nasal Cannula Nasal Cannula High Flow N/C O2 Flow Rate 2.00 2.00 2.50 12/28/18 12/28/18 12/28/18 12/28/18 08:00 08:32 09:00 10:00 Pulse 89 83 89 Resp 19 21 23 B/P (MAP) 122/54 (76) 127/46 (73) 130/47 (74) Pulse Ox 100 98 98 100 O2 Delivery Nasal Cannula OxyMask Nasal Cannula Nasal Cannula O2 Flow Rate 2.00 3.00 2.00 2.00 12/28/18 12/28/18 11:00 11:29 Temp 36.0 Pulse 86 Resp 19 B/P (MAP) 101/64 (76) Pulse Ox 98 O2 Delivery Nasal Cannula O2 Flow Rate 2.00 12/28/18 00:00 Intake Total 600 ml Output Total 1375 ml Balance -775 ml Weight (Pounds): 243 Weight (Ounces): 0.0 Weight (Calculated Kilograms): [id number] Constitutional: appears stated age, AAO x 3; No apparent distress; well- developed, well-nourished Respiratory: chest is bilaterally symmetric, lungs clear to auscultation Cardiovascular: regular rate-rhythm; No extra beats, No parasternal heave is noted, No JVD, No edema, No bradycardia, No point of maximal impulse, No cardiac thrills are palpable; S1 and S2; No gallop/S3, No gallop/S4, No diastolic murmur, No systolic murmur, No friction rub, No click, No other Gastrointestional: soft, round, audible bowel sounds; No spleenomegaly Extremities: normal range of motion, non-tender, normal inspection; No clubbing, No cyanosis; no lower extremity edema bilateral; No significant edema Neurologic/Psychiatric: no motor/sensory deficits, alert, normal mood/affect, oriented x 3, power is 5/5 both on sides Skin: mottled (to legs), pallor Results/Procedures: Labs Laboratory Tests 12/27/18 13:25: White Blood Count 29.9H, Red Blood Count 2.70L, Hemoglobin 8.1L, Hematocrit 27L, Mean Corpuscular Volume 99, Mean Corpuscular Hemoglobin 30, Mean Corpuscular Hemoglobin Concent 31L, Red Cell Distribution Width 15.5H, Platelet Count 250, Mean Platelet Volume 10.2, Neutrophils (%) (Auto) 87H, Lymphocytes (%) (Auto) 6L , Monocytes (%) (Auto) 7, Eosinophils (%) (Auto) 0, Basophils (%) (Auto) 0, Neutrophils # (Auto) 26.1H, Lymphocytes # (Auto) 1.8, Monocytes # (Auto) 2.0H, Eosinophils # (Auto) 0.1, Basophils # (Auto) 0.0, Sodium Level 141, Potassium Level 6.3H, Chloride Level 97L, Carbon Dioxide Level 35H, Anion Gap 9, Blood Urea Nitrogen 32H, Creatinine 0.98, Estimat Glomerular Filtration Rate 56, BUN/Creatinine Ratio 33, Glucose Level 191H, Calcium Level 8.0L, Corrected Calcium 8.9, Phosphorus Level 5.3H, Magnesium Level 2.8H, Total Bilirubin 0.8, Aspartate Amino Transf (AST/SGOT) 14, Alanine Aminotransferase (ALT/SGPT) < 6, Alkaline Phosphatase 88, Troponin I < 0.028, B-Type Natriuretic Peptide 41.3, Total Protein 5.6L, Albumin 2.9L 12/27/18 15:25: Glucometer 193H 12/27/18 15:32: Lactic Acid Level 2.92*H 12/27/18 15:44: Blood Gas Puncture Site R BRACH, Blood Gas Patient Temperature 36.5, Arterial Blood pH 7.40, Arterial Blood Partial Pressure CO2 57H, Arterial Blood Partial Pressure O2 77L, Arterial Blood HCO3 35H, Arterial Blood Total CO2 36.4H, Arterial Blood Oxygen Saturation 97, Arterial Blood Base Excess 9.4H, Daniel Test YES-POS, Blood Gas Ventilator Setting NO, Blood Gas Inspired Oxygen 2L 12/27/18 17:39: Lactic Acid Level 2.24*H 12/27/18 20:00: Urine Color YELLOW, Urine Clarity CLEAR, Urine pH 6, Urine Specific [place] 1.010L, Urine Protein NEGATIVE, Urine Glucose (UA) NEGATIVE, Urine Ketones NEGATIVE, Urine Nitrite NEGATIVE, Urine Bilirubin NEGATIVE, Urine Urobilinogen NORMAL, Urine Leukocyte Esterase NEGATIVE, Urine RBC (Auto) NEGATIVE, Urine RBC NONE, Urine WBC NONE, Urine Squamous Epithelial Cells RARE, Urine Crystals NONE, Urine Bacteria NEGATIVE, Urine Casts PRESENT, Urine Hyaline Casts RARE, Urine Mucus NEGATIVE, Urine Culture Indicated NO 12/28/18 03:10: White Blood Count 29.4H, Red Blood Count 1.98L, Hemoglobin 6.1#*L, Hematocrit 20*L, Mean Corpuscular Volume 100H, Mean Corpuscular Hemoglobin 31, Mean Kenny uscular Hemoglobin Concent 31L, Red Cell Distribution Width 15.8H, Platelet Count 278, Mean Platelet Volume 9.6, Neutrophils (%) (Auto) 88H, Lymphocytes (%) (Auto) 6L, Monocytes (%) (Auto) 7, Eosinophils (%) (Auto) 0, Basophils (%) (Auto) 0, Neutrophils # (Auto) 25.8H, Lymphocytes # (Auto) 1.7, Monocytes # (Auto) 1.9H, Eosinophils # (Auto) 0.0, Basophils # (Auto) 0.0, Sodium Level 138, Potassium Level 5.9H, Chloride Level 98, Carbon Dioxide Level 31, Anion Gap 9, Blood Urea Nitrogen 35H, Creatinine 1.03, Estimat Glomerular Filtration Rate 53, BUN/Creatinine Ratio 34, Glucose Level 185H, Calcium Level 7.5L, Phosphorus Level 4.9H, Magnesium Level 2.4 12/28/18 05:15: Stool Occult Blood Immunoassay POSITIVEH 12/28/18 05:28: Lactic Acid Level 2.17*H 12/28/18 08:25: Blood Gas Puncture Site R RADIAL, Blood Gas Patient Temperature 36, Arterial Blood pH 7.36L, Arterial Blood Partial Pressure CO2 62H, Arterial Blood Partial Pressure O2 67L, Arterial Blood HCO3 34H, Arterial Blood Total CO2 36.3H, Arterial Blood Oxygen Saturation 94, Arterial Blood Base Excess 8.6H, Daniel Test YES-POS, Blood Gas Ventilator Setting NO, Blood Gas Inspired Oxygen 35.00% 12/28/18 09:20: Lactic Acid Level 1.87 12/28/18 12:16: Glucometer 208H Microbiology 12/17/18 Blood Culture - Final, Complete No growth 12/17/18 MRSA Screen - Final, Complete MRSA not isolated 12/17/18 Urine Culture - Final, Complete 3 or more isolates A/P: Assessment/Dx: Mechanical fall,? Syncope, History of COPD, Atrial fibrillation with rapid ventricular rate Hyperkalemia, Blood loss anemia, significant abdominal bleeding, Rhabdomyolysis, Elevated LFTs, Elevated BNP Positive D dimer Plan: Mechanical fall,? Syncope, unclear etiology. Will likely require an event monitor on discharge. Driving restriction until we figure out the cause of syncope. Atrial fibrillation with rapid ventricular rate and hypotension, status post cardioversion on admission. Patient went into atrial fibrillation with rapid ventricular rate requiring transfer to the ICU. On Cardizem and amiodarone in fusion. If her atrial fibrillation is refractory to amiodarone infusion, she may be a candidate for transesophageal echocardiogram assisted cardioversion which was done successfully on 12/23/2018. Currently in sinus rhythm. Continue by mouth amiodarone and Cardizem. Eliquis has been held because of abdominal bleeding and anemia. We will continue to hold. Fatigue: Deferred to the primary team. Worsening leukocytosis and hyperkalemia needs to be addressed. Likely due to anemia. Anemia/abdominal bleeding: Etiology unclear. Eliquis has been held. Defer to the ICU and primary team. Hyperkalemia: Potassium 6.3. Defer to the primary team. Today potassium is 5.9. Worsening leukocytosis: I have requested the RN to speak to the primary team for both worsening leukocytosis, hyperkalemia and fatigue. Rhabdomyolysis, IV fluids. Likely due to fall. Resolved. Elevated LFTs, unclear at urology. Resolved. Elevated BNP. Not in florid congestive heart failure on my examination. Echocardiogram showed normal LV and RV size and function. Positive D dimer, negative CT angiography for PE. . Thank you for your consultation. Please call me if you have any questions. Gil Woods MD, FACP, FACC, FSCAI, FHRS, CCDS Interventional Cardiology Cardiac Electrophysiology Vascular Medicine and Endovascular Interventions Focused Exam Lactate Level 12/27/18 17:39: Lactic Acid Level 2.24*H 12/28/18 05:28: Lactic Acid Level 2.17*H 12/28/18 09:20: Lactic Acid Level 1.87 Time of Focused Exam: 16:02 Lactic Acid Level Laboratory Tests Test 12/28/18 09:20 Lactic Acid Level 1.87 MMOL/L (0.50-2.00) Galdino WOODS MD Dec 28, 2018 13:21
[2018-12-28 14:42] LABS: BASOPHILS % (AUTO) 0 % (0-10); EOSINOPHILS % (AUTO) 0 % (0-10); HEMATOCRIT 21 % (35-52); LYMPHOCYTES # (AUTO) 2.1 X 10^3 (1.0-4.0); LYMPHOCYTES % (AUTO) 9 % (12-44); MEAN CORPUSCULAR HEMOGLOBIN 29 PG (25-34); MEAN CORPUSCULAR HGB CONC 31 G/DL (32-36); MEAN CORPUSCULAR VOLUME 95 FL (80-99); MEAN PLATELET VOLUME 9.2 FL (7.4-10.4); MONOCYTES # (AUTO) 1.1 X 10^3 (0.0-1.0); MONOCYTES % (AUTO) 5 % (0-12); NEUTROPHILS # (AUTO) 18.9 X 10^3 (1.8-7.8); NEUTROPHILS % (AUTO) 85 % (42-75); PLATELET COUNT 233 10^3/uL (130-400); RED CELL DISTRIBUTION WIDTH 20.6 % (10.0-14.5); WHITE BLOOD COUNT 22.2 10^3/uL (4.3-11.0)
[2018-12-28 14:44] LABS: HEMOGLOBIN 6.4 G/DL (11.5-16.0)
[2018-12-28 15:07] LABS: ALANINE AMINOTRANSFERASE 9 U/L (0-55); ALBUMIN 2.2 GM/DL (3.2-4.5); ALKALINE PHOSPHATASE 62 U/L (40-136); BILIRUBIN,TOTAL 1.6 MG/DL (0.1-1.0); BUN/CREATININE RATIO 35; CALCIUM 7.4 MG/DL (8.5-10.1); CARBON DIOXIDE 32 MMOL/L (21-32); CHLORIDE 101 MMOL/L (98-107); CREATININE SERUM 0.88 MG/DL (0.60-1.30); GFR ESTIMATED > 60; GLUCOSE 192 MG/DL (70-105); MAGNESIUM 2.3 MG/DL (1.6-2.4); PHOSPHORUS 3.8 MG/DL (2.3-4.7); POTASSIUM 4.8 MMOL/L (3.6-5.0); SODIUM 141 MMOL/L (135-145); TOTAL PROTEIN 4.3 GM/DL (6.4-8.2)
[2018-12-28] MEDS ORDERED: TROUGH ORDER-PHARMACY XX NR (17:00)
--- NOTE | 2018-12-28 19:29 | Progress Note - Surgery ---
[facility] 12/28/189: Subjective Date Seen by a Provider: Dec 28, 2018 Time Seen by a Provider: 15:27 Subjective/Events-last exam Increase in mood and energy. Patient is doing better but still reports right flank pain. Patient is still pale. Still has pain located on the right side. WBC is 29.4 and a hemoglobin of 6.1. Focused Exam Lactate Level 12/27/18 17:39: Lactic Acid Level 2.24*H 12/28/18 05:28: Lactic Acid Level 2.17*H 12/28/18 09:20: Lactic Acid Level 1.87 Time of Focused Exam: 16:02 Objective Exam Vital Signs Date Time Temp Pulse Resp B/P (MAP) Pulse Ox O2 Delivery O2 Flow Rate FiO2 12/28/18 19:00 37.6 91 16 112/40 98 Nasal Cannula 3.00 12/28/18 18:46 37.6 91 28 116/37 99 Nasal Cannula 3.00 12/28/18 18:00 37.7 91 23 102/46 95 Nasal Cannula 3.00 12/28/18 18:00 92 28 101/75 (84) 100 Nasal Cannula 2.00 12/28/18 17:00 90 20 125/41 (69) 96 Nasal Cannula 2.00 12/28/18 16:01 36.3 91 18 110/43 100 Nasal Cannula 5.00 12/28/18 16:00 90 18 109/38 (61) 99 Nasal Cannula 2.00 12/28/18 15:49 36.2 12/28/18 15:46 36.2 92 14 110/38 97 Nasal Cannula 5.00 12/28/18 15:00 87 23 144/50 (81) 77 Nasal Cannula 2.00 12/28/18 14:24 100 Nasal Cannula 3.00 12/28/18 14:00 81 30 137/48 (77) 98 Nasal Cannula 2.00 12/28/18 13:00 92 26 142/52 (82) 99 Nasal Cannula 2.00 12/28/18 13:00 93 12/28/18 12:00 86 21 126/41 (69) 83 Nasal Cannula 2.00 12/28/18 11:29 36.0 12/28/18 11:00 86 19 101/64 (76) 98 Nasal Cannula 2.00 12/28/18 10:00 89 23 130/47 (74) 100 Nasal Cannula 2.00 12/28/18 09:00 83 21 127/46 (73) 98 Nasal Cannula 2.00 12/28/18 08:32 98 OxyMask 3.00 12/28/18 08:00 89 19 122/54 (76) 100 Nasal Cannula 2.00 12/28/18 07:46 High Flow N/C 2.50 12/28/18 07:00 90 12/28/18 07:00 88 19 115/47 (69) 89 Nasal Cannula 2.00 12/28/18 06:02 37.0 85 23 121/40 100 Nasal Cannula 2.00 12/28/18 06:00 87 24 121/40 (67) 99 Nasal Cannula 2.00 12/28/18 05:47 36.8 86 23 119/42 100 Nasal Cannula 2.00 12/28/18 05:00 85 24 118/42 (67) 99 Nasal Cannula 2.00 12/28/18 04:00 82 24 () 98 Nasal Cannula 2.00 12/28/18 03:22 Nasal Cannula 2.00 12/28/18 03:12 100 OxyMask 4.00 12/28/18 03:00 80 28 117/48 (71) 100 Nasal Cannula 2.00 12/28/18 02:00 78 29 114/49 (70) 100 Nasal Cannula 2.00 12/28/18 01:02 77 12/28/18 01:00 77 25 123/52 (75) Nasal Cannula 5.00 12/28/18 00:09 37.1 12/28/18 00:00 77 15 111/47 (68) Nasal Cannula 5.00 12/27/18 23:00 77 26 115/52 (73) 100 Nasal Cannula 5.00 12/27/18 22:00 80 39 112/51 (71) 100 Nasal Cannula 5.00 12/27/18 21:02 100 OxyMask 6.00 12/27/18 21:00 78 27 98/49 (65) 100 Nasal Cannula 5.00 12/27/18 20:00 80 20 90/40 (57) 100 Nasal Cannula 5.00 12/27/18 20:00 100 OxyMask 6.00 12/27/18 19:48 38.2 12/27/18 19:29 83 I & O 12/28/18 07:00 Intake Total 1720 ml Output Total 1875 ml Balance -155 ml Capillary Refill : Less Than 3 SecondsLess Than 3 Seconds General Appearance: No No Apparent Distress; Obese, Other (Pale) HEENT: PERRL/EOMI Neck: Non Tender, Supple Respiratory: Other Cardiovascular: Regular Rate, Rhythm Gastrointestinal: soft, tenderness (RUQ, Epigastric, entral hernia incarcerated) Neurologic/Psychiatric: Alert (Does have difficulty remembering details, but knows name. ); No Oriented x3 Lymphatic: No Adenopathy Other comments Patient still has hematoma located on the right flank. Has not increased in size Left femoral line does not look erythematous, nor does it have swelling. Results Lab Laboratory Tests 12/27/18 20:00: Urine Color YELLOW, Urine Clarity CLEAR, Urine pH 6, Urine Specific [place] 1.010L, Urine Protein NEGATIVE, Urine Glucose (UA) NEGATIVE, Urine Ketones NEGATIVE, Urine Nitrite NEGATIVE, Urine Bilirubin NEGATIVE, Urine Urobilinogen NORMAL, Urine Leukocyte Esterase NEGATIVE, Urine RBC (Auto) NEGATIVE, Urine RBC NONE, Urine WBC NONE, Urine Squamous Epithelial Cells RARE, Urine Crystals NONE, Urine Bacteria NEGATIVE, Urine Casts PRESENT, Urine Hyaline Casts RARE, Urine Mucus NEGATIVE, Urine Culture Indicated NO 12/28/18 03:10: White Blood Count 29.4H, Red Blood Count 1.98L, Hemoglobin 6.1#*L, Hematocrit 20*L, Mean Corpuscular Volume 100H, Mean Corpuscular Hemoglobin 31, Mean Corpuscular Hemoglobin Concent 31L, Red Cell Distribution Width 15.8H, Platelet Count 278, Mean Platelet Volume 9.6, Neutrophils (%) (Auto) 88H, Lymphocytes (%) (Auto) 6L, Monocytes (%) (Auto) 7, Eosinophils (%) (Auto) 0, Basophils (%) (Auto) 0, Neutrophils # (Auto) 25.8H, Lymphocytes # (Auto) 1.7, Monocytes # (Auto) 1.9H, Eosinophils # (Auto) 0.0, Basophils # (Auto) 0.0, Sodium Level 138, Potassium Level 5.9H, Chloride Level 98, Carbon Dioxide Level 31, Anion Gap 9, Blood Urea Nitrogen 35H, Creatinine 1.03, Estimat Glomerular Filtration Rate 53, BUN/Creatinine Ratio 34, Glucose Level 185H, Calcium Level 7.5L, Phosphorus Level 4.9H, Magnesium Level 2.4 12/28/18 05:15: Stool Occult Blood Immunoassay POSITIVEH 12/28/18 05:28: Lactic Acid Level 2.17*H 12/28/18 08:25: Blood Gas Puncture Site R RADIAL, Blood Gas Patient Temperature 36, Arterial Blood pH 7.36L, Arterial Blood Partial Pressure CO2 62H, Arterial Blood Partial Pressure O2 67L, Arterial Blood HCO3 34H, Arterial Blood Total CO2 36.3H, Arterial Blood Oxygen Saturation 94, Arterial Blood Base Excess 8.6H, Daniel Test YES-POS, Blood Gas Ventilator Setting NO, Blood Gas Inspired Oxygen 35.00% 12/28/18 09:20: Lactic Acid Level 1.87 12/28/18 12:16: Glucometer 208H 12/28/18 14:00: White Blood Count 22.2H, Red Blood Count 2.18L, Hemoglobin 6.4*L, Hematocrit 21L , Mean Corpuscular Volume 95, Mean Corpuscular Hemoglobin 29, Mean Corpuscular Hemoglobin Concent 31L, Red Cell Distribution Width 20.6H, Platelet Count 233, Mean Platelet Volume 9.2, Neutrophils (%) (Auto) 85H, Lymphocytes (%) (Auto) 9L, Monocytes (%) (Auto) 5, Eosinophils (%) (Auto) 0, Basophils (%) (Auto) 0, Neutrophils # (Auto) 18.9H, Lymphocytes # (Auto) 2.1, Monocytes # (Auto) 1.1H, Eosinophils # (Auto) 0.0, Basophils # (Auto) 0.0, Sodium Level 141, Potassium Level 4.8, Chloride Level 101, Carbon Dioxide Level 32, Anion Gap 8, Blood Urea Nitrogen 31H, Creatinine 0.88, Estimat Glomerular Filtration Rate > 60, BUN/Creatinine Ratio 35, Glucose Level 192H, Calcium Level 7.4L, Corrected Calcium 8.8, Phosphorus Level 3.8, Magnesium Level 2.3, Total Bilirubin 1.6H, Aspartate Amino Transf (AST/SGOT) 25, Alanine Aminotransferase (ALT/SGPT) 9, Alkaline Phosphatase 62, Total Protein 4.3L, Albumin 2.2L 12/28/18 16:38: Glucometer 180H 12/28/18 17:50: Vancomycin Level Trough 19.1 Microbiology 12/27/18 Blood Culture, Unverified Pending 12/17/18 MRSA Screen - Final, Complete MRSA not isolated 12/17/18 Urine Culture - Final, Complete 3 or more isolates Assessment/Plan Assessment/Plan Assessment/Plan Large hematoma located on the right Ventral hernia Anemic Possible sepsis Holding anticoagulant. Continue monitor WBC Monitor Hgb Clinical Quality Measures DVT/VTE Risk/Contraindication: Risk Factor Score Per Nursin RFS Level Per Nursing on Admit: 4+=Very High HILARIO LOVE DO 12/28/18 2154: Subjective Subjective/Events-last exam Patient answering questions and participating. Family at bedside stating that this better than earlier today. Patient pain ruq where hematoma is. No other complaints at this time. Denies n/v fever sweats chills shortness of breath or chest pain. Ct abd pelvis increased hematoma and edema/inflammation around it, ventral hernia not obstructed. Hgb drop and requiring transfusion. Eliquis on hold. Objective Exam General Appearance: Other (Pale) HEENT: PERRL/EOMI Neck: Non Tender, Supple Respiratory: Chest Non Tender, No Accessory Muscle Use Cardiovascular: Regular Rate, Rhythm Gastrointestinal: soft, tenderness (RUQ, Epigastric tenderness. ventral hernia incarcerated) Extremity: Non Tender Neurologic/Psychiatric: Alert (more alert) Skin: Warm/Dry (right upper qudrant and flank echymosis) Lymphatic: No Adenopathy Assessment/Plan Assessment/Plan Assessment/Plan abdominal wall hematoma anemia to hematoma ventral hernia incarcerated leukocytosis transfusing prbc eliquis on hold medical management, no surgical intervention at this time central line left groin Supervisory-Addendum Brief Verification & Attestation Participated in pt care: history, MDM, physical Personally performed: exam, history, MDM, supervision of care Care discussed with: Medical Student Procedures: n/a Results interpretation: Verified all documentation Verification and Attestation of Medical Student E/M Service A medical student performed and documented this service in my presence. I reviewed and verified all information documented by the medical student and made modifications to such information, when appropriate. I personally performed the physical exam and medical decision making. Hilario Love, Dec 28, 2018,21:54 [facility] Dec 28, 2018 19:29 HILARIO LOVE DO Dec 28, 2018 21:54
[2018-12-28] MEDS: rOPINIRole 5 MG TAB (REQUIP) PO SCH (20:26)
[2018-12-28] MEDS: ACETAMINOPHEN 500 MG TAB (TYLENOL) PO PRN (20:35)
--- NOTE | 2018-12-28 20:54 | NUR ---
due to heart rate of 154-165 breathing tx held at this time rn informed of this and agreed
[2018-12-28] MEDS ORDERED: D5W 100 ML IVPB 100 ML IV ONE (21:19)
[2018-12-28] MEDS ORDERED: AMIODARONE (OMNICELL DRIP KIT) 150 MG/3 ML IV ONE (21:19)
[2018-12-28] MEDS ORDERED: NORMAL SALINE 0 ML ONE (21:21)
[2018-12-28] MEDS ORDERED: AMIODARONE 450 MG/9 ML (CORDARONE) VIAL IV ONE (21:21)
[2018-12-28] MEDS ORDERED: ALBUMIN 5% 12.5 GM/250 ML 500 ML IV ONE ×2 (21:22→21:45)
[2018-12-28] MEDS ORDERED: D5W IV SOLUTION (EXCEL) 250 ML IV ONE (21:23)
[2018-12-28] MEDS ORDERED: HYDROmorphone 2 MG/ML VIAL (DILAUDID) IV ONE (21:45)
[2018-12-28] MEDS ORDERED: AMIODARONE 150 MG/D5W 100 ML BOLUS IV ONE ×2 (21:45)
[2018-12-28 21:58] LABS: ALBUMIN 2.2 GM/DL (3.2-4.5); BUN/CREATININE RATIO 34; CALCIUM 7.1 MG/DL (8.5-10.1); CARBON DIOXIDE 32 MMOL/L (21-32); CHLORIDE 103 MMOL/L (98-107); CREATININE SERUM 0.74 MG/DL (0.60-1.30); GFR ESTIMATED > 60; GLUCOSE 151 MG/DL (70-105); MAGNESIUM 2.3 MG/DL (1.6-2.4); POTASSIUM 4.2 MMOL/L (3.6-5.0); SODIUM 140 MMOL/L (135-145)
[2018-12-28] MEDS: AMIODARONE 450 MG/250 ML D5W EXCEL IV SCH ×2 (22:45)
[2018-12-29] VITALS (17 sets, daily range): BP systolic 83–145; BP diastolic 47–84
[2018-12-29 00:34] LABS: HEMOGLOBIN 7.7 G/DL (11.5-16.0)
[2018-12-29] MEDS ORDERED: meTOprolol 5 MG/5 ML (LOPRESSOR) VIAL ONE (00:46)
[2018-12-29] MEDS ORDERED: meTOprolol 5 MG/5 ML (LOPRESSOR) VIAL IV ONE (01:00)
[2018-12-29] MEDS: ACETAMINOPHEN 500 MG TAB (TYLENOL) PO PRN (01:17)
[2018-12-29] MEDS ORDERED: ALBUMIN 5% 12.5 GM/250 ML 500 ML IV ONE ×2 (01:22→04:15)
[2018-12-29] MEDS ORDERED: NS IV 500 ML 500 ML ONE ×2 (01:23→06:28)
[2018-12-29] MEDS: MAGNESIUM 1 GM/100 ML IVPB 100 ML IV SCH (02:09)
[2018-12-29] MEDS: RT-ALBUTEROL/IPRATROPIUM 3 ML (DUONEB) VIAL INH SCH ×2 (02:32→07:34)
--- NOTE | 2018-12-29 02:33 | NUR ---
svn held due to heart rate still 130s rn informed and agreed
[2018-12-29 03:57] LABS: BASOPHILS % (AUTO) 0 % (0-10); EOSINOPHILS # (AUTO) 0.2 10^3/uL (0.0-0.3); EOSINOPHILS % (AUTO) 1 % (0-10); HEMATOCRIT 25 % (35-52); LYMPHOCYTES # (AUTO) 1.5 X 10^3 (1.0-4.0); LYMPHOCYTES % (AUTO) 10 % (12-44); MEAN CORPUSCULAR HEMOGLOBIN 30 PG (25-34); MEAN CORPUSCULAR HGB CONC 32 G/DL (32-36); MEAN CORPUSCULAR VOLUME 93 FL (80-99); MEAN PLATELET VOLUME 9.1 FL (7.4-10.4); MONOCYTES % (AUTO) 7 % (0-12); NEUTROPHILS # (AUTO) 12.7 X 10^3 (1.8-7.8); NEUTROPHILS % (AUTO) 83 % (42-75); PLATELET COUNT 148 10^3/uL (130-400); RED CELL DISTRIBUTION WIDTH 18.8 % (10.0-14.5); WHITE BLOOD COUNT 15.4 10^3/uL (4.3-11.0)
[2018-12-29] MEDS ORDERED: ACETAMINOPHEN 325 MG TABLET PO PRN (04:00)
[2018-12-29 04:08] LABS: INR 1.4 (0.8-1.4); PROTHROMBIN TIME PATIENT 17.9 SEC (12.2-14.7)
[2018-12-29 04:17] LABS: BUN/CREATININE RATIO 30; CALCIUM 7.1 MG/DL (8.5-10.1); CARBON DIOXIDE 32 MMOL/L (21-32); CHLORIDE 104 MMOL/L (98-107); GFR ESTIMATED > 60; GLUCOSE 159 MG/DL (70-105); MAGNESIUM 2.2 MG/DL (1.6-2.4); PHOSPHORUS 2.6 MG/DL (2.3-4.7); POTASSIUM 3.8 MMOL/L (3.6-5.0); SODIUM 142 MMOL/L (135-145)
[2018-12-29] MEDS: inSUlin ASPART (NovoLOG) 1 UNIT/0.01 ML (CHARGE PER UNIT) SC SCH (04:34)
[2018-12-29] MEDS ORDERED: POTASSIUM PHOSPHATE INJ 15 MM in NS (IVPB) 250 ML IV ONE (05:15)
[2018-12-29] MEDS ORDERED: AMIODARONE 450 MG/9 ML (CORDARONE) VIAL IV ONE (05:54)
[2018-12-29] MEDS ORDERED: D5W IV SOLUTION (EXCEL) 250 ML IV ONE (05:54)
[2018-12-29] MEDS: PIPERACILLIN/TAZOBACTAM (BULK) 4.5 GM in NS (IVPB) 100 ML IV SCH (06:01)
[2018-12-29] MEDS ORDERED: NS IV 500 ML 500 ML IV ONE (06:15)
[2018-12-29] MEDS: AMIODARONE 450 MG/250 ML D5W EXCEL IV SCH ×2 (06:15)
--- NOTE | 2018-12-29 06:23 | Pulmonary Progress Note ---
Subjective Time Seen by a Provider: 06:22 Subjective/Events-last exam PT states she just wants to go home. Sepsis Event Evaluation Height, Weight, BMI Height: 5'6.00" Weight: 243lbs. 0.0oz. 110.428264mc; 99.32 BMI Method:Stated Focused Exam Lactate Level 12/28/18 05:28: Lactic Acid Level 2.17*H 12/28/18 09:20: Lactic Acid Level 1.87 12/28/18 21:30: Lactic Acid Level 1.23 Time of Focused Exam: 16:02 Exam Exam Vital Signs Date Time Temp Pulse Resp B/P (MAP) Pulse Ox O2 Delivery O2 Flow Rate FiO2 12/29/18 04:00 130 29 101/66 (78) Nasal Cannula 2.00 12/29/18 03:33 36.2 128 18 100/59 100 Nasal Cannula 3.00 12/29/18 03:00 109 14 92/63 (73) 100 Nasal Cannula 2.00 12/29/18 02:14 113 21 96/53 (67) 100 Nasal Cannula 2.00 12/29/18 02:01 134 16 85/57 (66) 100 Nasal Cannula 2.00 12/29/18 01:52 36.2 130 14 98/50 99 Nasal Cannula 3.00 12/29/18 01:35 36.2 129 20 83/47 100 Nasal Cannula 2.00 12/29/18 01:00 131 12/29/18 01:00 131 21 110/56 (74) 100 Nasal Cannula 2.00 12/29/18 00:00 133 21 101/84 (90) 97 Nasal Cannula 2.00 12/28/18 23:00 128 21 94/45 (61) 90 Nasal Cannula 2.00 12/28/18 22:00 141 91/54 (66) 100 Nasal Cannula 2.00 12/28/18 21:00 160 32 103/59 (74) 100 Nasal Cannula 2.00 12/28/18 20:49 37.0 151 18 100/59 100 Nasal Cannula 3.00 12/28/18 20:15 154 21 96/52 (67) 94 Nasal Cannula 2.00 12/28/18 20:12 161 21 89/57 (68) 93 Nasal Cannula 2.00 12/28/18 20:00 High Flow N/C 3.00 12/28/18 19:42 36.5 12/28/18 19:39 36.6 93 22 121/80 (94) 99 Nasal Cannula 2.00 12/28/18 19:00 37.6 91 16 112/40 98 Nasal Cannula 3.00 12/28/18 19:00 92 12/28/18 19:00 92 25 118/44 (68) 100 Nasal Cannula 2.00 12/28/18 18:46 37.6 91 28 116/37 99 Nasal Cannula 3.00 12/28/18 18:00 37.7 91 23 102/46 95 Nasal Cannula 3.00 12/28/18 18:00 92 28 101/75 (84) 100 Nasal Cannula 2.00 12/28/18 17:00 90 20 125/41 (69) 96 Nasal Cannula 2.00 12/28/18 16:01 36.3 91 18 110/43 100 Nasal Cannula 5.00 12/28/18 16:00 90 18 109/38 (61) 99 Nasal Cannula 2.00 12/28/18 15:49 36.2 12/28/18 15:46 36.2 92 14 110/38 97 Nasal Cannula 5.00 12/28/18 15:00 87 23 144/50 (81) 77 Nasal Cannula 2.00 12/28/18 14:24 100 Nasal Cannula 3.00 12/28/18 14:00 81 30 137/48 (77) 98 Nasal Cannula 2.00 12/28/18 13:00 92 26 142/52 (82) 99 Nasal Cannula 2.00 12/28/18 13:00 93 12/28/18 12:00 86 21 126/41 (69) 83 Nasal Cannula 2.00 12/28/18 11:29 36.0 12/28/18 11:00 86 19 101/64 (76) 98 Nasal Cannula 2.00 12/28/18 10:00 89 23 130/47 (74) 100 Nasal Cannula 2.00 12/28/18 09:00 83 21 127/46 (73) 98 Nasal Cannula 2.00 12/28/18 08:32 98 OxyMask 3.00 12/28/18 08:00 89 19 122/54 (76) 100 Nasal Cannula 2.00 12/28/18 07:46 High Flow N/C 2.50 12/28/18 07:00 90 12/28/18 07:00 88 19 115/47 (69) 89 Nasal Cannula 2.00 I & O 12/29/18 07:00 Intake Total 935 ml Output Total 2250 ml Balance -1315 ml Height & Weight Height: 5'6.00" Weight: 243lbs. 0.0oz. 110.924121dj; 99.32 BMI Method:Stated General Appearance: Anxious, Moderate Distress (confused), Obese, Other (Pale) HEENT: PERRL/EOMI Neck: Non Tender, Supple Respiratory: Chest Non Tender, No Accessory Muscle Use Cardiovascular: Regular Rate, Rhythm Capillary Refill: Less Than 3 Seconds Gastrointestinal: soft, tenderness (RUQ, Epigastric tenderness. ventral hernia incarcerated) Extremity: Non Tender Neurologic/Psychiatric: Alert (more alert), Depressed Affect, Disoriented Skin: Warm/Dry (right upper qudrant and flank echymosis) Lymphatic: No Adenopathy Results Lab Laboratory Tests 12/27/18 07:43 12/27/18 13:25 12/28/18 03:10 12/28/18 14:00 12/28/18 21:30 12/29/18 00:05 12/29/18 03:50 Assessment/Plan Assessment/Plan Acute blood loss GI vs retroperitoneal bleed -Monitor H&H -Hold Eliquis - protonix 40mg IV BID - occult stool is positive -Surgery following UTI -IVF NS going at 150 -Continue Vaco and zosyn Hypotension -IVF Atrial fibrillation -Eliquis - HOLD secondary to acute blood loss. -Amio gtt started last night. -Cardiology following Pulmonary edema probably secondary to diastolic dysfunction vs IVF -Lasix - hold -Wean 02 COPDAE -SVNS Hx ROJELIO -Noncompliant with CPAP -Pt refuses CPAP Pt wants to go home. I explained to pt she is not medically ready to be discharged. Will consult hospice for education. Pt is a DNR and also refuses BiPAP. Overall prognosis is guarded to poor. JENNIFER VAZQUEZ DO Dec 29, 2018 06:23
[2018-12-29 06:28] LABS: HEMOGLOBIN 8.2 G/DL (11.5-16.0)
[2018-12-29] MEDS: PANTOPRAZOLE 40 MG (PROTONIX) VIAL IV SCH (08:44)
[2018-12-29] MEDS: HYDROcodone/APAP 5 MG/325 MG (LORTAB) TAB PO PRN (08:45)
[2018-12-29] MEDS ORDERED: DILTIAZEM 25 MG/5 ML INJ (CARDIZEM) VIAL IVP NR (08:45)
[2018-12-29] MEDS: meTOprolol TARTRATE 50 MG (LOPRESSOR) TAB PO SCH (08:45)
[2018-12-29] MEDS: GABAPENTIN 100 MG (NEURONTIN) CAP PO SCH (08:45)
[2018-12-29] MEDS: SINEMET 25/100 (CARBIDOPA/LEVODOPA) TAB PO SCH (08:45)
--- NOTE | 2018-12-29 09:04 | Cardiology Progress Note ---
Cardiology SOAP Progress Note Subjective: Patient is complaining of pain in the back. Objective: I&O/Vital Signs 12/28/18 12/28/18 12/29/18 12/29/18 22:00 23:00 00:00 01:00 Pulse 141 128 133 131 Resp 21 21 21 B/P (MAP) 91/54 (66) 94/45 (61) 101/84 (90) 110/56 (74) Pulse Ox 100 90 97 100 O2 Delivery Nasal Cannula Nasal Cannula Nasal Cannula Nasal Cannula O2 Flow Rate 2.00 2.00 2.00 2.00 12/29/18 12/29/18 12/29/18 12/29/18 01:00 01:35 01:52 02:01 Temp 36.2 36.2 Pulse 131 129 130 134 Resp 20 14 16 B/P (MAP) 83/47 98/50 85/57 (66) Pulse Ox 100 99 100 O2 Delivery Nasal Cannula Nasal Cannula Nasal Cannula O2 Flow Rate 2.00 3.00 2.00 12/29/18 12/29/18 12/29/18 12/29/18 02:14 03:00 03:33 04:00 Temp 36.2 Pulse 113 109 128 130 Resp 21 14 18 29 B/P (MAP) 96/53 (67) 92/63 (73) 100/59 101/66 (78) Pulse Ox 100 100 100 O2 Delivery Nasal Cannula Nasal Cannula Nasal Cannula Nasal Cannula O2 Flow Rate 2.00 2.00 3.00 2.00 12/29/18 12/29/18 12/29/18 12/29/18 05:00 06:00 06:15 07:37 Pulse 92 123 121 Resp 19 25 17 B/P (MAP) 98/56 (70) 88/60 (69) 108/61 (77) Pulse Ox 100 97 99 100 O2 Delivery Nasal Cannula Nasal Cannula Nasal Cannula High Flow N/C O2 Flow Rate 2.00 2.00 2.00 3.00 12/29/18 07:42 O2 Delivery Room Air 12/29/18 00:00 Intake Total 1870 ml Output Total 1050 ml Balance 820 ml Weight (Pounds): 243 Weight (Ounces): 0.0 Weight (Calculated Kilograms): 110.949403 Constitutional: appears stated age, AAO x 3; No apparent distress; well- developed, well-nourished Respiratory: chest is bilaterally symmetric, lungs clear to auscultation Cardiovascular: irregularly irregular; No extra beats, No parasternal heave is noted, No JVD, No edema, No bradycardia; tachycardia; No point of maximal impulse, No cardiac thrills are palpable; S1 and S2; No gallop/S3, No gallop/S4, No diastolic murmur, No systolic murmur, No friction rub, No click, No other Gastrointestional: soft, round, audible bowel sounds; No spleenomegaly Extremities: normal range of motion, non-tender, normal inspection; No clubbing, No cyanosis; no lower extremity edema bilateral; No significant edema Neurologic/Psychiatric: no motor/sensory deficits, alert, normal mood/affect, oriented x 3, power is 5/5 both on sides Skin: mottled (to legs), pallor Results/Procedures: Labs Laboratory Tests 12/28/18 09:20: Lactic Acid Level 1.87 12/28/18 12:16: Glucometer 208H 12/28/18 14:00: White Blood Count 22.2H, Red Blood Count 2.18L, Hemoglobin 6.4*L, Hematocrit 21L , Mean Corpuscular Volume 95, Mean Corpuscular Hemoglobin 29, Mean Corpuscular Hemoglobin Concent 31L, Red Cell Distribution Width 20.6H, Platelet Count 233, Mean Platelet Volume 9.2, Neutrophils (%) (Auto) 85H, Lymphocytes (%) (Auto) 9L, Monocytes (%) (Auto) 5, Eosinophils (%) (Auto) 0, Basophils (%) (Auto) 0, Neutrophils # (Auto) 18.9H, Lymphocytes # (Auto) 2.1, Monocytes # (Auto) 1.1H, Eosinophils # (Auto) 0.0, Basophils # (Auto) 0.0, Sodium Level 141, Potassium Level 4.8, Chloride Level 101, Carbon Dioxide Level 32, Anion Gap 8, Blood Urea Nitrogen 31H, Creatinine 0.88, Estimat Glomerular Filtration Rate > 60, BUN/Creatinine Ratio 35, Glucose Level 192H, Calcium Level 7.4L, Corrected Calcium 8.8, Phosphorus Level 3.8, Magnesium Level 2.3, Total Bilirubin 1.6H, Aspartate Amino Transf (AST/SGOT) 25, Alanine Aminotransferase (ALT/SGPT) 9, Alkaline Phosphatase 62, Total Protein 4.3L, Albumin 2.2L 12/28/18 16:38: Glucometer 180H 12/28/18 17:50: Vancomycin Level Trough 19.1 12/28/18 21:30: Hemoglobin 8.5#L, Sodium Level 140, Potassium Level 4.2, Chloride Level 103, Carbon Dioxide Level 32, Anion Gap 5, Blood Urea Nitrogen 25H, Creatinine 0.74, Estimat Glomerular Filtration Rate > 60, BUN/Creatinine Ratio 34, Glucose Level 151H, Lactic Acid Level 1.23, Calcium Level 7.1L, Magnesium Level 2.3, Albumin 2.2L 12/29/18 00:05: Hemoglobin 7.7L, Hematocrit 24L 12/29/18 03:50: Hemoglobin 8.0L, Sodium Level 142, Potassium Level 3.8, Chloride Level 104, Carbon Dioxide Level 32, Anion Gap 6, Blood Urea Nitrogen 21H, Creatinine 0.70, Estimat Glomerular Filtration Rate > 60, BUN/Creatinine Ratio 30, Glucose Level 159H, Calcium Level 7.1L, Magnesium Level 2.2, Hematocrit 25L, White Blood Count 15.4H, Red Blood Count 2.68L, Mean Corpuscular Volume 93, Mean Corpuscular Hemoglobin 30, Mean Corpuscular Hemoglobin Concent 32, Red Cell Distribution Width 18.8H, Platelet Count 148, Mean Platelet Volume 9.1, Neutrophils (%) (Auto) 83H, Lymphocytes (%) (Auto) 10L, Monocytes (%) (Auto) 7, Eosinophils (%) (Auto) 1, Basophils (%) (Auto) 0, Neutrophils # (Auto) 12.7H, Lymphocytes # (Auto) 1.5, Monocytes # (Auto) 1.0, Eosinophils # (Auto) 0.2, Basophils # (Auto) 0.0, Prothrombin Time 17.9H, INR Comment 1.4, Activated Partial Thromboplast Time 26, Phosphorus Level 2.6 12/29/18 06:15: Hemoglobin 8.2L, Hematocrit 25L Microbiology 12/27/18 Blood Culture, Unverified Pending 12/17/18 MRSA Screen - Final, Complete MRSA not isolated 12/17/18 Urine Culture - Final, Complete 3 or more isolates A/P: Assessment/Dx: Mechanical fall,? Syncope, History of COPD, Atrial fibrillation with rapid ventricular rate Hyperkalemia, Blood loss anemia, significant abdominal bleeding, Rhabdomyolysis, Elevated LFTs, Elevated BNP Positive D dimer Plan: Mechanical fall,? Syncope, unclear etiology. Will likely require an event monitor on discharge. Driving restriction until we figure out the cause of syncope. Atrial fibrillation with rapid ventricular rate and hypotension, status post cardioversion on admission. Patient went into atrial fibrillation with rapid ventricular rate requiring transfer to the ICU. On Cardizem and amiodarone infusion. If her atrial fibrillation is refractory to amiodarone infusion, she may be a candidate for transesophageal echocardiogram assisted cardioversion which was done successfully on 12/23/2018. However went into atrial fibrillation overnight. Continue by mouth amiodarone and Cardizem. By mouth metoprolol this morning. Eliquis has been held because of abdominal bleeding and anemia. We will continue to hold. Fatigue: Deferred to the primary team. Worsening leukocytosis and hyperkalemia needs to be addressed. Likely due to anemia. Anemia/abdominal bleeding: Etiology unclear. Eliquis has been held. Defer to the ICU and primary team. Hemoglobin 8.2 this morning. Hyperkalemia: Improved potassium. Worsening leukocytosis: I have requested the RN to speak to the primary team for both worsening leukocytosis, hyperkalemia and fatigue. Improving WBC count. Rhabdomyolysis, IV fluids. Likely due to fall. Resolved. Elevated LFTs, unclear at urology. Resolved. Elevated BNP. Not in florid congestive heart failure on my examination. Echocardiogram showed normal LV and RV size and function. Positive D dimer, negative CT angiography for PE. I discussed at length with the family all aspects of her care, focusing on cardiac care. The patient is in atrial fibrillation. We will continue to work on rate control, however there is a small risk of stroke since the patient is not on oral anticoagulation therapy. Also we cannot electively cardiovert since the patient is not on oral anti-coagulation. The family understands. . Thank you for your consultation. Please call me if you have any questions. Gil Woods MD, FACP, FACC, [facility] [place], FH[facility], CCDS Interventional Cardiology Cardiac Electrophysiology Vascular Medicine and Endovascular Interventions Focused Exam Lactate Level 12/28/18 05:28: Lactic Acid Level 2.17*H 12/28/18 09:20: Lactic Acid Level 1.87 12/28/18 21:30: Lactic Acid Level 1.23 Time of Focused Exam: 16:02 Galdino WOODS MD Dec 29, 2018 09:04
[2018-12-29] MEDS: SENNA W/DOCUSATE (SENOKOT S) TABLET PO SCH (09:11)
[2018-12-29] MEDS: BENZONATATE 100 MG (TESSALON) CAPSULE PO SCH ×3 (09:11→21:59)
[2018-12-29] MEDS: MICONAZOLE 2% POWDER (DESENEX AF) 90 GM TOP SCH ×2 (09:12→22:01)
--- NOTE | 2018-12-29 09:23 | Diagnostic Imaging Report ---
INDICATION: Dyspnea. TIME OF EXAMINATION: 4:06 AM. COMPARISON: 12/27/2018. FINDINGS: The heart size is stable. The patient has developed infiltrate in the right mid and lower lung field since two days earlier. The left lung appears to be fairly clear. No effusion or pneumothorax is seen. IMPRESSION: Development of right basilar infiltrate when compared to the exam of two days earlier. Dictated by: Dictated on workstation # [id number]
--- NOTE | 2018-12-29 09:30 | NUR ---
Palliative Care RN in to see patient. She is laying on her side with grunting respirations. placed her bck on her back by removing the pillow and she appeared to be more comfortable. Oral care given and she closed mouth around the sponge. I did administer a does of her demand Fentanyl.
--- NOTE | 2018-12-29 09:47 | NUR ---
PALLIATIVE CARE RN in to see patient after consult received. Patient is in bed p bed change r/t bm. Family is at bedside. Had discussion with patient about consult and my purpose. She reported to this RN that she is tired of all this 'hospital crap" and "just want to go home". We discussed hospice, explaining how it works. They would like to meet with a hospice agency and if possible go home today. Choices given to the patient. has asked for Naina to be called for a visit. I have called Naina. Eric will be here a little after 11:00. Clinical information faxed to the [place] office. Will follow and assist as needed. Addendum: 12/29/18 at 1050 [address] RN [address] Hicks has been made aware and will put in pending discharge orders. I also notified PCP, Susan Moscoso. No needs at this time.
--- NOTE | 2018-12-29 10:17 | Physical Therapy Evaluation ---
PT Evaluation-General Medical Diagnosis Admission Date Dec 17, 2018 at 20:50 Medical Diagnosis: A-fib with RVR Onset Date: Dec 17, 2018 Therapy Diagnosis Therapy Diagnosis: impaired mobility, strength, endurance Height/Weight Height (Feet): 5 Height (Inches): 6.00 Weight (Pounds): 243 Weight (Ounces): 0.0 Precautions Precautions/Isolations: Standard Precautions Weight Bear Status Right Lower Extremity: Right Weight Bearing/Tolerated Left Lower Extremity: Left Weight Bearing/Tolerated Referral Physician: Tamar Reason for Referral: Evaluation/Treatment Medical History Pertinent Medical History: Atrial Fib, COPD, HTN Reviewed History: Yes Social History Home: Single Level Current Living Status: Spouse Entry Into Home: Stairs Without Railing PT Steps Into Home: 3 Prior Prior Level of Function SCALE: Activities may be completed with or without assistive devices. 9-Ftmdqxhdfr-ydoidhk completes the activity by him/herself with no assistance from a helper. 5-Set-up or Clean-up Assistance-helper sets up or cleans up; patient completes activity. Montgomery assists only prior to or following the activity. 4-Supervision or Touching Assistance-helper provides verbal cues and/or touching/steadying and/or contact guard assistance as patient completes activity. Assistance may be provided throughout the activity or intermittently. 3-Partial/Moderate Assistance-helper does LESS THAN HALF the effort. Montgomery lifts, holds or supports trunk or limbs, but provides less than half the effort. 2-Substantial/Maximal Assistance-helper does MORE THAN HALF the effort. Montgomery lifts or holds trunk or limbs and provides more than half the effort. 3-Kkkzoopgn-nmpjyh does ALL the effort. Patient does none of the effort to complete the activity. Or, the assistance of 2 or more helpers is required for the patient to complete the activity. If activity was not attempted, code reason: 7-Patient Refused. 9-Not Applicable-not attempted and the patient did not perform the activity b efore the current illness, exacerbation or injury. 10-Not Attempted due to Environmental Limitations-(lack of equipment, weather restraints, etc.). 88-Not Attempted due to Medical Conditions or Safety Concerns. Bed Mobility: 6 Transfers (B,C,W/C): 6 Gait: 6 Indoor Mobility (Ambulation): Independent Stairs: Needed Some Help Prior Devices Use: Walker walker PT Evaluation-Current Subjective Patient in bed pre tx, agrees to PT, has no complaints of pain but has had a BM in the bed, nurse is here to assist. Patient would like to try to get into a recliner. Pt/Family Goals none stated Objective Patient Orientation: Normal For Age Attachments: Oxygen, IV ROM/Strength ROM Lower Extremities WNL Strength Lower Extremities 4/5 gross BLE Integumentary/Posture Bladder Incontinence: Yes Sensory Vision: Wears Glasses Hearing: Functional Sensation Right Lower Extremit: Intact Sensation Left Lower Extremity: Intact Transfers Roll Left to Right (QC): 4 Sit to Lying (QC): 4 Lying to Sitting/Side of Bed(Q: 4 Sit to Stand (QC): 4 Chair/Kyq-or-Mfgka Xfer(QC): 4 CGA, slow but steady Gait Does the Patient Walk?: Yes Mode of Locomotion: Walk Anticipated Mode of Locomotion: Walk Distance: 4' Gait Assistive Device: FWW Comments/Gait Description Patient ambulated just a few feet to the recliner after getting cleaned by the nurse and states that she has to have another BM, nurse gets the bedside commode and she sits on it. Nurse states she can get it from there. Balance Sitting Static: Normal Sitting Dynamic: Normal Standing Static: Good Standing Dynamic: Fair Assessment/Needs Patient has impaired mobility, strength, endurance. Patient on commode post tx with nurse in the room. Rehab Potential: Fair PT Correction Goals Nursing Associate Goals PT Correction Goals Time Frame: Jan 08, 2019 Sit to Lying (QC): 4 Lying-Sitting on Side/Bed(QC): 4 Sit to Stand (QC): 4 Roll Left to Right (QC): 4 Chair/Jhq-hq-Fmdwz Xfer(QC): 4 Distance: 50' Walk 10 feet (QC): 4 Walk 50ft with 2 Turns (QC): 4 Gait Level of Assist: 5 Gait Assistive Device: FWW PT Plan Problem List Problem List: Activity Tolerance, Functional Strength, Safety, Balance, Gait, Transfer, Bed Mobility Treatment/Plan Treatment Plan: Continue Plan of Care Treatment Plan: Bed Mobility, Education, Functional Activity Rahel, Functional Strength, Gait, Safety, Therapeutic Exercise, Transfers Treatment Duration: Jan 01, 2019 Frequency: 6 times per week Estimated Hrs Per Day: .25 hour per day Patient and/or Family Agrees t: Yes Safety Risks/Education Patient Education: Gait Training, Transfer Techniques, Correct Positioning, Safety Issues Teaching Recipient: Patient Teaching Methods: Demonstration, Discussion Response to Teaching: Reinforcement Needed Discharge Recommendations Plan Patient will perform bed mobility and transfer training, balance and endurance training, functional strengthening, stair training, gait training, and education, to improve functional mobility and independence at home. Therapy Discharge Recommendati: Other, See Comments (home with family) Time/GCodes Time In: 0948 Time Out: 1006 Total Billed Treatment Time: 19 Total Billed Treatment 1 visit VALERIA 19' BRIELLE WILCOX PT Dec 29, 2018 10:17
[2018-12-29] MEDS ORDERED: MORP20SO PO (10:25)
[2018-12-29] MEDS ORDERED: LORA2ORA PO (10:25)
--- NOTE | 2018-12-29 10:30 | NUR ---
PALLIATIVE CARE RN checked on patient again. She appears to be still having grunting but this is during a recovery phase of respiration post apneic period. Apneic period lasting 30 seconds. and the recovery period with 10 breaths also 30 seconds. Again given PRN demand dose of Fentanyl. A little course sounding , ma need atropine or scopolamine if not already on patient. Addendum: 12/29/18 at 1057 by OCTAVIO PETERSEN RN DISREGARD NOTE: WRONG PATIENt
--- NOTE | 2018-12-29 11:00 | NUR ---
Palliative Care RN had received a call from patient's bedside RN, Florence, with concerns that the patient vitals are not good, as well as her being pale and weak. I spoke to the patient's family regarding their concerns of the previously discussed discharge POC as per patient wishes to go home with hospice. They have some trepidation about their ability to care for her in a declining state of health. Concerns are valid and voiced by myself in a previous discussion and also voiced by Dr. Moscoso when she was made aware of the plan. I spoke to the patient and she is in agreement for CCMO only in the hospital and is aware that she may not make it out of the the hospital. Nurse will get CCMO orders and she will transition to the 4th floor.
--- NOTE | 2018-12-29 11:05 | NUR ---
Pastoral care visit w/pts and pts david in the [facility], offered support and encouragement. I also observed that pt was awake in room and went in and had visit with her.
--- NOTE | 2018-12-29 11:49 | Progress Note - Hospitalist ---
YRIS VARGAS MED STUDENT 12/29/18 1149: Subjective HPI/CC On Admission Date Seen by Provider: Dec 29, 2018 Time Seen by Provider: 08:00 Chief complaint: New onset atrial fibrillation with rapid ventricular response History of present illness: This is a 68-year-old white female clinic patient of Dr. Moscoso at [facility] who has a past medical history of severe hypertension and COPD with smoking cessation just last year and noncompliance with CPAP who presented to the ER after found down at home when she arrived to the ER found to have a new onset atrial fibrillation with rapid ventricular response but having significant hypotension from Cardizem initiation requiring 3 episodes of electrical cardioversion and placed on amiodarone drip and consulted cardiology. She currently is doing a lot better she is in normal sinus rhythm but she does appear to have some shortness of breath at baseline but she is s itting in a chair. Her lives with her. She stopped smoking after 50 years just last year. Subjective/Events-last exam Before I saw Ms. Quinn this morning, she had continued to be tachycardic, hypotensive, and anemic, although her anemia had improved. She had a blood transfusion, receiving four units of blood. Her lactic acid and potassium levels had improved to normal as well. When I saw her she was alert and oriented, and conversational. She expressed her aggravation at being in the hospital for so long and not knowing what exactly was going on with her. She also expressed her desire to go home, regardless of the consequences this would have on her health. She denied having any palpitations, CP, or SOB. Since I saw her a CXR showed no R basilar infiltrate. She also expressed desire to go home with hospice care. However, she has experienced worsening hypertension, and has needed to stay in the ICU, has been placed on comfort care. Review of Systems General: No Chills HEENT: No Head Aches, No Sinus Congestion Pulmonary: No Dyspnea; Cough Cardiovascular: Edema (improved); No: Chest Pain, Palpitations Gastrointestinal: No: Nausea, Vomiting, Abdominal Pain Neurological: No: Weakness, Numbness Focused Exam Lactate Level 12/28/18 05:28: Lactic Acid Level 2.17*H 12/28/18 09:20: Lactic Acid Level 1.87 12/28/18 21:30: Lactic Acid Level 1.23 Time of Focused Exam: 16:02 Objective Exam Vital Signs Vital Signs Date Time Temp Pulse Resp B/P (MAP) Pulse Ox O2 Delivery O2 Flow Rate FiO2 12/29/18 12:00 36.0 12/29/18 12:00 Room Air 12/29/18 11:00 50 12/29/18 09:00 22 92 12/29/18 08:15 3.00 12/26/18 09:47 32 Capillary Refill : Less Than 3 SecondsLess Than 3 Seconds General Appearance: Mild Distress, Obese Respiratory: Lungs Clear, Normal Breath Sounds Cardiovascular: Regular Rate, Rhythm, No Edema, No Murmur Extremity: Non Tender, No Calf Tenderness, Pedal Edema (mild) Neurologic/Psychiatric: Alert, Oriented x3, Normal Mood/Affect Skin: Warm/Dry Results/Procedures Lab Laboratory Tests 12/28/18 14:00 12/28/18 21:30 12/29/18 00:05 12/29/18 03:50 12/29/18 06:15 Patient resulted labs reviewed. Assessment/Plan Assessment and Plan Assess & Plan/Chief Complaint Assessment: sepsis risk RUQ hematoma Anemia secondary to hematoma s/p Cariogenic shock New onset atrial fibrillation with rapid ventricular response x 2 Hypertension following Cardizem initiation in the ER requiring electrical cardioversion 3 Ventral hernia Severe hypertension history ROJELIO COPD Long-term smoker just quit last year Plan: Start comfort care Prepare for hospice care Monitor hematoma, anemia Monitor tachypnea Monitor blood pressure Monitor heart rate, rhythm Clinical Quality Measures DVT/VTE Risk/Contraindication: Risk Factor Score Per Nursin RFS Level Per Nursing on Admit: 4+=Very High SHILPA JOSHI DO 12/29/181923: Subjective Subjective/Events-last exam After extensive conversation she wants to go home on hospice and prepare for We were trying to make that happen but pt has such severe hypotension that we will be unable to safely return her home at this point Will initiate comfort care protocol DNR Pt just wants everything to end and she seems to be very aware of the process and is open to it and understands it Review of Systems General: Fatigue Objective Exam General Appearance: WD/WN, Chronically ill, Mild Distress Respiratory: Crackles, Decreased Breath Sounds Assessment/Plan Assessment and Plan Assess & Plan/Chief Complaint End of life care Diagnosis/Problems Diagnosis/Problems (1) End of life care Status: Acute (2) Cardiogenic shock Status: Acute (3) Septic shock Status: Acute (4) Syncope Status: Acute Qualifiers: Qualified Codes: R55 - Syncope and collapse (5) UTI (urinary tract infection) Status: Acute Qualifiers: Qualified Codes: N30.00 - Acute cystitis without hematuria (6) Atrial fibrillation with rapid ventricular response Status: Acute (7) Atrial fibrillation status post cardioversion Status: Acute (8) COPD (chronic obstructive pulmonary disease) Status: Chronic (9) Debility Status: Acute (10) Hypertension Status: Chronic Qualifiers: Qualified Codes: I10 - Essential (primary) hypertension (11) DVT prophylaxis Status: Acute Supervisory-Addendum Brief Verification & Attestation Participated in pt care: history, MDM, physical Personally performed: exam, history, MDM, supervision of care Care discussed with: Medical Student Procedures: n/a Results interpretation: Verified all documentation Verification and Attestation of Medical Student E/M Service A medical student performed and documented this service in my presence. I reviewed and verified all information documented by the medical student and made modifications to such information, when appropriate. I personally performed the physical exam and medical decision making. Shilpa Joshi, Dec 29, 2018,19:24 YRIS VARGAS MED STUDENT Dec 29, 2018 11:49 SHILPA JOSHI DO Dec 29, 2018 19:24
[2018-12-29] MEDS ORDERED: RT-ALBUTEROL/IPRATROPIUM 3 ML (DUONEB) VIAL INH PRN (12:00)
[2018-12-29] MEDS ORDERED: BISACODYL 10 MG SUPP (DULCOLAX) PR PRN (12:00)
[2018-12-29] MEDS ORDERED: ONDANSETRON 4 MG/2 ML (SDV) Z0FRAN IVP PRN (12:00)
[2018-12-29] MEDS ORDERED: PROMETHAZINE INJ 25 MG/ML (PHENERGAN) AMP IVP PRN (12:00)
[2018-12-29] MEDS ORDERED: GLYCOPYRROLATE 0.2 MG/ML (ROBINUL) 2 ML VIAL IV PRN (12:00)
[2018-12-29] MEDS ORDERED: ARTIFICAL TEARS 0.4 ML UNIT DOSE (REFRESH PLUS) OU PRN (12:00)
[2018-12-29] MEDS ORDERED: ACETAMINOPHEN 650 MG SUPP (TYLENOL) PR PRN (12:00)
[2018-12-29] MEDS ORDERED: ATROPINE 1% OPHTHALMIC SOLN 2 ML SL PRN (12:00)
[2018-12-29] MEDS ORDERED: SCOPOLAMINE 1.5 MG (TRANSDERM-SCOP) PATCH TOP SCH (12:00)
[2018-12-29] MEDS ORDERED: SALIVA STIMULANT MOUTH SPRAY (BIOTENE) 1.5 OZ MM PRN (12:00)
--- NOTE | 2018-12-29 12:04 | NUR ---
1105 DR JOSHI NOTIFIED OF PT'S DECREASED BLOOD PRESSURE, ORDERS RECEIVED TO START COMFORT CARE ORDERS. [facility] NURSE NOTIFIED.
--- NOTE | 2018-12-29 13:29 | NUR ---
Assumed care of pt at this time. Transferred to room 403. Report received from BERNARDA Henriquez.
--- NOTE | 2018-12-29 13:29 | NUR ---
PT TO ROOM 403 VIA BED, REPORT GIVEN TO AINSLEY MENCHACA. ALL PERSONAL BELONGINGS SENT WITH PT.
--- NOTE | 2018-12-29 15:09 | Progress Note - Surgery ---
[facility] 12/29/18 1509: Subjective Date Seen by a Provider: Dec 29, 2018 Time Seen by a Provider: 07:15 Subjective/Events-last exam Patient was tired and answered 2 questions before falling back asleep. Stated that she would like to go home. WBC is 15.4, Hgb is 8.0, Chest x-ray showed right middle and lower lobe infiltrate. Urine output decreased to 0.66 ml/kg/hr. Focused Exam Lactate Level 12/28/18 05:28: Lactic Acid Level 2.17*H 12/28/18 09:20: Lactic Acid Level 1.87 12/28/18 21:30: Lactic Acid Level 1.23 Time of Focused Exam: 16:02 Objective Exam Vital Signs Date Time Temp Pulse Resp B/P (MAP) Pulse Ox O2 Delivery O2 Flow Rate FiO2 12/29/18 12:00 36.0 12/29/18 12:00 Room Air 12/29/18 11:00 50 93/51 (65) Room Air 12/29/18 10:44 12/29/18 10:00 Room Air 12/29/18 09:00 134 22 102/58 (73) 92 Room Air 12/29/18 08:15 High Flow N/C 3.00 12/29/18 08:00 138 23 101/67 (78) 94 Room Air 12/29/18 07:42 Room Air 12/29/18 07:37 100 High Flow N/C 3.00 12/29/18 07:04 111 12/29/18 07:00 129 36 109/69 (82) 89 Nasal Cannula 2.00 12/29/18 06:15 121 17 108/61 (77) 99 Nasal Cannula 2.00 12/29/18 06:00 123 25 88/60 (69) 97 Nasal Cannula 2.00 12/29/18 05:00 92 19 98/56 (70) 100 Nasal Cannula 2.00 12/29/18 04:00 130 29 101/66 (78) Nasal Cannula 2.00 12/29/18 03:33 36.2 128 18 100/59 100 Nasal Cannula 3.00 12/29/18 03:00 109 14 92/63 (73) 100 Nasal Cannula 2.00 12/29/18 02:14 113 21 96/53 (67) 100 Nasal Cannula 2.00 12/29/18 02:01 134 16 85/57 (66) 100 Nasal Cannula 2.00 12/29/18 01:52 36.2 130 14 98/50 99 Nasal Cannula 3.00 12/29/18 01:35 36.2 129 20 83/47 100 Nasal Cannula 2.00 12/29/18 01:00 131 12/29/18 01:00 131 21 110/56 (74) 100 Nasal Cannula 2.00 12/29/18 00:00 133 21 101/84 (90) 97 Nasal Cannula 2.00 12/28/18 23:00 128 21 94/45 (61) 90 Nasal Cannula 2.00 12/28/18 22:00 141 91/54 (66) 100 Nasal Cannula 2.00 12/28/18 21:00 160 32 103/59 (74) 100 Nasal Cannula 2.00 12/28/18 20:49 37.0 151 18 100/59 100 Nasal Cannula 3.00 12/28/18 20:15 154 21 96/52 (67) 94 Nasal Cannula 2.00 12/28/18 20:12 161 21 89/57 (68) 93 Nasal Cannula 2.00 12/28/18 20:00 High Flow N/C 3.00 12/28/18 19:42 36.5 12/28/18 19:39 36.6 93 22 121/80 (94) 99 Nasal Cannula 2.00 12/28/18 19:00 37.6 91 16 112/40 98 Nasal Cannula 3.00 12/28/18 19:00 92 12/28/18 19:00 92 25 118/44 (68) 100 Nasal Cannula 2.00 12/28/18 18:46 37.6 91 28 116/37 99 Nasal Cannula 3.00 12/28/18 18:00 37.7 91 23 102/46 95 Nasal Cannula 3.00 12/28/18 18:00 92 28 101/75 (84) 100 Nasal Cannula 2.00 12/28/18 17:00 90 20 125/41 (69) 96 Nasal Cannula 2.00 12/28/18 16:01 36.3 91 18 110/43 100 Nasal Cannula 5.00 12/28/18 16:00 90 18 109/38 (61) 99 Nasal Cannula 2.00 12/28/18 15:49 36.2 12/28/18 15:46 36.2 92 14 110/38 97 Nasal Cannula 5.00 I & O 12/29/18 07:00 Intake Total 3825 ml Output Total 2250 ml Balance 1575 ml Capillary Refill : Less Than 3 SecondsLess Than 3 Seconds General Appearance: Obese, Other (Fatigue) Respiratory: Lungs Clear, Normal Breath Sounds Cardiovascular: Regular Rate, Rhythm, No Gallop, No Murmur Gastrointestinal: soft, tenderness (RUQ, Epigastric tenderness. ventral hernia incarcerated) Extremity: Non Tender, No Calf Tenderness Neurologic/Psychiatric: Alert, Other (Decreased mood and affect) Skin: Warm/Dry Lymphatic: No Adenopathy Results Lab Laboratory Tests 12/28/18 16:38: Glucometer 180H 12/28/18 17:50: Vancomycin Level Trough 19.1 12/28/18 21:30: Hemoglobin 8.5#L, Sodium Level 140, Potassium Level 4.2, Chloride Level 103, Carbon Dioxide Level 32, Anion Gap 5, Blood Urea Nitrogen 25H, Creatinine 0.74, Estimat Glomerular Filtration Rate > 60, BUN/Creatinine Ratio 34, Glucose Level 151H, Lactic Acid Level 1.23, Calcium Level 7.1L, Magnesium Level 2.3, Albumin 2.2L 12/29/18 00:05: Hemoglobin 7.7L, Hematocrit 24L 12/29/18 03:50: White Blood Count 15.4H, Red Blood Count 2.68L, Hemoglobin 8.0L, Hematocrit 25L, Mean Corpuscular Volume 93, Mean Corpuscular Hemoglobin 30, Mean Corpuscular Hemoglobin Concent 32, Red Cell Distribution Width 18.8H, Platelet Count 148, Mean Platelet Volume 9.1, Neutrophils (%) (Auto) 83H, Lymphocytes (%) (Auto) 10L , Monocytes (%) (Auto) 7, Eosinophils (%) (Auto) 1, Basophils (%) (Auto) 0, Neutrophils # (Auto) 12.7H, Lymphocytes # (Auto) 1.5, Monocytes # (Auto) 1.0, Eosinophils # (Auto) 0.2, Basophils # (Auto) 0.0, Prothrombin Time 17.9H, INR Comment 1.4, Activated Partial Thromboplast Time 26, Sodium Level 142, Potassium Level 3.8, Chloride Level 104, Carbon Dioxide Level 32, Anion Gap 6, Blood Urea Nitrogen 21H, Creatinine 0.70, Estimat Glomerular Filtration Rate > 60, BUN/Creatinine Ratio 30, Glucose Level 159H, Calcium Level 7.1L, Phosphorus Level 2.6, Magnesium Level 2.2 12/29/18 06:15: Hemoglobin 8.2L, Hematocrit 25L 12/29/18 12:28: Lab Scanned Report Transfusion Reaction Form Microbiology 12/27/18 Blood Culture, Unverified Pending 12/17/18 MRSA Screen - Final, Complete MRSA not isolated 12/17/18 Urine Culture - Final, Complete 3 or more isolates Assessment/Plan Assessment/Plan Assessment/Plan abdominal wall hematoma Right middle and lower lobe infiltrate Ventral hernia COntinue hold on Eliquis Was put on comfort care later in the evening abdominal wall hematoma anemia to hematoma ventral hernia incarcerated leukocytosis transfusing prbc eliquis on hold medical management, no surgical intervention at this time central line left groin Clinical Quality Measures DVT/VTE Risk/Contraindication: Risk Factor Score Per Nursin RFS Level Per Nursing on Admit: 4+=Very High HILARIO LOVE DO 12/29/18 2300: Subjective Subjective/Events-last exam Patient wanting to go home. She is not sure if she is wanting any further care. Patient is alert and oriented and understands possible outcomes. She required transfusion. Still with pain in the right upper abdomen and having significant bruising right side of body. Patient not sure if she wants to continue with way she is feeling. Objective Exam General Appearance: Obese, Other (Fatigue) Respiratory: Chest Non Tender, No Accessory Muscle Use, No Respiratory Distress Cardiovascular: Regular Rate, Rhythm Gastrointestinal: tenderness (RUQ, Epigastric tenderness. ventral hernia incarcerated no significant tenderness) Extremity: Non Tender, No Calf Tenderness Neurologic/Psychiatric: Alert, Oriented x3 Skin: Warm/Dry Lymphatic: No Adenopathy Assessment/Plan Assessment/Plan Assessment/Plan abdominal wall hematoma anemia to hematoma requiring transfusion ventral hernia incarcerated leukocytosis right lobe infiltrate patient not wanting further care, considering hospice all she is wanting to do is go home and she understands with out further care what that would mean patient is alert and oriented and demonstrates complete understanding Supervisory-Addendum Brief Verification & Attestation Participated in pt care: history, MDM, physical Personally performed: exam, history, MDM, supervision of care Care discussed with: Medical Student Procedures: n/a Results interpretation: Verified all documentation Verification and Attestation of Medical Student E/M Service A medical student performed and documented this service in my presence. I reviewed and verified all information documented by the medical student and made modifications to such information, when appropriate. I personally performed the physical exam and medical decision making. Hilario Love, Dec 29, 2018,23:00 IVORY AKINS Dec 29, 2018 15:09 HILARIO LOVE DO Dec 29, 2018 23:00
[2018-12-29] MEDS ORDERED: TROUGH ORDER-PHARMACY XX NR (17:00)
[2018-12-29] MEDS: morphine INJ 4 MG/ML 1 ML (VIAL/SYRINGE) IV PRN (17:54)
[2018-12-29] MEDS ORDERED: VANCOMYCIN 1500 MG/NS 500 ML IVPB IV SCH ×2 (18:00)
[2018-12-29] MEDS: LORazepam INJ 2 MG/ML (ATIVAN) VIAL IVP PRN (21:59)
[2018-12-30] MEDS: LORazepam INJ 2 MG/ML (ATIVAN) VIAL IVP PRN ×2 (04:20→10:27)
[2018-12-30] MEDS: morphine INJ 4 MG/ML 1 ML (VIAL/SYRINGE) IV PRN ×3 (05:34→16:35)
[2018-12-30] MEDS: MICONAZOLE 2% POWDER (DESENEX AF) 90 GM TOP SCH (09:03)
[2018-12-30] MEDS: BENZONATATE 100 MG (TESSALON) CAPSULE PO SCH ×2 (09:33→13:09)
--- NOTE | 2018-12-30 09:38 | NUR ---
PALLIATIVE CARE RN has been in to see patient. She was being repositioned and was uncomfortable during this care...enough to verbalize with ayla justin. Once care was complete this RN could not get a response out patient using tactile and verbal stimulation. She is having fast but shallow respirations in the 34 BPM range. This along with the recent repositions has caused her to be uncomfortable. Educated the RN on recognizing discomfort in an unresponsive patient. SHe will give her PRN medication. I also discussed with the family S/S of pain/discomfort. I encouraged them to request pain medication as it is not ordered on a schedule. They verbalized understanding. Will continue to monitor for changes. Also of note were changed in her ears, noting that they are losing their plumpness..which indicates a decline in her status with expectation of passing within 24 to 36 hours.
--- NOTE | 2018-12-30 09:42 | Cardiology Progress Note ---
Cardiology SOAP Progress Note Subjective: Noncommunicative Objective: I&O/Vital Signs 12/30/18 00:00 Intake Total 0 ml Output Total 175 ml Balance -175 ml Weight (Pounds): 243 Weight (Ounces): 0.0 Weight (Calculated Kilograms): [id number] Constitutional: appears stated age; No apparent distress; well-developed, well- nourished Respiratory: chest is bilaterally symmetric, lungs clear to auscultation Cardiovascular: regular rate-rhythm; No extra beats, No parasternal heave is noted, No JVD, No edema, No bradycardia, No point of maximal impulse, No cardiac thrills are palpable; S1 and S2; No gallop/S3, No gallop/S4, No diastolic murmur, No systolic murmur, No friction rub, No click, No other Gastrointestional: soft, round, audible bowel sounds; No spleenomegaly Extremities: normal range of motion, non-tender, normal inspection; No clubbing, No cyanosis; no lower extremity edema bilateral; No significant edema Neurologic/Psychiatric: no motor/sensory deficits, alert, normal mood/affect, oriented x 3, power is 5/5 both on sides Skin: mottled (to legs), pallor Results/Procedures: Labs Laboratory Tests 12/29/18 12:28: Lab Scanned Report Transfusion Reaction Form Microbiology 12/27/18 Blood Culture, Unverified Pending 12/17/18 MRSA Screen - Final, Complete MRSA not isolated 12/17/18 Urine Culture - Final, Complete 3 or more isolates A/P: Assessment/Dx: Mechanical fall,? Syncope, History of COPD, Atrial fibrillation with rapid ventricular rate Hyperkalemia, Blood loss anemia, significant abdominal bleeding, Rhabdomyolysis, Elevated LFTs, Elevated BNP Positive D dimer Plan: Patient decided yesterday for comfort care. He was started on morphine drip. I spoke to the family this morning and they agreed with her decision. She is not responsive likely due to morphine. Previously during this hospital course she had atrial fibrillation with rapid ve ntricular rate requiring transesophageal echocardiogram assisted cardioversion. Subsequently Eliquis had to held due to abdominal bleeding and anemia. The patient also had significant leukocytosis and hyperkalemia which was treated medically. Thank you for your consultation. Please call me if you have any questions. Gil Woods MD, FACP, FACC, FSCAI, FHRS, CCDS Interventional Cardiology Cardiac Electrophysiology Vascular Medicine and Endovascular Interventions Focused Exam Lactate Level 12/28/18 05:28: Lactic Acid Level 2.17*H 12/28/18 09:20: Lactic Acid Level 1.87 12/28/18 21:30: Lactic Acid Level 1.23 Time of Focused Exam: 16:02 Clinical Quality Measures Type of Care: Type of Care: Comfort Measures Galdino WOODS MD Dec 30, 2018 09:42
--- NOTE | 2018-12-30 09:58 | Physical Therapy Progress Note ---
Therapy Progress Note Patient on comfort care and unresponsive at this time. Will DC from PT services at this time. BRIELLE WILCOX PT Dec 30, 2018 09:58
--- NOTE | 2018-12-30 10:31 | NUR ---
PALLIATIVE CARE RN in to check on patient to see if she had any change in her RR p the PRN Morphine. There is no change in the assessment from earlier, she is still breathing around 30+ BPM and moaning/grunting with expiration. Nursing will give PRN dose of Ativan. This RN removed oxygen from patient, with the family saying "she would never wear it anyway". Family report having no needs at this time with courtesy cart offered. Will continue to monitor for needs.
--- NOTE | 2018-12-30 11:00 | Progress Note - Hospitalist ---
YRIS VARGAS MED STUDENT 12/30/18 1100: Subjective HPI/CC On Admission Date Seen by Provider: Dec 30, 2018 Time Seen by Provider: 08:00 Chief complaint: New onset atrial fibrillation with rapid ventricular response History of present illness: This is a 68-year-old white female clinic patient of Dr. Moscoso at [facility] who has a past medical history of severe hypertension and COPD with smoking cessation just last year and noncompliance with CPAP who presented to the ER after found down at home when she arrived to the ER found to have a new onset atrial fibrillation with rapid ventricular response but having significant hypotension from Cardizem initiation requiring 3 episodes of electrical cardioversion and placed on amiodarone drip and consulted cardiology. She currently is doing a lot better she is in normal sinus rhythm but she does appear to have some shortness of breath at baseline but she is sitting in a chair. Her lives with her. She stopped smoking after 50 years just last year. Subjective/Events-last exam * Yesterday Ms. Quinn decided to go on palliative care, she is on a morphine drip. * Asleep when seen, I was not able to wake her, and therefore was unable to do a complete review of symptoms. * Her family reports she had woken up briefly during the night, and was not able to communicate effectively. * Snoring loudly, has ROJELIO and does not wear CPAP. * She previously expressed her wishes to go home, and her family is interested in evaluating whether her comfort care can be adequately provided outside the hospital. Focused Exam Lactate Level 12/28/18 05:28: Lactic Acid Level 2.17*H 12/28/18 09:20: Lactic Acid Level 1.87 12/28/18 21:30: Lactic Acid Level 1.23 Time of Focused Exam: 16:02 Objective Exam Vital Signs Vital Signs Date Time Temp Pulse Resp B/P (MAP) Pulse Ox O2 Delivery O2 Flow Rate FiO2 12/30/18 09:15 High Flow N/C 3.00 12/29/18 20:14 37.1 12/29/18 15:00 145/82 (103) 12/29/18 11:00 50 12/29/18 09:00 22 92 12/26/18 09:47 32 Capillary Refill : Less Than 3 SecondsLess Than 3 Seconds General Appearance: Chronically ill, Obese, Other (cannot be woken from sleep) Respiratory: Lungs Clear, No Respiratory Distress Cardiovascular: Regular Rate, Rhythm, No Gallop, No Murmur, Normal Peripheral Pulses Extremity: Pedal Edema Neurologic/Psychiatric: No Alert, No Oriented x3 Results/Procedures Lab Patient resulted labs reviewed. Assessment/Plan Assessment and Plan Assess & Plan/Chief Complaint Assessment: 1. sepsis risk 2. RUQ hematoma 3. Anemia secondary to hematoma 4. s/p Cariogenic shock 5. New onset atrial fibrillation with rapid ventricular response x 2 6. Ventral hernia 7. Severe hypertension history 8. ROJELIO 9. COPD Plan: 1. Continue comfort care 2. Evaluate for home comfort care Clinical Quality Measures DVT/VTE Risk/Contraindication: Risk Factor Score Per Nursin RFS Level Per Nursing on Admit: 4+=Very High SHILPA JOSHI DO 12/30/181957: Subjective Subjective/Events-last exam Comfort care protocol maintained. Patient now comatose. Family at the bedside tried to wake her up but she is not waking up anymore. Palliative care nurse will see her today and decide where exactly she needs to be at the final stages of her life. Supervisory-Addendum Brief Verification & Attestation Participated in pt care: history, MDM, physical Personally performed: exam, history, MDM, supervision of care Care discussed with: Medical Student Procedures: n/a Results interpretation: Verified all documentation Verification and Attestation of Medical Student E/M Service A medical student performed and documented this service in my presence. I reviewed and verified all information documented by the medical student and made modifications to such information, when appropriate. I personally performed the physical exam and medical decision making. Shilpa Joshi, Dec 30, 2018,19:58 YRIS VARGAS MED STUDENT Dec 30, 2018 11:00 SHILPA JOSHI DO Dec 30, 2018 19:58
--- NOTE | 2018-12-30 14:28 | NUR ---
Palliative Care RN in to check on patient. She appears to be more comfortable...without the moaning/grunting with respiration. SHe is still however breathing >30 BPM..which would still indicate possible discomfort. She is not responding still to verbal or tactile cues with the only response being with movement. Will continue to follow and off support as needed. Family have no needs.
--- NOTE | 2018-12-30 15:50 | NUR ---
Lengthy visit with family at pts bedside, discussed pt, roseann and family, had prayer, family coping well. Addendum: 12/30/18 at 1553 by TITI THOMAS PAST Also requested comfort cart for family.
--- NOTE | 2018-12-30 15:50 | NUR ---
PALLIATIVE CARE RN in to check on patient. Noted respirations are 44 without grunting/moaning. I have asked for RN to give PRN Morphine for discomfort and if RR is not less that 30 to give Ativan. Patient is transitioning, with mottling noted to her groin. Hands are cyanotic and her ears are thinning as well. Will continue to monitor for comfort. Even thoughs he is not responsive we still need to give comfort medication if RR is >30.
--- NOTE | 2018-12-30 16:00 | NUR ---
PALLIATIVE CARE RN has added the [facility] intervention as well at the Documentation of intervention. I attempted to start a referral with [facility], but due to not having a cardiac as of yet they would not start the process.
--- NOTE | 2018-12-30 20:04 | Discharge Summary ---
Discharge Summary Hospital Course Was the Problem List Reviewed?: Yes Problems/Dx: (1) End of life care Status: Acute (2) Cardiogenic shock Status: Acute (3) Septic shock Status: Acute (4) Syncope Status: Acute Qualifiers: Qualified Codes: R55 - Syncope and collapse (5) UTI (urinary tract infection) Status: Acute Qualifiers: Qualified Codes: N30.00 - Acute cystitis without hematuria (6) Atrial fibrillation with rapid ventricular response Status: Acute (7) Atrial fibrillation status post cardioversion Status: Acute (8) COPD (chronic obstructive pulmonary disease) Status: Chronic (9) Debility Status: Acute (10) Hypertension Status: Chronic Qualifiers: Qualified Codes: I10 - Essential (primary) hypertension (11) DVT prophylaxis Status: Acute Hospital Course Date of Admission: Dec 17, 2018 at 20:50 Admission Diagnosis : Family Physician/Provider: Susan Moscoso MD Date of Discharge: 12/30/18 Discharge Diagnosis: pulmonary edema, CHF, CAD. AF. COPD, Hematoma, severe anemia Hospital Course: Hospital course: Patient had an extensive hospital course for approximately 12 days after she was admitted in cardiogenic shock and septic shock with new onset atrial fibrillation requiring cardiology and pulmonary consultation and BiPAP noninvasive ventilator support. She improved dramatically was able to be transferred down to fourth floor but then required another ICU admission for new onset and recurrent atrial fibrillation with rapid ventricular response placed on appropriate medication and once again transferred down to fourth floor started having severe abdominal pain Dr. Love was consulted CT scan showed hematoma which was conservatively managed since all anticoagulation and antiplatelet agents were required due to the extensive cardiac issues she was having. She continued to have issues requiring ICU transfer septic protocol initiated but lactic acid elevation ended up being due to severe volume depletion from internal hemorrhage so she was managed aggressively but decided to transition to comfort care protocol was sent down to fourth floor and peacefully with the family at the bedside. Labs and Pending Lab Test: Microbiology 12/27/18 Blood Culture, Unverified Pending 12/17/18 MRSA Screen - Final, Complete MRSA not isolated 12/17/18 Urine Culture - Final, Complete 3 or more isolates Home Meds Active Lorazepam Intensol (Lorazepam) 2 Mg/1 Ml Oral.conc 1 Mg PO Q2H PRN Morphine Sulfate 20 Mg/5 Ml Solution 20 Mg PO Q3HR 7 Days Metoprolol Tartrate 50 Mg Tablet 50 Mg PO BID Reported Nystatin 15 Gm Powder 1 Applic TD BID USE FOR RASH Fluconazole 100 Mg Tablet 100 Mg PO DAILY PICKED UP A 10 DAY SUPPLY ON 12-16-2018 Imodium A-D (Loperamide HCl) 2 Mg Capsule 2 Mg PO PRN PRN Dulcolax (Bisacodyl) 5 Mg Tablet.dr 5 Mg PO Q8H PRN Ibuprofen 200 Mg Tablet 600 Mg PO Q6H PRN Benadryl (Diphenhydramine HCl) 25 Mg Capsule 25 Mg PO DAILY PRN Iprat-Albut 0.5-3(2.5) mg/3 ml (Ipratropium/Albuterol Sulfate) 3 Ml Ampul.neb 1 Vial NEB TID Aspirin EC (Aspirin) 81 Mg Tablet.dr 81 Mg PO DAILY Carbidopa-Levodopa 25-100 Tab (Carbidopa/Levodopa) 1 Each Tablet 1 Each PO TID Mirapex (Pramipexole Di-HCl) 1.5 Mg Tablet 1.5 Mg PO HS Requip (Ropinirole HCl) 5 Mg Tab 5 Mg PO HS Assessment/Pt Instructions Discharge Planning: <30 minutes discharge planning Discharge Physical Examination Vital Signs Vital Signs Date Time Temp Pulse Resp B/P (MAP) Pulse Ox O2 Delivery O2 Flow Rate FiO2 12/30/18 09:15 High Flow N/C 3.00 12/29/18 20:14 37.1 12/29/18 15:00 145/82 (103) 12/29/18 11:00 50 12/29/18 09:00 22 92 12/26/18 09:47 32 Allergies: Coded Allergies: Sulfa (Sulfonamide Antibiotics) (Verified Allergy, Unknown, 04/19/07) Discharge Summary Date of Admission Dec 17, 2018 at 20:50 Date of Discharge Discharge Date: Dec 29, 2018 Admission Diagnosis Assessment: New onset atrial fibrillation with rapid ventricular response Hypertension following Cardizem initiation in the ER requiring electrical cardioversion 3 Severe hypertension history Noncompliance with sleep apnea treatment COPD Long-term smoker just quit last year Plan: Monitor tachypnea Appreciate cardiology and pulmonology Monitor blood pressure Monitor closely Comfort Measures/ End of Life Care: Comfort Measures Discharge Diagnosis End of life care (1) End of life care Status: Acute (2) Cardiogenic shock Status: Acute (3) Septic shock Status: Acute (4) Syncope Status: Acute Qualifiers: Qualified Codes: R55 - Syncope and collapse (5) UTI (urinary tract infection) Status: Acute Qualifiers: Qualified Codes: N30.00 - Acute cystitis without hematuria (6) Atrial fibrillation with rapid ventricular response Status: Acute (7) Atrial fibrillation status post cardioversion Status: Acute (8) COPD (chronic obstructive pulmonary disease) Status: Chronic (9) Debility Status: Acute (10) Hypertension Status: Chronic Qualifiers: Qualified Codes: I10 - Essential (primary) hypertension (11) DVT prophylaxis Status: Acute Clinical Quality Measures DVT/VTE Risk/Contraindication: Risk Factor Score Per Nursin RFS Level Per Nursing on Admit: 4+=Very High KAITLIN JOSHI DO Dec 30, 2018 20:03
== END 2018-12-30 18:25 | disposition expired | DRG 871 ==
LOC: EDUNIT# 16:30 → ER 16:32 → ICU 20:50 → 4TH 12-19 09:27 → ICU 12-20 14:22 → CSD 12-23 18:00 → 4TH 12-24 00:17 → ICU 12-27 15:55 → 4TH 12-29 13:20
PROVIDERS: ADMIT Internal Medicine; ATTEND Internal Medicine
PROC: 5A2204Z Restoration of Cardiac Rhythm, Single (ICD-10-PCS; principal; 2018-12-17)
PROC: 5A2204Z Restoration of Cardiac Rhythm, Single (ICD-10-PCS; 2018-12-23)
PROC: 06HN33Z Insertion of Infusion Device into Left Femoral Vein, Percutaneous Approach (ICD-10-PCS; 2018-12-27)
DX: A41.9 Sepsis, unspecified organism (principal); R65.21 Severe sepsis with septic shock; N30.00 Acute cystitis without hematuria; I48.0 Paroxysmal atrial fibrillation; R57.0 Cardiogenic shock; M62.82 Rhabdomyolysis; Z68.42 Body mass index [BMI] 45.0-49.9, adult; Z66 Do not resuscitate; Z51.5 Encounter for palliative care; K43.6 Other and unspecified ventral hernia with obstruction, without gangrene; J43.9 Emphysema, unspecified; R55 Syncope and collapse; R60.0 Localized edema; G25.81 Restless legs syndrome; E66.9 Obesity, unspecified; G47.33 Obstructive sleep apnea (adult) (pediatric); I10 Essential (primary) hypertension; E87.6 Hypokalemia; Z87.891 Personal history of nicotine dependence; Z91.19 Patient's noncompliance with other medical treatment and regimen; E87.5 Hyperkalemia; Z91.81 History of falling; I08.1 Rheumatic disorders of both mitral and tricuspid valves; L30.9 Dermatitis, unspecified; D50.0 Iron deficiency anemia secondary to blood loss (chronic); Z87.442 Personal history of urinary calculi; S30.1XXA Contusion of abdominal wall, initial encounter; W19.XXXA Unspecified fall, initial encounter; D72.829 Elevated white blood cell count, unspecified; T38.0X5A Adverse effect of glucocorticoids and synthetic analogues, initial encounter
CPT/HCPCS: 36415; 51702; 71045; 71260; 74177; 80048; 80053; 80061; 80202; 81000; 82040; 82274; 82330; 82550; 82805; 82962; 83605; 83735; 83874; 83880; 84100; 84484; 85007; 85014; 85018; 85025; 85027; 85379; 85610; 85730; 86850; 86900; 86901; 86920; 87040; 87081; 87088; 92960; 93005; 93041; 93306; 93312; 93320; 93325; 94640; 94660; 94760; 96365; 96366; 96367; 96368; 96372; 96375; 99291; 99292